=== PATIENT | male | born 1930 | race Asian ===

== ENCOUNTER 2017-01-13 14:32 | Inpatient (IN) | payer MEDICARE, OTHER ==
[2017-01-13 15:20] LABS: % LYMPHOCYTES 10.7 % (20.0-50.0); % MONOCYTES 9.9 % (2.0-10.0); % NEUTROPHILS 73.4 % (40.0-80.0); HEMOGLOBIN 10.6 gm/dL (12-16); MEAN CELL VOLUME 91.2 fl (80-99); MEAN CORPUSCULAR HEMOGLOBIN 30.3 pg (27.0-31.0); MEAN CORPUSCULAR HGB CONC 33.2 pg (28.0-36.0); MEAN PLATELET VOLUME 8.2 fl; NEUTROPHILE ABSOLUTE 5.4 Th/cmm (1.8-8.0); PLATELET COUNT 262 Th/cmm (150-400); RED CELL DISTRIBUTION WIDTH 13.7 % (11.5-20.0); WHITE BLOOD COUNT 7.4 Th/cmm (4.8-10.8)
[2017-01-13 15:40] LABS: ACETAMINOPHEN < 10.0 ug/mL (10.0-30.0); ALB/GLOB RATIO 1.3 (1.0-1.8); ALKALINE PHOSPHATASE 76 U/L (34-104); ANION GAP 7.4 (7.0-16.0); BILIRUBIN,TOTAL 0.6 mg/dL (0.3-1.0); BUN - UREA NITROGEN 30 mg/dL (7-25); CARBON DIOXIDE 29.1 mEq/L (21.0-31.0); CHLORIDE 103 mEq/L (98-107); CHOLESTEROL 124 mg/dL (<200); GLUCOSE 109 mg/dL (70-105); POTASSIUM SERUM 3.5 mEq/L (3.5-5.1); SGOT 26 U/L (13-39); SGPT/ALT 17 U/L (7-52); SODIUM SERUM 136 mEq/L (136-145); TRIGLYCERIDES 107 mg/dL (<150)
--- NOTE | 2017-01-13 15:40 | ED Physician Chart ---
ED Chief Complaint/HPI - Patient Information Date Seen:: 01/13/17 Time Seen:: 15:10 Chief Complaint:: Agitation History of Present Illness:: onset x 2 days of agitation and aggressive behavior; no SIs; no report of trauma , H/As, neck pain, C/P, SOB, Abd. Pain, A/N/V/D/C, fever, chills, or urinary s/s Allergies:: Allergies Allergy/AdvReac Type Severity Reaction Status Date / Time No Known Allergies Allergy Verified 01/13/17 15:07 Vitals:: Vital Signs - 8 hr 01/13/17 15:07 Temp 98.5 F HR 63 RR 17 BP 129/65 O2 Sat % 98 Historian:: Patient, EMS Review:: Nurse's Note Reviewed, EMS run form Reviewed, Transfer documents Reviewed ED Review of Systems - Review of Systems General/Constitutional: No fever, No chills, No weight loss, No weakness, No diaphoresis, No edema, No loss of appetite Skin: No skin lesions, No rash, No bruising Head: No headache, No light-headedness Eyes: No loss of vision, No pain, No diplopia ENT: No earache, No nasal drainage, No sore throat, No tinnitus Neck: No neck pain, No swelling, No thyromegaly, No stiffness, No mass noted Cardio Vascular: No chest pain, No palpitations, No PND, No orthopnea, No edema Pulmonary: No SOB, No cough, No sputum, No wheezing GI: No nausea, No vomiting, No diarrhea, No pain, No melena, No hematochezia, No constipation, No hematemesis G/U: No dysuria, No frequency, No hematuria Musculoskeletal: No bone or joint pain, No back pain, No muscle pain Endocrine: No polyuria, No polydipsia Psychiatric: Prior psych history, Depression, Anxiety, No suicidal ideation, No homicidal ideation, Auditory hallucination Hematopoietic: No bruising, No lymphadenopathy Allergic/Immuno: No urticaria, No angioedema Neurological: No syncope, No focal symptoms, No weakness, No paresthesia, No headache, No seizure, No dizziness, No confusion, No vertigo ED Past Medical History - Past Medical History Obtainable: Yes Past Medical History: Dementia Family History: HTN Social History: Non Smoker, No Alcohol, No Drug Use, Single, Care Facility Surgical History: None Psychiatricy History: Depression, Bipolar, Dementia Medication: Reviewed Family Medical History - Family Member Mother History Unknown: Yes ED Physical Exam - Physical Examination General/Constitutional: Awake, Well-developed, well-nourished, Alert, No distress, GCS 15, Non-toxic appearing, Ambulatory Head: Atraumatic Eyes: Lids, conjuctiva normal, PERRL, EOMI Skin: Nl inspection, No rash, No skin lesions, No ecchymosis, Well hydrated, No lymphadenopathy ENMT: External ears, nose nl, TM canals nl, Nasal exam nl, Lips, teeth, gums nl , Oropharynx nl, Tonsils nl Neck: Nontender, Full ROM w/o pain, No JVD, No nuchal rigidity, No bruit, No mass, No stridor Respiratory: Nl effort/Exclusion, Clear to Auscultation, No Wheeze/Rhonchi/Rales Cardio Vascular: RRR, No murmur, gallop, rubs, NL S1 S2, Carotid/Femoral/Distal pulses equal bilaterally GI: No tenderness/rebounding/guarding, No organomegaly, No hernia, Normal BS's, Nondistended, No mass/bruits, No McBurney tenderness : No CVA tenderness Extremities: No tenderness or effusion, Full ROM, normal strength in all extremities, No edema, Normal digits & nails Neuro/Psych: Alert/oriented, DTR's symmetric, Normal sensory exam, Normal motor strength, Normal gait, No focal deficits Other Neuro/Psych comments:: + Psychomotor Agitation; no SIs; Mood/Affect: Labile Misc: Normal back, No paraspinal tenderness ED Labs/Radiology/EKG Results - Lab Results Comments:: unremarkable ED Septic Shock - . Is Septic Shock (SBP<90, OR Lactate>4 mmol\L) present?: No - <6hrs of presentation: Vital Signs: Vital Signs - 8 hr 01/13/17 15:07 Temp 98.5 F HR 63 RR 17 BP 129/65 O2 Sat % 98 ED Reassessment (Disposition) - Reassessment Reassessment Condition:: Improved - Diagnosis Diagnosis:: Agitation; BiPolar Disorder; Manic-Depression; Medical Clearance - Aftercare/Follow up Instructions Aftercare/Follow-Up Instructions:: Counseled pt regarding lab results/diagnosis & need follow up, Counseled pt & family regarding lab results/diagnosis & need follow up - Patient Disposition Discharge/Transfer:: Acute Care w/in this hosp Accepting Physician:: Dr. Finch Admitted to:: [facility] Admitting Psych Physician:: Dr. Finch Condition at Disposition:: Stable, Improved ED Discharge Plan - Patient Disposition Instructions: Psychosis
[2017-01-13 17:41] VITALS: BP 139/64
[2017-01-14] MEDS ORDERED: Hydrocodone/APAP 5mg/325mg Tab PO PRN (12:11)
--- NOTE | 2017-01-14 12:20 | Internal Medicine Prog Note ---
Internal Medicine Subjective - Subjective Service Date: 01/14/17 ([id number] [facility] dictated) Internal Medicine Objective - Results Result Diagrams: 01/13/17 15:10 01/13/17 15:10 Recent Labs: Laboratory Last Values WBC 7.4 Th/cmm (4.8-10.8) 01/13/17 15:10 RBC 3.50 Mil/cmm (3.80-5.80) L 01/13/17 15:10 Hgb 10.6 gm/dL (12-16) L 01/13/17 15:10 Hct 32.0 % (41.0-60) L 01/13/17 15:10 MCV 91.2 fl (80-99) 01/13/17 15:10 MCH 30.3 pg (27.0-31.0) 01/13/17 15:10 MCHC Differential 33.2 pg (28.0-36.0) 01/13/17 15:10 RDW 13.7 % (11.5-20.0) 01/13/17 15:10 Plt Count 262 Th/cmm (150-400) 01/13/17 15:10 MPV 8.2 fl 01/13/17 15:10 Neutrophils % 73.4 % (40.0-80.0) 01/13/17 15:10 Lymphocytes % 10.7 % (20.0-50.0) L 01/13/17 15:10 Monocytes % 9.9 % (2.0-10.0) 01/13/17 15:10 Eosinophils % 5.0 % (0.0-5.0) 01/13/17 15:10 Basophils % 1.0 % (0.0-2.0) 01/13/17 15:10 Sodium 136 mEq/L (136-145) 01/13/17 15:10 Potassium 3.5 mEq/L (3.5-5.1) 01/13/17 15:10 Chloride 103 mEq/L (98-107) 01/13/17 15:10 Carbon Dioxide 29.1 mEq/L (21.0-31.0) 01/13/17 15:10 Anion Gap 7.4 (7.0-16.0) 01/13/17 15:10 BUN 30 mg/dL (7-25) H 01/13/17 15:10 Creatinine 1.0 mg/dL (0.7-1.3) 01/13/17 15:10 Est GFR ( Amer) TNP 01/13/17 15:10 Est GFR (Non-Af Amer) TNP 01/13/17 15:10 BUN/Creatinine Ratio 30.0 01/13/17 15:10 Glucose 109 mg/dL (70-105) H 01/13/17 15:10 Hemoglobin A1c % 5.7 % (4.0-6.0) 01/13/17 15:10 Calcium 9.0 mg/dL (8.6-10.3) 01/13/17 15:10 Total Bilirubin 0.6 mg/dL (0.3-1.0) 01/13/17 15:10 AST 26 U/L (13-39) 01/13/17 15:10 ALT 17 U/L (7-52) 01/13/17 15:10 Alkaline Phosphatase 76 U/L (34-104) 01/13/17 15:10 Total Protein 6.4 gm/dL (6.0-8.3) 01/13/17 15:10 Albumin 3.6 gm/dL (4.2-5.5) L 01/13/17 15:10 Globulin 2.8 gm/dL 01/13/17 15:10 Albumin/Globulin Ratio 1.3 (1.0-1.8) 01/13/17 15:10 Triglycerides 107 mg/dL (<150) 01/13/17 15:10 Cholesterol 124 mg/dL (<200) 01/13/17 15:10 LDL Cholesterol Direct 60 mg/dL (75-193) L 01/13/17 15:10 HDL Cholesterol 52 mg/dL (23-92) 01/13/17 15:10 TSH 2.70 uIU/ml (0.34-5.60) 01/13/17 15:10 Salicylates < 25.0 mg/L (30.0-100.0) L 01/13/17 15:10 Acetaminophen < 10.0 ug/mL (10.0-30.0) L 01/13/17 15:10 Ethyl Alcohol < 10 mg/dL (0-10) 01/13/17 15:10 RPR NONREACTIVE (NONREACTIVE) 01/13/17 15:10 - Physical Exam Vitals and I&O: Vital Signs Temp 98.8 F 01/14/17 06:00 Pulse 66 01/14/17 06:00 Resp 18 01/14/17 06:00 BP 112/62 01/14/17 06:00 Pulse Ox 96 01/14/17 06:00 Intake & Output 01/13/17 01/14/17 01/14/17 18:59 06:59 18:59 Output Total 0 Balance 0 Weight (lbs) 120 lb Output: Urine 0 Active Medications: Current Medications Acetaminophen (Tylenol) 650 mg PO Q6HR PRN PRN Reason: Mild Pain / Temp above 100 Stop: 03/14/17 20:58 Last Admin: 01/13/17 22:06 Dose: 650 mg Acetaminophen (Tylenol) 650 mg PO Q6HR PRN PRN Reason: Pain Or Fever Stop: 03/15/17 12:10 Acetaminophen/Hydrocodone Bitart ([place] 5mg/325mg) 1 tab PO Q6H PRN PRN Reason: PAIN Stop: 03/15/17 12:10 Docusate Sodium (Colace) 100 mg PO BID [facility] Stop: 03/15/17 16:59 Lorazepam (Ativan) 0.5 mg PO Q6HR PRN; Protocol PRN Reason: Anxiety Stop: 02/12/17 20:58 Last Admin: 01/13/17 22:07 Dose: 0.5 mg Lorazepam (Ativan) 0.5 mg PO Q6H PRN; Protocol PRN Reason: Anxiety Stop: 03/15/17 12:10 Miscellaneous (Zolpidem Tartrate [Ambien]) 10 mg PO HS [facility] Stop: 03/15/17 20:59 Quetiapine Fumarate (Seroquel) 50 mg PO BID [facility] Stop: 03/15/17 16:59 Quetiapine Fumarate (Seroquel) 50 mg PO BID [facility] PRN Reason: Protocol Stop: 03/15/17 16:59 Internal Medicine Assmt/Plan - Assessment Assessment: acute renal insufficiency mild protein calorie malnutrition dementia bipolar
--- NOTE | 2017-01-14 16:59 | History & Physical ---
ADMIT DATE: 01/14/2017 CHIEF COMPLAINT: Agitation. HISTORY OF PRESENT ILLNESS: This is an 86-year-old male who is a prison resident who was brought here to [facility] for 2-day history of agitation and aggressive behavior towards nursing staff. For this reason, the patient is now admitted to the Geropsych Unit. PAST MEDICAL HISTORY: Hypertension. FAMILY HISTORY: Noncontributory. SOCIAL HISTORY: The patient is a prison resident, requiring 24-hour nursing care. PAST SURGICAL HISTORY: Unknown. PSYCHIATRIC HISTORY: Depression, bipolar, and dementia. MEDICATIONS: Tylenol, docusate sodium, Ativan, Seroquel, and Ambien. REVIEW OF SYSTEMS: Unable to obtain, the patient is confused. PHYSICAL EXAMINATION: GENERAL: The patient is an elderly male. Awake, alert, and in no apparent distress. VITAL SIGNS: Temperature 98.8, heart rate 66, blood pressure 112/62, respirations 18, and O2 96%. HEENT: Head is normocephalic and atraumatic. NECK: Supple. No mass. LUNGS: Clear bilaterally. HEART: Regular rhythm. ABDOMEN: Soft and nontender. LABORATORY DATA: WBC 7.4, H and H 10.6 and 32.0, and platelets 262. BUN 30 and creatinine 1.0. Albumin 3.6. ASSESSMENT: Agitation, dementia, psychosis, depression, bipolar, acute renal insufficiency, and mild protein-calorie malnutrition. PLAN: The patient is admitted to the Geropsych Unit. We will keep the patient hydrated by encouraging the patient for fluid intake. We will monitor the patient's BUN and creatinine. We will also get the patient's lipid panel as well. Fall precautions will be initiated. Dietitian to assess the patient's dietary intake for protein. We will continue to follow this patient. JOB# [id number]
[2017-01-14 18:46] LABS: URINE BILIRUBIN NEGATIVE (NEGATIVE); URINE BLOOD NEGATIVE (NEGATIVE); URINE GLUCOSE (UA) NEGATIVE (NEGATIVE); URINE KETONE NEGATIVE (NEGATIVE); URINE PH 5.5 (4.6 - 8.0); URINE PROTEIN NEGATIVE (NEGATIVE); URINE UROBILINOGEN 0.2 E.U./dL (0.2 - 1.0)
[2017-01-14 18:52] LABS: URINE COLOR STRAW
[2017-01-14 18:53] LABS: URINE BACTERIA NONE SEEN /hpf (NONE SEEN); URINE EPITHELIAL CELLS NONE SEEN /lpf (FEW); URINE RBC NONE SEEN /hpf (0-5); URINE WBC NONE SEEN /hpf (0-5)
[2017-01-14 18:59] LABS: AMPHETAMINE URINE NEGATIVE (NEGATIVE); BARBITURATES URINE NEGATIVE (NEGATIVE); METHADONE URINE NEGATIVE (NEGATIVE)
--- NOTE | 2017-01-15 00:28 | Psychosocial Evaluation ---
DATE OF SERVICE: 01/13/2017 CHIEF COMPLAINT: Confusion and agitation. HISTORY OF PRESENT ILLNESS: The patient is an 86-year-old male who is living in [facility]. The patient was transferred to Geropsych Unit in [facility] because of increased agitation and increased confusion and aggressive behavior. The patient also has been not able to follow any of staff directions. Chart reviewed and patient interviewed and discussed the patient's condition with the staff. The patient is disheveled and has been wandering around the unit in a confused state. He has been wandering into patients' rooms and looking outside the unit door thinking that somebody outside is coming to visit him. He does not know that he is in the hospital and he thinks that he is in his house. The patient also was agitated and was getting angry and irritable when tried to redirect him. He did communicate with me in [place] language which I speak. He said that he was born in [place] and he did remember his date, but he does not know today's date or where he lives. He said that he has 6 children. He was not able to tell me if he is or not or if his alive or not. Also he was getting more agitated with my questions. PAST PSYCHIATRIC HISTORY: The patient has history of bipolar disorder according to the chart. He is taking currently Seroquel in a dose of 50 mg twice a day. PAST MEDICAL HISTORY: Hypertension. CHEMICAL DEPENDENCY HISTORY: The patient denies smoking or drug use. FAMILY PSYCHIATRIC AND CHEMICAL DEPENDENCY: Not known. SOCIAL HISTORY: The patient lives in [facility]. No known alcohol or street drug use. The patient said that he has 6 children. ALLERGIES: No known allergies. MENTAL STATUS EXAMINATION: The patient appears slightly younger than stated age. Wearing shorts and shirts and disheveled. The patient is confused and agitated and thought processes are disorganized. The patient did not answer questions regarding hallucinations or delusions, but actively responding to stimuli and talking to self. The patient denied suicide or homicide. The patient is alert, but disoriented to the situation, time and place. Impaired immediate and recent memory, but intact remote memory and he did remember his date. Poor insight. Poor judgment. ASSESSMENT: PRIMARY DIAGNOSIS: Bipolar disorder, mixed type, with psychotic features. SECONDARY DIAGNOSIS: Dementia, moderate, with psychosis. TREATMENT PLAN: We will continue Seroquel and we will adjust the dose. We will monitor psychotropic medications. We will work on behavioral modification and his agitation. ESTIMATED LENGTH OF STAY: 7-10 days. THE PATIENT'S STRENGTHS AND WEAKNESSES: The patient's strength is not clear at this time except he seems to be in relatively fair health. Weakness is his poor impulse control and his agitation. AFTER DISCHARGE PLAN: The patient will return to [facility] with plans for outpatient treatment and follow him there. CRITERIA FOR DISCHARGE: The patient will not be aggressive or agitated and will stabilize psychotropic medications and will establish outpatient treatment plans. JOB# [id number]
[2017-01-15 06:07] LABS: % BASOPHILS 0.7 % (0.0-2.0); % EOSINOPHILS 3.9 % (0.0-5.0); % LYMPHOCYTES 9.2 % (20.0-50.0); % NEUTROPHILS 77.2 % (40.0-80.0); HEMATOCRIT 32.4 % (41.0-60); MEAN CELL VOLUME 90.2 fl (80-99); MEAN CORPUSCULAR HEMOGLOBIN 30.6 pg (27.0-31.0); MEAN CORPUSCULAR HGB CONC 33.9 pg (28.0-36.0); MEAN PLATELET VOLUME 8.1 fl; PLATELET COUNT 289 Th/cmm (150-400); RED BLOOD COUNT 3.59 Mil/cmm (3.80-5.80)
[2017-01-15 06:08] LABS: WHITE BLOOD COUNT 9.1 Th/cmm (4.8-10.8)
[2017-01-15 06:26] LABS: ANION GAP 10.1 (7.0-16.0); BUN - UREA NITROGEN 29 mg/dL (7-25); CALCIUM SERUM 9.6 mg/dL (8.6-10.3); CARBON DIOXIDE 26.9 mEq/L (21.0-31.0); CHLORIDE 104 mEq/L (98-107); CHOLESTEROL 151 mg/dL (<200); GLUCOSE 110 mg/dL (70-105); SODIUM SERUM 137 mEq/L (136-145); TRIGLYCERIDES 66 mg/dL (<150)
--- NOTE | 2017-01-15 11:19 | Internal Medicine Prog Note ---
Internal Medicine Subjective - Subjective Service Date: 01/15/17 Patient seen and examined:: with staff Patient is:: awake Per staff patient has:: no adverse event Internal Medicine Objective - Results Result Diagrams: 01/15/17 05:50 01/15/17 05:50 Recent Labs: Laboratory Last Values WBC 9.1 Th/cmm (4.8-10.8) D 01/15/17 05:50 RBC 3.59 Mil/cmm (3.80-5.80) L 01/15/17 05:50 Hgb 11.0 gm/dL (12-16) L 01/15/17 05:50 Hct 32.4 % (41.0-60) L 01/15/17 05:50 MCV 90.2 fl (80-99) 01/15/17 05:50 MCH 30.6 pg (27.0-31.0) 01/15/17 05:50 MCHC Differential 33.9 pg (28.0-36.0) 01/15/17 05:50 RDW 14.0 % (11.5-20.0) 01/15/17 05:50 Plt Count 289 Th/cmm (150-400) 01/15/17 05:50 MPV 8.1 fl 01/15/17 05:50 Neutrophils % 77.2 % (40.0-80.0) 01/15/17 05:50 Lymphocytes % 9.2 % (20.0-50.0) L 01/15/17 05:50 Monocytes % 9.0 % (2.0-10.0) 01/15/17 05:50 Eosinophils % 3.9 % (0.0-5.0) 01/15/17 05:50 Basophils % 0.7 % (0.0-2.0) 01/15/17 05:50 Sodium 137 mEq/L (136-145) 01/15/17 05:50 Potassium 4.0 mEq/L (3.5-5.1) 01/15/17 05:50 Chloride 104 mEq/L (98-107) 01/15/17 05:50 Carbon Dioxide 26.9 mEq/L (21.0-31.0) 01/15/17 05:50 Anion Gap 10.1 (7.0-16.0) 01/15/17 05:50 BUN 29 mg/dL (7-25) H 01/15/17 05:50 Creatinine 1.0 mg/dL (0.7-1.3) 01/15/17 05:50 Est GFR ( Amer) TNP 01/15/17 05:50 Est GFR (Non-Af Amer) TNP 01/15/17 05:50 BUN/Creatinine Ratio 29.0 01/15/17 05:50 Glucose 110 mg/dL (70-105) H 01/15/17 05:50 Hemoglobin A1c % 5.7 % (4.0-6.0) 01/13/17 15:10 Calcium 9.6 mg/dL (8.6-10.3) 01/15/17 05:50 Total Bilirubin 0.6 mg/dL (0.3-1.0) 01/13/17 15:10 AST 26 U/L (13-39) 01/13/17 15:10 ALT 17 U/L (7-52) 01/13/17 15:10 Alkaline Phosphatase 76 U/L (34-104) 01/13/17 15:10 Total Protein 6.4 gm/dL (6.0-8.3) 01/13/17 15:10 Albumin 3.6 gm/dL (4.2-5.5) L 01/13/17 15:10 Globulin 2.8 gm/dL 01/13/17 15:10 Albumin/Globulin Ratio 1.3 (1.0-1.8) 01/13/17 15:10 Triglycerides 66 mg/dL (<150) 01/15/17 05:50 Cholesterol 151 mg/dL (<200) 01/15/17 05:50 LDL Cholesterol Direct 83 mg/dL (75-193) 01/15/17 05:50 HDL Cholesterol 64 mg/dL (23-92) 01/15/17 05:50 TSH 2.70 uIU/ml (0.34-5.60) 01/13/17 15:10 Urine Source CLEAN C 01/14/17 18:15 Urine Color STRAW 01/14/17 18:15 Urine Clarity CLEAR (CLEAR) 01/14/17 18:15 Urine pH 5.5 (4.6 - 8.0) 01/14/17 18:15 Ur Specific [place] 1.010 (1.005-1.030) 01/14/17 18:15 Urine Protein NEGATIVE mg/dL (NEGATIVE) 01/14/17 18:15 Urine Glucose (UA) NEGATIVE mg/dL (NEGATIVE) 01/14/17 18:15 Urine Ketones NEGATIVE mg/dL (NEGATIVE) 01/14/17 18:15 Urine Blood NEGATIVE (NEGATIVE) 01/14/17 18:15 Urine Nitrate NEGATIVE (NEGATIVE) 01/14/17 18:15 Urine Bilirubin NEGATIVE (NEGATIVE) 01/14/17 18:15 Urine Urobilinogen 0.2 E.U./dL (0.2 - 1.0) 01/14/17 18:15 Ur Leukocyte Esterase NEGATIVE (NEGATIVE) 01/14/17 18:15 Urine RBC NONE SEEN /hpf (0-5) 01/14/17 18:15 Urine WBC NONE SEEN /hpf (0-5) 01/14/17 18:15 Ur Epithelial Cells NONE SEEN /lpf (FEW) 01/14/17 18:15 Urine Bacteria NONE SEEN /hpf (NONE SEEN) 01/14/17 18:15 Salicylates < 25.0 mg/L (30.0-100.0) L 01/13/17 15:10 Urine Opiates Screen NEGATIVE (NEGATIVE) 01/14/17 18:15 Urine Methadone Screen NEGATIVE (NEGATIVE) 01/14/17 18:15 Acetaminophen < 10.0 ug/mL (10.0-30.0) L 01/13/17 15:10 Ur Barbiturates Screen NEGATIVE (NEGATIVE) 01/14/17 18:15 Ur Tricyclics Screen NEGATIVE (NEGATIVE) 01/14/17 18:15 Ur Phencyclidine Scrn NEGATIVE (NEGATIVE) 01/14/17 18:15 Amphetamines Screen NEGATIVE (NEGATIVE) 01/14/17 18:15 U Methamphetamines Scrn NEGATIVE (NEGATIVE) 01/14/17 18:15 U Benzodiazepines Scrn NEGATIVE (NEGATIVE) 01/14/17 18:15 U Cocaine Metab Screen NEGATIVE (NEGATIVE) 01/14/17 18:15 U Cannabinoids Screen NEGATIVE (NEGATIVE) 01/14/17 18:15 Ethyl Alcohol < 10 mg/dL (0-10) 01/13/17 15:10 RPR NONREACTIVE (NONREACTIVE) 01/13/17 15:10 - Physical Exam Vitals and I&O: Vital Signs Temp 97.2 F 01/15/17 06:44 Pulse 78 01/15/17 06:44 Resp 18 01/15/17 06:44 BP 126/63 01/15/17 06:44 Pulse Ox 96 01/15/17 06:44 Intake & Output 01/14/17 01/15/17 01/15/17 18:59 06:59 18:59 Intake Total 120 Balance 120 Intake: Oral 120 Other: # Voids 3 Active Medications: Current Medications Acetaminophen (Tylenol) 650 mg PO Q6HR PRN PRN Reason: Mild Pain / Temp above 100 Stop: 03/14/17 20:58 Last Admin: 01/13/17 22:06 Dose: 650 mg Acetaminophen/Hydrocodone Bitart ([place] 5mg/325mg) 1 tab PO Q6H PRN PRN Reason: MODERATE-SEVERE PAIN Stop: 03/15/17 12:10 Docusate Sodium (Colace) 100 mg PO BID [facility] Stop: 03/15/17 16:59 Last Admin: 01/15/17 08:42 Dose: 100 mg Lorazepam (Ativan) 0.5 mg PO Q6H PRN; Protocol PRN Reason: Anxiety Stop: 03/15/17 12:10 Quetiapine Fumarate (Seroquel) 50 mg PO BID [facility] PRN Reason: Protocol Stop: 03/15/17 16:59 Last Admin: 01/15/17 08:42 Dose: 50 mg Zolpidem Tartrate (Ambien) 10 mg PO HS [facility] Stop: 03/15/17 20:59 Last Admin: 01/14/17 21:44 Dose: 10 mg General: alert HEENT: NC/AT, PERRLA Neck: Supple Lungs: CTAB Cardiovascular: RRR, Normal S1, Normal S2, without murmur Abdomen: soft, non-tender, non-distended, positive bowel sound Neurological: alert Internal Medicine Assmt/Plan - Assessment Assessment: acute renal insufficiency mild protein calorie malnutrition dementia bipolar - Plan Plan: monitor patients po intake encourage fluids safety precautions continue current plan of care
--- NOTE | 2017-01-16 03:34 | Progress Notes ---
DATE: SUBJECTIVE: Chart reviewed and the patient interviewed. Also, discussed the patient's condition with the staff and reviewed records and labs. The patient is still extremely irritable and extremely agitated. The patient also is still confused and he was fighting with ____ chair, trying to get out of the chair and trying to break it. The patient also is having difficulty following any directions. Also, when I ____ has grandiose delusions and telling me that he has "16 children." Yesterday, he told me that he has 5 or 6. The patient also is having episodes of anger and irritability and fighting with the staff. ASSESSMENT: The patient is still psychotic and agitated. TREATMENT PLAN: We will continue to monitor his behavior and his condition closely. Also, continue to work on his irritability and his agitation. Also, we will continue adjusting psychotropic medications and patient continue to take Seroquel at dose of 50 mg twice a day and we will continue to follow up. [facility]# [id number]
--- NOTE | 2017-01-16 11:38 | Internal Medicine Prog Note ---
Internal Medicine Subjective - Subjective Service Date: 01/16/17 Patient is:: awake Per staff patient has:: no adverse event Internal Medicine Objective - Results Result Diagrams: 01/15/17 05:50 01/15/17 05:50 Recent Labs: Laboratory Last Values WBC 9.1 Th/cmm (4.8-10.8) D 01/15/17 05:50 RBC 3.59 Mil/cmm (3.80-5.80) L 01/15/17 05:50 Hgb 11.0 gm/dL (12-16) L 01/15/17 05:50 Hct 32.4 % (41.0-60) L 01/15/17 05:50 MCV 90.2 fl (80-99) 01/15/17 05:50 MCH 30.6 pg (27.0-31.0) 01/15/17 05:50 MCHC Differential 33.9 pg (28.0-36.0) 01/15/17 05:50 RDW 14.0 % (11.5-20.0) 01/15/17 05:50 Plt Count 289 Th/cmm (150-400) 01/15/17 05:50 MPV 8.1 fl 01/15/17 05:50 Neutrophils % 77.2 % (40.0-80.0) 01/15/17 05:50 Lymphocytes % 9.2 % (20.0-50.0) L 01/15/17 05:50 Monocytes % 9.0 % (2.0-10.0) 01/15/17 05:50 Eosinophils % 3.9 % (0.0-5.0) 01/15/17 05:50 Basophils % 0.7 % (0.0-2.0) 01/15/17 05:50 Sodium 137 mEq/L (136-145) 01/15/17 05:50 Potassium 4.0 mEq/L (3.5-5.1) 01/15/17 05:50 Chloride 104 mEq/L (98-107) 01/15/17 05:50 Carbon Dioxide 26.9 mEq/L (21.0-31.0) 01/15/17 05:50 Anion Gap 10.1 (7.0-16.0) 01/15/17 05:50 BUN 29 mg/dL (7-25) H 01/15/17 05:50 Creatinine 1.0 mg/dL (0.7-1.3) 01/15/17 05:50 Est GFR ( Amer) TNP 01/15/17 05:50 Est GFR (Non-Af Amer) TNP 01/15/17 05:50 BUN/Creatinine Ratio 29.0 01/15/17 05:50 Glucose 110 mg/dL (70-105) H 01/15/17 05:50 Hemoglobin A1c % 5.7 % (4.0-6.0) 01/13/17 15:10 Calcium 9.6 mg/dL (8.6-10.3) 01/15/17 05:50 Total Bilirubin 0.6 mg/dL (0.3-1.0) 01/13/17 15:10 AST 26 U/L (13-39) 01/13/17 15:10 ALT 17 U/L (7-52) 01/13/17 15:10 Alkaline Phosphatase 76 U/L (34-104) 01/13/17 15:10 Total Protein 6.4 gm/dL (6.0-8.3) 01/13/17 15:10 Albumin 3.6 gm/dL (4.2-5.5) L 01/13/17 15:10 Globulin 2.8 gm/dL 01/13/17 15:10 Albumin/Globulin Ratio 1.3 (1.0-1.8) 01/13/17 15:10 Triglycerides 66 mg/dL (<150) 01/15/17 05:50 Cholesterol 151 mg/dL (<200) 01/15/17 05:50 LDL Cholesterol Direct 83 mg/dL (75-193) 01/15/17 05:50 HDL Cholesterol 64 mg/dL (23-92) 01/15/17 05:50 TSH 2.70 uIU/ml (0.34-5.60) 01/13/17 15:10 Urine Source CLEAN C 01/14/17 18:15 Urine Color STRAW 01/14/17 18:15 Urine Clarity CLEAR (CLEAR) 01/14/17 18:15 Urine pH 5.5 (4.6 - 8.0) 01/14/17 18:[address] 1.010 (1.005-1.030) 01/14/17 18:15 Urine Protein NEGATIVE mg/dL (NEGATIVE) 01/14/17 18:15 Urine Glucose (UA) NEGATIVE mg/dL (NEGATIVE) 01/14/17 18:15 Urine Ketones NEGATIVE mg/dL (NEGATIVE) 01/14/17 18:15 Urine Blood NEGATIVE (NEGATIVE) 01/14/17 18:15 Urine Nitrate NEGATIVE (NEGATIVE) 01/14/17 18:15 Urine Bilirubin NEGATIVE (NEGATIVE) 01/14/17 18:15 Urine Urobilinogen 0.2 E.U./dL (0.2 - 1.0) 01/14/17 18:15 Ur Leukocyte Esterase NEGATIVE (NEGATIVE) 01/14/17 18:15 Urine RBC NONE SEEN /hpf (0-5) 01/14/17 18:15 Urine WBC NONE SEEN /hpf (0-5) 01/14/17 18:15 Ur Epithelial Cells NONE SEEN /lpf (FEW) 01/14/17 18:15 Urine Bacteria NONE SEEN /hpf (NONE SEEN) 01/14/17 18:15 Salicylates < 25.0 mg/L (30.0-100.0) L 01/13/17 15:10 Urine Opiates Screen NEGATIVE (NEGATIVE) 01/14/17 18:15 Urine Methadone Screen NEGATIVE (NEGATIVE) 01/14/17 18:15 Acetaminophen < 10.0 ug/mL (10.0-30.0) L 01/13/17 15:10 Ur Barbiturates Screen NEGATIVE (NEGATIVE) 01/14/17 18:15 Ur Tricyclics Screen NEGATIVE (NEGATIVE) 01/14/17 18:15 Ur Phencyclidine Scrn NEGATIVE (NEGATIVE) 01/14/17 18:15 Amphetamines Screen NEGATIVE (NEGATIVE) 01/14/17 18:15 U Methamphetamines Scrn NEGATIVE (NEGATIVE) 01/14/17 18:15 U Benzodiazepines Scrn NEGATIVE (NEGATIVE) 01/14/17 18:15 U Cocaine Metab Screen NEGATIVE (NEGATIVE) 01/14/17 18:15 U Cannabinoids Screen NEGATIVE (NEGATIVE) 01/14/17 18:15 Ethyl Alcohol < 10 mg/dL (0-10) 01/13/17 15:10 RPR NONREACTIVE (NONREACTIVE) 01/13/17 15:10 - Physical Exam Vitals and I&O: Vital Signs Temp 98.8 F 01/16/17 00:49 Pulse 86 01/16/17 00:49 Resp 20 01/16/17 00:49 BP 106/58 01/16/17 00:49 Pulse Ox 99 01/16/17 00:49 Intake & Output 01/15/17 01/16/17 01/16/17 18:59 06:59 18:59 Intake Total 1200 Balance 1200 Intake: Oral 1200 Other: # Bowel Movements 1 Active Medications: Current Medications Acetaminophen (Tylenol) 650 mg PO Q6HR PRN PRN Reason: Mild Pain / Temp above 100 Stop: 03/14/17 20:58 Last Admin: 01/13/17 22:06 Dose: 650 mg Acetaminophen/Hydrocodone Bitart ([place] 5mg/325mg) 1 tab PO Q6H PRN PRN Reason: MODERATE-SEVERE PAIN Stop: 03/15/17 12:10 Docusate Sodium (Colace) 100 mg PO BID [facility] Stop: 03/15/17 16:59 Last Admin: 01/16/17 11:31 Dose: Not Given Lorazepam (Ativan) 0.5 mg PO Q6H PRN; Protocol PRN Reason: Anxiety Stop: 03/15/17 12:10 Last Admin: 01/15/17 18:23 Dose: 0.5 mg Mupirocin (Bactroban Oint) 1 appl NS BID [facility] Stop: 01/20/17 17:01 Quetiapine Fumarate (Seroquel) 50 mg PO BID [facility] PRN Reason: Protocol Stop: 03/15/17 16:59 Last Admin: 01/16/17 08:40 Dose: 50 mg Zolpidem Tartrate (Ambien) 10 mg PO HS [facility] Stop: 03/15/17 20:59 Last Admin: 01/15/17 21:04 Dose: 10 mg General: alert HEENT: NC/AT, PERRLA Neck: Supple Lungs: CTAB Cardiovascular: RRR, Normal S1, Normal S2, without murmur Abdomen: soft, non-tender, non-distended, positive bowel sound Neurological: alert Internal Medicine Assmt/Plan - Assessment Assessment: acute renal insufficiency mild protein calorie malnutrition dementia bipolar - Plan Plan: monitor patients po intake encourage fluids safety precautions continue current plan of care
--- NOTE | 2017-01-17 19:53 | Internal Medicine Prog Note ---
Internal Medicine Subjective - Subjective Patient seen and examined:: with staff, chart reviewed Patient is:: awake Per staff patient has:: no adverse event Internal Medicine Objective - Results Result Diagrams: 01/15/17 05:50 01/15/17 05:50 Recent Labs: Laboratory Last Values WBC 9.1 Th/cmm (4.8-10.8) D 01/15/17 05:50 RBC 3.59 Mil/cmm (3.80-5.80) L 01/15/17 05:50 Hgb 11.0 gm/dL (12-16) L 01/15/17 05:50 Hct 32.4 % (41.0-60) L 01/15/17 05:50 MCV 90.2 fl (80-99) 01/15/17 05:50 MCH 30.6 pg (27.0-31.0) 01/15/17 05:50 MCHC Differential 33.9 pg (28.0-36.0) 01/15/17 05:50 RDW 14.0 % (11.5-20.0) 01/15/17 05:50 Plt Count 289 Th/cmm (150-400) 01/15/17 05:50 MPV 8.1 fl 01/15/17 05:50 Neutrophils % 77.2 % (40.0-80.0) 01/15/17 05:50 Lymphocytes % 9.2 % (20.0-50.0) L 01/15/17 05:50 Monocytes % 9.0 % (2.0-10.0) 01/15/17 05:50 Eosinophils % 3.9 % (0.0-5.0) 01/15/17 05:50 Basophils % 0.7 % (0.0-2.0) 01/15/17 05:50 Sodium 137 mEq/L (136-145) 01/15/17 05:50 Potassium 4.0 mEq/L (3.5-5.1) 01/15/17 05:50 Chloride 104 mEq/L (98-107) 01/15/17 05:50 Carbon Dioxide 26.9 mEq/L (21.0-31.0) 01/15/17 05:50 Anion Gap 10.1 (7.0-16.0) 01/15/17 05:50 BUN 29 mg/dL (7-25) H 01/15/17 05:50 Creatinine 1.0 mg/dL (0.7-1.3) 01/15/17 05:50 Est GFR ( Amer) TNP 01/15/17 05:50 Est GFR (Non-Af Amer) TNP 01/15/17 05:50 BUN/Creatinine Ratio 29.0 01/15/17 05:50 Glucose 110 mg/dL (70-105) H 01/15/17 05:50 Hemoglobin A1c % 5.7 % (4.0-6.0) 01/13/17 15:10 Calcium 9.6 mg/dL (8.6-10.3) 01/15/17 05:50 Total Bilirubin 0.6 mg/dL (0.3-1.0) 01/13/17 15:10 AST 26 U/L (13-39) 01/13/17 15:10 ALT 17 U/L (7-52) 01/13/17 15:10 Alkaline Phosphatase 76 U/L (34-104) 01/13/17 15:10 Total Protein 6.4 gm/dL (6.0-8.3) 01/13/17 15:10 Albumin 3.6 gm/dL (4.2-5.5) L 01/13/17 15:10 Globulin 2.8 gm/dL 01/13/17 15:10 Albumin/Globulin Ratio 1.3 (1.0-1.8) 01/13/17 15:10 Triglycerides 66 mg/dL (<150) 01/15/17 05:50 Cholesterol 151 mg/dL (<200) 01/15/17 05:50 LDL Cholesterol Direct 83 mg/dL (75-193) 01/15/17 05:50 HDL Cholesterol 64 mg/dL (23-92) 01/15/17 05:50 TSH 2.70 uIU/ml (0.34-5.60) 01/13/17 15:10 Urine Source CLEAN C 01/14/17 18:15 Urine Color STRAW 01/14/17 18:15 Urine Clarity CLEAR (CLEAR) 01/14/17 18:15 Urine pH 5.5 (4.6 - 8.0) 01/14/17 18:15 Ur Specific [place] 1.010 (1.005-1.030) 01/14/17 18:15 Urine Protein NEGATIVE mg/dL (NEGATIVE) 01/14/17 18:15 Urine Glucose (UA) NEGATIVE mg/dL (NEGATIVE) 01/14/17 18:15 Urine Ketones NEGATIVE mg/dL (NEGATIVE) 01/14/17 18:15 Urine Blood NEGATIVE (NEGATIVE) 01/14/17 18:15 Urine Nitrate NEGATIVE (NEGATIVE) 01/14/17 18:15 Urine Bilirubin NEGATIVE (NEGATIVE) 01/14/17 18:15 Urine Urobilinogen 0.2 E.U./dL (0.2 - 1.0) 01/14/17 18:15 Ur Leukocyte Esterase NEGATIVE (NEGATIVE) 01/14/17 18:15 Urine RBC NONE SEEN /hpf (0-5) 01/14/17 18:15 Urine WBC NONE SEEN /hpf (0-5) 01/14/17 18:15 Ur Epithelial Cells NONE SEEN /lpf (FEW) 01/14/17 18:15 Urine Bacteria NONE SEEN /hpf (NONE SEEN) 01/14/17 18:15 Salicylates < 25.0 mg/L (30.0-100.0) L 01/13/17 15:10 Urine Opiates Screen NEGATIVE (NEGATIVE) 01/14/17 18:15 Urine Methadone Screen NEGATIVE (NEGATIVE) 01/14/17 18:15 Acetaminophen < 10.0 ug/mL (10.0-30.0) L 01/13/17 15:10 Ur Barbiturates Screen NEGATIVE (NEGATIVE) 01/14/17 18:15 Ur Tricyclics Screen NEGATIVE (NEGATIVE) 01/14/17 18:15 Ur Phencyclidine Scrn NEGATIVE (NEGATIVE) 01/14/17 18:15 Amphetamines Screen NEGATIVE (NEGATIVE) 01/14/17 18:15 U Methamphetamines Scrn NEGATIVE (NEGATIVE) 01/14/17 18:15 U Benzodiazepines Scrn NEGATIVE (NEGATIVE) 01/14/17 18:15 U Cocaine Metab Screen NEGATIVE (NEGATIVE) 01/14/17 18:15 U Cannabinoids Screen NEGATIVE (NEGATIVE) 01/14/17 18:15 Ethyl Alcohol < 10 mg/dL (0-10) 01/13/17 15:10 RPR NONREACTIVE (NONREACTIVE) 01/13/17 15:10 - Physical Exam Vitals and I&O: Vital Signs Temp 98.6 F 01/17/17 14:00 Pulse 84 11/04/17 14:00 Resp 18 01/17/17 14:00 BP 107/50 01/17/17 14:00 Pulse Ox 97 01/17/17 14:00 Intake & Output 01/17/17 01/17/17 01/18/17 06:59 18:59 05:59 Intake Total 240 1000 Balance 240 1000 Intake: Oral 240 1000 Other: # Voids 1 4 # Bowel Movements 1 Active Medications: Current Medications Acetaminophen (Tylenol) 650 mg PO Q6HR PRN PRN Reason: Mild Pain / Temp above 100 Stop: 03/14/17 20:58 Last Admin: 01/13/17 22:06 Dose: 650 mg Acetaminophen/Hydrocodone Bitart ([place] 5mg/325mg) 1 tab PO Q6H PRN PRN Reason: MODERATE-SEVERE PAIN Stop: 03/15/17 12:10 Docusate Sodium (Colace) 100 mg PO BID [facility] Stop: 03/15/17 16:59 Last Admin: 01/17/17 17:17 Dose: 100 mg Lorazepam (Ativan) 0.5 mg PO Q6H PRN; Protocol PRN Reason: Anxiety Stop: 03/15/17 12:10 Last Admin: 01/16/17 13:34 Dose: 0.5 mg Mupirocin (Bactroban Oint) 1 appl NS BID [facility] Stop: 01/20/17 17:01 Last Admin: 01/17/17 17:20 Dose: 1 appl Quetiapine Fumarate (Seroquel) 50 mg PO BID [facility] PRN Reason: Protocol Stop: 03/15/17 16:59 Last Admin: 01/17/17 17:16 Dose: 50 mg Zolpidem Tartrate (Ambien) 10 mg PO HS [facility] Stop: 03/15/17 20:59 Last Admin: 01/16/17 20:39 Dose: 10 mg General: alert HEENT: NC/AT, PERRLA Neck: Supple Lungs: CTAB Cardiovascular: RRR, Normal S1, Normal S2, without murmur Abdomen: soft, non-tender, non-distended, positive bowel sound Neurological: alert Internal Medicine Assmt/Plan - Assessment Assessment: acute renal insufficiency mild protein calorie malnutrition dementia bipolar - Plan Plan: acute renal insufficiency mild protein calorie malnutrition dementia bipolar - Plan Plan: monitor patients po intake encourage fluids safety precautions continue current plan of care
--- NOTE | 2017-01-18 11:24 | Progress Notes ---
DATE: 01/16/2017 SUBJECTIVE: Chart reviewed and the patient interviewed. Also discussed the patient's condition with the staff and reviewed records and labs. The patient continued to be confused and he is still easily agitated. The patient also is actively hallucinating and the patient is talking to himself. The patient also needs redirections. He also is still having mood swings and he is still having episodes of fighting and aggressive with the staff and also episodes of trying to hit gurney chair with his fist and trying to get out of it. Also, still episodes of yelling and screaming. Otherwise, the patient is compliant with taking his medications and he denies any side effects of medications. ASSESSMENT: The patient is still psychotic and is still easily agitated. TREATMENT PLAN: We will continue to monitor his behavior and his condition closely. Also, continue working on behavioral modification and adjusting psychotropic medications. JOB# [id number]
--- NOTE | 2017-01-18 16:13 | Consultation ---
DATE OF CONSULTATION: SUBJECTIVE: The patient was seen and evaluated. The patient's chart reviewed. Overnight, nursing staff reporting that the patient has been disorganized, urinating in the hallway. Today on [id number] evaluation, the patient is in his chair, easily disorganized believe that ____ having food in front of him, very difficult to engage in a linear conversation as he easily derails. MENTAL STATUS EXAMINATION: Disorganized, grandiose delusions telling that he has 16 children, and peeing in the hallway. ASSESSMENT AND PLAN: The patient is an 86-year-old male who continues to be disorganized with flight of ideas, derailing, unable to formulate a safety plan outside the structured environment. We will continue with primary psychiatrist treatment plan and goals, which include Seroquel 50 mg p.o. b.i.d. to target the patient's disorganized and psychotic behavior. [facility]# [id number]
--- NOTE | 2017-01-18 20:59 | Internal Medicine Prog Note ---
Internal Medicine Subjective - Subjective Patient seen and examined:: with staff, chart reviewed Patient is:: awake Per staff patient has:: no adverse event, no episodes of fall, eating well, confused, tolerating meds Internal Medicine Objective - Results Result Diagrams: 01/15/17 05:50 01/15/17 05:50 Recent Labs: Laboratory Last Values WBC 9.1 Th/cmm (4.8-10.8) D 01/15/17 05:50 RBC 3.59 Mil/cmm (3.80-5.80) L 01/15/17 05:50 Hgb 11.0 gm/dL (12-16) L 01/15/17 05:50 Hct 32.4 % (41.0-60) L 01/15/17 05:50 MCV 90.2 fl (80-99) 01/15/17 05:50 MCH 30.6 pg (27.0-31.0) 01/15/17 05:50 MCHC Differential 33.9 pg (28.0-36.0) 01/15/17 05:50 RDW 14.0 % (11.5-20.0) 01/15/17 05:50 Plt Count 289 Th/cmm (150-400) 01/15/17 05:50 MPV 8.1 fl 01/15/17 05:50 Neutrophils % 77.2 % (40.0-80.0) 01/15/17 05:50 Lymphocytes % 9.2 % (20.0-50.0) L 01/15/17 05:50 Monocytes % 9.0 % (2.0-10.0) 01/15/17 05:50 Eosinophils % 3.9 % (0.0-5.0) 01/15/17 05:50 Basophils % 0.7 % (0.0-2.0) 01/15/17 05:50 Sodium 137 mEq/L (136-145) 01/15/17 05:50 Potassium 4.0 mEq/L (3.5-5.1) 01/15/17 05:50 Chloride 104 mEq/L (98-107) 01/15/17 05:50 Carbon Dioxide 26.9 mEq/L (21.0-31.0) 01/15/17 05:50 Anion Gap 10.1 (7.0-16.0) 01/15/17 05:50 BUN 29 mg/dL (7-25) H 01/15/17 05:50 Creatinine 1.0 mg/dL (0.7-1.3) 01/15/17 05:50 Est GFR ( Amer) TNP 01/15/17 05:50 Est GFR (Non-Af Amer) TNP 01/15/17 05:50 BUN/Creatinine Ratio 29.0 01/15/17 05:50 Glucose 110 mg/dL (70-105) H 01/15/17 05:50 Hemoglobin A1c % 5.7 % (4.0-6.0) 01/13/17 15:10 Calcium 9.6 mg/dL (8.6-10.3) 01/15/17 05:50 Total Bilirubin 0.6 mg/dL (0.3-1.0) 01/13/17 15:10 AST 26 U/L (13-39) 01/13/17 15:10 ALT 17 U/L (7-52) 01/13/17 15:10 Alkaline Phosphatase 76 U/L (34-104) 01/13/17 15:10 Total Protein 6.4 gm/dL (6.0-8.3) 01/13/17 15:10 Albumin 3.6 gm/dL (4.2-5.5) L 01/13/17 15:10 Globulin 2.8 gm/dL 01/13/17 15:10 Albumin/Globulin Ratio 1.3 (1.0-1.8) 01/13/17 15:10 Triglycerides 66 mg/dL (<150) 01/15/17 05:50 Cholesterol 151 mg/dL (<200) 01/15/17 05:50 LDL Cholesterol Direct 83 mg/dL (75-193) 01/15/17 05:50 HDL Cholesterol 64 mg/dL (23-92) 01/15/17 05:50 TSH 2.70 uIU/ml (0.34-5.60) 01/13/17 15:10 Urine Source CLEAN C 01/14/17 18:15 Urine Color STRAW 01/14/17 18:15 Urine Clarity CLEAR (CLEAR) 01/14/17 18:15 Urine pH 5.5 (4.6 - 8.0) 01/14/17 18:15 Ur Specific [place] 1.010 (1.005-1.030) 01/14/17 18:15 Urine Protein NEGATIVE mg/dL (NEGATIVE) 01/14/17 18:15 Urine Glucose (UA) NEGATIVE mg/dL (NEGATIVE) 01/14/17 18:15 Urine Ketones NEGATIVE mg/dL (NEGATIVE) 01/14/17 18:15 Urine Blood NEGATIVE (NEGATIVE) 01/14/17 18:15 Urine Nitrate NEGATIVE (NEGATIVE) 01/14/17 18:15 Urine Bilirubin NEGATIVE (NEGATIVE) 01/14/17 18:15 Urine Urobilinogen 0.2 E.U./dL (0.2 - 1.0) 01/14/17 18:15 Ur Leukocyte Esterase NEGATIVE (NEGATIVE) 01/14/17 18:15 Urine RBC NONE SEEN /hpf (0-5) 01/14/17 18:15 Urine WBC NONE SEEN /hpf (0-5) 01/14/17 18:15 Ur Epithelial Cells NONE SEEN /lpf (FEW) 01/14/17 18:15 Urine Bacteria NONE SEEN /hpf (NONE SEEN) 01/14/17 18:15 Salicylates < 25.0 mg/L (30.0-100.0) L 01/13/17 15:10 Urine Opiates Screen NEGATIVE (NEGATIVE) 01/14/17 18:15 Urine Methadone Screen NEGATIVE (NEGATIVE) 01/14/17 18:15 Acetaminophen < 10.0 ug/mL (10.0-30.0) L 01/13/17 15:10 Ur Barbiturates Screen NEGATIVE (NEGATIVE) 01/14/17 18:15 Ur Tricyclics Screen NEGATIVE (NEGATIVE) 01/14/17 18:15 Ur Phencyclidine Scrn NEGATIVE (NEGATIVE) 01/14/17 18:15 Amphetamines Screen NEGATIVE (NEGATIVE) 01/14/17 18:15 U Methamphetamines Scrn NEGATIVE (NEGATIVE) 01/14/17 18:15 U Benzodiazepines Scrn NEGATIVE (NEGATIVE) 01/14/17 18:15 U Cocaine Metab Screen NEGATIVE (NEGATIVE) 01/14/17 18:15 U Cannabinoids Screen NEGATIVE (NEGATIVE) 01/14/17 18:15 Ethyl Alcohol < 10 mg/dL (0-10) 01/13/17 15:10 RPR NONREACTIVE (NONREACTIVE) 01/13/17 15:10 - Physical Exam Vitals and I&O: Vital Signs Temp 98.1 F 01/18/17 20:00 Pulse 106 01/18/17 20:00 Resp 20 01/18/17 20:00 BP 123/67 01/18/17 20:00 Pulse Ox 97 01/18/17 20:00 Active Medications: Current Medications Acetaminophen (Tylenol) 650 mg PO Q6HR PRN PRN Reason: Mild Pain / Temp above 100 Stop: 03/14/17 20:58 Last Admin: 01/13/17 22:06 Dose: 650 mg Acetaminophen/Hydrocodone Bitart ([place] 5mg/325mg) 1 tab PO Q6H PRN PRN Reason: MODERATE-SEVERE PAIN Stop: 03/15/17 12:10 Docusate Sodium (Colace) 100 mg PO BID [facility] Stop: 03/15/17 16:59 Last Admin: 01/18/17 16:47 Dose: 100 mg Lorazepam (Ativan) 0.5 mg PO Q6H PRN; Protocol PRN Reason: Anxiety Stop: 03/15/17 12:10 Last Admin: 01/18/17 01:38 PDT Dose: 0.5 mg Mupirocin (Bactroban Oint) 1 appl NS BID [facility] Stop: 01/20/17 17:01 Last Admin: 01/18/17 17:00 Dose: 1 appl Quetiapine Fumarate (Seroquel) 50 mg PO BID [facility] PRN Reason: Protocol Stop: 03/15/17 16:59 Last Admin: 01/18/17 16:47 Dose: 50 mg Zolpidem Tartrate (Ambien) 10 mg PO HS [facility] Stop: 03/15/17 20:59 Last Admin: 01/17/17 21:02 Dose: 10 mg General: alert HEENT: NC/AT, PERRLA Neck: Supple Lungs: CTAB Cardiovascular: RRR, Normal S1, Normal S2, without murmur Abdomen: soft, non-tender, non-distended, positive bowel sound Neurological: alert Internal Medicine Assmt/Plan - Assessment Assessment: acute renal insufficiency mild protein calorie malnutrition dementia bipolar - Plan Plan: acute renal insufficiency mild protein calorie malnutrition dementia bipolar - Plan Plan: monitor patients po intake encourage fluids safety precautions continue current plan of care
--- NOTE | 2017-01-19 11:56 | Progress Notes ---
DATE: The patient was seen and evaluated. The patient's chart read and reviewed. Overnight nursing staff reported the patient continues to be easily agitated, pacing, disorganized. On [id number] evaluation, the patient is easily irritable, talking to himself, pacing. MENTAL STATUS EXAMINATION: Responding easily, distracted, agitated, and internally preoccupied. ASSESSMENT AND PLAN: The patient is an 86-year-old male who continues to be disorganized as evidenced by the patient urinating in the hallway, needing a lot of redirection for his ADLs. We will continue with primary psychiatrist's treatment plan and goals and current medication regimen as he is still reaching steady state. [facility]# [id number]
--- NOTE | 2017-01-19 12:56 | Internal Medicine Prog Note ---
Internal Medicine Subjective - Subjective Service Date: 01/19/17 Patient is:: awake Per staff patient has:: no adverse event, no episodes of fall, eating well, confused, tolerating meds Internal Medicine Objective - Results Result Diagrams: 01/15/17 05:50 01/15/17 05:50 Recent Labs: Laboratory Last Values WBC 9.1 Th/cmm (4.8-10.8) D 01/15/17 05:50 RBC 3.59 Mil/cmm (3.80-5.80) L 01/15/17 05:50 Hgb 11.0 gm/dL (12-16) L 01/15/17 05:50 Hct 32.4 % (41.0-60) L 01/15/17 05:50 MCV 90.2 fl (80-99) 01/15/17 05:50 MCH 30.6 pg (27.0-31.0) 01/15/17 05:50 MCHC Differential 33.9 pg (28.0-36.0) 01/15/17 05:50 RDW 14.0 % (11.5-20.0) 01/15/17 05:50 Plt Count 289 Th/cmm (150-400) 01/15/17 05:50 MPV 8.1 fl 01/15/17 05:50 Neutrophils % 77.2 % (40.0-80.0) 01/15/17 05:50 Lymphocytes % 9.2 % (20.0-50.0) L 01/15/17 05:50 Monocytes % 9.0 % (2.0-10.0) 01/15/17 05:50 Eosinophils % 3.9 % (0.0-5.0) 01/15/17 05:50 Basophils % 0.7 % (0.0-2.0) 01/15/17 05:50 Sodium 137 mEq/L (136-145) 01/15/17 05:50 Potassium 4.0 mEq/L (3.5-5.1) 01/15/17 05:50 Chloride 104 mEq/L (98-107) 01/15/17 05:50 Carbon Dioxide 26.9 mEq/L (21.0-31.0) 01/15/17 05:50 Anion Gap 10.1 (7.0-16.0) 01/15/17 05:50 BUN 29 mg/dL (7-25) H 01/15/17 05:50 Creatinine 1.0 mg/dL (0.7-1.3) 01/15/17 05:50 Est GFR ( Amer) TNP 01/15/17 05:50 Est GFR (Non-Af Amer) TNP 01/15/17 05:50 BUN/Creatinine Ratio 29.0 01/15/17 05:50 Glucose 110 mg/dL (70-105) H 01/15/17 05:50 Hemoglobin A1c % 5.7 % (4.0-6.0) 01/13/17 15:10 Calcium 9.6 mg/dL (8.6-10.3) 01/15/17 05:50 Total Bilirubin 0.6 mg/dL (0.3-1.0) 01/13/17 15:10 AST 26 U/L (13-39) 01/13/17 15:10 ALT 17 U/L (7-52) 01/13/17 15:10 Alkaline Phosphatase 76 U/L (34-104) 01/13/17 15:10 Total Protein 6.4 gm/dL (6.0-8.3) 01/13/17 15:10 Albumin 3.6 gm/dL (4.2-5.5) L 01/13/17 15:10 Globulin 2.8 gm/dL 01/13/17 15:10 Albumin/Globulin Ratio 1.3 (1.0-1.8) 01/13/17 15:10 Triglycerides 66 mg/dL (<150) 01/15/17 05:50 Cholesterol 151 mg/dL (<200) 01/15/17 05:50 LDL Cholesterol Direct 83 mg/dL (75-193) 01/15/17 05:50 HDL Cholesterol 64 mg/dL (23-92) 01/15/17 05:50 TSH 2.70 uIU/ml (0.34-5.60) 01/13/17 15:10 Urine Source CLEAN C 01/14/17 18:15 Urine Color STRAW 01/14/17 18:15 Urine Clarity CLEAR (CLEAR) 01/14/17 18:15 Urine pH 5.5 (4.6 - 8.0) 01/14/17 18:15 Ur Specific [place] 1.010 (1.005-1.030) 01/14/17 18:15 Urine Protein NEGATIVE mg/dL (NEGATIVE) 01/14/17 18:15 Urine Glucose (UA) NEGATIVE mg/dL (NEGATIVE) 01/14/17 18:15 Urine Ketones NEGATIVE mg/dL (NEGATIVE) 01/14/17 18:15 Urine Blood NEGATIVE (NEGATIVE) 01/14/17 18:15 Urine Nitrate NEGATIVE (NEGATIVE) 01/14/17 18:15 Urine Bilirubin NEGATIVE (NEGATIVE) 01/14/17 18:15 Urine Urobilinogen 0.2 E.U./dL (0.2 - 1.0) 01/14/17 18:15 Ur Leukocyte Esterase NEGATIVE (NEGATIVE) 01/14/17 18:15 Urine RBC NONE SEEN /hpf (0-5) 01/14/17 18:15 Urine WBC NONE SEEN /hpf (0-5) 01/14/17 18:15 Ur Epithelial Cells NONE SEEN /lpf (FEW) 01/14/17 18:15 Urine Bacteria NONE SEEN /hpf (NONE SEEN) 01/14/17 18:15 Salicylates < 25.0 mg/L (30.0-100.0) L 01/13/17 15:10 Urine Opiates Screen NEGATIVE (NEGATIVE) 01/14/17 18:15 Urine Methadone Screen NEGATIVE (NEGATIVE) 01/14/17 18:15 Acetaminophen < 10.0 ug/mL (10.0-30.0) L 01/13/17 15:10 Ur Barbiturates Screen NEGATIVE (NEGATIVE) 01/14/17 18:15 Ur Tricyclics Screen NEGATIVE (NEGATIVE) 01/14/17 18:15 Ur Phencyclidine Scrn NEGATIVE (NEGATIVE) 01/14/17 18:15 Amphetamines Screen NEGATIVE (NEGATIVE) 01/14/17 18:15 U Methamphetamines Scrn NEGATIVE (NEGATIVE) 01/14/17 18:15 U Benzodiazepines Scrn NEGATIVE (NEGATIVE) 01/14/17 18:15 U Cocaine Metab Screen NEGATIVE (NEGATIVE) 01/14/17 18:15 U Cannabinoids Screen NEGATIVE (NEGATIVE) 01/14/17 18:15 Ethyl Alcohol < 10 mg/dL (0-10) 01/13/17 15:10 RPR NONREACTIVE (NONREACTIVE) 01/13/17 15:10 - Physical Exam Vitals and I&O: Vital Signs Temp 97.4 F 01/19/17 06:12 Pulse 71 01/19/17 06:12 Resp 18 01/19/17 06:12 BP 111/55 01/19/17 06:12 Pulse Ox 96 01/19/17 06:12 Intake & Output 01/18/17 01/19/17 01/19/17 18:59 06:59 18:59 Intake Total 120 Balance 120 Intake: Oral 120 Other: # Voids 3 Active Medications: Current Medications Acetaminophen (Tylenol) 650 mg PO Q6HR PRN PRN Reason: Mild Pain / Temp above 100 Stop: 03/14/17 20:58 Last Admin: 01/13/17 22:06 Dose: 650 mg Acetaminophen/Hydrocodone Bitart ([place] 5mg/325mg) 1 tab PO Q6H PRN PRN Reason: MODERATE-SEVERE PAIN Stop: 03/15/17 12:10 Docusate Sodium (Colace) 100 mg PO BID [facility] Stop: 03/15/17 16:59 Last Admin: 01/19/17 08:17 Dose: 100 mg Lorazepam (Ativan) 0.5 mg PO Q6H PRN; Protocol PRN Reason: Anxiety Stop: 03/15/17 12:10 Last Admin: 01/18/17 01:38 PDT Dose: 0.5 mg Mupirocin (Bactroban Oint) 1 appl NS BID [facility] Stop: 01/20/17 17:01 Last Admin: 01/19/17 09:25 Dose: 1 appl Quetiapine Fumarate (Seroquel) 75 mg PO BID [facility] PRN Reason: Protocol Stop: 03/15/17 08:59 Last Admin: 01/19/17 08:16 Dose: 75 mg Zolpidem Tartrate (Ambien) 10 mg PO HS [facility] Stop: 03/15/17 20:59 Last Admin: 01/18/17 21:08 Dose: 10 mg General: alert HEENT: NC/AT, PERRLA Neck: Supple Lungs: CTAB Cardiovascular: RRR, Normal S1, Normal S2, without murmur Abdomen: soft, non-tender, non-distended, positive bowel sound Neurological: alert Internal Medicine Assmt/Plan - Assessment Assessment: acute renal insufficiency mild protein calorie malnutrition dementia bipolar - Plan Plan: monitor patients po intake encourage fluids safety precautions continue current plan of care
--- NOTE | 2017-01-20 06:18 | Progress Notes ---
DATE: SUBJECTIVE: "I'm Baptism." The patient keeps repeating the word that he is a Baptism and he still gets agitated and irritable easily. The patient also still has difficulty following staff directions and he still has difficulty to follow instructions from staff and gets agitated. Also is still having episodes of yelling and screaming and resisting care. Otherwise, the patient is compliant with taking his medications and the patient denies any side effects of medications. ASSESSMENT: The patient is still psychotic and agitated. TREATMENT PLAN: We will increase Seroquel to 75 mg twice a day. Also continue to work on behavioral modification and on his poor impulse control and we will continue to follow up. JOB# [id number]
--- NOTE | 2017-01-20 11:29 | Internal Medicine Prog Note ---
Internal Medicine Subjective - Subjective Service Date: 01/20/17 Patient is:: awake Per staff patient has:: no adverse event, no episodes of fall, eating well, confused, tolerating meds Internal Medicine Objective - Results Result Diagrams: 01/15/17 05:50 01/15/17 05:50 Recent Labs: Laboratory Last Values WBC 9.1 Th/cmm (4.8-10.8) D 01/15/17 05:50 RBC 3.59 Mil/cmm (3.80-5.80) L 01/15/17 05:50 Hgb 11.0 gm/dL (12-16) L 01/15/17 05:50 Hct 32.4 % (41.0-60) L 01/15/17 05:50 MCV 90.2 fl (80-99) 01/15/17 05:50 MCH 30.6 pg (27.0-31.0) 01/15/17 05:50 MCHC Differential 33.9 pg (28.0-36.0) 01/15/17 05:50 RDW 14.0 % (11.5-20.0) 01/15/17 05:50 Plt Count 289 Th/cmm (150-400) 01/15/17 05:50 MPV 8.1 fl 01/15/17 05:50 Neutrophils % 77.2 % (40.0-80.0) 01/15/17 05:50 Lymphocytes % 9.2 % (20.0-50.0) L 01/15/17 05:50 Monocytes % 9.0 % (2.0-10.0) 01/15/17 05:50 Eosinophils % 3.9 % (0.0-5.0) 01/15/17 05:50 Basophils % 0.7 % (0.0-2.0) 01/15/17 05:50 Sodium 137 mEq/L (136-145) 01/15/17 05:50 Potassium 4.0 mEq/L (3.5-5.1) 01/15/17 05:50 Chloride 104 mEq/L (98-107) 01/15/17 05:50 Carbon Dioxide 26.9 mEq/L (21.0-31.0) 01/15/17 05:50 Anion Gap 10.1 (7.0-16.0) 01/15/17 05:50 BUN 29 mg/dL (7-25) H 01/15/17 05:50 Creatinine 1.0 mg/dL (0.7-1.3) 01/15/17 05:50 Est GFR ( Amer) TNP 01/15/17 05:50 Est GFR (Non-Af Amer) TNP 01/15/17 05:50 BUN/Creatinine Ratio 29.0 01/15/17 05:50 Glucose 110 mg/dL (70-105) H 01/15/17 05:50 Hemoglobin A1c % 5.7 % (4.0-6.0) 01/13/17 15:10 Calcium 9.6 mg/dL (8.6-10.3) 01/15/17 05:50 Total Bilirubin 0.6 mg/dL (0.3-1.0) 01/13/17 15:10 AST 26 U/L (13-39) 01/13/17 15:10 ALT 17 U/L (7-52) 01/13/17 15:10 Alkaline Phosphatase 76 U/L (34-104) 01/13/17 15:10 Total Protein 6.4 gm/dL (6.0-8.3) 01/13/17 15:10 Albumin 3.6 gm/dL (4.2-5.5) L 01/13/17 15:10 Globulin 2.8 gm/dL 01/13/17 15:10 Albumin/Globulin Ratio 1.3 (1.0-1.8) 01/13/17 15:10 Triglycerides 66 mg/dL (<150) 01/15/17 05:50 Cholesterol 151 mg/dL (<200) 01/15/17 05:50 LDL Cholesterol Direct 83 mg/dL (75-193) 01/15/17 05:50 HDL Cholesterol 64 mg/dL (23-92) 01/15/17 05:50 TSH 2.70 uIU/ml (0.34-5.60) 01/13/17 15:10 Urine Source CLEAN C 01/14/17 18:15 Urine Color STRAW 01/14/17 18:15 Urine Clarity CLEAR (CLEAR) 01/14/17 18:15 Urine pH 5.5 (4.6 - 8.0) 01/14/17 18:15 Ur Specific [place] 1.010 (1.005-1.030) 01/14/17 18:15 Urine Protein NEGATIVE mg/dL (NEGATIVE) 01/14/17 18:15 Urine Glucose (UA) NEGATIVE mg/dL (NEGATIVE) 01/14/17 18:15 Urine Ketones NEGATIVE mg/dL (NEGATIVE) 01/14/17 18:15 Urine Blood NEGATIVE (NEGATIVE) 01/14/17 18:15 Urine Nitrate NEGATIVE (NEGATIVE) 01/14/17 18:15 Urine Bilirubin NEGATIVE (NEGATIVE) 01/14/17 18:15 Urine Urobilinogen 0.2 E.U./dL (0.2 - 1.0) 01/14/17 18:15 Ur Leukocyte Esterase NEGATIVE (NEGATIVE) 01/14/17 18:15 Urine RBC NONE SEEN /hpf (0-5) 01/14/17 18:15 Urine WBC NONE SEEN /hpf (0-5) 01/14/17 18:15 Ur Epithelial Cells NONE SEEN /lpf (FEW) 01/14/17 18:15 Urine Bacteria NONE SEEN /hpf (NONE SEEN) 01/14/17 18:15 Salicylates < 25.0 mg/L (30.0-100.0) L 01/13/17 15:10 Urine Opiates Screen NEGATIVE (NEGATIVE) 01/14/17 18:15 Urine Methadone Screen NEGATIVE (NEGATIVE) 01/14/17 18:15 Acetaminophen < 10.0 ug/mL (10.0-30.0) L 01/13/17 15:10 Ur Barbiturates Screen NEGATIVE (NEGATIVE) 01/14/17 18:15 Ur Tricyclics Screen NEGATIVE (NEGATIVE) 01/14/17 18:15 Ur Phencyclidine Scrn NEGATIVE (NEGATIVE) 01/14/17 18:15 Amphetamines Screen NEGATIVE (NEGATIVE) 01/14/17 18:15 U Methamphetamines Scrn NEGATIVE (NEGATIVE) 01/14/17 18:15 U Benzodiazepines Scrn NEGATIVE (NEGATIVE) 01/14/17 18:15 U Cocaine Metab Screen NEGATIVE (NEGATIVE) 01/14/17 18:15 U Cannabinoids Screen NEGATIVE (NEGATIVE) 01/14/17 18:15 Ethyl Alcohol < 10 mg/dL (0-10) 01/13/17 15:10 RPR NONREACTIVE (NONREACTIVE) 01/13/17 15:10 - Physical Exam Vitals and I&O: Vital Signs Temp 98.0 F 01/20/17 06:43 Pulse 79 01/20/17 06:43 Resp 20 01/20/17 06:43 BP 140/74 01/20/17 06:43 Pulse Ox 99 01/20/17 06:43 Intake & Output 01/19/17 01/20/17 01/20/17 18:59 06:59 18:59 Intake Total 900 300 Balance 900 300 Intake: Oral 900 300 Other: # Voids 4 2 # Bowel Movements 1 0 Active Medications: Current Medications Acetaminophen (Tylenol) 650 mg PO Q6HR PRN PRN Reason: Mild Pain / Temp above 100 Stop: 03/14/17 20:58 Last Admin: 01/13/17 22:06 Dose: 650 mg Acetaminophen/Hydrocodone Bitart ([place] 5mg/325mg) 1 tab PO Q6H PRN PRN Reason: MODERATE-SEVERE PAIN Stop: 03/15/17 12:10 Docusate Sodium (Colace) 100 mg PO BID [facility] Stop: 03/15/17 16:59 Last Admin: 01/20/17 08:24 Dose: 100 mg Lorazepam (Ativan) 0.5 mg PO Q6H PRN; Protocol PRN Reason: Anxiety Stop: 03/15/17 12:10 Last Admin: 01/18/17 01:38 PDT Dose: 0.5 mg Mupirocin (Bactroban Oint) 1 appl NS BID [facility] Stop: 01/20/17 17:01 Last Admin: 01/20/17 08:27 Dose: 1 appl Quetiapine Fumarate (Seroquel) 75 mg PO BID [facility] PRN Reason: Protocol Stop: 03/15/17 08:59 Last Admin: 01/20/17 08:24 Dose: 75 mg Zolpidem Tartrate (Ambien) 10 mg PO HS [facility] Stop: 03/15/17 20:59 Last Admin: 01/19/17 20:49 Dose: 10 mg General: alert HEENT: NC/AT, PERRLA Neck: Supple Lungs: CTAB Cardiovascular: RRR, Normal S1, Normal S2, without murmur Abdomen: soft, non-tender, non-distended, positive bowel sound Neurological: alert Internal Medicine Assmt/Plan - Assessment Assessment: acute renal insufficiency mild protein calorie malnutrition dementia bipolar - Plan Plan: monitor patients po intake encourage fluids safety precautions continue current plan of care
--- NOTE | 2017-01-21 05:10 | Progress Notes ---
DATE: SUBJECTIVE: Chart reviewed and the patient interviewed. Also discussed the patient's condition with the staff and reviewed records and labs. The patient is still confused and is still agitated. The patient also is in angry and in irritable mood. The patient also has agitation and easily irritable and gets aggressive with the staff when they tried to redirect him. He also is still restless and he is confused. Otherwise, the patient continued to comply with taking his medications with no side effects of medications. ASSESSMENT: The patient is still psychotic and agitated. TREATMENT PLAN: We will continue to monitor his behavior and his condition closely. Also, yesterday I increased Seroquel to 75 mg twice a day with no side effects. We will continue same dose and we will continue to follow up closely and work on behavioral modifications. JOB# [id number]
--- NOTE | 2017-01-21 12:15 | Internal Medicine Prog Note ---
Internal Medicine Subjective - Subjective Service Date: 01/21/17 Patient is:: awake Per staff patient has:: no adverse event, no episodes of fall, eating well, confused, tolerating meds Internal Medicine Objective - Results Result Diagrams: 01/15/17 05:50 01/15/17 05:50 Recent Labs: Laboratory Last Values WBC 9.1 Th/cmm (4.8-10.8) D 01/15/17 05:50 RBC 3.59 Mil/cmm (3.80-5.80) L 01/15/17 05:50 Hgb 11.0 gm/dL (12-16) L 01/15/17 05:50 Hct 32.4 % (41.0-60) L 01/15/17 05:50 MCV 90.2 fl (80-99) 01/15/17 05:50 MCH 30.6 pg (27.0-31.0) 01/15/17 05:50 MCHC Differential 33.9 pg (28.0-36.0) 01/15/17 05:50 RDW 14.0 % (11.5-20.0) 01/15/17 05:50 Plt Count 289 Th/cmm (150-400) 01/15/17 05:50 MPV 8.1 fl 01/15/17 05:50 Neutrophils % 77.2 % (40.0-80.0) 01/15/17 05:50 Lymphocytes % 9.2 % (20.0-50.0) L 01/15/17 05:50 Monocytes % 9.0 % (2.0-10.0) 01/15/17 05:50 Eosinophils % 3.9 % (0.0-5.0) 01/15/17 05:50 Basophils % 0.7 % (0.0-2.0) 01/15/17 05:50 Sodium 137 mEq/L (136-145) 01/15/17 05:50 Potassium 4.0 mEq/L (3.5-5.1) 01/15/17 05:50 Chloride 104 mEq/L (98-107) 01/15/17 05:50 Carbon Dioxide 26.9 mEq/L (21.0-31.0) 01/15/17 05:50 Anion Gap 10.1 (7.0-16.0) 01/15/17 05:50 BUN 29 mg/dL (7-25) H 01/15/17 05:50 Creatinine 1.0 mg/dL (0.7-1.3) 01/15/17 05:50 Est GFR ( Amer) TNP 01/15/17 05:50 Est GFR (Non-Af Amer) TNP 01/15/17 05:50 BUN/Creatinine Ratio 29.0 01/15/17 05:50 Glucose 110 mg/dL (70-105) H 01/15/17 05:50 POC Glucose 102 MG/DL (70 - 105) 01/21/17 11:53 Hemoglobin A1c % 5.7 % (4.0-6.0) 01/13/17 15:10 Calcium 9.6 mg/dL (8.6-10.3) 01/15/17 05:50 Total Bilirubin 0.6 mg/dL (0.3-1.0) 01/13/17 15:10 AST 26 U/L (13-39) 01/13/17 15:10 ALT 17 U/L (7-52) 01/13/17 15:10 Alkaline Phosphatase 76 U/L (34-104) 01/13/17 15:10 Total Protein 6.4 gm/dL (6.0-8.3) 01/13/17 15:10 Albumin 3.6 gm/dL (4.2-5.5) L 01/13/17 15:10 Globulin 2.8 gm/dL 01/13/17 15:10 Albumin/Globulin Ratio 1.3 (1.0-1.8) 01/13/17 15:10 Triglycerides 66 mg/dL (<150) 01/15/17 05:50 Cholesterol 151 mg/dL (<200) 01/15/17 05:50 LDL Cholesterol Direct 83 mg/dL (75-193) 01/15/17 05:50 HDL Cholesterol 64 mg/dL (23-92) 01/15/17 05:50 TSH 2.70 uIU/ml (0.34-5.60) 01/13/17 15:10 Urine Source CLEAN C 01/14/17 18:15 Urine Color STRAW 01/14/17 18:15 Urine Clarity CLEAR (CLEAR) 01/14/17 18:15 Urine pH 5.5 (4.6 - 8.0) 01/14/17 18:15 Ur Specific [place] 1.010 (1.005-1.030) 01/14/17 18:15 Urine Protein NEGATIVE mg/dL (NEGATIVE) 01/14/17 18:15 Urine Glucose (UA) NEGATIVE mg/dL (NEGATIVE) 01/14/17 18:15 Urine Ketones NEGATIVE mg/dL (NEGATIVE) 01/14/17 18:15 Urine Blood NEGATIVE (NEGATIVE) 01/14/17 18:15 Urine Nitrate NEGATIVE (NEGATIVE) 01/14/17 18:15 Urine Bilirubin NEGATIVE (NEGATIVE) 01/14/17 18:15 Urine Urobilinogen 0.2 E.U./dL (0.2 - 1.0) 01/14/17 18:15 Ur Leukocyte Esterase NEGATIVE (NEGATIVE) 01/14/17 18:15 Urine RBC NONE SEEN /hpf (0-5) 01/14/17 18:15 Urine WBC NONE SEEN /hpf (0-5) 01/14/17 18:15 Ur Epithelial Cells NONE SEEN /lpf (FEW) 01/14/17 18:15 Urine Bacteria NONE SEEN /hpf (NONE SEEN) 01/14/17 18:15 Salicylates < 25.0 mg/L (30.0-100.0) L 01/13/17 15:10 Urine Opiates Screen NEGATIVE (NEGATIVE) 01/14/17 18:15 Urine Methadone Screen NEGATIVE (NEGATIVE) 01/14/17 18:15 Acetaminophen < 10.0 ug/mL (10.0-30.0) L 01/13/17 15:10 Ur Barbiturates Screen NEGATIVE (NEGATIVE) 01/14/17 18:15 Ur Tricyclics Screen NEGATIVE (NEGATIVE) 01/14/17 18:15 Ur Phencyclidine Scrn NEGATIVE (NEGATIVE) 01/14/17 18:15 Amphetamines Screen NEGATIVE (NEGATIVE) 01/14/17 18:15 U Methamphetamines Scrn NEGATIVE (NEGATIVE) 01/14/17 18:15 U Benzodiazepines Scrn NEGATIVE (NEGATIVE) 01/14/17 18:15 U Cocaine Metab Screen NEGATIVE (NEGATIVE) 01/14/17 18:15 U Cannabinoids Screen NEGATIVE (NEGATIVE) 01/14/17 18:15 Ethyl Alcohol < 10 mg/dL (0-10) 01/13/17 15:10 RPR NONREACTIVE (NONREACTIVE) 01/13/17 15:10 - Physical Exam Vitals and I&O: Vital Signs Temp 97.6 F 01/21/17 06:39 Pulse 73 01/21/17 06:39 Resp 20 01/21/17 06:39 BP 121/70 01/21/17 06:39 Pulse Ox 93 01/21/17 06:39 Intake & Output 01/20/17 01/21/17 01/21/17 18:59 06:59 18:59 Intake Total 240 Balance 240 Weight (lbs) 120 lb Intake: Oral 240 Other: # Voids 3 # Bowel Movements 0 Active Medications: Current Medications Acetaminophen (Tylenol) 650 mg PO Q6HR PRN PRN Reason: Mild Pain / Temp above 100 Stop: 03/14/17 20:58 Last Admin: 01/13/17 22:06 Dose: 650 mg Acetaminophen/Hydrocodone Bitart ([place] 5mg/325mg) 1 tab PO Q6H PRN PRN Reason: MODERATE-SEVERE PAIN Stop: 03/15/17 12:10 Docusate Sodium (Colace) 100 mg PO BID [facility] Stop: 03/15/17 16:59 Last Admin: 01/21/17 08:56 Dose: 100 mg Lorazepam (Ativan) 0.5 mg PO Q6H PRN; Protocol PRN Reason: Anxiety Stop: 03/15/17 12:10 Last Admin: 01/18/17 01:38 PDT Dose: 0.5 mg Quetiapine Fumarate (Seroquel) 75 mg PO BID [facility] PRN Reason: Protocol Stop: 03/15/17 08:59 Last Admin: 01/21/17 08:56 Dose: 75 mg Zolpidem Tartrate (Ambien) 10 mg PO HS [facility] Stop: 03/15/17 20:59 Last Admin: 01/20/17 20:28 Dose: 10 mg General: alert HEENT: NC/AT, PERRLA Neck: Supple Lungs: CTAB Cardiovascular: RRR, Normal S1, Normal S2, without murmur Abdomen: soft, non-tender, non-distended, positive bowel sound Neurological: alert Internal Medicine Assmt/Plan - Assessment Assessment: acute renal insufficiency mild protein calorie malnutrition dementia bipolar - Plan Plan: monitor patients po intake encourage fluids safety precautions continue current plan of care Nutritional Asmnt/Malnutr-PDOC - Dietary Evaluation Malnutrition Findings (Please click <Entered> for more info): Nutritional Asmnt/Malnutrition Start: 01/14/17 09: 40 Text: Status: Active Freq: Document 01/21/17 11:51 JUANJOSE (Rec: 01/21/17 12:01 [email or web address] [email or web address]) Nutritional Asmnt/Malnutrition Patient General Information Nutritional Screening Low Risk Diagnosis Psychosis, Agitation Pertinent Medical Hx/Surgical Hx HTN, dementia, depression, bipolar Subjective Information Pt from SNF was admitted for agitation. Spoke with nurse, pt eats very well. PO intake 100% since admission. Current Diet Order/ Nutrition Support Regular, No pork d/t jain Pertinent Medications Colace, Seroquel Pertinent Labs 01/15: BUN 29H, cr 1.0, Glu 110H 01/13: Alb 3.6L Nutritional Hx/Data Height 5 ft 7 in Height (Calculated Centimeters) 170.2 Current Weight (lbs) 120 lb Weight (Calculated Kilograms) 54.4 Weight (Calculated Grams) 84214.1 [place] Body Weight 148 % [place] Body Weight 81 Body Mass Index (BMI) 18.8 Weight Status Approriate GI Symptoms GI Symptoms None Last BM 01/19 Difficult in: None Food Allergies No Cultural/Ethnic/[place] Belief no pork Skin Integrity/Comment: intact Current %PO Good (75-100%) Estimated Nutritional Goals Calories/Kcals/Kg 25-30kcal/kg based on IBW 148lb/67.3kg Kcals Calculated 0515-2439 Protein g/kg/kg based on IBW 148lb/67. 3kg Protein Calculated 67 Fluid: ml 4538-2827 (1ml/kcal) Nutritional Problem 1. Problem Problem no nutrition problem at this time Malnutrition Alert Protein-Calorie Malnutrition N/A Is there a minimum of two criteria No selected? Query Text:Check all the applicable criteria. A minimum of two criteria are recommended for diagnosis of either severe or non-severe malnutrition. Intervention/Recommendation Comments 1. Continue with current diet. current PO intake 100% meets 100% of estemated nutritional needs. 2. Monitor PO intake, wt weekly, labs, skin 3. F/U as low risk in 7 days, 01/28 Expected Outcomes/Goals Expected Outcomes/Goals 1. Pt to meet 100% of estemated nutritional needs 2. wt stability, change toward to IBW 3. skin to remain intact [facility]. [facility]
[2017-01-22] MEDS: Multivitamin Tab PO SCH (08:37)
--- NOTE | 2017-01-22 12:18 | Internal Medicine Prog Note ---
Internal Medicine Subjective - Subjective Service Date: 01/22/17 Patient is:: awake Per staff patient has:: no adverse event, no episodes of fall, eating well, confused, tolerating meds Internal Medicine Objective - Results Result Diagrams: 01/15/17 05:50 01/15/17 05:50 Recent Labs: Laboratory Last Values WBC 9.1 Th/cmm (4.8-10.8) D 01/15/17 05:50 RBC 3.59 Mil/cmm (3.80-5.80) L 01/15/17 05:50 Hgb 11.0 gm/dL (12-16) L 01/15/17 05:50 Hct 32.4 % (41.0-60) L 01/15/17 05:50 MCV 90.2 fl (80-99) 01/15/17 05:50 MCH 30.6 pg (27.0-31.0) 01/15/17 05:50 MCHC Differential 33.9 pg (28.0-36.0) 01/15/17 05:50 RDW 14.0 % (11.5-20.0) 01/15/17 05:50 Plt Count 289 Th/cmm (150-400) 01/15/17 05:50 MPV 8.1 fl 01/15/17 05:50 Neutrophils % 77.2 % (40.0-80.0) 01/15/17 05:50 Lymphocytes % 9.2 % (20.0-50.0) L 01/15/17 05:50 Monocytes % 9.0 % (2.0-10.0) 01/15/17 05:50 Eosinophils % 3.9 % (0.0-5.0) 01/15/17 05:50 Basophils % 0.7 % (0.0-2.0) 01/15/17 05:50 Sodium 137 mEq/L (136-145) 01/15/17 05:50 Potassium 4.0 mEq/L (3.5-5.1) 01/15/17 05:50 Chloride 104 mEq/L (98-107) 01/15/17 05:50 Carbon Dioxide 26.9 mEq/L (21.0-31.0) 01/15/17 05:50 Anion Gap 10.1 (7.0-16.0) 01/15/17 05:50 BUN 29 mg/dL (7-25) H 01/15/17 05:50 Creatinine 1.0 mg/dL (0.7-1.3) 01/15/17 05:50 Est GFR ( Amer) TNP 01/15/17 05:50 Est GFR (Non-Af Amer) TNP 01/15/17 05:50 BUN/Creatinine Ratio 29.0 01/15/17 05:50 Glucose 110 mg/dL (70-105) H 01/15/17 05:50 POC Glucose 102 MG/DL (70 - 105) 01/21/17 11:53 Hemoglobin A1c % 5.7 % (4.0-6.0) 01/13/17 15:10 Calcium 9.6 mg/dL (8.6-10.3) 01/15/17 05:50 Total Bilirubin 0.6 mg/dL (0.3-1.0) 01/13/17 15:10 AST 26 U/L (13-39) 01/13/17 15:10 ALT 17 U/L (7-52) 01/13/17 15:10 Alkaline Phosphatase 76 U/L (34-104) 01/13/17 15:10 Total Protein 6.4 gm/dL (6.0-8.3) 01/13/17 15:10 Albumin 3.6 gm/dL (4.2-5.5) L 01/13/17 15:10 Globulin 2.8 gm/dL 01/13/17 15:10 Albumin/Globulin Ratio 1.3 (1.0-1.8) 01/13/17 15:10 Triglycerides 66 mg/dL (<150) 01/15/17 05:50 Cholesterol 151 mg/dL (<200) 01/15/17 05:50 LDL Cholesterol Direct 83 mg/dL (75-193) 01/15/17 05:50 HDL Cholesterol 64 mg/dL (23-92) 01/15/17 05:50 TSH 2.70 uIU/ml (0.34-5.60) 01/13/17 15:10 Urine Source CLEAN C 01/14/17 18:15 Urine Color STRAW 01/14/17 18:15 Urine Clarity CLEAR (CLEAR) 01/14/17 18:15 Urine pH 5.5 (4.6 - 8.0) 01/14/17 18:15 Ur Specific [place] 1.010 (1.005-1.030) 01/14/17 18:15 Urine Protein NEGATIVE mg/dL (NEGATIVE) 01/14/17 18:15 Urine Glucose (UA) NEGATIVE mg/dL (NEGATIVE) 01/14/17 18:15 Urine Ketones NEGATIVE mg/dL (NEGATIVE) 01/14/17 18:15 Urine Blood NEGATIVE (NEGATIVE) 01/14/17 18:15 Urine Nitrate NEGATIVE (NEGATIVE) 01/14/17 18:15 Urine Bilirubin NEGATIVE (NEGATIVE) 01/14/17 18:15 Urine Urobilinogen 0.2 E.U./dL (0.2 - 1.0) 01/14/17 18:15 Ur Leukocyte Esterase NEGATIVE (NEGATIVE) 01/14/17 18:15 Urine RBC NONE SEEN /hpf (0-5) 01/14/17 18:15 Urine WBC NONE SEEN /hpf (0-5) 01/14/17 18:15 Ur Epithelial Cells NONE SEEN /lpf (FEW) 01/14/17 18:15 Urine Bacteria NONE SEEN /hpf (NONE SEEN) 01/14/17 18:15 Salicylates < 25.0 mg/L (30.0-100.0) L 01/13/17 15:10 Urine Opiates Screen NEGATIVE (NEGATIVE) 01/14/17 18:15 Urine Methadone Screen NEGATIVE (NEGATIVE) 01/14/17 18:15 Acetaminophen < 10.0 ug/mL (10.0-30.0) L 01/13/17 15:10 Ur Barbiturates Screen NEGATIVE (NEGATIVE) 01/14/17 18:15 Ur Tricyclics Screen NEGATIVE (NEGATIVE) 01/14/17 18:15 Ur Phencyclidine Scrn NEGATIVE (NEGATIVE) 01/14/17 18:15 Amphetamines Screen NEGATIVE (NEGATIVE) 01/14/17 18:15 U Methamphetamines Scrn NEGATIVE (NEGATIVE) 01/14/17 18:15 U Benzodiazepines Scrn NEGATIVE (NEGATIVE) 01/14/17 18:15 U Cocaine Metab Screen NEGATIVE (NEGATIVE) 01/14/17 18:15 U Cannabinoids Screen NEGATIVE (NEGATIVE) 01/14/17 18:15 Ethyl Alcohol < 10 mg/dL (0-10) 01/13/17 15:10 RPR NONREACTIVE (NONREACTIVE) 01/13/17 15:10 - Physical Exam Vitals and I&O: Vital Signs Temp 97.2 F 01/22/17 06:56 Pulse 62 01/22/17 06:56 Resp 19 01/22/17 06:56 BP 110/76 01/22/17 06:56 Pulse Ox 97 01/22/17 06:56 Intake & Output 01/21/17 01/22/17 01/22/17 18:59 06:59 18:59 Intake Total 1600 120 Balance 1600 120 Intake: Oral 1600 120 Other: # Voids 4 3 # Bowel Movements 0 Active Medications: Current Medications Acetaminophen (Tylenol) 650 mg PO Q6HR PRN PRN Reason: Mild Pain / Temp above 100 Stop: 03/14/17 20:58 Last Admin: 01/13/17 22:06 Dose: 650 mg Acetaminophen/Hydrocodone Bitart ([place] 5mg/325mg) 1 tab PO Q6H PRN PRN Reason: MODERATE-SEVERE PAIN Stop: 03/15/17 12:10 Aspirin (Ecotrin) 81 mg PO DAILY HERMES Stop: 03/23/17 08:59 Last Admin: 01/22/17 08:37 Dose: 81 mg Docusate Sodium (Colace) 100 mg PO BID HERMES Stop: 03/15/17 16:59 Last Admin: 01/22/17 08:37 Dose: 100 mg Lorazepam (Ativan) 0.5 mg PO Q6H PRN; Protocol PRN Reason: Anxiety Stop: 03/15/17 12:10 Last Admin: 01/18/17 01:38 PDT Dose: 0.5 mg Multivitamins/Vitamin C (Theragran) 1 tab PO DAILY HERMES Stop: 03/23/17 08:59 Last Admin: 01/22/17 08:37 Dose: 1 tab Quetiapine Fumarate (Seroquel) 75 mg PO BID HERMES PRN Reason: Protocol Stop: 03/15/17 08:59 Last Admin: 01/22/17 08:37 Dose: 75 mg Zolpidem Tartrate (Ambien) 10 mg PO HS HERMES Stop: 03/15/17 20:59 Last Admin: 01/21/17 21:05 Dose: 10 mg General: alert HEENT: NC/AT, PERRLA Neck: Supple Lungs: CTAB Cardiovascular: RRR, Normal S1, Normal S2, without murmur Abdomen: soft, non-tender, non-distended, positive bowel sound Neurological: alert Internal Medicine Assmt/Plan - Assessment Assessment: acute renal insufficiency mild protein calorie malnutrition dementia bipolar - Plan Plan: monitor patients po intake encourage fluids safety precautions continue current plan of care Nutritional Asmnt/Malnutr-PDOC - Dietary Evaluation Malnutrition Findings (Please click <Entered> for more info): Nutritional Asmnt/Malnutrition Start: 01/14/17 09: 40 Text: Status: Complete Freq: Document 01/21/17 11:51 [facility] (Rec: 01/21/17 12:01 [id number]) Nutritional Asmnt/Malnutrition Patient General Information Nutritional Screening Low Risk Diagnosis Psychosis, Agitation Pertinent Medical Hx/Surgical Hx HTN, dementia, depression, bipolar Subjective Information Pt from SNF was admitted for agitation. Spoke with nurse, pt eats very well. PO intake 100% since admission. Current Diet Order/ Nutrition Support Regular, No pork d/t evangelical Pertinent Medications Colace, Seroquel Pertinent Labs 01/15: BUN 29H, cr 1.0, Glu 110H 01/13: Alb 3.6L Nutritional Hx/Data Height 5 ft 7 in Height (Calculated Centimeters) 170.2 Current Weight (lbs) 120 lb Weight (Calculated Kilograms) 54.4 Weight (Calculated Grams) 90665.1 [place] Body Weight 148 % [place] Body Weight 81 Body Mass Index (BMI) 18.8 Weight Status Approriate GI Symptoms GI Symptoms None Last BM 01/19 Difficult in: None Food Allergies No Cultural/Ethnic/Jew Belief no pork Skin Integrity/Comment: intact Current %PO Good (75-100%) Estimated Nutritional Goals Calories/Kcals/Kg 25-30kcal/kg based on IBW 148lb/67.3kg Kcals Calculated 5820-3631 Protein g/kg/kg based on IBW 148lb/67. 3kg Protein Calculated 67 Fluid: ml 5709-9214 (1ml/kcal) Nutritional Problem 1. Problem Problem no nutrition problem at this time Malnutrition Alert Protein-Calorie Malnutrition N/A Is there a minimum of two criteria No selected? Query Text:Check all the applicable criteria. A minimum of two criteria are recommended for diagnosis of either severe or non-severe malnutrition. Intervention/Recommendation Comments 1. Continue with current diet. current PO intake 100% meets 100% of estemated nutritional needs. 2. Monitor PO intake, wt weekly, labs, skin 3. F/U as low risk in 7 days, 01/28 Expected Outcomes/Goals Expected Outcomes/Goals 1. Pt to meet 100% of estemated nutritional needs 2. wt stability, change toward to IBW 3. skin to remain intact 4. labs to appraoch WNL
[2017-01-23] MEDS: Multivitamin Tab PO SCH (08:22)
--- NOTE | 2017-01-23 09:33 | Progress Notes ---
DATE: 01/22/2017 SUBJECTIVE: Chart reviewed and the patient interviewed. Also discussed the patient's condition with the staff and reviewed records and labs. The patient is still confused and he is still wandering around the unit in a confused state. The patient also is still unable to carry on coherent conversation, although I am trying to speak to him with his language, which is Tajik language that I do speak. He also is still having episodes of anger and irritability, especially when tries to redirect him. Otherwise, the patient is compliant with taking his medications and patient is denying any side effects of medications. ASSESSMENT: The patient is still psychotic. TREATMENT PLAN: Continue to monitor his behavior and his condition closely. Also, continue adjusting psychotropic medications and work on behavioral modification. JOB# [id number]
--- NOTE | 2017-01-23 12:45 | Internal Medicine Prog Note ---
Internal Medicine Subjective - Subjective Service Date: 01/23/17 Patient is:: awake Per staff patient has:: no adverse event, no episodes of fall, eating well, confused, tolerating meds Internal Medicine Objective - Results Result Diagrams: 01/15/17 05:50 01/15/17 05:50 Recent Labs: Laboratory Last Values WBC 9.1 Th/cmm (4.8-10.8) D 01/15/17 05:50 RBC 3.59 Mil/cmm (3.80-5.80) L 01/15/17 05:50 Hgb 11.0 gm/dL (12-16) L 01/15/17 05:50 Hct 32.4 % (41.0-60) L 01/15/17 05:50 MCV 90.2 fl (80-99) 01/15/17 05:50 MCH 30.6 pg (27.0-31.0) 01/15/17 05:50 MCHC Differential 33.9 pg (28.0-36.0) 01/15/17 05:50 RDW 14.0 % (11.5-20.0) 01/15/17 05:50 Plt Count 289 Th/cmm (150-400) 01/15/17 05:50 MPV 8.1 fl 01/15/17 05:50 Neutrophils % 77.2 % (40.0-80.0) 01/15/17 05:50 Lymphocytes % 9.2 % (20.0-50.0) L 01/15/17 05:50 Monocytes % 9.0 % (2.0-10.0) 01/15/17 05:50 Eosinophils % 3.9 % (0.0-5.0) 01/15/17 05:50 Basophils % 0.7 % (0.0-2.0) 01/15/17 05:50 Sodium 137 mEq/L (136-145) 01/15/17 05:50 Potassium 4.0 mEq/L (3.5-5.1) 01/15/17 05:50 Chloride 104 mEq/L (98-107) 01/15/17 05:50 Carbon Dioxide 26.9 mEq/L (21.0-31.0) 01/15/17 05:50 Anion Gap 10.1 (7.0-16.0) 01/15/17 05:50 BUN 29 mg/dL (7-25) H 01/15/17 05:50 Creatinine 1.0 mg/dL (0.7-1.3) 01/15/17 05:50 Est GFR ( Amer) TNP 01/15/17 05:50 Est GFR (Non-Af Amer) TNP 01/15/17 05:50 BUN/Creatinine Ratio 29.0 01/15/17 05:50 Glucose 110 mg/dL (70-105) H 01/15/17 05:50 POC Glucose 102 MG/DL (70 - 105) 01/21/17 11:53 Hemoglobin A1c % 5.7 % (4.0-6.0) 01/13/17 15:10 Calcium 9.6 mg/dL (8.6-10.3) 01/15/17 05:50 Total Bilirubin 0.6 mg/dL (0.3-1.0) 01/13/17 15:10 AST 26 U/L (13-39) 01/13/17 15:10 ALT 17 U/L (7-52) 01/13/17 15:10 Alkaline Phosphatase 76 U/L (34-104) 01/13/17 15:10 Total Protein 6.4 gm/dL (6.0-8.3) 01/13/17 15:10 Albumin 3.6 gm/dL (4.2-5.5) L 01/13/17 15:10 Globulin 2.8 gm/dL 01/13/17 15:10 Albumin/Globulin Ratio 1.3 (1.0-1.8) 01/13/17 15:10 Triglycerides 66 mg/dL (<150) 01/15/17 05:50 Cholesterol 151 mg/dL (<200) 01/15/17 05:50 LDL Cholesterol Direct 83 mg/dL (75-193) 01/15/17 05:50 HDL Cholesterol 64 mg/dL (23-92) 01/15/17 05:50 TSH 2.70 uIU/ml (0.34-5.60) 01/13/17 15:10 Urine Source CLEAN C 01/14/17 18:15 Urine Color STRAW 01/14/17 18:15 Urine Clarity CLEAR (CLEAR) 01/14/17 18:15 Urine pH 5.5 (4.6 - 8.0) 01/14/17 18:15 Ur Specific [place] 1.010 (1.005-1.030) 01/14/17 18:15 Urine Protein NEGATIVE mg/dL (NEGATIVE) 01/14/17 18:15 Urine Glucose (UA) NEGATIVE mg/dL (NEGATIVE) 01/14/17 18:15 Urine Ketones NEGATIVE mg/dL (NEGATIVE) 01/14/17 18:15 Urine Blood NEGATIVE (NEGATIVE) 01/14/17 18:15 Urine Nitrate NEGATIVE (NEGATIVE) 01/14/17 18:15 Urine Bilirubin NEGATIVE (NEGATIVE) 01/14/17 18:15 Urine Urobilinogen 0.2 E.U./dL (0.2 - 1.0) 01/14/17 18:15 Ur Leukocyte Esterase NEGATIVE (NEGATIVE) 01/14/17 18:15 Urine RBC NONE SEEN /hpf (0-5) 01/14/17 18:15 Urine WBC NONE SEEN /hpf (0-5) 01/14/17 18:15 Ur Epithelial Cells NONE SEEN /lpf (FEW) 01/14/17 18:15 Urine Bacteria NONE SEEN /hpf (NONE SEEN) 01/14/17 18:15 Salicylates < 25.0 mg/L (30.0-100.0) L 01/13/17 15:10 Urine Opiates Screen NEGATIVE (NEGATIVE) 01/14/17 18:15 Urine Methadone Screen NEGATIVE (NEGATIVE) 01/14/17 18:15 Acetaminophen < 10.0 ug/mL (10.0-30.0) L 01/13/17 15:10 Ur Barbiturates Screen NEGATIVE (NEGATIVE) 01/14/17 18:15 Ur Tricyclics Screen NEGATIVE (NEGATIVE) 01/14/17 18:15 Ur Phencyclidine Scrn NEGATIVE (NEGATIVE) 01/14/17 18:15 Amphetamines Screen NEGATIVE (NEGATIVE) 01/14/17 18:15 U Methamphetamines Scrn NEGATIVE (NEGATIVE) 01/14/17 18:15 U Benzodiazepines Scrn NEGATIVE (NEGATIVE) 01/14/17 18:15 U Cocaine Metab Screen NEGATIVE (NEGATIVE) 01/14/17 18:15 U Cannabinoids Screen NEGATIVE (NEGATIVE) 01/14/17 18:15 Ethyl Alcohol < 10 mg/dL (0-10) 01/13/17 15:10 RPR NONREACTIVE (NONREACTIVE) 01/13/17 15:10 - Physical Exam Vitals and I&O: Vital Signs Temp 97.2 F 01/23/17 06:40 Pulse 65 01/23/17 06:40 Resp 18 01/23/17 06:40 BP 126/73 01/23/17 06:40 Pulse Ox 98 01/23/17 06:40 Intake & Output 01/22/17 01/23/17 01/23/17 18:59 06:59 18:59 Intake Total 1400 120 Balance 1400 120 Intake: Oral 1400 120 Other: # Voids 4 3 # Bowel Movements 1 Active Medications: Current Medications Acetaminophen (Tylenol) 650 mg PO Q6HR PRN PRN Reason: Mild Pain / Temp above 100 Stop: 03/14/17 20:58 Last Admin: 01/13/17 22:06 Dose: 650 mg Acetaminophen/Hydrocodone Bitart ([place] 5mg/325mg) 1 tab PO Q6H PRN PRN Reason: MODERATE-SEVERE PAIN Stop: 03/15/17 12:10 Aspirin (Ecotrin) 81 mg PO DAILY HERMES Stop: 03/23/17 08:59 Last Admin: 01/23/17 08:22 Dose: 81 mg Docusate Sodium (Colace) 100 mg PO BID HERMES Stop: 03/15/17 16:59 Last Admin: 01/23/17 08:22 Dose: 100 mg Lorazepam (Ativan) 0.5 mg PO Q6H PRN; Protocol PRN Reason: Anxiety Stop: 03/15/17 12:10 Last Admin: 01/18/17 01:38 PDT Dose: 0.5 mg Multivitamins/Vitamin C (Theragran) 1 tab PO DAILY HERMES Stop: 03/23/17 08:59 Last Admin: 01/23/17 08:22 Dose: 1 tab Quetiapine Fumarate (Seroquel) 75 mg PO BID HERMES PRN Reason: Protocol Stop: 03/15/17 08:59 Last Admin: 01/23/17 08:22 Dose: 75 mg Zolpidem Tartrate (Ambien) 10 mg PO HS HERMES Stop: 03/15/17 20:59 Last Admin: 01/22/17 20:37 Dose: 10 mg General: alert HEENT: NC/AT, PERRLA Neck: Supple Lungs: CTAB Cardiovascular: RRR, Normal S1, Normal S2, without murmur Abdomen: soft, non-tender, non-distended, positive bowel sound Neurological: alert Internal Medicine Assmt/Plan - Assessment Assessment: acute renal insufficiency mild protein calorie malnutrition dementia bipolar - Plan Plan: monitor patients po intake encourage fluids safety precautions continue current plan of care Nutritional Asmnt/Malnutr-PDOC - Dietary Evaluation Malnutrition Findings (Please click <Entered> for more info): Nutritional Asmnt/Malnutrition Start: 01/14/17 09: 40 Text: Status: Complete Freq: Document 01/21/17 11:51 [facility] (Rec: 01/21/17 12:01 [id number]) Nutritional Asmnt/Malnutrition Patient General Information Nutritional Screening Low Risk Diagnosis Psychosis, Agitation Pertinent Medical Hx/Surgical Hx HTN, dementia, depression, bipolar Subjective Information Pt from SNF was admitted for agitation. Spoke with nurse, pt eats very well. PO intake 100% since admission. Current Diet Order/ Nutrition Support Regular, No pork d/t bahai Pertinent Medications Colace, Seroquel Pertinent Labs 01/15: BUN 29H, cr 1.0, Glu 110H 01/13: Alb 3.6L Nutritional Hx/Data Height 5 ft 7 in Height (Calculated Centimeters) 170.2 Current Weight (lbs) 120 lb Weight (Calculated Kilograms) 54.4 Weight (Calculated Grams) 76382.1 [place] Body Weight 148 % [place] Body Weight 81 Body Mass Index (BMI) 18.8 Weight Status Approriate GI Symptoms GI Symptoms None Last BM 01/19 Difficult in: None Food Allergies No Cultural/Ethnic/Amish Belief no pork Skin Integrity/Comment: intact Current %PO Good (75-100%) Estimated Nutritional Goals Calories/Kcals/Kg 25-30kcal/kg based on IBW 148lb/67.3kg Kcals Calculated 4576-5015 Protein g/kg/kg based on IBW 148lb/67. 3kg Protein Calculated 67 Fluid: ml 9629-6975 (1ml/kcal) Nutritional Problem 1. Problem Problem no nutrition problem at this time Malnutrition Alert Protein-Calorie Malnutrition N/A Is there a minimum of two criteria No selected? Query Text:Check all the applicable criteria. A minimum of two criteria are recommended for diagnosis of either severe or non-severe malnutrition. Intervention/Recommendation Comments 1. Continue with current diet. current PO intake 100% meets 100% of estemated nutritional needs. 2. Monitor PO intake, wt weekly, labs, skin 3. F/U as low risk in 7 days, 01/28 Expected Outcomes/Goals Expected Outcomes/Goals 1. Pt to meet 100% of estemated nutritional needs 2. wt stability, change toward to IBW 3. skin to remain intact 4. labs to appraoch WNL
--- NOTE | 2017-01-24 01:59 | Progress Notes ---
DATE: 01/23/[address] Orozco. Case was discussed with staff of the patient, reviewed records. This is an 86-year-old male, who was admitted on 01/13/2017 because of psychotic and agitated behavior. The patient continues to be irritable, continues to be confused; however, at least he can recognize his room now. Continues to be wandering in the unit, unable to participate in a meaningful conversation or make safe-plan for self-care. He is compliant with the medication. No side effects, no sedation, no nausea, no extrapyramidal symptoms. He is on Seroquel 75 mg twice a day. We will continue the patient in group therapy, milieu therapy, and adjust medication as needed. JOB# [id number]
[2017-01-24] MEDS: Multivitamin Tab PO SCH (08:31)
--- NOTE | 2017-01-24 13:27 | Internal Medicine Prog Note ---
Internal Medicine Subjective - Subjective Service Date: 01/24/17 Patient is:: awake Per staff patient has:: no adverse event, no episodes of fall, eating well, confused, tolerating meds Internal Medicine Objective - Results Result Diagrams: 01/15/17 05:50 01/15/17 05:50 Recent Labs: Laboratory Last Values WBC 9.1 Th/cmm (4.8-10.8) D 01/15/17 05:50 RBC 3.59 Mil/cmm (3.80-5.80) L 01/15/17 05:50 Hgb 11.0 gm/dL (12-16) L 01/15/17 05:50 Hct 32.4 % (41.0-60) L 01/15/17 05:50 MCV 90.2 fl (80-99) 01/15/17 05:50 MCH 30.6 pg (27.0-31.0) 01/15/17 05:50 MCHC Differential 33.9 pg (28.0-36.0) 01/15/17 05:50 RDW 14.0 % (11.5-20.0) 01/15/17 05:50 Plt Count 289 Th/cmm (150-400) 01/15/17 05:50 MPV 8.1 fl 01/15/17 05:50 Neutrophils % 77.2 % (40.0-80.0) 01/15/17 05:50 Lymphocytes % 9.2 % (20.0-50.0) L 01/15/17 05:50 Monocytes % 9.0 % (2.0-10.0) 01/15/17 05:50 Eosinophils % 3.9 % (0.0-5.0) 01/15/17 05:50 Basophils % 0.7 % (0.0-2.0) 01/15/17 05:50 Sodium 137 mEq/L (136-145) 01/15/17 05:50 Potassium 4.0 mEq/L (3.5-5.1) 01/15/17 05:50 Chloride 104 mEq/L (98-107) 01/15/17 05:50 Carbon Dioxide 26.9 mEq/L (21.0-31.0) 01/15/17 05:50 Anion Gap 10.1 (7.0-16.0) 01/15/17 05:50 BUN 29 mg/dL (7-25) H 01/15/17 05:50 Creatinine 1.0 mg/dL (0.7-1.3) 01/15/17 05:50 Est GFR ( Amer) TNP 01/15/17 05:50 Est GFR (Non-Af Amer) TNP 01/15/17 05:50 BUN/Creatinine Ratio 29.0 01/15/17 05:50 Glucose 110 mg/dL (70-105) H 01/15/17 05:50 POC Glucose 102 MG/DL (70 - 105) 01/21/17 11:53 Hemoglobin A1c % 5.7 % (4.0-6.0) 01/13/17 15:10 Calcium 9.6 mg/dL (8.6-10.3) 01/15/17 05:50 Total Bilirubin 0.6 mg/dL (0.3-1.0) 01/13/17 15:10 AST 26 U/L (13-39) 01/13/17 15:10 ALT 17 U/L (7-52) 01/13/17 15:10 Alkaline Phosphatase 76 U/L (34-104) 01/13/17 15:10 Total Protein 6.4 gm/dL (6.0-8.3) 01/13/17 15:10 Albumin 3.6 gm/dL (4.2-5.5) L 01/13/17 15:10 Globulin 2.8 gm/dL 01/13/17 15:10 Albumin/Globulin Ratio 1.3 (1.0-1.8) 01/13/17 15:10 Triglycerides 66 mg/dL (<150) 01/15/17 05:50 Cholesterol 151 mg/dL (<200) 01/15/17 05:50 LDL Cholesterol Direct 83 mg/dL (75-193) 01/15/17 05:50 HDL Cholesterol 64 mg/dL (23-92) 01/15/17 05:50 TSH 2.70 uIU/ml (0.34-5.60) 01/13/17 15:10 Urine Source CLEAN C 01/14/17 18:15 Urine Color STRAW 01/14/17 18:15 Urine Clarity CLEAR (CLEAR) 01/14/17 18:15 Urine pH 5.5 (4.6 - 8.0) 01/14/17 18:15 Ur Specific [place] 1.010 (1.005-1.030) 01/14/17 18:15 Urine Protein NEGATIVE mg/dL (NEGATIVE) 01/14/17 18:15 Urine Glucose (UA) NEGATIVE mg/dL (NEGATIVE) 01/14/17 18:15 Urine Ketones NEGATIVE mg/dL (NEGATIVE) 01/14/17 18:15 Urine Blood NEGATIVE (NEGATIVE) 01/14/17 18:15 Urine Nitrate NEGATIVE (NEGATIVE) 01/14/17 18:15 Urine Bilirubin NEGATIVE (NEGATIVE) 01/14/17 18:15 Urine Urobilinogen 0.2 E.U./dL (0.2 - 1.0) 01/14/17 18:15 Ur Leukocyte Esterase NEGATIVE (NEGATIVE) 01/14/17 18:15 Urine RBC NONE SEEN /hpf (0-5) 01/14/17 18:15 Urine WBC NONE SEEN /hpf (0-5) 01/14/17 18:15 Ur Epithelial Cells NONE SEEN /lpf (FEW) 01/14/17 18:15 Urine Bacteria NONE SEEN /hpf (NONE SEEN) 01/14/17 18:15 Salicylates < 25.0 mg/L (30.0-100.0) L 01/13/17 15:10 Urine Opiates Screen NEGATIVE (NEGATIVE) 01/14/17 18:15 Urine Methadone Screen NEGATIVE (NEGATIVE) 01/14/17 18:15 Acetaminophen < 10.0 ug/mL (10.0-30.0) L 01/13/17 15:10 Ur Barbiturates Screen NEGATIVE (NEGATIVE) 01/14/17 18:15 Ur Tricyclics Screen NEGATIVE (NEGATIVE) 01/14/17 18:15 Ur Phencyclidine Scrn NEGATIVE (NEGATIVE) 01/14/17 18:15 Amphetamines Screen NEGATIVE (NEGATIVE) 01/14/17 18:15 U Methamphetamines Scrn NEGATIVE (NEGATIVE) 01/14/17 18:15 U Benzodiazepines Scrn NEGATIVE (NEGATIVE) 01/14/17 18:15 U Cocaine Metab Screen NEGATIVE (NEGATIVE) 01/14/17 18:15 U Cannabinoids Screen NEGATIVE (NEGATIVE) 01/14/17 18:15 Ethyl Alcohol < 10 mg/dL (0-10) 01/13/17 15:10 RPR NONREACTIVE (NONREACTIVE) 01/13/17 15:10 - Physical Exam Vitals and I&O: Vital Signs Temp 97.9 F 01/24/17 06:35 Pulse 80 01/24/17 08:00 Resp 20 01/24/17 08:00 BP 122/71 01/24/17 06:35 Pulse Ox 98 01/24/17 06:35 Intake & Output 01/23/17 01/24/17 01/24/17 18:59 06:59 18:59 Intake Total 1000 120 Balance 1000 120 Intake: Oral 1000 120 Other: # Voids 4 3 # Bowel Movements 1 Active Medications: Current Medications Acetaminophen (Tylenol) 650 mg PO Q6HR PRN PRN Reason: Mild Pain / Temp above 100 Stop: 03/14/17 20:58 Last Admin: 01/13/17 22:06 Dose: 650 mg Acetaminophen/Hydrocodone Bitart ([place] 5mg/325mg) 1 tab PO Q6H PRN PRN Reason: MODERATE-SEVERE PAIN Stop: 03/15/17 12:10 Aspirin (Ecotrin) 81 mg PO DAILY [facility] Stop: 03/23/17 08:59 Last Admin: 01/24/17 08:31 Dose: 81 mg Docusate Sodium (Colace) 100 mg PO BID [facility] Stop: 03/15/17 16:59 Last Admin: 01/24/17 08:31 Dose: 100 mg Lorazepam (Ativan) 0.5 mg PO Q6H PRN; Protocol PRN Reason: Anxiety Stop: 03/15/17 12:10 Last Admin: 01/24/17 08:31 Dose: 0.5 mg Multivitamins/Vitamin C (Theragran) 1 tab PO DAILY HERMES Stop: 03/23/17 08:59 Last Admin: 01/24/17 08:31 Dose: 1 tab Quetiapine Fumarate (Seroquel) 75 mg PO BID [facility]MES PRN Reason: Protocol Stop: 03/15/17 08:59 Last Admin: 01/24/17 08:31 Dose: 75 mg Zolpidem Tartrate (Ambien) 10 mg PO HS HERMES Stop: 03/15/17 20:59 Last Admin: 01/23/17 20:55 Dose: 10 mg General: alert HEENT: NC/AT, PERRLA Neck: Supple Lungs: CTAB Cardiovascular: RRR, Normal S1, Normal S2, without murmur Abdomen: soft, non-tender, non-distended, positive bowel sound Neurological: alert Internal Medicine Assmt/Plan - Assessment Assessment: acute renal insufficiency mild protein calorie malnutrition dementia bipolar - Plan Plan: monitor patients po intake encourage fluids safety precautions continue current plan of care Nutritional Asmnt/Malnutr-PDOC - Dietary Evaluation Malnutrition Findings (Please click <Entered> for more info): Nutritional Asmnt/Malnutrition Start: 01/14/17 09: 40 Text: Status: Complete Freq: Document 01/21/17 11:51 [facility] (Rec: 01/21/17 12:01 [facility] [email or web address]) Nutritional Asmnt/Malnutrition Patient General Information Nutritional Screening Low Risk Diagnosis Psychosis, Agitation Pertinent Medical Hx/Surgical Hx HTN, dementia, depression, bipolar Subjective Information Pt from SNF was admitted for agitation. Spoke with nurse, pt eats very well. PO intake 100% since admission. Current Diet Order/ Nutrition Support Regular, No pork d/t mandaen Pertinent Medications Colace, Seroquel Pertinent Labs 01/15: BUN 29H, cr 1.0, Glu 110H 01/13: Alb 3.6L Nutritional Hx/Data Height 5 ft 7 in Height (Calculated Centimeters) 170.2 Current Weight (lbs) 120 lb Weight (Calculated Kilograms) 54.4 Weight (Calculated Grams) 54554.1 [place] Body Weight 148 % [place] Body Weight 81 Body Mass Index (BMI) 18.8 Weight Status Approriate GI Symptoms GI Symptoms None Last BM 01/19 Difficult in: None Food Allergies No Cultural/Ethnic/Sikhism Belief no pork Skin Integrity/Comment: intact Current %PO Good (75-100%) Estimated Nutritional Goals Calories/Kcals/Kg 25-30kcal/kg based on IBW 148lb/67.3kg Kcals Calculated 2462-0454 Protein g/kg/kg based on IBW 148lb/67. 3kg Protein Calculated 67 Fluid: ml 5040-7092 (1ml/kcal) Nutritional Problem 1. Problem Problem no nutrition problem at this time Malnutrition Alert Protein-Calorie Malnutrition N/A Is there a minimum of two criteria No selected? Query Text:Check all the applicable criteria. A minimum of two criteria are recommended for diagnosis of either severe or non-severe malnutrition. Intervention/Recommendation Comments 1. Continue with current diet. current PO intake 100% meets 100% of estemated nutritional needs. 2. Monitor PO intake, wt weekly, labs, skin 3. F/U as low risk in 7 days, 01/28 Expected Outcomes/Goals Expected Outcomes/Goals 1. Pt to meet 100% of estemated nutritional needs 2. wt stability, change toward to IBW 3. skin to remain intact 4. labs to appraoch WNL
[2017-01-25] MEDS: Multivitamin Tab PO SCH (08:29)
--- NOTE | 2017-01-25 16:03 | Internal Medicine Prog Note ---
Internal Medicine Subjective - Subjective Service Date: 01/25/17 Patient is:: awake Per staff patient has:: no adverse event, no episodes of fall, eating well, confused, tolerating meds Internal Medicine Objective - Results Result Diagrams: 01/15/17 05:50 01/15/17 05:50 Recent Labs: Laboratory Last Values WBC 9.1 Th/cmm (4.8-10.8) D 01/15/17 05:50 RBC 3.59 Mil/cmm (3.80-5.80) L 01/15/17 05:50 Hgb 11.0 gm/dL (12-16) L 01/15/17 05:50 Hct 32.4 % (41.0-60) L 01/15/17 05:50 MCV 90.2 fl (80-99) 01/15/17 05:50 MCH 30.6 pg (27.0-31.0) 01/15/17 05:50 MCHC Differential 33.9 pg (28.0-36.0) 01/15/17 05:50 RDW 14.0 % (11.5-20.0) 01/15/17 05:50 Plt Count 289 Th/cmm (150-400) 01/15/17 05:50 MPV 8.1 fl 01/15/17 05:50 Neutrophils % 77.2 % (40.0-80.0) 01/15/17 05:50 Lymphocytes % 9.2 % (20.0-50.0) L 01/15/17 05:50 Monocytes % 9.0 % (2.0-10.0) 01/15/17 05:50 Eosinophils % 3.9 % (0.0-5.0) 01/15/17 05:50 Basophils % 0.7 % (0.0-2.0) 01/15/17 05:50 Sodium 137 mEq/L (136-145) 01/15/17 05:50 Potassium 4.0 mEq/L (3.5-5.1) 01/15/17 05:50 Chloride 104 mEq/L (98-107) 01/15/17 05:50 Carbon Dioxide 26.9 mEq/L (21.0-31.0) 01/15/17 05:50 Anion Gap 10.1 (7.0-16.0) 01/15/17 05:50 BUN 29 mg/dL (7-25) H 01/15/17 05:50 Creatinine 1.0 mg/dL (0.7-1.3) 01/15/17 05:50 Est GFR ( Amer) TNP 01/15/17 05:50 Est GFR (Non-Af Amer) TNP 01/15/17 05:50 BUN/Creatinine Ratio 29.0 01/15/17 05:50 Glucose 110 mg/dL (70-105) H 01/15/17 05:50 POC Glucose 102 MG/DL (70 - 105) 01/21/17 11:53 Hemoglobin A1c % 5.7 % (4.0-6.0) 01/13/17 15:10 Calcium 9.6 mg/dL (8.6-10.3) 01/15/17 05:50 Total Bilirubin 0.6 mg/dL (0.3-1.0) 01/13/17 15:10 AST 26 U/L (13-39) 01/13/17 15:10 ALT 17 U/L (7-52) 01/13/17 15:10 Alkaline Phosphatase 76 U/L (34-104) 01/13/17 15:10 Total Protein 6.4 gm/dL (6.0-8.3) 01/13/17 15:10 Albumin 3.6 gm/dL (4.2-5.5) L 01/13/17 15:10 Globulin 2.8 gm/dL 01/13/17 15:10 Albumin/Globulin Ratio 1.3 (1.0-1.8) 01/13/17 15:10 Triglycerides 66 mg/dL (<150) 01/15/17 05:50 Cholesterol 151 mg/dL (<200) 01/15/17 05:50 LDL Cholesterol Direct 83 mg/dL (75-193) 01/15/17 05:50 HDL Cholesterol 64 mg/dL (23-92) 01/15/17 05:50 TSH 2.70 uIU/ml (0.34-5.60) 01/13/17 15:10 Urine Source CLEAN C 01/14/17 18:15 Urine Color STRAW 01/14/17 18:15 Urine Clarity CLEAR (CLEAR) 01/14/17 18:15 Urine pH 5.5 (4.6 - 8.0) 01/14/17 18:15 Ur Specific [place] 1.010 (1.005-1.030) 01/14/17 18:15 Urine Protein NEGATIVE mg/dL (NEGATIVE) 01/14/17 18:15 Urine Glucose (UA) NEGATIVE mg/dL (NEGATIVE) 01/14/17 18:15 Urine Ketones NEGATIVE mg/dL (NEGATIVE) 01/14/17 18:15 Urine Blood NEGATIVE (NEGATIVE) 01/14/17 18:15 Urine Nitrate NEGATIVE (NEGATIVE) 01/14/17 18:15 Urine Bilirubin NEGATIVE (NEGATIVE) 01/14/17 18:15 Urine Urobilinogen 0.2 E.U./dL (0.2 - 1.0) 01/14/17 18:15 Ur Leukocyte Esterase NEGATIVE (NEGATIVE) 01/14/17 18:15 Urine RBC NONE SEEN /hpf (0-5) 01/14/17 18:15 Urine WBC NONE SEEN /hpf (0-5) 01/14/17 18:15 Ur Epithelial Cells NONE SEEN /lpf (FEW) 01/14/17 18:15 Urine Bacteria NONE SEEN /hpf (NONE SEEN) 01/14/17 18:15 Salicylates < 25.0 mg/L (30.0-100.0) L 01/13/17 15:10 Urine Opiates Screen NEGATIVE (NEGATIVE) 01/14/17 18:15 Urine Methadone Screen NEGATIVE (NEGATIVE) 01/14/17 18:15 Acetaminophen < 10.0 ug/mL (10.0-30.0) L 01/13/17 15:10 Ur Barbiturates Screen NEGATIVE (NEGATIVE) 01/14/17 18:15 Ur Tricyclics Screen NEGATIVE (NEGATIVE) 01/14/17 18:15 Ur Phencyclidine Scrn NEGATIVE (NEGATIVE) 01/14/17 18:15 Amphetamines Screen NEGATIVE (NEGATIVE) 01/14/17 18:15 U Methamphetamines Scrn NEGATIVE (NEGATIVE) 01/14/17 18:15 U Benzodiazepines Scrn NEGATIVE (NEGATIVE) 01/14/17 18:15 U Cocaine Metab Screen NEGATIVE (NEGATIVE) 01/14/17 18:15 U Cannabinoids Screen NEGATIVE (NEGATIVE) 01/14/17 18:15 Ethyl Alcohol < 10 mg/dL (0-10) 01/13/17 15:10 RPR NONREACTIVE (NONREACTIVE) 01/13/17 15:10 - Physical Exam Vitals and I&O: Vital Signs Temp 98.1 F 01/25/17 06:30 Pulse 70 01/25/17 08:00 Resp 20 01/25/17 08:00 BP 148/64 01/25/17 06:30 Pulse Ox 97 01/25/17 06:30 Intake & Output 01/24/17 01/25/17 01/25/17 18:59 06:59 18:59 Intake Total 800 480 Output Total 2 Balance 798 480 Intake: Oral 800 480 Output: Stool 2 Other: # Voids 4 1 Active Medications: Current Medications Acetaminophen (Tylenol) 650 mg PO Q6HR PRN PRN Reason: Mild Pain / Temp above 100 Stop: 03/14/17 20:58 Last Admin: 01/13/17 22:06 Dose: 650 mg Acetaminophen/Hydrocodone Bitart ([place] 5mg/325mg) 1 tab PO Q6H PRN PRN Reason: MODERATE-SEVERE PAIN Stop: 03/15/17 12:10 Aspirin (Ecotrin) 81 mg PO DAILY [facility] Stop: 03/23/17 08:59 Last Admin: 01/25/17 08:29 Dose: 81 mg Docusate Sodium (Colace) 100 mg PO BID [facility] Stop: 03/15/17 16:59 Last Admin: 01/25/17 08:29 Dose: 100 mg Lorazepam (Ativan) 0.5 mg PO Q6H PRN; Protocol PRN Reason: Anxiety Stop: 03/15/17 12:10 Last Admin: 01/25/17 08:29 Dose: 0.5 mg Multivitamins/Vitamin C (Theragran) 1 tab PO DAILY [facility] Stop: 03/23/17 08:59 Last Admin: 01/25/17 08:29 Dose: 1 tab Quetiapine Fumarate (Seroquel) 75 mg PO BID [facility] PRN Reason: Protocol Stop: 03/15/17 08:59 Last Admin: 01/25/17 08:29 Dose: 75 mg Zolpidem Tartrate (Ambien) 10 mg PO HS HERMES Stop: 03/15/17 20:59 Last Admin: 01/24/17 20:04 Dose: 10 mg General: alert HEENT: NC/AT, PERRLA Neck: Supple Lungs: CTAB Cardiovascular: RRR, Normal S1, Normal S2, without murmur Abdomen: soft, non-tender, non-distended, positive bowel sound Neurological: alert Internal Medicine Assmt/Plan - Assessment Assessment: acute renal insufficiency mild protein calorie malnutrition dementia bipolar - Plan Plan: monitor patients po intake encourage fluids safety precautions continue current plan of care Nutritional Asmnt/Malnutr-PDOC - Dietary Evaluation Malnutrition Findings (Please click <Entered> for more info): Nutritional Asmnt/Malnutrition Start: 01/14/17 09: 40 Text: Status: Complete Freq: Document 01/21/17 11:51 [facility] (Rec: 01/21/17 12:01 [email or web address]) Nutritional Asmnt/Malnutrition Patient General Information Nutritional Screening Low Risk Diagnosis Psychosis, Agitation Pertinent Medical Hx/Surgical Hx HTN, dementia, depression, bipolar Subjective Information Pt from SNF was admitted for agitation. Spoke with nurse, pt eats very well. PO intake 100% since admission. Current Diet Order/ Nutrition Support Regular, No pork d/t jainism Pertinent Medications Colace, Seroquel Pertinent Labs 01/15: BUN 29H, cr 1.0, Glu 110H 01/13: Alb 3.6L Nutritional Hx/Data Height 5 ft 7 in Height (Calculated Centimeters) 170.2 Current Weight (lbs) 120 lb Weight (Calculated Kilograms) 54.4 Weight (Calculated Grams) 82560.1 [place] Body Weight 148 % [place] Body Weight 81 Body Mass Index (BMI) 18.8 Weight Status Approriate GI Symptoms GI Symptoms None Last BM 01/19 Difficult in: None Food Allergies No Cultural/Ethnic/Anabaptism Belief no pork Skin Integrity/Comment: intact Current %PO Good (75-100%) Estimated Nutritional Goals Calories/Kcals/Kg 25-30kcal/kg based on IBW 148lb/67.3kg Kcals Calculated 1556-0146 Protein g/kg/kg based on IBW 148lb/67. 3kg Protein Calculated Fluid: ml 3907-9481 (1ml/kcal) Nutritional Problem 1. Problem Problem no nutrition problem at this time Malnutrition Alert Protein-Calorie Malnutrition N/A Is there a minimum of two criteria No selected? Query Text:Check all the applicable criteria. A minimum of two criteria are recommended for diagnosis of either severe or non-severe malnutrition. Intervention/Recommendation Comments 1. Continue with current diet. current PO intake 100% meets 100% of estemated nutritional needs. 2. Monitor PO intake, wt weekly, labs, skin 3. F/U as low risk in 7 days, 01/28 Expected Outcomes/Goals Expected Outcomes/Goals 1. Pt to meet 100% of estemated nutritional needs 2. wt stability, change toward to IBW 3. skin to remain intact 4. labs to appraoch WNL
--- NOTE | 2017-01-25 19:40 | Progress Notes ---
DATE: 01/24/2017 Case was discussed with staff of the patient, reviewed records. The patient continues to be unpredictable, impulsive, needing redirection. Continues to be unable to make safe plan for self-care. Continues to have poor insight, disorganized, easily agitated, needing redirection. He is compliant with the medication with no side effects, no sedation, no nausea, no extrapyramidal symptoms. He is on Seroquel 75 mg twice a day and we will continue to work with the patient in group therapy, milieu therapy and adjust the medication as needed. JOB# [id number]
[2017-01-26] MEDS: Multivitamin Tab PO SCH (08:52)
--- NOTE | 2017-01-26 11:05 | Internal Medicine Prog Note ---
Internal Medicine Subjective - Subjective Service Date: 01/26/17 Patient is:: awake Per staff patient has:: no adverse event, no episodes of fall, eating well, confused, tolerating meds Internal Medicine Objective - Results Result Diagrams: 01/15/17 05:50 01/15/17 05:50 Recent Labs: Laboratory Last Values WBC 9.1 Th/cmm (4.8-10.8) D 01/15/17 05:50 RBC 3.59 Mil/cmm (3.80-5.80) L 01/15/17 05:50 Hgb 11.0 gm/dL (12-16) L 01/15/17 05:50 Hct 32.4 % (41.0-60) L 01/15/17 05:50 MCV 90.2 fl (80-99) 01/15/17 05:50 MCH 30.6 pg (27.0-31.0) 01/15/17 05:50 MCHC Differential 33.9 pg (28.0-36.0) 01/15/17 05:50 RDW 14.0 % (11.5-20.0) 01/15/17 05:50 Plt Count 289 Th/cmm (150-400) 01/15/17 05:50 MPV 8.1 fl 01/15/17 05:50 Neutrophils % 77.2 % (40.0-80.0) 01/15/17 05:50 Lymphocytes % 9.2 % (20.0-50.0) L 01/15/17 05:50 Monocytes % 9.0 % (2.0-10.0) 01/15/17 05:50 Eosinophils % 3.9 % (0.0-5.0) 01/15/17 05:50 Basophils % 0.7 % (0.0-2.0) 01/15/17 05:50 Sodium 137 mEq/L (136-145) 01/15/17 05:50 Potassium 4.0 mEq/L (3.5-5.1) 01/15/17 05:50 Chloride 104 mEq/L (98-107) 01/15/17 05:50 Carbon Dioxide 26.9 mEq/L (21.0-31.0) 01/15/17 05:50 Anion Gap 10.1 (7.0-16.0) 01/15/17 05:50 BUN 29 mg/dL (7-25) H 01/15/17 05:50 Creatinine 1.0 mg/dL (0.7-1.3) 01/15/17 05:50 Est GFR ( Amer) TNP 01/15/17 05:50 Est GFR (Non-Af Amer) TNP 01/15/17 05:50 BUN/Creatinine Ratio 29.0 01/15/17 05:50 Glucose 110 mg/dL (70-105) H 01/15/17 05:50 POC Glucose 102 MG/DL (70 - 105) 01/21/17 11:53 Hemoglobin A1c % 5.7 % (4.0-6.0) 01/13/17 15:10 Calcium 9.6 mg/dL (8.6-10.3) 01/15/17 05:50 Total Bilirubin 0.6 mg/dL (0.3-1.0) 01/13/17 15:10 AST 26 U/L (13-39) 01/13/17 15:10 ALT 17 U/L (7-52) 01/13/17 15:10 Alkaline Phosphatase 76 U/L (34-104) 01/13/17 15:10 Total Protein 6.4 gm/dL (6.0-8.3) 01/13/17 15:10 Albumin 3.6 gm/dL (4.2-5.5) L 01/13/17 15:10 Globulin 2.8 gm/dL 01/13/17 15:10 Albumin/Globulin Ratio 1.3 (1.0-1.8) 01/13/17 15:10 Triglycerides 66 mg/dL (<150) 01/15/17 05:50 Cholesterol 151 mg/dL (<200) 01/15/17 05:50 LDL Cholesterol Direct 83 mg/dL (75-193) 01/15/17 05:50 HDL Cholesterol 64 mg/dL (23-92) 01/15/17 05:50 TSH 2.70 uIU/ml (0.34-5.60) 01/13/17 15:10 Urine Source CLEAN C 01/14/17 18:15 Urine Color STRAW 01/14/17 18:15 Urine Clarity CLEAR (CLEAR) 01/14/17 18:15 Urine pH 5.5 (4.6 - 8.0) 01/14/17 18:15 Ur Specific [place] 1.010 (1.005-1.030) 01/14/17 18:15 Urine Protein NEGATIVE mg/dL (NEGATIVE) 01/14/17 18:15 Urine Glucose (UA) NEGATIVE mg/dL (NEGATIVE) 01/14/17 18:15 Urine Ketones NEGATIVE mg/dL (NEGATIVE) 01/14/17 18:15 Urine Blood NEGATIVE (NEGATIVE) 01/14/17 18:15 Urine Nitrate NEGATIVE (NEGATIVE) 01/14/17 18:15 Urine Bilirubin NEGATIVE (NEGATIVE) 01/14/17 18:15 Urine Urobilinogen 0.2 E.U./dL (0.2 - 1.0) 01/14/17 18:15 Ur Leukocyte Esterase NEGATIVE (NEGATIVE) 01/14/17 18:15 Urine RBC NONE SEEN /hpf (0-5) 01/14/17 18:15 Urine WBC NONE SEEN /hpf (0-5) 01/14/17 18:15 Ur Epithelial Cells NONE SEEN /lpf (FEW) 01/14/17 18:15 Urine Bacteria NONE SEEN /hpf (NONE SEEN) 01/14/17 18:15 Salicylates < 25.0 mg/L (30.0-100.0) L 01/13/17 15:10 Urine Opiates Screen NEGATIVE (NEGATIVE) 01/14/17 18:15 Urine Methadone Screen NEGATIVE (NEGATIVE) 01/14/17 18:15 Acetaminophen < 10.0 ug/mL (10.0-30.0) L 01/13/17 15:10 Ur Barbiturates Screen NEGATIVE (NEGATIVE) 01/14/17 18:15 Ur Tricyclics Screen NEGATIVE (NEGATIVE) 01/14/17 18:15 Ur Phencyclidine Scrn NEGATIVE (NEGATIVE) 01/14/17 18:15 Amphetamines Screen NEGATIVE (NEGATIVE) 01/14/17 18:15 U Methamphetamines Scrn NEGATIVE (NEGATIVE) 01/14/17 18:15 U Benzodiazepines Scrn NEGATIVE (NEGATIVE) 01/14/17 18:15 U Cocaine Metab Screen NEGATIVE (NEGATIVE) 01/14/17 18:15 U Cannabinoids Screen NEGATIVE (NEGATIVE) 01/14/17 18:15 Ethyl Alcohol < 10 mg/dL (0-10) 01/13/17 15:10 RPR NONREACTIVE (NONREACTIVE) 01/13/17 15:10 - Physical Exam Vitals and I&O: Vital Signs Temp 98.5 F 01/26/17 06:32 Pulse 73 01/26/17 06:32 Resp 18 01/26/17 06:32 BP 108/61 01/26/17 06:32 Pulse Ox 96 01/26/17 06:32 Intake & Output 01/25/17 01/26/17 01/26/17 18:59 06:59 18:59 Intake Total 600 Balance 600 Intake: Oral 600 Other: # Voids 3 # Bowel Movements 2 Active Medications: Current Medications Acetaminophen (Tylenol) 650 mg PO Q6HR PRN PRN Reason: Mild Pain / Temp above 100 Stop: 03/14/17 20:58 Last Admin: 01/13/17 22:06 Dose: 650 mg Acetaminophen/Hydrocodone Bitart ([place] 5mg/325mg) 1 tab PO Q6H PRN PRN Reason: MODERATE-SEVERE PAIN Stop: 03/15/17 12:10 Aspirin (Ecotrin) 81 mg PO DAILY [facility] Stop: 03/23/17 08:59 Last Admin: 01/26/17 08:52 Dose: 81 mg Docusate Sodium (Colace) 100 mg PO BID [facility] Stop: 03/15/17 16:59 Last Admin: 01/26/17 08:52 Dose: 100 mg Lorazepam (Ativan) 0.5 mg PO Q6H PRN; Protocol PRN Reason: Anxiety Stop: 03/15/17 12:10 Last Admin: 01/25/17 08:29 Dose: 0.5 mg Multivitamins/Vitamin C (Theragran) 1 tab PO DAILY [facility] Stop: 03/23/17 08:59 Last Admin: 01/26/17 08:52 Dose: 1 tab Quetiapine Fumarate (Seroquel) 75 mg PO BID [facility] PRN Reason: Protocol Stop: 03/15/17 08:59 Last Admin: 01/26/17 08:52 Dose: 75 mg Zolpidem Tartrate (Ambien) 10 mg PO HS [facility] Stop: 03/15/17 20:59 Last Admin: 01/25/17 20:36 Dose: 10 mg General: alert HEENT: NC/AT, PERRLA Neck: Supple Lungs: CTAB Cardiovascular: RRR, Normal S1, Normal S2, without murmur Abdomen: soft, non-tender, non-distended, positive bowel sound Neurological: alert Internal Medicine Assmt/Plan - Assessment Assessment: acute renal insufficiency mild protein calorie malnutrition dementia bipolar - Plan Plan: monitor patients po intake encourage fluids safety precautions continue current plan of care Nutritional Asmnt/Malnutr-PDOC - Dietary Evaluation Malnutrition Findings (Please click <Entered> for more info): Nutritional Asmnt/Malnutrition Start: 01/14/17 09: 40 Text: Status: Complete Freq: Document 01/21/17 11:51 TIERA (Rec: 01/21/17 12:01 [email or web address] [email or web address]) Nutritional Asmnt/Malnutrition Patient General Information Nutritional Screening Low Risk Diagnosis Psychosis, Agitation Pertinent Medical Hx/Surgical Hx HTN, dementia, depression, bipolar Subjective Information Pt from SNF was admitted for agitation. Spoke with nurse, pt eats very well. PO intake 100% since admission. Current Diet Order/ Nutrition Support Regular, No pork d/t roman catholic Pertinent Medications Colace, Seroquel Pertinent Labs 01/15: BUN 29H, cr 1.0, Glu 110H 01/13: Alb 3.6L Nutritional Hx/Data Height 5 ft 7 in Height (Calculated Centimeters) 170.2 Current Weight (lbs) 120 lb Weight (Calculated Kilograms) 54.4 Weight (Calculated Grams) 41112.1 [place] Body Weight 148 % [place] Body Weight 81 Body Mass Index (BMI) 18.8 Weight Status Approriate GI Symptoms GI Symptoms None Last BM 01/19 Difficult in: None Food Allergies No Cultural/Ethnic/Jainism Belief no pork Skin Integrity/Comment: intact Current %PO Good (75-100%) Estimated Nutritional Goals Calories/Kcals/Kg 25-30kcal/kg based on IBW 148lb/67.3kg Kcals Calculated 6797-9998 Protein g/kg/kg based on IBW 148lb/67. 3kg Protein Calculated Fluid: ml 6648-9683 (1ml/kcal) Nutritional Problem 1. Problem Problem no nutrition problem at this time Malnutrition Alert Protein-Calorie Malnutrition N/A Is there a minimum of two criteria No selected? Query Text:Check all the applicable criteria. A minimum of two criteria are recommended for diagnosis of either severe or non-severe malnutrition. Intervention/Recommendation Comments 1. Continue with current diet. current PO intake 100% meets 100% of estemated nutritional needs. 2. Monitor PO intake, wt weekly, labs, skin 3. F/U as low risk in 7 days, 01/28 Expected Outcomes/Goals Expected Outcomes/Goals 1. Pt to meet 100% of estemated nutritional needs 2. wt stability, change toward to IBW 3. skin to remain intact 4. labs to appraoch WNL
--- NOTE | 2017-01-27 02:16 | Progress Notes ---
DATE: 01/25/2017 Case discussed with staff of the patient, reviewed records. The patient continues to be confused, continues to be unpredictable, impulsive, and wandering on the unit. Oriented x 1. Continues to have poor insight. He is compliant with the medication with no side effects. No sedation, no nausea, no extrapyramidal symptoms. We will continue to work with the patient in group therapy, milieu therapy, and adjust the medication as needed. JOB# [id number]
--- NOTE | 2017-01-27 02:41 | Progress Notes ---
DATE: 01/26/[address] Orozco. Case was discussed with staff of the patient, reviewed records. The patient continues to be confused, unpredictable, impulsive, needing redirection. He is sleeping well, eating well. He is compliant with the medication with no side effects, no sedation, no nausea, no extrapyramidal symptoms. He is on Seroquel 75 mg twice a day. He is less wandering in the unit, able to be confined to a place more than before, seems to be much calmer. We will continue to work with the patient in group therapy, milieu therapy, and adjust the medication as needed. JOB# [id number]
[2017-01-27] MEDS: Multivitamin Tab PO SCH (08:10)
--- NOTE | 2017-01-27 12:38 | Internal Medicine Prog Note ---
Internal Medicine Subjective - Subjective Service Date: 01/27/17 Patient is:: awake Per staff patient has:: no adverse event, no episodes of fall, eating well, confused, tolerating meds Internal Medicine Objective - Results Result Diagrams: 01/15/17 05:50 01/15/17 05:50 Recent Labs: Laboratory Last Values WBC 9.1 Th/cmm (4.8-10.8) D 01/15/17 05:50 RBC 3.59 Mil/cmm (3.80-5.80) L 01/15/17 05:50 Hgb 11.0 gm/dL (12-16) L 01/15/17 05:50 Hct 32.4 % (41.0-60) L 01/15/17 05:50 MCV 90.2 fl (80-99) 01/15/17 05:50 MCH 30.6 pg (27.0-31.0) 01/15/17 05:50 MCHC Differential 33.9 pg (28.0-36.0) 01/15/17 05:50 RDW 14.0 % (11.5-20.0) 01/15/17 05:50 Plt Count 289 Th/cmm (150-400) 01/15/17 05:50 MPV 8.1 fl 01/15/17 05:50 Neutrophils % 77.2 % (40.0-80.0) 01/15/17 05:50 Lymphocytes % 9.2 % (20.0-50.0) L 01/15/17 05:50 Monocytes % 9.0 % (2.0-10.0) 01/15/17 05:50 Eosinophils % 3.9 % (0.0-5.0) 01/15/17 05:50 Basophils % 0.7 % (0.0-2.0) 01/15/17 05:50 Sodium 137 mEq/L (136-145) 01/15/17 05:50 Potassium 4.0 mEq/L (3.5-5.1) 01/15/17 05:50 Chloride 104 mEq/L (98-107) 01/15/17 05:50 Carbon Dioxide 26.9 mEq/L (21.0-31.0) 01/15/17 05:50 Anion Gap 10.1 (7.0-16.0) 01/15/17 05:50 BUN 29 mg/dL (7-25) H 01/15/17 05:50 Creatinine 1.0 mg/dL (0.7-1.3) 01/15/17 05:50 Est GFR ( Amer) TNP 01/15/17 05:50 Est GFR (Non-Af Amer) TNP 01/15/17 05:50 BUN/Creatinine Ratio 29.0 01/15/17 05:50 Glucose 110 mg/dL (70-105) H 01/15/17 05:50 POC Glucose 224 MG/DL (70 - 105) H 01/26/17 17:24 Hemoglobin A1c % 5.7 % (4.0-6.0) 01/13/17 15:10 Calcium 9.6 mg/dL (8.6-10.3) 01/15/17 05:50 Total Bilirubin 0.6 mg/dL (0.3-1.0) 01/13/17 15:10 AST 26 U/L (13-39) 01/13/17 15:10 ALT 17 U/L (7-52) 01/13/17 15:10 Alkaline Phosphatase 76 U/L (34-104) 01/13/17 15:10 Total Protein 6.4 gm/dL (6.0-8.3) 01/13/17 15:10 Albumin 3.6 gm/dL (4.2-5.5) L 01/13/17 15:10 Globulin 2.8 gm/dL 01/13/17 15:10 Albumin/Globulin Ratio 1.3 (1.0-1.8) 01/13/17 15:10 Triglycerides 66 mg/dL (<150) 01/15/17 05:50 Cholesterol 151 mg/dL (<200) 01/15/17 05:50 LDL Cholesterol Direct 83 mg/dL (75-193) 01/15/17 05:50 HDL Cholesterol 64 mg/dL (23-92) 01/15/17 05:50 TSH 2.70 uIU/ml (0.34-5.60) 01/13/17 15:10 Urine Source CLEAN C 01/14/17 18:15 Urine Color STRAW 01/14/17 18:15 Urine Clarity CLEAR (CLEAR) 01/14/17 18:15 Urine pH 5.5 (4.6 - 8.0) 01/14/17 18:15 Ur Specific [place] 1.010 (1.005-1.030) 01/14/17 18:15 Urine Protein NEGATIVE mg/dL (NEGATIVE) 01/14/17 18:15 Urine Glucose (UA) NEGATIVE mg/dL (NEGATIVE) 01/14/17 18:15 Urine Ketones NEGATIVE mg/dL (NEGATIVE) 01/14/17 18:15 Urine Blood NEGATIVE (NEGATIVE) 01/14/17 18:15 Urine Nitrate NEGATIVE (NEGATIVE) 01/14/17 18:15 Urine Bilirubin NEGATIVE (NEGATIVE) 01/14/17 18:15 Urine Urobilinogen 0.2 E.U./dL (0.2 - 1.0) 01/14/17 18:15 Ur Leukocyte Esterase NEGATIVE (NEGATIVE) 01/14/17 18:15 Urine RBC NONE SEEN /hpf (0-5) 01/14/17 18:15 Urine WBC NONE SEEN /hpf (0-5) 01/14/17 18:15 Ur Epithelial Cells NONE SEEN /lpf (FEW) 01/14/17 18:15 Urine Bacteria NONE SEEN /hpf (NONE SEEN) 01/14/17 18:15 Salicylates < 25.0 mg/L (30.0-100.0) L 01/13/17 15:10 Urine Opiates Screen NEGATIVE (NEGATIVE) 01/14/17 18:15 Urine Methadone Screen NEGATIVE (NEGATIVE) 01/14/17 18:15 Acetaminophen < 10.0 ug/mL (10.0-30.0) L 01/13/17 15:10 Ur Barbiturates Screen NEGATIVE (NEGATIVE) 01/14/17 18:15 Ur Tricyclics Screen NEGATIVE (NEGATIVE) 01/14/17 18:15 Ur Phencyclidine Scrn NEGATIVE (NEGATIVE) 01/14/17 18:15 Amphetamines Screen NEGATIVE (NEGATIVE) 01/14/17 18:15 U Methamphetamines Scrn NEGATIVE (NEGATIVE) 01/14/17 18:15 U Benzodiazepines Scrn NEGATIVE (NEGATIVE) 01/14/17 18:15 U Cocaine Metab Screen NEGATIVE (NEGATIVE) 01/14/17 18:15 U Cannabinoids Screen NEGATIVE (NEGATIVE) 01/14/17 18:15 Ethyl Alcohol < 10 mg/dL (0-10) 01/13/17 15:10 RPR NONREACTIVE (NONREACTIVE) 01/13/17 15:10 - Physical Exam Vitals and I&O: Vital Signs Temp 97.6 F 01/27/17 06:13 Pulse 80 01/27/17 06:13 Resp 18 01/27/17 06:13 BP 117/55 01/27/17 06:13 Pulse Ox 95 01/27/17 06:13 Intake & Output 01/26/17 01/27/17 01/27/17 18:59 06:59 18:59 Intake Total 1000 240 Balance 1000 240 Weight (lbs) 120 lb Intake: Oral 1000 240 Other: # Voids 4 3 # Bowel Movements 1 0 Active Medications: Current Medications Acetaminophen (Tylenol) 650 mg PO Q6HR PRN PRN Reason: Mild Pain / Temp above 100 Stop: 03/14/17 20:58 Last Admin: 01/13/17 22:06 Dose: 650 mg Acetaminophen/Hydrocodone Bitart ([place] 5mg/325mg) 1 tab PO Q6H PRN PRN Reason: MODERATE-SEVERE PAIN Stop: 03/15/17 12:10 Aspirin (Ecotrin) 81 mg PO DAILY HERMES Stop: 03/23/17 08:59 Last Admin: 01/27/17 08:09 Dose: 81 mg Docusate Sodium (Colace) 100 mg PO BID HERMES Stop: 03/15/17 16:59 Last Admin: 01/27/17 08:09 Dose: 100 mg Lorazepam (Ativan) 0.5 mg PO Q6H PRN; Protocol PRN Reason: Anxiety Stop: 03/15/17 12:10 Last Admin: 01/25/17 08:29 Dose: 0.5 mg Multivitamins/Vitamin C (Theragran) 1 tab PO DAILY HERMES Stop: 03/23/17 08:59 Last Admin: 01/27/17 08:10 Dose: 1 tab Quetiapine Fumarate (Seroquel) 75 mg PO BID HERMES PRN Reason: Protocol Stop: 03/15/17 08:59 Last Admin: 01/27/17 08:09 Dose: 75 mg Zolpidem Tartrate (Ambien) 10 mg PO HS HERMES Stop: 03/15/17 20:59 Last Admin: 01/26/17 21:04 Dose: 10 mg General: alert HEENT: NC/AT, PERRLA Neck: Supple Lungs: CTAB Cardiovascular: RRR, Normal S1, Normal S2, without murmur Abdomen: soft, non-tender, non-distended, positive bowel sound Neurological: alert Internal Medicine Assmt/Plan - Assessment Assessment: acute renal insufficiency mild protein calorie malnutrition dementia bipolar - Plan Plan: monitor patients po intake encourage fluids safety precautions continue current plan of care Nutritional Asmnt/Malnutr-PDOC - Dietary Evaluation Malnutrition Findings (Please click <Entered> for more info): Nutritional Asmnt/Malnutrition Start: 01/14/17 09: 40 Text: Status: Complete Freq: Document 01/21/17 11:51 TIERAG (Rec: 01/21/17 12:01 TIERAG [email or web address]) Nutritional Asmnt/Malnutrition Patient General Information Nutritional Screening Low Risk Diagnosis Psychosis, Agitation Pertinent Medical Hx/Surgical Hx HTN, dementia, depression, bipolar Subjective Information Pt from SNF was admitted for agitation. Spoke with nurse, pt eats very well. PO intake 100% since admission. Current Diet Order/ Nutrition Support Regular, No pork d/t judaism Pertinent Medications Colace, Seroquel Pertinent Labs 01/15: BUN 29H, cr 1.0, Glu 110H 01/13: Alb 3.6L Nutritional Hx/Data Height 5 ft 7 in Height (Calculated Centimeters) 170.2 Current Weight (lbs) 120 lb Weight (Calculated Kilograms) 54.4 Weight (Calculated Grams) 78707.1 [place] Body Weight 148 % [place] Body Weight 81 Body Mass Index (BMI) 18.8 Weight Status Approriate GI Symptoms GI Symptoms None Last BM 01/19 Difficult in: None Food Allergies No Cultural/Ethnic/Anglican Belief no pork Skin Integrity/Comment: intact Current %PO Good (75-100%) Estimated Nutritional Goals Calories/Kcals/Kg 25-30kcal/kg based on IBW 148lb/67.3kg Kcals Calculated 5031-9959 Protein g/kg/kg based on IBW 148lb/67. 3kg Protein Calculated 67 Fluid: ml 4631-9214 (1ml/kcal) Nutritional Problem 1. Problem Problem no nutrition problem at this time Malnutrition Alert Protein-Calorie Malnutrition N/A Is there a minimum of two criteria No selected? Query Text:Check all the applicable criteria. A minimum of two criteria are recommended for diagnosis of either severe or non-severe malnutrition. Intervention/Recommendation Comments 1. Continue with current diet. current PO intake 100% meets 100% of estemated nutritional needs. 2. Monitor PO intake, wt weekly, labs, skin 3. F/U as low risk in 7 days, 01/28 Expected Outcomes/Goals Expected Outcomes/Goals 1. Pt to meet 100% of estemated nutritional needs 2. wt stability, change toward to IBW 3. skin to remain intact 4. labs to appraoch WNL
--- NOTE | 2017-01-27 22:58 | Progress Notes ---
DATE: 01/27/2017 Case was discussed with staff of the patient, reviewed records. The patient continues to be confused, needing redirection, unpredictable, impulsive, having poor insight. Unable to make a safe plan for self-care and no side effects of medication, no sedation, no nausea, no extrapyramidal symptoms. We will continue to work with the patient in group therapy, milieu therapy, and adjust medication as needed. His TSH was in normal range and his MRSA was positive for Staph and make sure the staff knows about it. He is now within normal range. CBC with low RBCs and hemoglobin and make sure the staff tell the medical doctor about it and his chemistry panel show high blood sugar, high BUN, the rest within normal range. Lipid panel within normal range. Hemoglobin, we will increase within normal range. We will continue outpatient group therapy, milieu therapy, adjust medications. JOB# [id number]
== END 2017-01-27 16:00 | DRG 885 ==
LOC: ER 14:32 → GERO 16:50
PROVIDERS: ADMIT Psychiatry & Neurology Psychiatry; ATTEND Psychiatry & Neurology Psychiatry
DX: F31.64 Bipolar disorder, current episode mixed, severe, with psychotic features (principal); F03.91 Unspecified dementia, unspecified severity, with behavioral disturbance; E44.1 Mild protein-calorie malnutrition; Z68.1 Body mass index [BMI] 19.9 or less, adult; N28.9 Disorder of kidney and ureter, unspecified; I10 Essential (primary) hypertension; Z82.49 Family history of ischemic heart disease and other diseases of the circulatory system; Z91.83 Wandering in diseases classified elsewhere
CPT/HCPCS: 36415-UA; 80048-TC; 80053-TC; 80061-TC; 80307; 80320-TC; 80329-TC; 81001-TC; 82948-90; 83036-90; 84443-TC; 85025-TC; 86592-TC; 93005; Z7610

== ENCOUNTER 2018-07-22 23:19 | Inpatient (IN) | payer MEDICARE, MEDICAID ==
[2018-07-23 00:26] VITALS: BP 148/63
[2018-07-23] MEDS ORDERED: Maalox 30 mL Cup PO PRN (00:40)
[2018-07-23] MEDS ORDERED: Magnesium Hydroxide (MOM) 30 mL UDC PO PRN (00:40)
[2018-07-23 07:59] LABS: CHOLESTEROL 160 mg/dL (<200); HDL -HIGH DENSITY LIPOPROTEIN 49 mg/dL (23-92); TRIGLYCERIDES 90 mg/dL (<150)
[2018-07-23] MEDS: Multivitamin Tab PO SCH (08:53)
--- NOTE | 2018-07-23 22:48 | Psychiatric Evaluation ---
DATE OF SERVICE: 07/22/2018 AGE: 88. SEX: Male. PHYSICIAN: Dr. Orozco. CHIEF COMPLAINT: Agitation and irritability. HISTORY OF PRESENT ILLNESS: The patient is an 88-year-old male with history of schizophrenia. The patient is living in a [facility] and the patient was extremely agitated and irritable and the patient was transferred to the [facility] for his agitation and irritability. The patient has been aggressive with the staff and has been demanding and has been having difficulty expressing himself or his feelings. The patient also has been forgetful and has not been able to follow any of staff instructions. The patient also is hyperverbal and is confused. Otherwise, the patient is compliant with taking his medications. The patient also has been hoarding and his behavior has been unpredictable and the staff was not able to handle his condition. CURRENT MEDICATIONS: The patient is taking Risperdal, Lamictal, Zoloft, and Depakote. Depakote blood level was not done in our ER. PAST MEDICAL HISTORY: The patient has history of muscle weakness. SOCIAL HISTORY: The patient lives in [facility]. No known alcohol or street drug use. ALLERGIES: No known allergies. MENTAL STATUS EXAMINATION: The patient appears his stated age. Anxious. Irritable mood. Thought processes are circumstantial, but no flight of ideas. The patient seems to be confused. The patient seems to be preoccupied, but denies hallucinations or delusions. He denies any thoughts of suicide or homicide. The patient is alert and oriented to time, place, person, and situation. Impaired immediate and recent memory, but intact remote memory. Poor insight and poor judgment. ASSESSMENT AND PRIMARY DIAGNOSIS: Schizophrenia by history. SECONDARY DIAGNOSIS: Dementia, moderate to severe, with psychotic features and behavioral disturbances. TREATMENT PLAN: Continue to monitor his behavior and his condition closely. Continue current psychotropic medications and will adjust the dose. ESTIMATED LENGTH OF STAY: 5-7 days. THE PATIENT'S STRENGTHS AND WEAKNESSES: The patient seems to be in relatively fair health. Weaknesses are his agitation and his aggressive behavior. AFTER DISCHARGE PLAN: The patient will return to [facility] with plans for outpatient treatment and follow up as an outpatient. [facility]# [id number]
[2018-07-24] MEDS: Multivitamin Tab PO SCH (08:36)
--- NOTE | 2018-07-25 01:24 | History & Physical ---
ADMIT DATE: 07/23/2018 REASON FOR ADMISSION: Psychiatric disorders. HISTORY OF PRESENT ILLNESS: This is an 88-year-old male admitted to Geropsych unit for underlying Geropsych illness by Dr. Orozco. Dr. Orozco requested medical H and P on this patient. He denies any medical complaints or concerns. PAST MEDICAL HISTORY: Seizure disorder, dementia, mental disorder. FAMILY HISTORY: Noncontributory. SOCIAL HISTORY: Lives in a nursing facility. No reported alcohol or tobacco. CURRENT MEDICATIONS: Per medication reconciliation. ALLERGIES: No known drug allergies. REVIEW OF SYSTEMS: No fever, no chills, no nausea, no headache, no chest pain, no dizziness, no palpitations, no diarrhea, no vomiting, no abdominal pain. PHYSICAL EXAMINATION: VITAL SIGNS: Temperature 97.6, pulse 91, respiration 20, blood pressure ____, oxygen saturation 98% on room air. HEENT: Unremarkable. HEART: S1 and S2 normal. LUNGS: Clear to auscultation. ABDOMEN: Soft. NEUROLOGIC: No focal deficits. EXTREMITIES: No edema. ASSESSMENT: 1. Seizure disorder. 2. Dementia. 3. ____. PLAN: Continue same dose of medications. Seizure precautions. Lab reviewed. Psych management per psychiatrist. The patient is medically stable. Thank you Dr. Orozco for allowing me to participate in the care of this patient. JOB# [id number]
--- NOTE | 2018-07-25 02:18 | Progress Notes ---
DATE: 07/24/2018 PSYCHIATRIC PROGRESS NOTE SUBJECTIVE: Chart was reviewed and the patient interviewed. Also discussed the patient's condition with the staff and reviewed records and labs. The patient continued to be confused and forgetful. The patient also is restless and anxious. He also still needs lots of redirections. The patient also had difficulty with sleeping at night and not able to sleep except for a couple of hours. The patient also still has mood swings and easily irritable and easily agitated. ASSESSMENT: The patient is still agitated and irritable. TREATMENT PLAN: Continue to monitor behavior and condition closely. Also continue Depakote in a dose of 250 mg 3 times a day and the Lamictal 200 mg every day and Risperdal 0.5 mg in the morning and 0.5 mg at bedtime. Plan is to discontinue Lamictal and Zoloft and start the patient on trazodone 50 mg at bedtime after it helps the patient sleep better at night. Also, continue to monitor his behavior and his condition closely. JOB# [id number]
[2018-07-25] MEDS: Multivitamin Tab PO SCH (09:46)
--- NOTE | 2018-07-25 23:38 | Progress Notes ---
DATE: 07/25/2018 SUBJECTIVE: Chart reviewed and the patient interviewed. Also discussed the patient's condition with the staff and reviewed records and labs. The patient is still restless and is still anxious and confused. The patient also is still forgetful. The patient also still have mood swings. Also, needs lots of redirections. On the other hand, the patient seems to be calmer than yesterday and it is easier to redirect him. At the same time, compliant with taking medications with no side effects of medications. ASSESSMENT: The patient is still agitated and psychotic. TREATMENT PLAN: Continue to monitor behavior and condition and continue adjusting psychotropic medications. JOB# [id number]
[2018-07-26] MEDS: Multivitamin Tab PO SCH (08:35)
[2018-07-26] MEDS: risperiDONE 1 mg/mL 30 mL Bottle PO SCH ×2 (08:38→20:32)
--- NOTE | 2018-07-26 21:14 | Progress Notes ---
DATE: SUBJECTIVE: Chart was reviewed and the patient interviewed. Also discussed the patient's condition with the staff and reviewed records and labs. The patient is still confused and easily agitated and asked us to "can I go home." The patient also is still disheveled and is easily agitated. The patient is urinating on himself and as one staff tried to change him and help him with his ADLs. He refuses. The patient also at times refuses to take Depakote or Risperdal. Also, he is easily agitated and angry and in irritable mood. ASSESSMENT: The patient is still confused and psychotic. TREATMENT PLAN: We will continue monitoring his behavior and his condition closely. Also, we will continue encouraging the patient to take his psychotropic medications and will continue to follow up. [facility]# [id number]
[2018-07-27] MEDS: Multivitamin Tab PO SCH (09:06)
[2018-07-27] MEDS: risperiDONE 1 mg/mL 30 mL Bottle PO SCH ×2 (09:06→20:44)
--- NOTE | 2018-07-27 13:34 | Progress Notes ---
DATE: 07/27/[address] Orozco. Case was discussed with staff of the patient, reviewed records. This is an 88-year-old Latvian speaking male who was admitted on 07/22/2018 for history of schizophrenia. The patient came from [facility]. The patient was extremely agitated, irritable transferred to [place] for agitation, irritability, aggressive with the staff, demanding, having difficulty expressing himself. He has been forgetful, unable to follow staff direction, hoarding behavior, unpredictable, and impulsive. The patient continues to be unpredictable, impulsive. Actually yesterday, I tried to talk to him to convince him that the bed next to him is not his. He insisted that he paid for it. He defecated on the floor today. He is unpredictable and impulsive, needing redirection. Dr. Orozco increased _risperdal to daily and 0.5 mg at bedtime with no side effects, no sedation, no nausea. We will continue the patient in group therapy, milieu therapy, and adjust the medications as needed. JOB# [id number] [facility]
--- NOTE | 2018-07-27 22:14 | General Progress Note ---
Subjective - Review of Systems Service Date: 07/27/18 Subjective: Patient doing fine no new concern reported Objective - Results Recent Labs: Laboratory Last Values Triglycerides 90 mg/dL (<150) 07/23/18 07:00 Cholesterol 160 mg/dL (<200) 07/23/18 07:00 LDL Cholesterol Direct 109 mg/dL (75-193) 07/23/18 07:00 HDL Cholesterol 49 mg/dL (23-92) 07/23/18 07:00 Valproic Acid 10.3 ug/mL (50.0-100.0) L 07/23/18 07:00 - Physical Exam Vitals and I&O: Vital Signs Temp 97.8 F 07/27/18 19:45 Pulse 58 07/27/18 19:45 Resp 18 07/27/18 19:45 BP 129/49 07/27/18 19:45 Pulse Ox 98 07/27/18 19:45 Intake & Output 07/27/18 07/27/18 07/28/18 06:59 18:59 06:59 Intake Total 120 200 Output Total 2 Balance 120 198 Intake: Oral 120 100 Other 100 Output: Urine 2 Other: # Voids 3 2 # Bowel Movements 0 1 Active Medications: Current Medications Acetaminophen (Tylenol) 650 mg PO Q4HR PRN PRN Reason: Mild Pain / Temp above 100 Stop: 09/21/18 00:39 Last Admin: 07/27/18 13:28 Dose: 650 mg Al Hydrox/Mg Hydrox/Simethicone (Maalox) 30 ml PO Q4HR PRN PRN Reason: GI DISTRESS Stop: 09/21/18 00:39 Cholecalciferol (Vitamin D3) 1,000 iu PO DAILY HERMES Stop: 09/21/18 08:59 Last Admin: 07/27/18 09:05 Dose: 1,000 iu Docusate Sodium (Colace) 100 mg PO BID HERMES Stop: 09/21/18 08:59 Last Admin: 07/27/18 16:25 Dose: 100 mg Lorazepam (Ativan) 0.5 mg PO Q4HR PRN; Protocol PRN Reason: Anxiety Stop: 08/22/18 00:33 Last Admin: 07/27/18 13:28 Dose: 0.5 mg Magnesium Hydroxide (Milk Of Magnesia) 30 ml PO HS PRN PRN Reason: Constipation Multivitamins/Vitamin C (Theragran) 1 tab PO DAILY HERMES Stop: 09/21/18 08:59 Last Admin: 07/27/18 09:06 Dose: 1 tab Risperidone (Risperdal) 0.25 mg PO DAILY HERMES; Protocol Stop: 09/24/18 08:59 Last Admin: 07/27/18 09:06 Dose: 0.25 mg Risperidone (Risperdal) 0.5 mg PO HS HERMES; Protocol Stop: 09/24/18 20:59 Last Admin: 07/27/18 20:44 Dose: 0.5 mg Trazodone HCl (Desyrel) 50 mg PO HS HERMES; Protocol Stop: 09/22/18 20:59 Last Admin: 07/27/18 20:43 Dose: 50 mg Valproate Sodium (Depakene) 250 mg PO TID HERMES; Protocol Stop: 09/24/18 08:59 Last Admin: 07/27/18 20:43 Dose: 250 mg Zolpidem Tartrate (Ambien) 5 mg PO HS PRN PRN Reason: Insomnia Stop: 09/21/18 00:33 Last Admin: 07/27/18 04:26 Dose: 5 mg Cardiovascular: Regular rate Lungs: Clear to auscultation Assessment/Plan - Assessment Assessment: seizure Dementia Mental health disorder - Plan Plan: Continue current treatment Monitor vital Fall precaution MAR reviewed Plan of care discussed with nursing staff Nutritional Asmnt/Malnutr-PDOC - Dietary Evaluation Malnutrition Findings (Please click <Entered> for more info): Nutritional Asmnt/Malnutrition Start: 07/27/18 14: 26 Text: Status: Complete Freq: Protocol: Document 07/27/18 14:26 LCTIERAG (Rec: 07/27/18 14:36 LCTIERAG [email or web address]) Nutritional Asmnt/Malnutrition Patient General Information Nutritional Screening Moderate Risk Diagnosis psychosis Pertinent Medical Hx/Surgical Hx seizure, dementia, metnal disorder Subjective Information Pt seen in dining room, confused. Per EMR, PO intake 75-100%. RN reported pt eats very well, no issue noted. Current Diet Order/ Nutrition Support ground Pertinent Medications vit D3, coalce, theragran Pertinent Labs 07/23 reviewed Nutritional Hx/Data Height 1.7 m Height (Calculated Centimeters) 170.2 Current Weight (lbs) 54.431 kg Weight (Calculated Kilograms) 54.4 Weight (Calculated Grams) 07883.1 [place] Body Weight 148 Body Mass Index (BMI) 18.8 Weight Status Approriate GI Symptoms GI Symptoms None Last BM 5/10 Difficult in: None Skin Integrity/Comment: dryness Current %PO Good (75-100%) Estimated Nutritional Goals BEE in Kcals: Using Current wt Calories/Kcals/Kg 27-32 Kcals Calculated 3708-6016 Protein: Using Current wt Protein g/k-1.2 Protein Calculated 55-66 Fluid: ml 1485-1760ml (1ml/kcal) Nutritional Problem No current Nutrition Prob Problem N/A Malnutrition Alert Is there a minimum of two criteria No selected? Query Text:Check all the applicable criteria. A minimum of two criteria are recommended for diagnosis of either severe or non-severe malnutrition. Malnutrition Related to Morbid Obesity Malnutrition related to morbid obesity No Intervention/Recommendation Comments 1. Continue with ground diet as ordered. 2. Monitor PO intake, wt, labs and skin integrity 3. F/U as low risk in 08/03 Expected Outcomes/Goals Expected Outcomes/Goals 1. PO intake to meet at least 75% of nutritional needs. 2. Wt stability, skin to remain intact, labs to approach WNL.
[2018-07-28] MEDS: Multivitamin Tab PO SCH (08:47)
--- NOTE | 2018-07-28 19:04 | Progress Notes ---
DATE: 07/28/2018 SUBJECTIVE: Chart was reviewed and the patient interviewed. Also discussed the patient's condition with the staff and reviewed records and labs. The patient is still confused and still has episodes of agitation and irritability. The patient also is still suspicious and seems to be paranoid. He also is still anxious and is still confused and has difficulty following staff directions. The patient also is going to other patient's rooms and is still urinating in their rooms. Otherwise, the patient is compliant with taking medications with no side effects of medications. ASSESSMENT: The patient is still confused and still needs lots of redirections. TREATMENT PLAN: Continue to monitor his behavior closely. Also, will increase Risperdal to 0.5 mg in the morning and 0.75 mg at bedtime. Also, Depakote blood level that was done on 07/23/2018 came back to be 10.3, which is below therapeutic level. We will increase Depakote to 500 mg twice a day and we will adjust the dose. [facility]# [id number]
[2018-07-29] MEDS: Multivitamin Tab PO SCH (08:09)
--- NOTE | 2018-07-29 18:10 | Progress Notes ---
DATE: 07/29/2018 PSYCHIATRIC PROGRESS NOTE SUBJECTIVE: Chart was reviewed and the patient interviewed. Also discussed the patient's condition with the staff and reviewed records and labs. The patient is still confused and still easily agitated. The patient kept going into other patient's rooms in a confused state. He also is still restless and he still needs lots of redirections and gets agitated when staff tries to redirect him. Otherwise, the patient is compliant with taking his medications with no side effects of medications. ASSESSMENT: The patient is still psychotic and agitated. TREATMENT PLAN: We will continue monitoring his behavior and his condition closely. Also, we will continue working on his agitation and aggression. Yesterday, the Risperdal was increased to 2.5 mg in the morning and 0.75 mg at bedtime with no side effects. We will continue same dose and will continue to follow up. JOB# [id number]
--- NOTE | 2018-07-29 21:43 | General Progress Note ---
Subjective - Review of Systems Service Date: 07/29/18 Subjective: Patient seems very confused no new concern reported Objective - Results Recent Labs: Laboratory Last Values Triglycerides 90 mg/dL (<150) 07/23/18 07:00 Cholesterol 160 mg/dL (<200) 07/23/18 07:00 LDL Cholesterol Direct 109 mg/dL (75-193) 07/23/18 07:00 HDL Cholesterol 49 mg/dL (23-92) 07/23/18 07:00 Valproic Acid 10.3 ug/mL (50.0-100.0) L 07/23/18 07:00 - Physical Exam Vitals and I&O: Vital Signs Temp 98 F 07/29/18 19:43 Pulse 71 07/29/18 19:43 Resp 20 07/29/18 19:43 BP 135/67 07/29/18 19:43 Pulse Ox 97 07/29/18 19:43 Intake & Output 07/29/18 07/29/18 07/30/18 06:59 18:59 06:59 Intake Total 120 960 240 Balance 120 960 240 Intake: Oral 120 960 240 Other: # Voids 3 3 1 # Bowel Movements 1 Active Medications: Current Medications Acetaminophen (Tylenol) 650 mg PO Q4HR PRN PRN Reason: Mild Pain / Temp above 100 Stop: 09/21/18 00:39 Last Admin: 07/27/18 13:28 Dose: 650 mg Al Hydrox/Mg Hydrox/Simethicone (Maalox) 30 ml PO Q4HR PRN PRN Reason: GI DISTRESS Stop: 09/21/18 00:39 Cholecalciferol (Vitamin D3) 1,000 iu PO DAILY HERMES Stop: 09/21/18 08:59 Last Admin: 07/29/18 08:09 Dose: 1,000 iu Docusate Sodium (Colace) 100 mg PO BID HERMES Stop: 09/21/18 08:59 Last Admin: 07/29/18 16:40 Dose: 100 mg Lorazepam (Ativan) 0.5 mg PO Q4HR PRN; Protocol PRN Reason: Anxiety Stop: 08/22/18 00:33 Last Admin: 07/28/18 08:47 Dose: 0.5 mg Magnesium Hydroxide (Milk Of Magnesia) 30 ml PO HS PRN PRN Reason: Constipation Multivitamins/Vitamin C (Theragran) 1 tab PO DAILY HERMES Stop: 09/21/18 08:59 Last Admin: 07/29/18 08:09 Dose: 1 tab Risperidone (Risperdal) 0.5 mg PO DAILY HERMES; Protocol Stop: 09/26/18 08:59 Last Admin: 07/29/18 08:10 Dose: 0.5 mg Risperidone (Risperdal) 0.75 mg PO HS HERMES; Protocol Stop: 09/26/18 20:59 Last Admin: 07/28/18 20:25 Dose: 0.75 mg Trazodone HCl (Desyrel) 50 mg PO HS HERMES; Protocol Stop: 09/22/18 20:59 Last Admin: 07/28/18 20:27 Dose: 50 mg Valproate Sodium (Depakene) 500 mg PO BID HERMES; Protocol Stop: 09/26/18 08:59 Last Admin: 07/29/18 16:39 Dose: 500 mg Zolpidem Tartrate (Ambien) 5 mg PO HS PRN PRN Reason: Insomnia Stop: 09/21/18 00:33 Last Admin: 07/28/18 20:28 Dose: 5 mg Cardiovascular: Regular rate Lungs: Clear to auscultation Assessment/Plan - Assessment Assessment: Confusion seizure Dementia Mental health disorder - Plan Plan: Continue current treatment Monitor vital Fall precaution MAR reviewed Plan of care discussed with nursing staff Nutritional Asmnt/Malnutr-PDOC - Dietary Evaluation Malnutrition Findings (Please click <Entered> for more info): Nutritional Asmnt/Malnutrition Start: 07/27/18 14: 26 Text: Status: Complete Freq: Protocol: Document 07/27/18 14:26 LCTIERAG (Rec: 07/27/18 14:36 [email or web address] [id number]) Nutritional Asmnt/Malnutrition Patient General Information Nutritional Screening Moderate Risk Diagnosis psychosis Pertinent Medical Hx/Surgical Hx seizure, dementia, metnal disorder Subjective Information Pt seen in dining room, confused. Per EMR, PO intake 75-100%. RN reported pt eats very well, no issue noted. Current Diet Order/ Nutrition Support ground Pertinent Medications vit D3, coalce, theragran Pertinent Labs 07/23 reviewed Nutritional Hx/Data Height 1.7 m Height (Calculated Centimeters) 170.2 Current Weight (lbs) 54.431 kg Weight (Calculated Kilograms) 54.4 Weight (Calculated Grams) 98613.1 Pratt Body Weight 148 Body Mass Index (BMI) 18.8 Weight Status Approriate GI Symptoms GI Symptoms None Last BM 10 Difficult in: None Skin Integrity/Comment: dryness Current %PO Good (75-100%) Estimated Nutritional Goals BEE in Kcals: Using Current wt Calories/Kcals/Kg 27-32 Kcals Calculated 5391-4992 Protein: Using Current wt Protein g/k-1.2 Protein Calculated 55-66 Fluid: ml 1485-1760ml (1ml/kcal) Nutritional Problem No current Nutrition Prob Problem N/A Malnutrition Alert Is there a minimum of two criteria No selected? Query Text:Check all the applicable criteria. A minimum of two criteria are recommended for diagnosis of either severe or non-severe malnutrition. Malnutrition Related to Morbid Obesity Malnutrition related to morbid obesity No Intervention/Recommendation Comments 1. Continue with ground diet as ordered. 2. Monitor PO intake, wt, labs and skin integrity 3. F/U as low risk in 08/03 Expected Outcomes/Goals Expected Outcomes/Goals 1. PO intake to meet at least 75% of nutritional needs. 2. Wt stability, skin to remain intact, labs to approach WNL.
[2018-07-30] MEDS: Multivitamin Tab PO SCH (09:42)
--- NOTE | 2018-07-30 19:08 | Discharge Summary ---
DATE OF DISCHARGE: 07/30/2018 PSYCHIATRIC DISCHARGE SUMMARY PATIENT'S AGE: 88. SEX: Male. PHYSICIAN: Dr. Orozco. FINAL DIAGNOSIS/PRIMARY DIAGNOSIS: Unspecified psychosis. SECONDARY DIAGNOSES: Dementia, moderate to severe, with psychotic features and behavioral disturbances. MEDICAL DIAGNOSES: Generalized weakness. Seizure disorder, with low Depakote blood level that need adjustment. REASON FOR HOSPITALIZATION: The patient was admitted to the hospital because of increased agitation and because of irritability. The staff was not able to handle his irritability and agitation in [facility] and he was transferred to the hospital. HOSPITAL COURSE: The patient continued to be anxious and agitated. The patient also shows poor hygiene. The patient was peeing on the floor. He also was [facility]# [id number]
--- NOTE | 2018-07-30 19:31 | Discharge Summary ---
DATE OF DISCHARGE: 07/30/2018 FINAL DIAGNOSIS/PRIMARY DIAGNOSIS: Schizophrenia by history. SECONDARY DIAGNOSIS: Dementia, moderate to severe, with psychotic features. MEDICAL DIAGNOSES: 1. Seizure disorder. Depakote blood level 10.3 and needs more monitoring because of high risk of seizure disorder. 2. Generalized weakness. REASON FOR HOSPITALIZATION: The patient was admitted to the hospital because of increased agitation and irritability and the patient was not been able to monitor or follow staff directions in the facility and was becoming extremely belligerent and angry with the staff and peers and transferred to the hospital. HOSPITAL COURSE: The patient was confused and was entering other patient's rooms. The patient also was unable to follow staff directions and he was becoming angry and agitated and also started to have unsteady gait because of his exhibited generalized weaknesses. The patient was taking multivitamins and thiamine because of his generalized weakness. Also, Depakote level came to be 10.3 and the Depakote was increased to 500 mg and also Risperdal increased to 0.5 mg in the morning and 0.75 mg at bedtime in order to control his behavior. Gradually, the patient was slightly calmer and the patient was less agitated. The patient had no side effects of Risperdal and the patient was transferred back to [facility] [place] since his behavior was calmer. He was transferred to [facility] [place] in order to continue monitoring his Depakote, blood level and manage the level and the dose of Depakote because of high risk. Physical exam of the patient showed that seizure disorder and the patient also was having generalized anxiety and unsteady gait. The patient continued to be monitored closely and need to be managed the blood level of Depakote and to be completed in [facility]. Blood workup shows a Depakote blood level 10.3. Triglycerides was 90 and cholesterol 160, LDL cholesterol direct 109 and HDL cholesterol 49. AFTER DISCHARGE PLANS: The patient discharged from the hospital to [facility] with plan to continue his treatment there both for his behavior and also for the generalized weakness as well as unsteady gait and his high risk seizure disorder and to monitor his Depakote level. PSYCHOTROPIC MEDICATIONS: Risperdal 0.5 mg in the morning and 0.75 mg at bedtime. Trazodone 50 mg at bedtime. Depakote 500 mg twice a day. EXPECTED OUTCOME AFTER DISCHARGE: If the patient continued to take his medications from the psychiatric point of view and also if he continued to monitor in the [facility] to monitor his Depakote level to avoid seizure disorder because of his high risk of seizures. JOB# [id number]
== END 2018-07-30 15:45 | DRG 885 ==
LOC: GERO2 23:19
PROVIDERS: ADMIT Psychiatry & Neurology Psychiatry; ATTEND Psychiatry & Neurology Psychiatry
DX: F20.9 Schizophrenia, unspecified (principal); F03.91 Unspecified dementia, unspecified severity, with behavioral disturbance; F29 Unspecified psychosis not due to a substance or known physiological condition; G40.909 Epilepsy, unspecified, not intractable, without status epilepticus; F41.9 Anxiety disorder, unspecified
CPT/HCPCS: 36415-UA; 80061-TC; 80164-TC; 83036-90; G0410; Z7610

== ENCOUNTER 2018-08-08 23:03 | Inpatient (IN) | payer MEDICARE, MEDICAID ==
--- NOTE | 2018-08-08 23:23 | ED Physician Chart ---
ED Chief Complaint/HPI - Patient Information Date Seen:: 08/08/18 Time Seen:: 23:20 Chief Complaint:: agitation History of Present Illness:: 88 yr old male here for geropsych evaluation Allergies:: Allergies Allergy/AdvReac Type Severity Reaction Status Date / Time No Known Allergies Allergy Verified 01/13/17 15:07 ED Past Medical History - Past Medical History Past Medical History: Other (see nurses notes) Family Medical History - Family Member Mother History Unknown: Yes Ethnicity: Unknown Living Status: Unknown Hx Family Cancer: (Unknown) Hx Family Coronary Artery Disease: (Unknown) Hx Family Congestive Heart Failure: (Unknown) Hx Family Hypertension: Yes Hx Family Stroke: (Unknown) Hx Family Diabetes: (Unknown) Hx Family Seizures: (Unknown) Hx Family Dementia: (Unknown) Hx Family AIDS: (Unknown) Hx Family HIV: No Hx Family COPD: (Unknown) Hx Family Hepatitis: (Unknown) Hx Family Psychiatric Problems: (Unknown) Hx Family Tuberculosis: (Unknown) ED Physical Exam - Physical Examination General/Constitutional: Awake, Well-developed, well-nourished, Alert, No distress, GCS 15, Non-toxic appearing, Ambulatory Head: Atraumatic Eyes: Lids, conjuctiva normal, PERRL, EOMI Skin: Nl inspection, No rash, No skin lesions, No ecchymosis, Well hydrated, No lymphadenopathy ENMT: External ears, nose nl, Nasal exam nl, Lips, teeth, gums nl Neck: Nontender, Full ROM w/o pain, No JVD, No nuchal rigidity, No bruit, No mass, No stridor Respiratory: Nl effort/Exclusion, Clear to Auscultation, No Wheeze/Rhonchi/Rales Cardio Vascular: RRR, No murmur, gallop, rubs, NL S1 S2 GI: No tenderness/rebounding/guarding, No organomegaly, No hernia, Normal BS's, Nondistended, No mass/bruits, No McBurney tenderness : No CVA tenderness Extremities: No tenderness or effusion, Full ROM, normal strength in all extremities, No edema, Normal digits & nails Neuro/Psych: Alert/oriented, DTR's symmetric, Normal sensory exam, Normal motor strength, Judgement/insight normal, Mood normal, Normal gait, No focal deficits Misc: Normal back, No paraspinal tenderness ED Assessment - Assessment General Assessment: agitation ED Septic Shock - . Is Septic Shock (SBP<90, OR Lactate>4 mmol\L) present?: No ED Reassessment (Disposition) - Reassessment Reassessment:: agitaion and refusing meds from shelter - Diagnosis Diagnosis:: as above - Patient Disposition Discharge/Transfer:: Acute Care w/in this hosp Admitted to:: [facility] Condition at Disposition:: Stable
[2018-08-08 23:58] LABS: ALB/GLOB RATIO 1.4 (1.0-1.8); ALKALINE PHOSPHATASE 54 U/L (34-104); ANION GAP 14.8 (7.0-16.0); BILIRUBIN,TOTAL 0.8 mg/dL (0.3-1.0); BUN - UREA NITROGEN 28 mg/dL (7-25); CALCIUM SERUM 8.9 mg/dL (8.6-10.3); CARBON DIOXIDE 24.4 mEq/L (21.0-31.0); CHLORIDE 103 mEq/L (98-107); CREATININE - SERUM 1.1 mg/dL (0.7-1.3); GLUCOSE 109 mg/dL (70-105); POTASSIUM SERUM 4.2 mEq/L (3.5-5.1); SGOT 14 U/L (13-39); SGPT/ALT 7 U/L (7-52); SODIUM SERUM 138 mEq/L (136-145); TOTAL PROTEIN,SERUM 6.8 gm/dL (6.0-8.3)
[2018-08-09 01:51] VITALS: BP 124/56
[2018-08-09] MEDS ORDERED: Maalox 30 mL Cup PO PRN (03:20)
[2018-08-09] MEDS ORDERED: Magnesium Hydroxide (MOM) 30 mL UDC PO PRN (03:20)
[2018-08-09] MEDS ORDERED: Hydrocodone/APAP 5mg/325mg Tab PO PRN (03:20)
[2018-08-09] MEDS: Aspirin 81mg Chewable Tab PO SCH (09:26)
[2018-08-09] MEDS: Multivitamin w/ Minerals Tab PO SCH (09:26)
[2018-08-09] MEDS: VALPROIC ACID PO SCH ×2 (09:27→16:09)
--- NOTE | 2018-08-09 20:34 | Psychiatric Evaluation ---
DATE OF SERVICE: 08/09/2018 AGE: 88. SEX: Male. PHYSICIAN: Dr. Orozco. CHIEF COMPLAINT: Agitation and irritability. HISTORY OF PRESENT ILLNESS: The patient is an 88-year-old male who was discharged from the hospital recently and went back to [facility]. The patient became extremely irritable and agitated and aggressive with the staff [facility] and the patient was not able to follow any of the staff directions. Also, was verbally and physically abusive and also was refusing any medications and the patient was sent back to the hospital. The patient is extremely paranoid and delusional and is agitated. PAST PSYCHIATRIC HISTORY: Multiple psychiatric hospitalizations for treatment of psychosis and dementia. PAST MEDICAL HISTORY: The patient has muscle weakness. SOCIAL HISTORY: The patient lives in a [facility]. No known alcohol or drug use. ALLERGIES: No known allergies. MENTAL STATUS EXAMINATION: The patient appears his stated age. Agitated. Irritable mood. Uncooperative. Thought processes are disorganized with flight of ideas. The patient denies hallucinations or delusions, but actively responding to stimuli. The patient denies suicidal or homicidal ideations. The patient is alert, but seems to be disoriented to time, place, person, and situation. Impaired, immediate, and recent memory, but intact remote memory and he did remember his date. ASSESSMENT: PRIMARY DIAGNOSIS: Unspecified psychosis. SECONDARY DIAGNOSIS: Dementia, moderate to severe, with psychotic features. TREATMENT PLAN: We will continue to monitor his behavior and his condition closely. We will start individual as well as milieu psychotherapy. Also, we will monitor psychotropic medications and the patient might need to have a long-acting injectable. ESTIMATED LENGTH OF STAY: 5-7 days. THE PATIENT'S STRENGTHS AND WEAKNESSES: The patient's strength is not clear at this time except he seems to be in relatively fair health. Weaknesses is his poor impulse control and noncompliant with treatment recommendations and his aggressive behavior. AFTER DISCHARGE PLAN: The patient will return to [facility] unless placement will be an issue. Outpatient treatment and followup will continue as an outpatient. CRITERIA FOR DISCHARGE: Better impulse control and stabilizing psychotropic medications. JOB# [id number]
[2018-08-09] MEDS ORDERED: Non-Formulary Item 1 EA (Melatonin [Melatonin] 5 MG) PO SCH (21:00)
[2018-08-10] MEDS ORDERED: Haloperidol Lactate 5 mg/mL 1mL Vial IM STA (07:56)
[2018-08-10] MEDS: Aspirin 81mg Chewable Tab PO SCH (07:59)
[2018-08-10] MEDS: Multivitamin w/ Minerals Tab PO SCH (07:59)
[2018-08-10] MEDS ORDERED: Haloperidol Lactate 5 mg/mL 1mL Vial ONE (08:02)
--- NOTE | 2018-08-11 02:30 | Progress Notes ---
DATE: 08/10/2018 Case was discussed with staff of the patient, reviewed records. Covering for Dr. Orozco. This is an 88-year-old male who was readmitted on 08/09/2018. He came from [facility]. The patient was irritable, agitated, aggressive with the staff [facility]. The patient was not able to follow staff direction. The patient with multiple prior psychiatric hospitalizations and continues to be unpredictable, impulsive, needing redirection. Continues to have poor insight. Dr. Orozco saw him yesterday. Restart him on his medication Lamictal 25 mg daily, Seroquel 75 mg 3 times a day, Depakote 500 mg twice a day and no side effects of the medication, no sedation, no nausea, no extrapyramidal symptoms. We will continue to work with the patient in group therapy, milieu therapy, and adjust the medication as needed. JOB# [id number]
--- NOTE | 2018-08-11 08:31 | Diagnostic Imaging Report ---
CHEST X-RAY: AP view INDICATION: Shortness of breath COMPARISON: None FINDINGS: There is evidence of prior median sternotomy. COPD lung changes are seen with chronic lung changes and increased bibasal lung markings, left greater than right. Bibasal pleural thickening is noted. Heart size normal. Atherosclerosis is noted. Degenerative changes of the spine and shoulders are noted. IMPRESSION: Chronic lung changes with COPD. Increased bibasilar lung markings may be chronic, however, faint infiltrate at the left base cannot be excluded. Please correlate clinically. Atherosclerotic vascular disease. Evidence of prior median sternotomy.
[2018-08-11] MEDS: Aspirin 81mg Chewable Tab PO SCH (09:32)
[2018-08-11] MEDS: Multivitamin w/ Minerals Tab PO SCH (09:34)
[2018-08-12] MEDS: Aspirin 81mg Chewable Tab PO SCH (10:09)
[2018-08-12] MEDS: Multivitamin w/ Minerals Tab PO SCH (10:11)
--- NOTE | 2018-08-12 12:48 | Progress Notes ---
DATE: SUBJECTIVE: Chart was reviewed and the patient interviewed. I also discussed the patient's condition with the staff and reviewed records and labs. The patient is still severely agitated and he is still angry and in irritable moods. The patient also is still confused and entering other patient's rooms and have episodes of yelling and screaming with difficulty following any of staff directions. The patient also has to be given at times emergency medications to calm him down. The patient also is wandering and he picks of other patients stuff and also spitting on the floor. He is disheveled and personal hygiene is poor. Also, difficulty following staff directions. Otherwise, the patient is resisting care, but compliant with taking his medications. ASSESSMENT: The patient is still confused and agitated. TREATMENT PLAN: Continue monitoring his behavior and his condition. Also, continue adjusting psychotropic medications. Also, working on his agitation and aggression. JOB# [id number]
--- NOTE | 2018-08-13 00:46 | History & Physical ---
ADMIT DATE: 08/09/2018 REASON FOR ADMISSION: Psychiatric disorders. HISTORY OF PRESENT ILLNESS: This is an 88-year-old male admitted to Geropsych Unit by Dr. Orozco for underlying psychiatric illnesses. Dr. Orozco requested medical H and P on this patient. Per nursing staff, the patient seems very confused and also has some productive cough. No fever, no chills, no breathing difficulty, no nausea, no vomiting reported. Per nursing, the patient has been refusing his medications. PAST MEDICAL HISTORY: Seizure disorders, dementia, vitamin D deficiency, chronic pain syndrome. FAMILY HISTORY: Noncontributory SOCIAL HISTORY: No reported alcohol, tobacco or street drug use. CURRENT MEDICATIONS: As per medication reconciliation. ALLERGIES: No known drug allergies. REVIEW OF SYSTEMS: Difficult to obtain due to underlying confusion. PHYSICAL EXAMINATION: VITAL SIGNS: Temperature 98.4, pulse 82, respirations 16, blood pressure 126/75, oxygen 98% on room air. Pain 0/10. HEART: S1, S2 normal. LUNGS: Clear to auscultation bilaterally. ABDOMEN: Soft, nontender. EXTREMITIES: No edema. AVAILABLE LABORATORY DATA: Reviewed. ASSESSMENT: 1. Seizure disorder. 2. Acute bronchitis. 3. Mental disorders. PLAN: The patient admitted to Geropsych Unit. Psych evaluation and management per psychiatrist. Continue psychotherapy meds. Continue anticonvulsant medications. Chest x-ray ordered. Lab reviewed. Cough syrup as needed. Breathing treatments as needed. Plan discussed with nursing staff. The patient is medically stable. Thank you, Dr. Orozco, for allowing me to participate in care of your patient. [facility]# [id number]
--- NOTE | 2018-08-13 05:41 | Discharge Summary ---
DATE OF DISCHARGE: 08/12/2018 INCOMPLETE DICTATION AGE: 88. SEX: Male. PHYSICIAN: Dr. Orozco. FINAL DIAGNOSIS AND PRIMARY DIAGNOSIS: Unspecified psychosis. REASON FOR HOSPITALIZATION: The patient was admitted to the hospital from [facility] because of increased agitation and irritability and hitting staff and aggressive behavior. HOSPITAL COURSE: The patient admitted to the hospital and he was confused and entering other patient's rooms and not able to follow any of staff directions and was getting agitated and aggressive when staff tried to help him with his ADLs. The patient was started on Seroquel 75 mg 3 times a day. DICTATION ENDS ABRUPTLY. JOB# [id number]
--- NOTE | 2018-08-13 05:47 | Discharge Summary ---
DATE OF DISCHARGE: 08/12/2018 AGE: 88. SEX: Male. PHYSICIAN: Dr. Orozco. FINAL DIAGNOSIS AND PRIMARY DIAGNOSIS: Unspecified psychosis. SECONDARY DIAGNOSIS: Dementia, moderate, with psychotic features and behavioral disturbances. REASON FOR HOSPITALIZATION: The patient was admitted to the hospital from [facility] because of increased agitation and aggressive behavior and the patient was hitting peers and staff and was not able to follow any directions. HOSPITAL COURSE: The patient continued to be agitated and in irritable mood and continued to be aggressive. The patient also was entering other patient's rooms. The patient was started on Seroquel in a dose of 75 mg 3 times a day and the patient also was given Depakote 500 mg twice a day. The patient was still confused and agitated. The patient also was not eating and developed dehydration and also was having altered level of conscious and the patient was transferred to medical floor for monitoring his medical condition. Physical exam of the patient shows that the patient have dehydration, altered level of conscious, and the patient on the coughing and the patient was transferred to the medical hospital. AFTER DISCHARGE PLANS: The patient will be followed in medical floor. EXPECTED OUTCOME AFTER DISCHARGE: Depends on course in the med-surg unit. JOB# [id number]
== END 2018-08-12 13:05 | disposition short-term general hospital (02) | DRG 885 ==
LOC: ER 23:03 → GERO 08-09 01:03
PROVIDERS: ADMIT Psychiatry & Neurology Psychiatry; ATTEND Psychiatry & Neurology Psychiatry
DX: F29 Unspecified psychosis not due to a substance or known physiological condition (principal); F03.91 Unspecified dementia, unspecified severity, with behavioral disturbance; G40.909 Epilepsy, unspecified, not intractable, without status epilepticus; E55.9 Vitamin D deficiency, unspecified; G89.4 Chronic pain syndrome; J20.9 Acute bronchitis, unspecified
CPT/HCPCS: 36415-UA; 71045-TC; 80053-TC; 80164-TC; 84443-TC; 85025-TC; 86592-TC; 93005; J1200; J1630; J2060; Z7610

== ENCOUNTER 2018-08-12 13:31 | Inpatient (IN) | payer MEDICARE, MEDICAID ==
[2018-08-12 14:31] LABS: % BASOPHILS 0.4 % (0.0-2.0); % EOSINOPHILS 0.1 % (0.0-5.0); % LYMPHOCYTES 8.6 % (20.0-50.0); % MONOCYTES 9.1 % (2.0-10.0); % NEUTROPHILS 81.8 % (40.0-80.0); BASOPHILE ABSOLUTE 0.1 Th/cumm (0-0.2); HEMATOCRIT 38.6 % (41.0-60); HEMOGLOBIN 12.8 gm/dL (12-16); LYMPHOCYTE ABSOLUTE 1.1 Th/cmm (1.5-3.0); MEAN CELL VOLUME 87.9 fl (80-99); MEAN CORPUSCULAR HEMOGLOBIN 29.2 pg (27.0-31.0); MEAN CORPUSCULAR HGB CONC 33.2 pg (28.0-36.0); MEAN PLATELET VOLUME 7.7 fl; MONOCYTE ABSOLUTE 1.2 Th/cmm (0.3-1.0); NEUTROPHILE ABSOLUTE 10.9 Th/cmm (1.8-8.0); PLATELET COUNT 315 Th/cmm (150-400); RED BLOOD COUNT 4.39 Mil/cmm (3.80-5.80); RED CELL DISTRIBUTION WIDTH 14.3 % (11.5-20.0); WHITE BLOOD COUNT 13.3 Th/cmm (4.8-10.8)
[2018-08-12 14:44] LABS: ALBUMIN 4.2 gm/dL (4.2-5.5); ALKALINE PHOSPHATASE 65 U/L (34-104); ANION GAP 15.4 (7.0-16.0); BILIRUBIN,TOTAL 1.7 mg/dL (0.3-1.0); BUN - UREA NITROGEN 40 mg/dL (7-25); CARBON DIOXIDE 26.3 mEq/L (21.0-31.0); CHLORIDE 102 mEq/L (98-107); GLUCOSE 137 mg/dL (70-105); POTASSIUM SERUM 3.7 mEq/L (3.5-5.1); SGOT 12 U/L (13-39); SGPT/ALT 8 U/L (7-52); SODIUM SERUM 140 mEq/L (136-145); TOTAL PROTEIN,SERUM 8.5 gm/dL (6.0-8.3)
[2018-08-12] MEDS: Sodium Chloride 0.9% 1,000 ML IV SCH (15:09)
[2018-08-12] MEDS ORDERED: Albuterol/Ipratropium Neb 3 ML AERS HHN PRN (15:46)
--- NOTE | 2018-08-12 18:21 | Consultation ---
DATE OF CONSULTATION: 08/12/2018 [place] [facility] [place] ATTENDING PHYSICIAN: Dr. Garrido. I thank you very much. Dr. Garrido for this consult. IDENTIFICATION: The patient is an 88-year-old gentleman, who is a known case of aggressive and multiple psych issues and the patient also has a history of dementia and psychosis. The patient has multiple admissions. Initially, the patient was admitted to Geropsych Unit. It was found that he was very irritable, agitated, and aggressive. The patient stopped eating for the last about 4-5 days. Meanwhile, the patient continued to get very lethargic. The patient became oliguric. At that time, the patient's blood test was done. The patient was found to have elevated BUN and creatinine. The patient has been now admitted to the medical floor. Renal consultation has been requested. According to the previous psychiatric evaluation chart, the patient had multiple psych hospitalization. PAST MEDICAL HISTORY: Significant for muscle weakness. SOCIAL HISTORY: Significant for patient lives in [facility]. No history of drug use or alcohol. ALLERGIES: The patient is not allergic to any medication. Other than above mentioned, there is no other history is available to me at this time. No old chart is available. No dictation is available. No family member is available. PHYSICAL EXAMINATION: GENERAL: An 88-year-old male patient, not responding. VITAL SIGNS: Temperature 98, pulse 104, blood pressure 109/59, respirations 20. Intake and output not available. HEENT: Head normocephalic. The patient has a muscle mass wasting and dry skin. EAR, NOSE, THROAT: No bleeding or discharge. NECK: No stiffness. LUNGS: Good air entry. No rales or rhonchi. ABDOMEN: Soft, not distended. Bowel sounds present. HEART: Regular. No rub or gallop. EXTREMITIES: No edema. SKIN: Dry. LABORATORY DATA: WBC 13.3, hemoglobin 12.8, platelets normal. Sodium 140, potassium 3.7, chloride 102, CO2 of 26, BUN 40, creatinine 2.0, blood sugar 137, calcium 10. LFTs are normal. Albumin 4.2. Urinalysis not available. ASSESSMENT: 1. Acute kidney injury. 2. Volume depletion. 3. Leukocytosis. 4. Dementia. 5. History of multiple psych issue. 6. Rule out obstructive uropathy. PLAN: 1. Obtain kidney ultrasound. 2. Insert Maher catheter. 3. Obtain urinalysis. 4. Start the patient on IV hydration. 5. Send urine for culture and sensitivity. 6. Check CMP, phosphorus, magnesium, CBC in the morning. I will follow this patient with you. Thank you very much Dr. Garrido. JOB# [id number]
[2018-08-12 18:45] LABS: EOSINOPHIL SMEAR SOURCE URINE; EOSINOPHILS SMEAR COUNT NONE SEEN (NONE SEEN)
[2018-08-12 20:30] LABS: URINE SOURCE CLEAN C
[2018-08-12 20:37] LABS: URINE BILIRUBIN MODERATE (NEGATIVE); URINE BLOOD SMALL (NEGATIVE); URINE GLUCOSE (UA) NEGATIVE (NEGATIVE); URINE KETONE TRACE mg/dL (NEGATIVE); URINE LEUKOCYTE ESTERASE NEGATIVE (NEGATIVE); URINE MICROSCOPIC INDICATED? YES; URINE NITRATE NEGATIVE (NEGATIVE); URINE PROTEIN 30 mg/dL (NEGATIVE); URINE UROBILINOGEN 0.2 E.U./dL (0.2 - 1.0)
[2018-08-12 20:43] LABS: URINE CLARITY HAZY (CLEAR); URINE COLOR YELLOW
[2018-08-12] MEDS: cefTRIAXone 1 GM in Sodium Chloride 0.9% 50 ML IV SCH (20:44)
[2018-08-12 20:53] LABS: URINE BACTERIA MODERATE /hpf (NONE SEEN); URINE EPITHELIAL CELLS NONE SEEN /lpf (FEW); URINE WBC 0-2 /hpf (0-5)
[2018-08-12] MEDS: Albuterol/Ipratropium Neb 3 ML AERS HHN SCH (21:00)
[2018-08-12 21:04] LABS: URINE ICTOTEST POSITIVE (NEGATIVE)
--- NOTE | 2018-08-13 01:01 | History & Physical ---
ADMIT DATE: 08/12/2018 CHIEF COMPLAINT: Lethargy. HISTORY OF PRESENT ILLNESS: This is an 88-year-old male who was at [facility] for underlying psychiatric illnesses where nursing staff noted the patient seems to be very lethargic, poorly responsive. The patient has not been drinking for the past 3 to 4 days. The patient was suspected to have dehydration process of the UTI and pneumonia. The patient was transferred to medical floor. During my evaluation, the patient seems lethargic, unable to communicate well. The patient is known to me from [facility], also most of the other history obtained from early medical records. No reported diarrhea, no vomiting. No fever, no chills or any other concern reported per nursing staff. PAST MEDICAL HISTORY: Seizure disorders. PAST SURGICAL HISTORY: None reported. FAMILY HISTORY: Noncontributory. SOCIAL HISTORY: No drug or tobacco use. CURRENT MEDICATIONS: Per medication reconciliation. ALLERGIES: No known drug allergies. REVIEW OF SYSTEMS: Difficult to obtain. PHYSICAL EXAMINATION: VITAL SIGNS: Temperature 99.0, pulse 84, respirations 18, blood pressure 98/44, oxygen 92% O2 nasal cannula. HEENT: No neck stiffness. Negative rigidity. HEART: S1, S2 normal. LUNGS: Bilaterally clear to auscultation. ABDOMEN: Soft and nontender, no guarding and no nausea. NEUROLOGIC: The patient is lethargic. EXTREMITIES: No edema. AVAILABLE LABORATORY DATA: None. ASSESSMENT: 1. Sepsis. 2. Pneumonia. 3. Urinary tract infection. 4. Acute renal failure. 5. Dehydration. 6. Seizure disorder. 7. Mental disorder. PLAN: The patient admitted to tele unit. The patient is on IV Rocephin. ID, Nephrology, Psychiatrist consulted, oxygen and bronchodilator orders, IV fluid orders. Monitor lab and vitals. Renal ultrasound ordered. The patient's admission medications will be reconciled and consider medication, continue his medications. The patient's condition and plan of care discussed with nursing staff. JOB# [id number]
[2018-08-13] MEDS: Albuterol/Ipratropium Neb 3 ML AERS HHN SCH ×4 (02:45→20:09)
[2018-08-13 06:45] LABS: HEMATOCRIT 30.7 % (41.0-60); HEMOGLOBIN 10.2 gm/dL (12-16); MEAN CELL VOLUME 87.2 fl (80-99); MEAN CORPUSCULAR HEMOGLOBIN 29.1 pg (27.0-31.0); MEAN CORPUSCULAR HGB CONC 33.4 pg (28.0-36.0); MEAN PLATELET VOLUME 7.7 fl; PLATELET COUNT 248 Th/cmm (150-400); RED BLOOD COUNT 3.52 Mil/cmm (3.80-5.80); RED CELL DISTRIBUTION WIDTH 14.4 % (11.5-20.0)
[2018-08-13 07:15] LABS: ALB/GLOB RATIO 0.9 (1.0-1.8); ALBUMIN 3.4 gm/dL (4.2-5.5); ALKALINE PHOSPHATASE 56 U/L (34-104); ANION GAP 14.7 (7.0-16.0); BILIRUBIN,TOTAL 0.9 mg/dL (0.3-1.0); BUN - UREA NITROGEN 46 mg/dL (7-25); CALCIUM SERUM 8.8 mg/dL (8.6-10.3); CHLORIDE 109 mEq/L (98-107); CREATININE - SERUM 1.8 mg/dL (0.7-1.3); GLUCOSE 135 mg/dL (70-105); MAGNESIUM 2.2 mg/dL (1.9-2.7); PHOSPHOROUS 3.1 mg/dL (2.5-5.0); POTASSIUM SERUM 3.7 mEq/L (3.5-5.1); SGOT 10 U/L (13-39); SGPT/ALT 7 U/L (7-52); SODIUM SERUM 143 mEq/L (136-145)
[2018-08-13 08:07] LABS: BAND NEUTROPHILE 0 % (0-10); LYMPHOCYTE 7 % (20-50); NEUTROPHILS 89 % (40-80)
[2018-08-13 08:08] LABS: BASOPHIL 0 % (0-3); EOSINOPHIL 0 % (0-5); MONOCYTE 4 % (2-10); PLATELET ESTIMATE ADEQUATE (NORMAL)
--- NOTE | 2018-08-13 08:39 | Diagnostic Imaging Report ---
Portable chest x-ray HISTORY: Shortness of breath Compared with the prior exam of August 11, 2018, question of new infiltrate in the right lower lobe. Pneumonia cannot be excluded. Differences may be related to radiographic technique. IMPRESSION: 1. Question new faint infiltrate right lower lobe. Pneumonia cannot be excluded. Clinical correlation and follow-up recommended.
--- NOTE | 2018-08-13 10:04 | General Progress Note ---
Subjective - Review of Systems Subjective: DEMENTED SPEAKING FARSI NO DISTRESS Objective - Results Result Diagrams: 08/13/18 06:05 08/13/18 06:05 Recent Labs: Laboratory Last Values WBC 11.0 Th/cmm (4.8-10.8) H 08/13/18 06:05 RBC 3.52 Mil/cmm (3.80-5.80) L 08/13/18 06:05 Hgb 10.2 gm/dL (12-16) L 08/13/18 06:05 Hct 30.7 % (41.0-60) L D 08/13/18 06:05 MCV 87.2 fl (80-99) 08/13/18 06:05 MCH 29.1 pg (27.0-31.0) 08/13/18 06:05 MCHC Differential 33.4 pg (28.0-36.0) 08/13/18 06:05 RDW 14.4 % (11.5-20.0) 08/13/18 06:05 Plt Count 248 Th/cmm (150-400) D 08/13/18 06:05 MPV 7.7 fl 08/13/18 06:05 Add Manual Diff YES 08/13/18 06:05 Neutrophils % 81.8 % (40.0-80.0) H 08/12/18 14:20 Band Neutrophils % 0 % (0-10) 08/13/18 06:05 Lymphocytes % 8.6 % (20.0-50.0) L 08/12/18 14:20 Monocytes % 9.1 % (2.0-10.0) 08/12/18 14:20 Eosinophils % 0.1 % (0.0-5.0) 08/12/18 14:20 Basophils % 0.4 % (0.0-2.0) 08/12/18 14:20 Neutrophils (Manual) 89 % (40-80) H 08/13/18 06:05 Lymphocytes 7 % (20-50) L 08/13/18 06:05 Monocytes 4 % (2-10) 08/13/18 06:05 Eosinophils 0 % (0-5) 08/13/18 06:05 Basophils 0 % (0-3) 08/13/18 06:05 Platelet Estimate ADEQUATE (NORMAL) 08/13/18 06:05 Eos Smear Source URINE 08/12/18 16:20 Eos Smear Total Cells NONE SEEN (NONE SEEN) 08/12/18 16:20 Sodium 143 mEq/L (136-145) 08/13/18 06:05 Potassium 3.7 mEq/L (3.5-5.1) 08/13/18 06:05 Chloride 109 mEq/L (98-107) H 08/13/18 06:05 Carbon Dioxide 23.0 mEq/L (21.0-31.0) 08/13/18 06:05 Anion Gap 14.7 (7.0-16.0) 08/13/18 06:05 BUN 46 mg/dL (7-25) H 08/13/18 06:05 Creatinine 1.8 mg/dL (0.7-1.3) H 08/13/18 06:05 Est GFR ( Amer) TNP 08/13/18 06:05 Est GFR (Non-Af Amer) TNP 08/13/18 06:05 BUN/Creatinine Ratio 25.6 08/13/18 06:05 Glucose 135 mg/dL (70-105) H 08/13/18 06:05 POC Glucose 115 MG/DL (70 - 105) H 08/12/18 14:43 Calcium 8.8 mg/dL (8.6-10.3) 08/13/18 06:05 Phosphorus 3.1 mg/dL (2.5-5.0) 08/13/18 06:05 Magnesium 2.2 mg/dL (1.9-2.7) 08/13/18 06:05 Total Bilirubin 0.9 mg/dL (0.3-1.0) 08/13/18 06:05 AST 10 U/L (13-39) L 08/13/18 06:05 ALT 7 U/L (7-52) 08/13/18 06:05 Alkaline Phosphatase 56 U/L (34-104) 08/13/18 06:05 Total Protein 7.0 gm/dL (6.0-8.3) 08/13/18 06:05 Albumin 3.4 gm/dL (4.2-5.5) L 08/13/18 06:05 Globulin 3.6 gm/dL 08/13/18 06:05 Albumin/Globulin Ratio 0.9 (1.0-1.8) L 08/13/18 06:05 Free T4 1.92 ng/dL (0.82-1.77) H 08/12/18 14:21 TSH 1.97 uIU/ml (0.34-5.60) 08/12/18 14:21 Urine Source CLEAN C 08/12/18 20:20 Urine Color YELLOW 08/12/18 20:20 Urine Clarity HAZY (CLEAR) 08/12/18 20:20 Urine pH 5.0 (4.6 - 8.0) 08/12/18 20:20 Ur Specific [place] >= 1.030 (1.005-1.030) 08/12/18 20:20 Urine Protein 30 mg/dL (NEGATIVE) H 08/12/18 20:20 Urine Glucose (UA) NEGATIVE mg/dL (NEGATIVE) 08/12/18 20:20 Urine Ketones TRACE mg/dL (NEGATIVE) 08/12/18 20:20 Urine Blood SMALL (NEGATIVE) H 08/12/18 20:20 Urine Nitrate NEGATIVE (NEGATIVE) 08/12/18 20:20 Urine Bilirubin MODERATE (NEGATIVE) H 08/12/18 20:20 Urine Ictotest POSITIVE (NEGATIVE) H 08/12/18 20:20 Urine Urobilinogen 0.2 E.U./dL (0.2 - 1.0) 08/12/18 20:20 Ur Leukocyte Esterase NEGATIVE (NEGATIVE) 08/12/18 20:20 Urine RBC 2-5 /hpf (0-5) H 08/12/18 20:20 Urine WBC 0-2 /hpf (0-5) 08/12/18 20:20 Ur Epithelial Cells NONE SEEN /lpf (FEW) 08/12/18 20:20 Urine Bacteria MODERATE /hpf (NONE SEEN) H 08/12/18 20:20 Hyaline Casts 2-5 /lpf (0-2) H 08/12/18 20:20 - Physical Exam Vitals and I&O: Vital Signs Temp 99.1 F 08/13/18 08:00 Pulse 85 08/13/18 08:00 Resp 18 08/13/18 08:00 BP 104/56 08/13/18 08:00 Pulse Ox 94 08/13/18 08:00 Intake & Output 08/12/18 08/13/18 08/13/18 18:59 06:59 18:59 Output Total 0 150 Balance 0 -150 Weight (lbs) 77.111 kg 77.111 kg Output: Urine 0 150 Other: # Voids 0 # Bowel Movements 0 1 Weight Source Bedscale Bedscale Active Medications: Current Medications Albuterol/Ipratropium (Duoneb Neb) 3 ml HHN Q6HRT HERMES Stop: 10/11/18 15:43 Last Admin: 08/13/18 07:24 Dose: 3 ml Albuterol/Ipratropium (Duoneb Neb) 3 ml HHN Q2H PRN PRN Reason: Wheezing Stop: 10/11/18 15:45 Sodium Chloride (Nacl 0.9%) 1,000 mls @ 100 mls/hr IV .Q10H HERMES Stop: 10/11/18 13:44 Last Admin: 08/12/18 15:09 Dose: 100 mls/hr Ceftriaxone Sodium 1 gm/ (Sodium Chloride) 50 mls @ 100 mls/hr IV Q24HR HERMES Stop: 10/11/18 19:59 Last Admin: 08/12/18 20:44 Dose: 100 mls/hr General: Cooperative, No acute distress Cardiovascular: Regular rate, Normal S1, Normal S2 Lungs: Clear to auscultation Abdomen: Bowel sounds, Soft Extremities: Pulses, Tender, Other, no Clubbing, no Cyanosis, no Edema Assessment/Plan - Assessment Assessment: ARF IMPROVING WITH HYDRATION RENAL US PENDING - Plan Plan: CONT IVF
[2018-08-13] MEDS ORDERED: Probiotic Screen MC PRN (13:05)
[2018-08-13] MEDS: cefTRIAXone 1 GM in Sodium Chloride 0.9% 50 ML IV SCH (20:44)
[2018-08-14] MEDS ORDERED: Levofloxacin 250mg/50mL 250 MG/50 ML BAG IV SCH (00:15)
[2018-08-14] MEDS: Albuterol/Ipratropium Neb 3 ML AERS HHN SCH ×4 (00:34→18:21)
[2018-08-14] MEDS: Levofloxacin 250mg/50mL 250 MG/50 ML BAG IV SCH (03:09)
--- NOTE | 2018-08-14 05:27 | Progress Notes ---
DATE: 08/13/2018 SUBJECTIVE: Chart was reviewed and the patient interviewed. Also discussed the patient's condition with the staff and reviewed the records and labs. The patient seems to be slightly calmer and seems to be less irritable and less agitated. The patient also is interacting slightly more especially when speaking with him in [place] language. The patient also is still suspicious and paranoid and needs lots of redirections. Otherwise, the patient is cooperative with treatment. The swallow eval is pending. ASSESSMENT: The patient is less agitated, but is still confused and needs redirections. PLAN: Continue current treatment and will reevaluate. JOB# [id number]
--- NOTE | 2018-08-14 05:53 | Consultation ---
DATE OF CONSULTATION: 08/13/2018 INFECTIOUS DISEASE CONSULTATION REFERRING PHYSICIAN: Dr. Emil Garrido. REASON FOR CONSULTATION: Sepsis and leukocytosis. HISTORY OF PRESENT ILLNESS: The patient is an 88-year-old female with a past medical history of seizure disorder, admitted to the Geropsych Unit for psych disorder. The lethargy and poor responsiveness. The patient was not taking enough fluid. Dehydration was suspected as well as UTI and pneumonia. The patient was transferred to the medical floor for abnormal labs and dehydration. The patient is a poor historian, otherwise alert and awake. The patient's WBC count was 13,000. Creatinine also went up to 2. PAST MEDICAL HISTORY: Seizure disorder. PAST SURGICAL HISTORY: None significant. FAMILY HISTORY: Noncontributory. SOCIAL HISTORY: The patient denies any smoking, alcohol or drug use. MEDICATIONS: As per medication reconciliation sheet. Antibiotic britton, the patient was on Rocephin. ALLERGIES: NKDA. REVIEW OF SYSTEMS: The patient is a poor historian. No fever. Poor historian. Unable to obtain. No fever. PHYSICAL EXAMINATION: VITAL SIGNS: Current vital signs shows temperature is 98 degrees Fahrenheit, pulse 77, respiration is 18, and blood pressure 92/39. GENERAL: The patient is comfortable lying in the bed, not in acute distress. HEENT: Head is normocephalic and atraumatic. Oral cavity moist, pink tongue. NECK: Supple, no JVD, no carotid bruit. Trachea in midline. CHEST: Bilaterally clear. No crackles or wheezing. HEART: S1, S2 within normal limits. Regular rhythm. No murmur or gallop. ABDOMEN: Soft, nontender, nondistended. Bowel sounds present. EXTREMITIES: No cyanosis, no clubbing, edema. NEUROLOGIC: Alert and awake. LABORATORY DATA: Current lab shows WBC count is 11,000, hemoglobin is 10.2, hematocrit is 30.7, platelets are 248,000, neutrophils 89%. Sodium 143, potassium 3.7, chloride 109, bicarbonate is 23, BUN is 46, creatinine 1.8, glucose 135. LFTs reviewed. Urinalysis shows nitrite negative, leukoesterase negative, moderate bacteria. Chest x-ray shows no infiltrates. IMPRESSION: 1. Leukocytosis, most likely reactive versus sepsis. 2. Pneumonia, on the right lower lobe. 3. Dehydration. 4. Acute renal failure. 5. Seizure disorder. RECOMMENDATIONS: Continue Rocephin and add Levaquin. Thank you, Dr. Garrido for involving me in the care of this patient. JOB# [id number]
[2018-08-14] MEDS: Lactobacillus Rhamnosus GG 15 Billion CFU CAP.SPRINK PO SCH (08:07)
--- NOTE | 2018-08-14 08:52 | Diagnostic Imaging Report ---
Exam: Ultrasound examination the abdomen HISTORY: Abnormal liver function test Findings: Real-time ultrasound examination the abdomen was performed multiple planes. The study demonstrates normal echogenicity liver parenchyma. There is evidence for cholelithiasis. The largest calculus measuring 1.2 cm diameter. Gallbladder wall thickening 6 mm. The common bile duct is dilated up to 9.6 mm which is not unusual for the patient's age. Pancreas not seen The right kidney measures 12.1 x 7.6 x 5.7 cm diameter contains 4.0 x 4.0 cm mass with increased vascularity, clinical correlation CT examination with contrast might be helpful. Neoplastic component highly suggestive. Left kidney measures 10.4 x 5.7 x 5.6 cm diameter. The spleen is intact. No free fluid is noted. IMPRESSION: Cholelithiasis. Thickening of gallbladder wall. Prominence of the common bile duct at 9.6 mm. 4.0 x 4.0 cm hypoechoic mass in the right kidney with increased vascularity, neoplastic component cannot be excluded. CT examination of the kidneys recommended.
--- NOTE | 2018-08-14 09:35 | General Progress Note ---
Subjective - Review of Systems Service Date: 08/14/18 Events since last encounter: PT PULLED OUT IV AND SHELTON REFUSING BLOOD DRAWS Subjective: DEMENTED SPEAKING FARSI NO DISTRESS Objective - Results Result Diagrams: 08/13/18 06:05 08/13/18 06:05 Recent Labs: Laboratory Last Values WBC 11.0 Th/cmm (4.8-10.8) H 08/13/18 06:05 RBC 3.52 Mil/cmm (3.80-5.80) L 08/13/18 06:05 Hgb 10.2 gm/dL (12-16) L 08/13/18 06:05 Hct 30.7 % (41.0-60) L D 08/13/18 06:05 MCV 87.2 fl (80-99) 08/13/18 06:05 MCH 29.1 pg (27.0-31.0) 08/13/18 06:05 MCHC Differential 33.4 pg (28.0-36.0) 08/13/18 06:05 RDW 14.4 % (11.5-20.0) 08/13/18 06:05 Plt Count 248 Th/cmm (150-400) D 08/13/18 06:05 MPV 7.7 fl 08/13/18 06:05 Add Manual Diff YES 08/13/18 06:05 Neutrophils % 81.8 % (40.0-80.0) H 08/12/18 14:20 Band Neutrophils % 0 % (0-10) 08/13/18 06:05 Lymphocytes % 8.6 % (20.0-50.0) L 08/12/18 14:20 Monocytes % 9.1 % (2.0-10.0) 08/12/18 14:20 Eosinophils % 0.1 % (0.0-5.0) 08/12/18 14:20 Basophils % 0.4 % (0.0-2.0) 08/12/18 14:20 Neutrophils (Manual) 89 % (40-80) H 08/13/18 06:05 Lymphocytes 7 % (20-50) L 08/13/18 06:05 Monocytes 4 % (2-10) 08/13/18 06:05 Eosinophils 0 % (0-5) 08/13/18 06:05 Basophils 0 % (0-3) 08/13/18 06:05 Platelet Estimate ADEQUATE (NORMAL) 08/13/18 06:05 Eos Smear Source URINE 08/12/18 16:20 Eos Smear Total Cells NONE SEEN (NONE SEEN) 08/12/18 16:20 Sodium 143 mEq/L (136-145) 08/13/18 06:05 Potassium 3.7 mEq/L (3.5-5.1) 08/13/18 06:05 Chloride 109 mEq/L (98-107) H 08/13/18 06:05 Carbon Dioxide 23.0 mEq/L (21.0-31.0) 08/13/18 06:05 Anion Gap 14.7 (7.0-16.0) 08/13/18 06:05 BUN 46 mg/dL (7-25) H 08/13/18 06:05 Creatinine 1.8 mg/dL (0.7-1.3) H 08/13/18 06:05 Est GFR ( Amer) TNP 08/13/18 06:05 Est GFR (Non-Af Amer) TNP 08/13/18 06:05 BUN/Creatinine Ratio 25.6 08/13/18 06:05 Glucose 135 mg/dL (70-105) H 08/13/18 06:05 POC Glucose 115 MG/DL (70 - 105) H 08/12/18 14:43 Calcium 8.8 mg/dL (8.6-10.3) 08/13/18 06:05 Phosphorus 3.1 mg/dL (2.5-5.0) 08/13/18 06:05 Magnesium 2.2 mg/dL (1.9-2.7) 08/13/18 06:05 Total Bilirubin 0.9 mg/dL (0.3-1.0) 08/13/18 06:05 AST 10 U/L (13-39) L 08/13/18 06:05 ALT 7 U/L (7-52) 08/13/18 06:05 Alkaline Phosphatase 56 U/L (34-104) 08/13/18 06:05 Total Protein 7.0 gm/dL (6.0-8.3) 08/13/18 06:05 Albumin 3.4 gm/dL (4.2-5.5) L 08/13/18 06:05 Globulin 3.6 gm/dL 08/13/18 06:05 Albumin/Globulin Ratio 0.9 (1.0-1.8) L 08/13/18 06:05 Free T4 1.92 ng/dL (0.82-1.77) H 08/12/18 14:21 TSH 1.97 uIU/ml (0.34-5.60) 08/12/18 14:21 Urine Source CLEAN C 08/12/18 20:20 Urine Color YELLOW 08/12/18 20:20 Urine Clarity HAZY (CLEAR) 08/12/18 20:20 Urine pH 5.0 (4.6 - 8.0) 08/12/18 20:20 Ur Specific [place] >= 1.030 (1.005-1.030) 08/12/18 20:20 Urine Protein 30 mg/dL (NEGATIVE) H 08/12/18 20:20 Urine Glucose (UA) NEGATIVE mg/dL (NEGATIVE) 08/12/18 20:20 Urine Ketones TRACE mg/dL (NEGATIVE) 08/12/18 20:20 Urine Blood SMALL (NEGATIVE) H 08/12/18 20:20 Urine Nitrate NEGATIVE (NEGATIVE) 08/12/18 20:20 Urine Bilirubin MODERATE (NEGATIVE) H 08/12/18 20:20 Urine Ictotest POSITIVE (NEGATIVE) H 08/12/18 20:20 Urine Urobilinogen 0.2 E.U./dL (0.2 - 1.0) 08/12/18 20:20 Ur Leukocyte Esterase NEGATIVE (NEGATIVE) 08/12/18 20:20 Urine RBC 2-5 /hpf (0-5) H 08/12/18 20:20 Urine WBC 0-2 /hpf (0-5) 08/12/18 20:20 Ur Epithelial Cells NONE SEEN /lpf (FEW) 08/12/18 20:20 Urine Bacteria MODERATE /hpf (NONE SEEN) H 08/12/18 20:20 Hyaline Casts 2-5 /lpf (0-2) H 08/12/18 20:20 - Physical Exam Vitals and I&O: Vital Signs Temp 98.7 F 08/14/18 08:00 Pulse 67 08/14/18 08:00 Resp 18 08/14/18 08:00 BP 98/46 08/14/18 08:00 Pulse Ox 94 08/14/18 08:00 Intake & Output 08/13/18 08/14/18 08/14/18 18:59 06:59 18:59 Intake Total 120 Output Total 140 450 Balance -20 -450 Weight (lbs) 77.111 kg 77.111 kg Intake: Oral 120 Output: Urine 140 450 Other: # Bowel Movements 1 Weight Source Bedscale Bedscale Active Medications: Current Medications Albuterol/Ipratropium (Duoneb Neb) 3 ml HHN Q6HRT HERMES Stop: 10/11/18 15:43 Last Admin: 08/14/18 06:17 Dose: 3 ml Albuterol/Ipratropium (Duoneb Neb) 3 ml HHN Q2H PRN PRN Reason: Wheezing Stop: 10/11/18 15:45 Sodium Chloride (Nacl 0.9%) 1,000 mls @ 100 mls/hr IV .Q10H HERMES Stop: 10/11/18 13:44 Last Admin: 08/12/18 15:09 Dose: 100 mls/hr Ceftriaxone Sodium 1 gm/ (Sodium Chloride) 50 mls @ 100 mls/hr IV Q24HR [facility]MES Stop: 10/11/18 19:59 Last Admin: 08/13/18 20:44 Dose: 100 mls/hr Levofloxacin (Levaquin Pb) 250 mg in 50 mls @ 50 mls/hr IV Q24HR [facility] Stop: 08/20/18 04:14 Last Admin: 08/14/18 03:09 Dose: 50 mls/hr Lactobacillus Rhamnosus (Culturelle 15b) 1 each PO DAILY HERMES Stop: 10/13/18 08:59 Last Admin: 08/14/18 08:07 Dose: 1 each Miscellaneous (Probiotic Screen) 1 ea MC PRN PRN PRN Reason: PROTOCOL Stop: 10/12/18 13:04 General: Cooperative (SEE ABOVE), No acute distress Cardiovascular: Regular rate, Normal S1, Normal S2 Lungs: Clear to auscultation Abdomen: Bowel sounds, Soft Extremities: Pulses, Tender, Other, no Clubbing, no Cyanosis, no Edema Psych/Mental Status: Other (CONFUSED) Assessment/Plan - Assessment Assessment: ARF WAS IMPROVING WITH HYDRATION RENAL US PENDING - Plan Plan: ENCOURAGE PO FLUIDS EKATERINA SHELTON
[2018-08-14] MEDS: Sodium Chloride 0.9% 1,000 ML IV SCH (16:06)
--- NOTE | 2018-08-14 20:28 | General Progress Note ---
Subjective - Review of Systems Service Date: 08/14/18 Subjective: Patient seen and examined Earlier this am patient pulled his IV lines out and refused labs and meds Objective - Results Result Diagrams: 08/13/18 06:05 08/13/18 06:05 Recent Labs: Laboratory Last Values WBC 11.0 Th/cmm (4.8-10.8) H 08/13/18 06:05 RBC 3.52 Mil/cmm (3.80-5.80) L 08/13/18 06:05 Hgb 10.2 gm/dL (12-16) L 08/13/18 06:05 Hct 30.7 % (41.0-60) L D 08/13/18 06:05 MCV 87.2 fl (80-99) 08/13/18 06:05 MCH 29.1 pg (27.0-31.0) 08/13/18 06:05 MCHC Differential 33.4 pg (28.0-36.0) 08/13/18 06:05 RDW 14.4 % (11.5-20.0) 08/13/18 06:05 Plt Count 248 Th/cmm (150-400) D 08/13/18 06:05 MPV 7.7 fl 08/13/18 06:05 Add Manual Diff YES 08/13/18 06:05 Neutrophils % 81.8 % (40.0-80.0) H 08/12/18 14:20 Band Neutrophils % 0 % (0-10) 08/13/18 06:05 Lymphocytes % 8.6 % (20.0-50.0) L 08/12/18 14:20 Monocytes % 9.1 % (2.0-10.0) 08/12/18 14:20 Eosinophils % 0.1 % (0.0-5.0) 08/12/18 14:20 Basophils % 0.4 % (0.0-2.0) 08/12/18 14:20 Neutrophils (Manual) 89 % (40-80) H 08/13/18 06:05 Lymphocytes 7 % (20-50) L 08/13/18 06:05 Monocytes 4 % (2-10) 08/13/18 06:05 Eosinophils 0 % (0-5) 08/13/18 06:05 Basophils 0 % (0-3) 08/13/18 06:05 Platelet Estimate ADEQUATE (NORMAL) 08/13/18 06:05 Eos Smear Source URINE 08/12/18 16:20 Eos Smear Total Cells NONE SEEN (NONE SEEN) 08/12/18 16:20 Sodium 143 mEq/L (136-145) 08/13/18 06:05 Potassium 3.7 mEq/L (3.5-5.1) 08/13/18 06:05 Chloride 109 mEq/L (98-107) H 08/13/18 06:05 Carbon Dioxide 23.0 mEq/L (21.0-31.0) 08/13/18 06:05 Anion Gap 14.7 (7.0-16.0) 08/13/18 06:05 BUN 46 mg/dL (7-25) H 08/13/18 06:05 Creatinine 1.8 mg/dL (0.7-1.3) H 08/13/18 06:05 Est GFR ( Amer) TNP 08/13/18 06:05 Est GFR (Non-Af Amer) TNP 08/13/18 06:05 BUN/Creatinine Ratio 25.6 08/13/18 06:05 Glucose 135 mg/dL (70-105) H 08/13/18 06:05 POC Glucose 115 MG/DL (70 - 105) H 08/12/18 14:43 Calcium 8.8 mg/dL (8.6-10.3) 08/13/18 06:05 Phosphorus 3.1 mg/dL (2.5-5.0) 08/13/18 06:05 Magnesium 2.2 mg/dL (1.9-2.7) 08/13/18 06:05 Total Bilirubin 0.9 mg/dL (0.3-1.0) 08/13/18 06:05 AST 10 U/L (13-39) L 08/13/18 06:05 ALT 7 U/L (7-52) 08/13/18 06:05 Alkaline Phosphatase 56 U/L (34-104) 08/13/18 06:05 Total Protein 7.0 gm/dL (6.0-8.3) 08/13/18 06:05 Albumin 3.4 gm/dL (4.2-5.5) L 08/13/18 06:05 Globulin 3.6 gm/dL 08/13/18 06:05 Albumin/Globulin Ratio 0.9 (1.0-1.8) L 08/13/18 06:05 Free T4 1.92 ng/dL (0.82-1.77) H 08/12/18 14:21 TSH 1.97 uIU/ml (0.34-5.60) 08/12/18 14:21 Urine Source CLEAN C 08/12/18 20:20 Urine Color YELLOW 08/12/18 20:20 Urine Clarity HAZY (CLEAR) 08/12/18 20:20 Urine pH 5.0 (4.6 - 8.0) 08/12/18 20:20 Ur Specific [place] >= 1.030 (1.005-1.030) 08/12/18 20:20 Urine Protein 30 mg/dL (NEGATIVE) H 08/12/18 20:20 Urine Glucose (UA) NEGATIVE mg/dL (NEGATIVE) 08/12/18 20:20 Urine Ketones TRACE mg/dL (NEGATIVE) 08/12/18 20:20 Urine Blood SMALL (NEGATIVE) H 08/12/18 20:20 Urine Nitrate NEGATIVE (NEGATIVE) 08/12/18 20:20 Urine Bilirubin MODERATE (NEGATIVE) H 08/12/18 20:20 Urine Ictotest POSITIVE (NEGATIVE) H 08/12/18 20:20 Urine Urobilinogen 0.2 E.U./dL (0.2 - 1.0) 08/12/18 20:20 Ur Leukocyte Esterase NEGATIVE (NEGATIVE) 08/12/18 20:20 Urine RBC 2-5 /hpf (0-5) H 08/12/18 20:20 Urine WBC 0-2 /hpf (0-5) 08/12/18 20:20 Ur Epithelial Cells NONE SEEN /lpf (FEW) 08/12/18 20:20 Urine Bacteria MODERATE /hpf (NONE SEEN) H 08/12/18 20:20 Hyaline Casts 2-5 /lpf (0-2) H 08/12/18 20:20 - Physical Exam Vitals and I&O: Vital Signs Temp 98.6 F 08/14/18 16:00 Pulse 82 08/14/18 19:31 Resp 20 08/14/18 19:31 BP 97/53 08/14/18 16:00 Pulse Ox 95 08/14/18 19:31 Intake & Output 08/14/18 08/14/18 08/15/18 06:59 18:59 06:59 Intake Total 500 Output Total 450 Balance -450 500 Weight (lbs) 77.111 kg 74.843 kg Intake: Oral 500 Output: Urine 450 Other: # Voids 5 # Bowel Movements 2 Weight Source Bedscale Bedscale Active Medications: Current Medications Albuterol/Ipratropium (Duoneb Neb) 3 ml HHN Q6HRT HERM[facility] Stop: 10/11/18 15:43 Last Admin: 08/14/18 18:21 Dose: 3 ml Albuterol/Ipratropium (Duoneb Neb) 3 ml HHN Q2H PRN PRN Reason: Wheezing Stop: 10/11/18 15:45 Sodium Chloride (Nacl 0.9%) 1,000 mls @ 100 mls/hr IV .Q10H [facility] Stop: 10/11/18 13:44 Last Admin: 08/14/18 16:06 Dose: 100 mls/hr Ceftriaxone Sodium 1 gm/ (Sodium Chloride) 50 mls @ 100 mls/hr IV Q24HR [facility] Stop: 10/11/18 19:59 Last Admin: 08/13/18 20:44 Dose: 100 mls/hr Levofloxacin (Levaquin Pb) 250 mg in 50 mls @ 50 mls/hr IV Q24HR HERMES Stop: 08/20/18 04:14 Last Admin: 08/14/18 03:09 Dose: 50 mls/hr Lactobacillus Rhamnosus (Culturelle 15b) 1 each PO DAILY HERMES Stop: 10/13/18 08:59 Last Admin: 08/14/18 08:07 Dose: 1 each Lorazepam (Ativan) 0.5 mg PO Q4HR PRN; Protocol PRN Reason: Agitation Stop: 10/13/18 11:28 Miscellaneous (Probiotic Screen) 1 ea MC PRN PRN PRN Reason: PROTOCOL Stop: 10/12/18 13:04 Valproate Sodium (Depakene) 500 mg PO BID HERMES; Protocol Stop: 10/13/18 16:59 Last Admin: 08/14/18 16:06 Dose: 500 mg General: Cooperative (SEE ABOVE), No acute distress Cardiovascular: Regular rate, Normal S1, Normal S2 Lungs: Clear to auscultation, Other (rale bilaterally noted) Abdomen: Bowel sounds, Soft, no Tender Extremities: Pulses, Tender, Other, no Clubbing, no Cyanosis, no Edema Psych/Mental Status: Other (CONFUSED) Assessment/Plan - Assessment Assessment: Pnemonia Dehydration Acute renal failure Dementia Psych disorder - Plan Plan: IV antibiotics Oxygen Bronchodilator Ativan prn Labs in am Psych follow up IV fluids plan of care discussed with nursing staff
[2018-08-14] MEDS: cefTRIAXone 1 GM in Sodium Chloride 0.9% 50 ML IV SCH (20:45)
[2018-08-15] MEDS: Albuterol/Ipratropium Neb 3 ML AERS HHN SCH ×4 (00:09→18:46)
--- NOTE | 2018-08-15 00:12 | Progress Notes ---
DATE: 08/14/[address] Orozco. SUBJECTIVE: Case was discussed with staff of the patient, reviewed records. The patient continues to be agitated and at times he apparently was not restarted on his psychotropic medication. Apparently, they need to do a swallow evaluation for him is still pending. Continues to have some agitation and confusion and we will continue to follow with you. Thank you very much for allowing me to participate in the care of this most interesting gentleman. JOB# [id number]
[2018-08-15] MEDS: Levofloxacin 250mg/50mL 250 MG/50 ML BAG IV SCH (03:48)
[2018-08-15 06:41] LABS: ANION GAP 13.2 (7.0-16.0); BUN - UREA NITROGEN 29 mg/dL (7-25); CALCIUM SERUM 8.5 mg/dL (8.6-10.3); CARBON DIOXIDE 23.3 mEq/L (21.0-31.0); CHLORIDE 108 mEq/L (98-107); CREATININE - SERUM 1.1 mg/dL (0.7-1.3); GLUCOSE 115 mg/dL (70-105); POTASSIUM SERUM 3.5 mEq/L (3.5-5.1); SODIUM SERUM 141 mEq/L (136-145)
[2018-08-15] MEDS: Lactobacillus Rhamnosus GG 15 Billion CFU CAP.SPRINK PO SCH (08:05)
--- NOTE | 2018-08-15 10:01 | General Progress Note ---
Subjective - Review of Systems Service Date: 08/15/18 Subjective: DEMENTED SPEAKING FARSI NO DISTRESS Objective - Results Result Diagrams: 08/13/18 06:05 08/15/18 06:12 Recent Labs: Laboratory Last Values WBC 11.0 Th/cmm (4.8-10.8) H 08/13/18 06:05 RBC 3.52 Mil/cmm (3.80-5.80) L 08/13/18 06:05 Hgb 10.2 gm/dL (12-16) L 08/13/18 06:05 Hct 30.7 % (41.0-60) L D 08/13/18 06:05 MCV 87.2 fl (80-99) 08/13/18 06:05 MCH 29.1 pg (27.0-31.0) 08/13/18 06:05 MCHC Differential 33.4 pg (28.0-36.0) 08/13/18 06:05 RDW 14.4 % (11.5-20.0) 08/13/18 06:05 Plt Count 248 Th/cmm (150-400) D 08/13/18 06:05 MPV 7.7 fl 08/13/18 06:05 Add Manual Diff YES 08/13/18 06:05 Neutrophils % 81.8 % (40.0-80.0) H 08/12/18 14:20 Band Neutrophils % 0 % (0-10) 08/13/18 06:05 Lymphocytes % 8.6 % (20.0-50.0) L 08/12/18 14:20 Monocytes % 9.1 % (2.0-10.0) 08/12/18 14:20 Eosinophils % 0.1 % (0.0-5.0) 08/12/18 14:20 Basophils % 0.4 % (0.0-2.0) 08/12/18 14:20 Neutrophils (Manual) 89 % (40-80) H 08/13/18 06:05 Lymphocytes 7 % (20-50) L 08/13/18 06:05 Monocytes 4 % (2-10) 08/13/18 06:05 Eosinophils 0 % (0-5) 08/13/18 06:05 Basophils 0 % (0-3) 08/13/18 06:05 Platelet Estimate ADEQUATE (NORMAL) 08/13/18 06:05 Eos Smear Source URINE 08/12/18 16:20 Eos Smear Total Cells NONE SEEN (NONE SEEN) 08/12/18 16:20 Sodium 141 mEq/L (136-145) 08/15/18 06:12 Potassium 3.5 mEq/L (3.5-5.1) 08/15/18 06:12 Chloride 108 mEq/L (98-107) H 08/15/18 06:12 Carbon Dioxide 23.3 mEq/L (21.0-31.0) 08/15/18 06:12 Anion Gap 13.2 (7.0-16.0) 08/15/18 06:12 BUN 29 mg/dL (7-25) H 08/15/18 06:12 Creatinine 1.1 mg/dL (0.7-1.3) 08/15/18 06:12 Est GFR ( Amer) TNP 08/15/18 06:12 Est GFR (Non-Af Amer) TNP 08/15/18 06:12 BUN/Creatinine Ratio 26.4 08/15/18 06:12 Glucose 115 mg/dL (70-105) H 08/15/18 06:12 POC Glucose 115 MG/DL (70 - 105) H 08/12/18 14:43 Calcium 8.5 mg/dL (8.6-10.3) L 08/15/18 06:12 Phosphorus 3.1 mg/dL (2.5-5.0) 08/13/18 06:05 Magnesium 2.2 mg/dL (1.9-2.7) 08/13/18 06:05 Total Bilirubin 0.9 mg/dL (0.3-1.0) 08/13/18 06:05 AST 10 U/L (13-39) L 08/13/18 06:05 ALT 7 U/L (7-52) 08/13/18 06:05 Alkaline Phosphatase 56 U/L (34-104) 08/13/18 06:05 Total Protein 7.0 gm/dL (6.0-8.3) 08/13/18 06:05 Albumin 3.4 gm/dL (4.2-5.5) L 08/13/18 06:05 Globulin 3.6 gm/dL 08/13/18 06:05 Albumin/Globulin Ratio 0.9 (1.0-1.8) L 08/13/18 06:05 Free T4 1.92 ng/dL (0.82-1.77) H 08/12/18 14:21 TSH 1.97 uIU/ml (0.34-5.60) 08/12/18 14:21 Urine Source CLEAN C 08/12/18 20:20 Urine Color YELLOW 08/12/18 20:20 Urine Clarity HAZY (CLEAR) 08/12/18 20:20 Urine pH 5.0 (4.6 - 8.0) 08/12/18 20:20 Ur Specific [place] >= 1.030 (1.005-1.030) 08/12/18 20:20 Urine Protein 30 mg/dL (NEGATIVE) H 08/12/18 20:20 Urine Glucose (UA) NEGATIVE mg/dL (NEGATIVE) 08/12/18 20:20 Urine Ketones TRACE mg/dL (NEGATIVE) 08/12/18 20:20 Urine Blood SMALL (NEGATIVE) H 08/12/18 20:20 Urine Nitrate NEGATIVE (NEGATIVE) 08/12/18 20:20 Urine Bilirubin MODERATE (NEGATIVE) H 08/12/18 20:20 Urine Ictotest POSITIVE (NEGATIVE) H 08/12/18 20:20 Urine Urobilinogen 0.2 E.U./dL (0.2 - 1.0) 08/12/18 20:20 Ur Leukocyte Esterase NEGATIVE (NEGATIVE) 08/12/18 20:20 Urine RBC 2-5 /hpf (0-5) H 08/12/18 20:20 Urine WBC 0-2 /hpf (0-5) 08/12/18 20:20 Ur Epithelial Cells NONE SEEN /lpf (FEW) 08/12/18 20:20 Urine Bacteria MODERATE /hpf (NONE SEEN) H 08/12/18 20:20 Hyaline Casts 2-5 /lpf (0-2) H 08/12/18 20:20 - Physical Exam Vitals and I&O: Vital Signs Temp 97.1 F 08/15/18 07:59 Pulse 72 08/15/18 08:00 Resp 18 08/15/18 08:00 BP 118/56 08/15/18 08:00 Pulse Ox 95 08/15/18 07:59 Intake & Output 08/14/18 08/15/18 08/15/18 18:59 06:59 18:59 Intake Total 500 100 450 Balance 500 100 450 Weight (lbs) 74.843 kg 74.843 kg Intake: Intake, IV Amount 100 Levofloxacin 250mg/50mL 50 250 mg In 50 ml @ 50 mls/ hr IV Q24HR [facility] Rx#: [id number] cefTRIAXone 1 gm In 50 Sodium Chloride 0.9% 50 ml @ 100 mls/hr IV Q24HR [facility] Rx#:[id number] Oral 500 450 Other: # Voids 5 5 # Bowel Movements 2 0 Weight Source Bedscale Bedscale Active Medications: Current Medications Albuterol/Ipratropium (Duoneb Neb) 3 ml HHN Q6HRT [facility] Stop: 10/11/18 15:43 Last Admin: 08/15/18 06:47 Dose: 3 ml Albuterol/Ipratropium (Duoneb Neb) 3 ml HHN Q2H PRN PRN Reason: Wheezing Stop: 10/11/18 15:45 Sodium Chloride (Nacl 0.9%) 1,000 mls @ 100 mls/hr IV .Q10H [facility] Stop: 10/11/18 13:44 Last Admin: 08/14/18 16:06 Dose: 100 mls/hr Ceftriaxone Sodium 1 gm/ (Sodium Chloride) 50 mls @ 100 mls/hr IV Q24HR [facility] Stop: 10/11/18 19:59 Last Infusion: 08/14/18 21:15 Dose: Infused Levofloxacin (Levaquin Pb) 250 mg in 50 mls @ 50 mls/hr IV Q24HR [facility] Stop: 08/20/18 04:14 Last Infusion: 08/15/18 04:50 Dose: Infused Lactobacillus Rhamnosus (Culturelle 15b) 1 each PO DAILY [facility] Stop: 10/13/18 08:59 Last Admin: 08/15/18 08:05 Dose: 1 each Lorazepam (Ativan) 0.5 mg PO Q4HR PRN; Protocol PRN Reason: Agitation Stop: 10/13/18 11:28 Last Admin: 08/15/18 03:48 Dose: 0.5 mg Miscellaneous (Probiotic Screen) 1 ea MC PRN PRN PRN Reason: PROTOCOL Stop: 10/12/18 13:04 Valproate Sodium (Depakene) 500 mg PO BID [facility]; Protocol Stop: 10/13/18 16:59 Last Admin: 08/15/18 08:05 Dose: 500 mg General: Cooperative (SEE ABOVE), No acute distress Cardiovascular: Regular rate, Normal S1, Normal S2 Lungs: Clear to auscultation, Other (rale bilaterally noted) Abdomen: Bowel sounds, Soft, no Tender Extremities: Pulses, Tender, Other, no Clubbing, no Cyanosis, no Edema Psych/Mental Status: Other (CONFUSED) Assessment/Plan - Assessment Assessment: ARF nearly resolved with IVF - Plan Plan: ENCOURAGE PO FLUIDS
[2018-08-15 11:03] LABS: HEMATOCRIT 30.5 % (41.0-60); HEMOGLOBIN 9.9 gm/dL (12-16); MEAN CORPUSCULAR HEMOGLOBIN 28.8 pg (27.0-31.0); MEAN CORPUSCULAR HGB CONC 32.4 pg (28.0-36.0); MEAN PLATELET VOLUME 8.8 fl; PLATELET COUNT 256 Th/cmm (150-400); RED BLOOD COUNT 3.43 Mil/cmm (3.80-5.80); RED CELL DISTRIBUTION WIDTH 15.6 % (11.5-20.0); WHITE BLOOD COUNT 8.4 Th/cmm (4.8-10.8)
[2018-08-15 11:04] LABS: % BASOPHILS 0.4 % (0.0-2.0); % EOSINOPHILS 0.3 % (0.0-5.0); % LYMPHOCYTES 6.2 % (20.0-50.0); % MONOCYTES 8.6 % (2.0-10.0); % NEUTROPHILS 84.5 % (40.0-80.0); LYMPHOCYTE ABSOLUTE 0.5 Th/cmm (1.5-3.0); MONOCYTE ABSOLUTE 0.7 Th/cmm (0.3-1.0); NEUTROPHILE ABSOLUTE 7.1 Th/cmm (1.8-8.0)
[2018-08-15] MEDS: Sodium Chloride 0.9% 1,000 ML IV SCH (16:27)
[2018-08-15] MEDS: cefTRIAXone 1 GM in Sodium Chloride 0.9% 50 ML IV SCH (20:35)
--- NOTE | 2018-08-15 22:21 | General Progress Note ---
Subjective - Review of Systems Service Date: 08/15/18 Subjective: Patient seen and examined doing ok afebrile breathing better less congested Objective - Results Result Diagrams: 08/15/18 06:12 08/15/18 06:12 Recent Labs: Laboratory Last Values WBC 8.4 Th/cmm (4.8-10.8) 08/15/18 06:12 RBC 3.43 Mil/cmm (3.80-5.80) L 08/15/18 06:12 Hgb 9.9 gm/dL (12-16) L 08/15/18 06:12 Hct 30.5 % (41.0-60) L 08/15/18 06:12 MCV 89.0 fl (80-99) 08/15/18 06:12 MCH 28.8 pg (27.0-31.0) 08/15/18 06:12 MCHC Differential 32.4 pg (28.0-36.0) 08/15/18 06:12 RDW 15.6 % (11.5-20.0) 08/15/18 06:12 Plt Count 256 Th/cmm (150-400) 08/15/18 06:12 MPV 8.8 fl 08/15/18 06:12 Add Manual Diff YES 08/13/18 06:05 Neutrophils % 84.5 % (40.0-80.0) H 08/15/18 06:12 Band Neutrophils % 0 % (0-10) 08/13/18 06:05 Lymphocytes % 6.2 % (20.0-50.0) L 08/15/18 06:12 Monocytes % 8.6 % (2.0-10.0) 08/15/18 06:12 Eosinophils % 0.3 % (0.0-5.0) 08/15/18 06:12 Basophils % 0.4 % (0.0-2.0) 08/15/18 06:12 Neutrophils (Manual) 89 % (40-80) H 08/13/18 06:05 Lymphocytes 7 % (20-50) L 08/13/18 06:05 Monocytes 4 % (2-10) 08/13/18 06:05 Eosinophils 0 % (0-5) 08/13/18 06:05 Basophils 0 % (0-3) 08/13/18 06:05 Platelet Estimate ADEQUATE (NORMAL) 08/13/18 06:05 Eos Smear Source URINE 08/12/18 16:20 Eos Smear Total Cells NONE SEEN (NONE SEEN) 08/12/18 16:20 Sodium 141 mEq/L (136-145) 08/15/18 06:12 Potassium 3.5 mEq/L (3.5-5.1) 08/15/18 06:12 Chloride 108 mEq/L (98-107) H 08/15/18 06:12 Carbon Dioxide 23.3 mEq/L (21.0-31.0) 08/15/18 06:12 Anion Gap 13.2 (7.0-16.0) 08/15/18 06:12 BUN 29 mg/dL (7-25) H 08/15/18 06:12 Creatinine 1.1 mg/dL (0.7-1.3) 08/15/18 06:12 Est GFR ( Amer) TNP 08/15/18 06:12 Est GFR (Non-Af Amer) TNP 08/15/18 06:12 BUN/Creatinine Ratio 26.4 08/15/18 06:12 Glucose 115 mg/dL (70-105) H 08/15/18 06:12 POC Glucose 115 MG/DL (70 - 105) H 08/12/18 14:43 Calcium 8.5 mg/dL (8.6-10.3) L 08/15/18 06:12 Phosphorus 3.1 mg/dL (2.5-5.0) 08/13/18 06:05 Magnesium 2.2 mg/dL (1.9-2.7) 08/13/18 06:05 Total Bilirubin 0.9 mg/dL (0.3-1.0) 08/13/18 06:05 AST 10 U/L (13-39) L 08/13/18 06:05 ALT 7 U/L (7-52) 08/13/18 06:05 Alkaline Phosphatase 56 U/L (34-104) 08/13/18 06:05 Total Protein 7.0 gm/dL (6.0-8.3) 08/13/18 06:05 Albumin 3.4 gm/dL (4.2-5.5) L 08/13/18 06:05 Globulin 3.6 gm/dL 08/13/18 06:05 Albumin/Globulin Ratio 0.9 (1.0-1.8) L 08/13/18 06:05 Free T4 1.92 ng/dL (0.82-1.77) H 08/12/18 14:21 TSH 1.97 uIU/ml (0.34-5.60) 08/12/18 14:21 Urine Source CLEAN C 08/12/18 20:20 Urine Color YELLOW 08/12/18 20:20 Urine Clarity HAZY (CLEAR) 08/12/18 20:20 Urine pH 5.0 (4.6 - 8.0) 08/12/18 20:20 Ur Specific [place] >= 1.030 (1.005-1.030) 08/12/18 20:20 Urine Protein 30 mg/dL (NEGATIVE) H 08/12/18 20:20 Urine Glucose (UA) NEGATIVE mg/dL (NEGATIVE) 08/12/18 20:20 Urine Ketones TRACE mg/dL (NEGATIVE) 08/12/18 20:20 Urine Blood SMALL (NEGATIVE) H 08/12/18 20:20 Urine Nitrate NEGATIVE (NEGATIVE) 08/12/18 20:20 Urine Bilirubin MODERATE (NEGATIVE) H 08/12/18 20:20 Urine Ictotest POSITIVE (NEGATIVE) H 08/12/18 20:20 Urine Urobilinogen 0.2 E.U./dL (0.2 - 1.0) 08/12/18 20:20 Ur Leukocyte Esterase NEGATIVE (NEGATIVE) 08/12/18 20:20 Urine RBC 2-5 /hpf (0-5) H 08/12/18 20:20 Urine WBC 0-2 /hpf (0-5) 08/12/18 20:20 Ur Epithelial Cells NONE SEEN /lpf (FEW) 08/12/18 20:20 Urine Bacteria MODERATE /hpf (NONE SEEN) H 08/12/18 20:20 Hyaline Casts 2-5 /lpf (0-2) H 08/12/18 20:20 - Physical Exam Vitals and I&O: Vital Signs Temp 97.2 F 08/15/18 20:00 Pulse 78 08/15/18 20:00 Resp 20 08/15/18 20:00 BP 120/49 08/15/18 20:00 Pulse Ox 96 08/15/18 20:00 Intake & Output 08/15/18 08/15/18 08/16/18 06:59 18:59 06:59 Intake Total 1100 450 Balance 1100 450 Weight (lbs) 74.843 kg Intake: Intake, IV Amount 1100 Levofloxacin 250mg/50mL 50 250 mg In 50 ml @ 50 mls/ hr IV Q24HR [facility] Rx#: [id number] Sodium Chloride 0.9% 1, 1000 000 ml @ 100 mls/hr IV . Q10H [facility] Rx#:[id number] cefTRIAXone 1 gm In 50 Sodium Chloride 0.9% 50 ml @ 100 mls/hr IV Q24HR [facility] Rx#:[id number] Oral 450 Other: # Voids 5 # Bowel Movements 0 Weight Source Bedscale Active Medications: Current Medications Albuterol/Ipratropium (Duoneb Neb) 3 ml HHN Q6HRT [facility] Stop: 10/11/18 15:43 Last Admin: 08/15/18 18:46 Dose: 3 ml Albuterol/Ipratropium (Duoneb Neb) 3 ml HHN Q2H PRN PRN Reason: Wheezing Stop: 10/11/18 15:45 Sodium Chloride (Nacl 0.9%) 1,000 mls @ 100 mls/hr IV .Q10H [facility] Stop: 10/11/18 13:44 Last Admin: 08/15/18 16:27 Dose: 100 mls/hr Ceftriaxone Sodium 1 gm/ (Sodium Chloride) 50 mls @ 100 mls/hr IV Q24HR [facility] Stop: 10/11/18 19:59 Last Admin: 08/15/18 20:35 Dose: 100 mls/hr Levofloxacin (Levaquin Pb) 250 mg in 50 mls @ 50 mls/hr IV Q24HR [facility] Stop: 08/20/18 04:14 Last Infusion: 08/15/18 04:50 Dose: Infused Lactobacillus Rhamnosus (Culturelle 15b) 1 each PO DAILY [facility] Stop: 10/13/18 08:59 Last Admin: 08/15/18 08:05 Dose: 1 each Lorazepam (Ativan) 0.5 mg PO Q4HR PRN; Protocol PRN Reason: Agitation Stop: 10/13/18 11:28 Last Admin: 08/15/18 03:48 Dose: 0.5 mg Miscellaneous (Probiotic Screen) 1 ea MC PRN PRN PRN Reason: PROTOCOL Stop: 10/12/18 13:04 Valproate Sodium (Depakene) 500 mg PO BID [facility]; Protocol Stop: 10/13/18 16:59 Last Admin: 08/15/18 16:30 Dose: 500 mg General: No acute distress Cardiovascular: Regular rate, Normal S1, Normal S2 Lungs: Clear to auscultation, Other (rale bilaterally noted) Abdomen: Bowel sounds, Soft, no Tender Extremities: Pulses, Tender, Other, no Clubbing, no Cyanosis, no Edema Psych/Mental Status: Other (CONFUSED) Assessment/Plan - Assessment Assessment: Pnemonia Dehydration Acute renal failure Dementia Psych disorder - Plan Plan: IV antibiotics Oxygen Bronchodilator Ativan prn Psych follow up will dc iv fluids (renal function better)
[2018-08-16] MEDS: Albuterol/Ipratropium Neb 3 ML AERS HHN SCH ×4 (00:13→19:26)
--- NOTE | 2018-08-16 00:17 | Progress Notes ---
DATE: 08/15/[address] Orozco who is on the medical floor. The patient continues to be confused, irritable, continues to have poor insight and unable to make safe plan for his self-care, unpredictable, impulsive. I restarted his Depakote and held the Seroquel for now because of his dehydration as to do not have any bad side effects. He is alert; however, he is unable to make safe plan for his self-care or carry on a reasonable conversation. I will continue to work with the patient in group therapy, milieu therapy. Thank you very much for allowing me to participate in the care of this most interesting gentleman. JOB# [id number]
--- NOTE | 2018-08-16 00:18 | Infectious Disease Prog Note ---
Infectious Disease Subjective - Review of Systems Service Date: 08/15/18 Subjective: NO new change, no fever. Infectious Disease Objective - Results Result Diagrams: 08/15/18 06:12 08/15/18 06:12 Recent Labs: Laboratory Last Values WBC 8.4 Th/cmm (4.8-10.8) 08/15/18 06:12 RBC 3.43 Mil/cmm (3.80-5.80) L 08/15/18 06:12 Hgb 9.9 gm/dL (12-16) L 08/15/18 06:12 Hct 30.5 % (41.0-60) L 08/15/18 06:12 MCV 89.0 fl (80-99) 08/15/18 06:12 MCH 28.8 pg (27.0-31.0) 08/15/18 06:12 MCHC Differential 32.4 pg (28.0-36.0) 08/15/18 06:12 RDW 15.6 % (11.5-20.0) 08/15/18 06:12 Plt Count 256 Th/cmm (150-400) 08/15/18 06:12 MPV 8.8 fl 08/15/18 06:12 Add Manual Diff YES 08/13/18 06:05 Neutrophils % 84.5 % (40.0-80.0) H 08/15/18 06:12 Band Neutrophils % 0 % (0-10) 08/13/18 06:05 Lymphocytes % 6.2 % (20.0-50.0) L 08/15/18 06:12 Monocytes % 8.6 % (2.0-10.0) 08/15/18 06:12 Eosinophils % 0.3 % (0.0-5.0) 08/15/18 06:12 Basophils % 0.4 % (0.0-2.0) 08/15/18 06:12 Neutrophils (Manual) 89 % (40-80) H 08/13/18 06:05 Lymphocytes 7 % (20-50) L 08/13/18 06:05 Monocytes 4 % (2-10) 08/13/18 06:05 Eosinophils 0 % (0-5) 08/13/18 06:05 Basophils 0 % (0-3) 08/13/18 06:05 Platelet Estimate ADEQUATE (NORMAL) 08/13/18 06:05 Eos Smear Source URINE 08/12/18 16:20 Eos Smear Total Cells NONE SEEN (NONE SEEN) 08/12/18 16:20 Sodium 141 mEq/L (136-145) 08/15/18 06:12 Potassium 3.5 mEq/L (3.5-5.1) 08/15/18 06:12 Chloride 108 mEq/L (98-107) H 08/15/18 06:12 Carbon Dioxide 23.3 mEq/L (21.0-31.0) 08/15/18 06:12 Anion Gap 13.2 (7.0-16.0) 08/15/18 06:12 BUN 29 mg/dL (7-25) H 08/15/18 06:12 Creatinine 1.1 mg/dL (0.7-1.3) 08/15/18 06:12 Est GFR ( Amer) TNP 08/15/18 06:12 Est GFR (Non-Af Amer) TNP 08/15/18 06:12 BUN/Creatinine Ratio 26.4 08/15/18 06:12 Glucose 115 mg/dL (70-105) H 08/15/18 06:12 POC Glucose 115 MG/DL (70 - 105) H 08/12/18 14:43 Calcium 8.5 mg/dL (8.6-10.3) L 08/15/18 06:12 Phosphorus 3.1 mg/dL (2.5-5.0) 08/13/18 06:05 Magnesium 2.2 mg/dL (1.9-2.7) 08/13/18 06:05 Total Bilirubin 0.9 mg/dL (0.3-1.0) 08/13/18 06:05 AST 10 U/L (13-39) L 08/13/18 06:05 ALT 7 U/L (7-52) 08/13/18 06:05 Alkaline Phosphatase 56 U/L (34-104) 08/13/18 06:05 Total Protein 7.0 gm/dL (6.0-8.3) 08/13/18 06:05 Albumin 3.4 gm/dL (4.2-5.5) L 08/13/18 06:05 Globulin 3.6 gm/dL 08/13/18 06:05 Albumin/Globulin Ratio 0.9 (1.0-1.8) L 08/13/18 06:05 Free T4 1.92 ng/dL (0.82-1.77) H 08/12/18 14:21 TSH 1.97 uIU/ml (0.34-5.60) 08/12/18 14:21 Urine Source CLEAN C 08/12/18 20:20 Urine Color YELLOW 08/12/18 20:20 Urine Clarity HAZY (CLEAR) 08/12/18 20:20 Urine pH 5.0 (4.6 - 8.0) 08/12/18 20:20 Ur Specific [place] >= 1.030 (1.005-1.030) 08/12/18 20:20 Urine Protein 30 mg/dL (NEGATIVE) H 08/12/18 20:20 Urine Glucose (UA) NEGATIVE mg/dL (NEGATIVE) 08/12/18 20:20 Urine Ketones TRACE mg/dL (NEGATIVE) 08/12/18 20:20 Urine Blood SMALL (NEGATIVE) H 08/12/18 20:20 Urine Nitrate NEGATIVE (NEGATIVE) 08/12/18 20:20 Urine Bilirubin MODERATE (NEGATIVE) H 08/12/18 20:20 Urine Ictotest POSITIVE (NEGATIVE) H 08/12/18 20:20 Urine Urobilinogen 0.2 E.U./dL (0.2 - 1.0) 08/12/18 20:20 Ur Leukocyte Esterase NEGATIVE (NEGATIVE) 08/12/18 20:20 Urine RBC 2-5 /hpf (0-5) H 08/12/18 20:20 Urine WBC 0-2 /hpf (0-5) 08/12/18 20:20 Ur Epithelial Cells NONE SEEN /lpf (FEW) 08/12/18 20:20 Urine Bacteria MODERATE /hpf (NONE SEEN) H 08/12/18 20:20 Hyaline Casts 2-5 /lpf (0-2) H 08/12/18 20:20 - Physical Exam Vitals and I&O: Vital Signs Temp 97.7 F 08/16/18 00:00 Pulse 67 08/16/18 00:00 Resp 20 08/16/18 00:00 BP 123/56 08/16/18 00:00 Pulse Ox 97 08/16/18 00:00 Intake & Output 08/15/18 08/15/18 08/16/18 06:59 18:59 06:59 Intake Total 1100 450 Balance 1100 450 Weight (lbs) 74.843 kg Intake: Intake, IV Amount 1100 Levofloxacin 250mg/50mL 50 250 mg In 50 ml @ 50 mls/ hr IV Q24HR [facility] Rx#: [id number] Sodium Chloride 0.9% 1, 1000 000 ml @ 100 mls/hr IV . Q10H [facility] Rx#:[id number] cefTRIAXone 1 gm In 50 Sodium Chloride 0.9% 50 ml @ 100 mls/hr IV Q24HR [facility] Rx#:[id number] Oral 450 Other: # Voids 5 # Bowel Movements 0 Weight Source Bedscale Active Medications: Current Medications Albuterol/Ipratropium (Duoneb Neb) 3 ml HHN Q6HRT [facility] Stop: 10/11/18 15:43 Last Admin: 08/16/18 00:13 Dose: 3 ml Albuterol/Ipratropium (Duoneb Neb) 3 ml HHN Q2H PRN PRN Reason: Wheezing Stop: 10/11/18 15:45 Ceftriaxone Sodium 1 gm/ (Sodium Chloride) 50 mls @ 100 mls/hr IV Q24HR [facility] Stop: 10/11/18 19:59 Last Admin: 08/15/18 20:35 Dose: 100 mls/hr Levofloxacin (Levaquin Pb) 250 mg in 50 mls @ 50 mls/hr IV Q24HR [facility] Stop: 08/20/18 04:14 Last Infusion: 08/15/18 04:50 Dose: Infused Lactobacillus Rhamnosus (Culturelle 15b) 1 each PO DAILY [facility] Stop: 10/13/18 08:59 Last Admin: 08/15/18 08:05 Dose: 1 each Lorazepam (Ativan) 0.5 mg PO Q4HR PRN; Protocol PRN Reason: Agitation Stop: 10/13/18 11:28 Last Admin: 08/15/18 03:48 Dose: 0.5 mg Miscellaneous (Probiotic Screen) 1 ea MC PRN PRN PRN Reason: PROTOCOL Stop: 10/12/18 13:04 Valproate Sodium (Depakene) 500 mg PO BID [facility]; Protocol Stop: 10/13/18 16:59 Last Admin: 08/15/18 16:30 Dose: 500 mg General: no acute distress, well developed, well nourished HEENT: atraumatic, normocephalic, PERRLA, EOMI Neck: supple, no thyromegaly, no lymphadenopathy Cardiovascular: S1S2, regular Lungs: clear to auscultation bilaterally, clear to percussion Abdomen: soft, no tender, no distended Extremities: no cyanosis, no clubbing, no edema Skin: intact Infectious Disease Assmt/Plan - Assessment Assessment: 1. Leukocytosis, most likely reactive versus sepsis. 2. Pneumonia, on the right lower lobe. 3. Dehydration. 4. Acute renal failure. 5. Seizure disorder. - Plan Plan: Continue the same treatment. Continue levaquin.
[2018-08-16] MEDS: Levofloxacin 250mg/50mL 250 MG/50 ML BAG IV SCH (03:10)
[2018-08-16 05:48] LABS: BUN - UREA NITROGEN 24 mg/dL (7-25); CALCIUM SERUM 8.3 mg/dL (8.6-10.3); CARBON DIOXIDE 21.3 mEq/L (21.0-31.0); CHLORIDE 112 mEq/L (98-107); GLUCOSE 92 mg/dL (70-105); POTASSIUM SERUM 3.3 mEq/L (3.5-5.1); SODIUM SERUM 144 mEq/L (136-145)
[2018-08-16] MEDS: Lactobacillus Rhamnosus GG 15 Billion CFU CAP.SPRINK PO SCH (08:16)
[2018-08-16 09:33] LABS: HEMATOCRIT 29.6 % (41.0-60); HEMOGLOBIN 9.7 gm/dL (12-16); MEAN CELL VOLUME 88.5 fl (80-99); MEAN CORPUSCULAR HEMOGLOBIN 28.9 pg (27.0-31.0); MEAN CORPUSCULAR HGB CONC 32.7 pg (28.0-36.0); RED BLOOD COUNT 3.34 Mil/cmm (3.80-5.80); RED CELL DISTRIBUTION WIDTH 15.1 % (11.5-20.0)
[2018-08-16 09:34] LABS: % BASOPHILS 0.2 % (0.0-2.0); % EOSINOPHILS 0.7 % (0.0-5.0); % LYMPHOCYTES 6.3 % (20.0-50.0); % MONOCYTES 7.7 % (2.0-10.0); % NEUTROPHILS 86.1 % (40.0-80.0); MEAN PLATELET VOLUME 8.8 fl; PLATELET COUNT 276 Th/cmm (150-400)
--- NOTE | 2018-08-16 11:10 | Infectious Disease Prog Note ---
Infectious Disease Subjective - Review of Systems Service Date: 08/16/18 Subjective: NO new change, no fever. Infectious Disease Objective - Results Result Diagrams: 08/16/18 04:45 08/16/18 04:45 Recent Labs: Laboratory Last Values WBC 7.0 Th/cmm (4.8-10.8) 08/16/18 04:45 RBC 3.34 Mil/cmm (3.80-5.80) L 08/16/18 04:45 Hgb 9.7 gm/dL (12-16) L 08/16/18 04:45 Hct 29.6 % (41.0-60) L 08/16/18 04:45 MCV 88.5 fl (80-99) 08/16/18 04:45 MCH 28.9 pg (27.0-31.0) 08/16/18 04:45 MCHC Differential 32.7 pg (28.0-36.0) 08/16/18 04:45 RDW 15.1 % (11.5-20.0) 08/16/18 04:45 Plt Count 276 Th/cmm (150-400) 08/16/18 04:45 MPV 8.8 fl 08/16/18 04:45 Add Manual Diff YES 08/13/18 06:05 Neutrophils % 86.1 % (40.0-80.0) H 08/16/18 04:45 Band Neutrophils % 0 % (0-10) 08/13/18 06:05 Lymphocytes % 6.3 % (20.0-50.0) L 08/16/18 04:45 Monocytes % 7.7 % (2.0-10.0) 08/16/18 04:45 Eosinophils % 0.7 % (0.0-5.0) 08/16/18 04:45 Basophils % 0.2 % (0.0-2.0) 08/16/18 04:45 Neutrophils (Manual) 89 % (40-80) H 08/13/18 06:05 Lymphocytes 7 % (20-50) L 08/13/18 06:05 Monocytes 4 % (2-10) 08/13/18 06:05 Eosinophils 0 % (0-5) 08/13/18 06:05 Basophils 0 % (0-3) 08/13/18 06:05 Platelet Estimate ADEQUATE (NORMAL) 08/13/18 06:05 Eos Smear Source URINE 08/12/18 16:20 Eos Smear Total Cells NONE SEEN (NONE SEEN) 08/12/18 16:20 Sodium 144 mEq/L (136-145) 08/16/18 04:45 Potassium 3.3 mEq/L (3.5-5.1) L 08/16/18 04:45 Chloride 112 mEq/L (98-107) H 08/16/18 04:45 Carbon Dioxide 21.3 mEq/L (21.0-31.0) 08/16/18 04:45 Anion Gap 14.0 (7.0-16.0) 08/16/18 04:45 BUN 24 mg/dL (7-25) 08/16/18 04:45 Creatinine 1.0 mg/dL (0.7-1.3) 08/16/18 04:45 Est GFR ( Amer) TNP 08/16/18 04:45 Est GFR (Non-Af Amer) TNP 08/16/18 04:45 BUN/Creatinine Ratio 24.0 08/16/18 04:45 Glucose 92 mg/dL (70-105) 08/16/18 04:45 POC Glucose 115 MG/DL (70 - 105) H 08/12/18 14:43 Calcium 8.3 mg/dL (8.6-10.3) L 08/16/18 04:45 Phosphorus 3.1 mg/dL (2.5-5.0) 08/13/18 06:05 Magnesium 2.2 mg/dL (1.9-2.7) 08/13/18 06:05 Total Bilirubin 0.9 mg/dL (0.3-1.0) 08/13/18 06:05 AST 10 U/L (13-39) L 08/13/18 06:05 ALT 7 U/L (7-52) 08/13/18 06:05 Alkaline Phosphatase 56 U/L (34-104) 08/13/18 06:05 Total Protein 7.0 gm/dL (6.0-8.3) 08/13/18 06:05 Albumin 3.4 gm/dL (4.2-5.5) L 08/13/18 06:05 Globulin 3.6 gm/dL 08/13/18 06:05 Albumin/Globulin Ratio 0.9 (1.0-1.8) L 08/13/18 06:05 Free T4 1.92 ng/dL (0.82-1.77) H 08/12/18 14:21 TSH 1.97 uIU/ml (0.34-5.60) 08/12/18 14:21 Urine Source CLEAN C 08/12/18 20:20 Urine Color YELLOW 08/12/18 20:20 Urine Clarity HAZY (CLEAR) 08/12/18 20:20 Urine pH 5.0 (4.6 - 8.0) 08/12/18 20:20 Ur Specific Randolph >= 1.030 (1.005-1.030) 08/12/18 20:20 Urine Protein 30 mg/dL (NEGATIVE) H 08/12/18 20:20 Urine Glucose (UA) NEGATIVE mg/dL (NEGATIVE) 08/12/18 20:20 Urine Ketones TRACE mg/dL (NEGATIVE) 08/12/18 20:20 Urine Blood SMALL (NEGATIVE) H 08/12/18 20:20 Urine Nitrate NEGATIVE (NEGATIVE) 08/12/18 20:20 Urine Bilirubin MODERATE (NEGATIVE) H 08/12/18 20:20 Urine Ictotest POSITIVE (NEGATIVE) H 08/12/18 20:20 Urine Urobilinogen 0.2 E.U./dL (0.2 - 1.0) 08/12/18 20:20 Ur Leukocyte Esterase NEGATIVE (NEGATIVE) 08/12/18 20:20 Urine RBC 2-5 /hpf (0-5) H 08/12/18 20:20 Urine WBC 0-2 /hpf (0-5) 08/12/18 20:20 Ur Epithelial Cells NONE SEEN /lpf (FEW) 08/12/18 20:20 Urine Bacteria MODERATE /hpf (NONE SEEN) H 08/12/18 20:20 Hyaline Casts 2-5 /lpf (0-2) H 08/12/18 20:20 - Physical Exam Vitals and I&O: Vital Signs Temp 97.3 F 08/16/18 08:00 Pulse 61 08/16/18 08:00 Resp 18 08/16/18 08:00 BP 150/85 08/16/18 08:00 Pulse Ox 98 08/16/18 08:00 Intake & Output 08/15/18 08/16/18 08/16/18 18:59 06:59 18:59 Intake Total 450 25 Balance 450 25 Weight (lbs) 74.843 kg 74.843 kg Intake: Oral 450 25 Other: # Voids 5 5 # Bowel Movements 0 0 Weight Source Bedscale Bedscale Active Medications: Current Medications Albuterol/Ipratropium (Duoneb Neb) 3 ml HHN Q6HRT HERMES Stop: 10/11/18 15:43 Last Admin: 08/16/18 07:04 Dose: 3 ml Albuterol/Ipratropium (Duoneb Neb) 3 ml HHN Q2H PRN PRN Reason: Wheezing Stop: 10/11/18 15:45 Levofloxacin (Levaquin Pb) 250 mg in 50 mls @ 50 mls/hr IV Q24HR HERMES Stop: 08/20/18 04:14 Last Admin: 08/16/18 03:10 Dose: 50 mls/hr Lactobacillus Rhamnosus (Culturelle 15b) 1 each PO DAILY HERMES Stop: 10/13/18 08:59 Last Admin: 08/16/18 08:16 Dose: 1 each Lorazepam (Ativan) 0.5 mg PO Q4HR PRN; Protocol PRN Reason: Agitation Stop: 10/13/18 11:28 Last Admin: 08/15/18 03:48 Dose: 0.5 mg Miscellaneous (Probiotic Screen) 1 ea MC PRN PRN PRN Reason: PROTOCOL Stop: 10/12/18 13:04 Valproate Sodium (Depakene) 500 mg PO BID HERMES; Protocol Stop: 10/13/18 16:59 Last Admin: 08/16/18 08:16 Dose: 500 mg General: no acute distress, well developed, well nourished HEENT: atraumatic, normocephalic, PERRLA, EOMI, moist mucous membrane Neck: supple, no thyromegaly, no lymphadenopathy Cardiovascular: S1S2, regular Lungs: clear to auscultation bilaterally, clear to percussion Abdomen: soft, no tender, no distended Extremities: no cyanosis, no clubbing, no edema Neurological: awake, alert Skin: intact Infectious Disease Assmt/Plan - Assessment Assessment: 1. Leukocytosis, most likely reactive versus sepsis. 2. Pneumonia, on the right lower lobe. 3. Dehydration. improved 4. Acute renal failure, improved. 5. Seizure disorder. - Plan Plan: Continue the same treatment. Continue levaquin for 4 more days. can be changed to po.
[2018-08-16] MEDS ORDERED: Potassium Chloride 20 mEq ER Tab PO ONE (13:05)
--- NOTE | 2018-08-16 13:34 | Progress Notes ---
DATE: The patient seems to be quiet, not in acute distress. OBJECTIVE: VITAL SIGNS: Temperature 97.4, blood pressure 142/78, pulse 68, respirations 18. Yesterday's intake 1600, output not documented. HEART: Regular. LUNGS: Good air entry. ABDOMEN: Soft. EXTREMITIES: No edema. LABORATORY DATA: WBC decreased to 7.0, hemoglobin 9.7, platelet count normal at 276. Sodium 144, potassium low at 3.3, BUN improved to 24, creatinine improved to 1.0, calcium 8.3. ASSESSMENT: 1. Acute kidney injury, improving. 2. Anemia, stable. 3. Hypokalemia. 4. History of multiple psych issue. 5. Volume depletion. PLAN: Continue current treatment, KCl one time p.o. BMP in the morning. JOB# [id number]
--- NOTE | 2018-08-16 21:04 | General Progress Note ---
Subjective - Review of Systems Service Date: 08/16/18 Subjective: Patient seen and examined doing ok no new concern noted Objective - Results Result Diagrams: 08/16/18 04:45 08/16/18 04:45 Recent Labs: Laboratory Last Values WBC 7.0 Th/cmm (4.8-10.8) 08/16/18 04:45 RBC 3.34 Mil/cmm (3.80-5.80) L 08/16/18 04:45 Hgb 9.7 gm/dL (12-16) L 08/16/18 04:45 Hct 29.6 % (41.0-60) L 08/16/18 04:45 MCV 88.5 fl (80-99) 08/16/18 04:45 MCH 28.9 pg (27.0-31.0) 08/16/18 04:45 MCHC Differential 32.7 pg (28.0-36.0) 08/16/18 04:45 RDW 15.1 % (11.5-20.0) 08/16/18 04:45 Plt Count 276 Th/cmm (150-400) 08/16/18 04:45 MPV 8.8 fl 08/16/18 04:45 Add Manual Diff YES 08/13/18 06:05 Neutrophils % 86.1 % (40.0-80.0) H 08/16/18 04:45 Band Neutrophils % 0 % (0-10) 08/13/18 06:05 Lymphocytes % 6.3 % (20.0-50.0) L 08/16/18 04:45 Monocytes % 7.7 % (2.0-10.0) 08/16/18 04:45 Eosinophils % 0.7 % (0.0-5.0) 08/16/18 04:45 Basophils % 0.2 % (0.0-2.0) 08/16/18 04:45 Neutrophils (Manual) 89 % (40-80) H 08/13/18 06:05 Lymphocytes 7 % (20-50) L 08/13/18 06:05 Monocytes 4 % (2-10) 08/13/18 06:05 Eosinophils 0 % (0-5) 08/13/18 06:05 Basophils 0 % (0-3) 08/13/18 06:05 Platelet Estimate ADEQUATE (NORMAL) 08/13/18 06:05 Eos Smear Source URINE 08/12/18 16:20 Eos Smear Total Cells NONE SEEN (NONE SEEN) 08/12/18 16:20 Sodium 144 mEq/L (136-145) 08/16/18 04:45 Potassium 3.3 mEq/L (3.5-5.1) L 08/16/18 04:45 Chloride 112 mEq/L (98-107) H 08/16/18 04:45 Carbon Dioxide 21.3 mEq/L (21.0-31.0) 08/16/18 04:45 Anion Gap 14.0 (7.0-16.0) 08/16/18 04:45 BUN 24 mg/dL (7-25) 08/16/18 04:45 Creatinine 1.0 mg/dL (0.7-1.3) 08/16/18 04:45 Est GFR ( Amer) TNP 08/16/18 04:45 Est GFR (Non-Af Amer) TNP 08/16/18 04:45 BUN/Creatinine Ratio 24.0 08/16/18 04:45 Glucose 92 mg/dL (70-105) 08/16/18 04:45 POC Glucose 115 MG/DL (70 - 105) H 08/12/18 14:43 Calcium 8.3 mg/dL (8.6-10.3) L 08/16/18 04:45 Phosphorus 3.1 mg/dL (2.5-5.0) 08/13/18 06:05 Magnesium 2.2 mg/dL (1.9-2.7) 08/13/18 06:05 Total Bilirubin 0.9 mg/dL (0.3-1.0) 08/13/18 06:05 AST 10 U/L (13-39) L 08/13/18 06:05 ALT 7 U/L (7-52) 08/13/18 06:05 Alkaline Phosphatase 56 U/L (34-104) 08/13/18 06:05 Total Protein 7.0 gm/dL (6.0-8.3) 08/13/18 06:05 Albumin 3.4 gm/dL (4.2-5.5) L 08/13/18 06:05 Globulin 3.6 gm/dL 08/13/18 06:05 Albumin/Globulin Ratio 0.9 (1.0-1.8) L 08/13/18 06:05 Free T4 1.92 ng/dL (0.82-1.77) H 08/12/18 14:21 TSH 1.97 uIU/ml (0.34-5.60) 08/12/18 14:21 Urine Source CLEAN C 08/12/18 20:20 Urine Color YELLOW 08/12/18 20:20 Urine Clarity HAZY (CLEAR) 08/12/18 20:20 Urine pH 5.0 (4.6 - 8.0) 08/12/18 20:20 Ur Specific [place] >= 1.030 (1.005-1.030) 08/12/18 20:20 Urine Protein 30 mg/dL (NEGATIVE) H 08/12/18 20:20 Urine Glucose (UA) NEGATIVE mg/dL (NEGATIVE) 08/12/18 20:20 Urine Ketones TRACE mg/dL (NEGATIVE) 08/12/18 20:20 Urine Blood SMALL (NEGATIVE) H 08/12/18 20:20 Urine Nitrate NEGATIVE (NEGATIVE) 08/12/18 20:20 Urine Bilirubin MODERATE (NEGATIVE) H 08/12/18 20:20 Urine Ictotest POSITIVE (NEGATIVE) H 08/12/18 20:20 Urine Urobilinogen 0.2 E.U./dL (0.2 - 1.0) 08/12/18 20:20 Ur Leukocyte Esterase NEGATIVE (NEGATIVE) 08/12/18 20:20 Urine RBC 2-5 /hpf (0-5) H 08/12/18 20:20 Urine WBC 0-2 /hpf (0-5) 08/12/18 20:20 Ur Epithelial Cells NONE SEEN /lpf (FEW) 08/12/18 20:20 Urine Bacteria MODERATE /hpf (NONE SEEN) H 08/12/18 20:20 Hyaline Casts 2-5 /lpf (0-2) H 08/12/18 20:20 - Physical Exam Vitals and I&O: Vital Signs Temp 98.9 F 08/16/18 20:00 Pulse 68 08/16/18 20:00 Resp 18 08/16/18 20:00 BP 117/65 08/16/18 20:00 Pulse Ox 97 08/16/18 20:00 Intake & Output 08/16/18 08/16/18 08/17/18 06:59 18:59 06:59 Intake Total 25 Balance 25 Weight (lbs) 74.843 kg Intake: Oral 25 Other: # Voids 5 # Bowel Movements 0 Weight Source Bedscale Active Medications: Current Medications Albuterol/Ipratropium (Duoneb Neb) 3 ml HHN Q6HRT HERMES Stop: 10/11/18 15:43 Last Admin: 08/16/18 19:26 Dose: 3 ml Albuterol/Ipratropium (Duoneb Neb) 3 ml HHN Q2H PRN PRN Reason: Wheezing Stop: 10/11/18 15:45 Levofloxacin (Levaquin Pb) 250 mg in 50 mls @ 50 mls/hr IV Q24HR HERMES Stop: 08/20/18 04:14 Last Admin: 08/16/18 03:10 Dose: 50 mls/hr Lactobacillus Rhamnosus (Culturelle 15b) 1 each PO DAILY HERMES Stop: 10/13/18 08:59 Last Admin: 08/16/18 08:16 Dose: 1 each Lorazepam (Ativan) 0.5 mg PO Q4HR PRN; Protocol PRN Reason: Agitation Stop: 10/13/18 11:28 Last Admin: 08/15/18 03:48 Dose: 0.5 mg Miscellaneous (Probiotic Screen) 1 ea MC PRN PRN PRN Reason: PROTOCOL Stop: 10/12/18 13:04 Valproate Sodium (Depakene) 500 mg PO BID HERMES; Protocol Stop: 10/13/18 16:59 Last Admin: 08/16/18 18:15 Dose: 500 mg General: No acute distress Cardiovascular: Regular rate, Normal S1, Normal S2 Lungs: Clear to auscultation, Other (rale bilaterally noted) Abdomen: Bowel sounds, Soft, no Tender Extremities: Pulses, Tender, Other, no Clubbing, no Cyanosis, no Edema Psych/Mental Status: Other (CONFUSED) Assessment/Plan - Assessment Assessment: Pnemonia UTI Dehydration Acute renal failure Dementia Psych disorder - Plan Plan: IV antibiotics Oxygen Bronchodilator Ativan prn Psych follow up will dc iv fluids (renal function better)
[2018-08-17] MEDS: Albuterol/Ipratropium Neb 3 ML AERS HHN SCH ×4 (00:22→19:15)
[2018-08-17] MEDS: Levofloxacin 250mg/50mL 250 MG/50 ML BAG IV SCH (03:25)
[2018-08-17 03:57] VITALS: BP 109/59
[2018-08-17 04:54] LABS: % BASOPHILS 0.8 % (0.0-2.0); % EOSINOPHILS 1.9 % (0.0-5.0); % LYMPHOCYTES 6.8 % (20.0-50.0); % MONOCYTES 8.1 % (2.0-10.0); % NEUTROPHILS 82.4 % (40.0-80.0); BASOPHILE ABSOLUTE 0.1 Th/cumm (0-0.2); EOSINOPHILE ABSOLUTE 0.1 Th/cmm (0.1-0.4); HEMATOCRIT 32.4 % (41.0-60); HEMOGLOBIN 10.6 gm/dL (12-16); LYMPHOCYTE ABSOLUTE 0.5 Th/cmm (1.5-3.0); MEAN CELL VOLUME 87.1 fl (80-99); MEAN CORPUSCULAR HEMOGLOBIN 28.5 pg (27.0-31.0); MEAN CORPUSCULAR HGB CONC 32.7 pg (28.0-36.0); MEAN PLATELET VOLUME 7.5 fl; MONOCYTE ABSOLUTE 0.6 Th/cmm (0.3-1.0); RED BLOOD COUNT 3.72 Mil/cmm (3.80-5.80); RED CELL DISTRIBUTION WIDTH 14.2 % (11.5-20.0); WHITE BLOOD COUNT 7.3 Th/cmm (4.8-10.8)
[2018-08-17 05:51] LABS: ANION GAP 13.3 (7.0-16.0); BUN - UREA NITROGEN 23 mg/dL (7-25); CALCIUM SERUM 8.7 mg/dL (8.6-10.3); CARBON DIOXIDE 23.9 mEq/L (21.0-31.0); CHLORIDE 110 mEq/L (98-107); CREATININE - SERUM 0.9 mg/dL (0.7-1.3); GLUCOSE 108 mg/dL (70-105); PHOSPHOROUS 2.6 mg/dL (2.5-5.0); POTASSIUM SERUM 3.2 mEq/L (3.5-5.1); SODIUM SERUM 144 mEq/L (136-145)
[2018-08-17 08:35] LABS: PLATELET COUNT 343 Th/cmm (150-400)
[2018-08-17] MEDS: Lactobacillus Rhamnosus GG 15 Billion CFU CAP.SPRINK PO SCH (08:55)
--- NOTE | 2018-08-17 10:57 | Infectious Disease Prog Note ---
Infectious Disease Subjective - Review of Systems Service Date: 08/17/18 Subjective: NO new change, no fever. Not eating enough Infectious Disease Objective - Results Result Diagrams: 08/17/18 04:40 08/17/18 04:40 Recent Labs: Laboratory Last Values WBC 7.3 Th/cmm (4.8-10.8) 08/17/18 04:40 RBC 3.72 Mil/cmm (3.80-5.80) L 08/17/18 04:40 Hgb 10.6 gm/dL (12-16) L 08/17/18 04:40 Hct 32.4 % (41.0-60) L 08/17/18 04:40 MCV 87.1 fl (80-99) 08/17/18 04:40 MCH 28.5 pg (27.0-31.0) 08/17/18 04:40 MCHC Differential 32.7 pg (28.0-36.0) 08/17/18 04:40 RDW 14.2 % (11.5-20.0) 08/17/18 04:40 Plt Count 343 Th/cmm (150-400) D 08/17/18 04:40 MPV 7.5 fl 08/17/18 04:40 Add Manual Diff YES 08/13/18 06:05 Neutrophils % 82.4 % (40.0-80.0) H 08/17/18 04:40 Band Neutrophils % 0 % (0-10) 08/13/18 06:05 Lymphocytes % 6.8 % (20.0-50.0) L 08/17/18 04:40 Monocytes % 8.1 % (2.0-10.0) 08/17/18 04:40 Eosinophils % 1.9 % (0.0-5.0) 08/17/18 04:40 Basophils % 0.8 % (0.0-2.0) 08/17/18 04:40 Neutrophils (Manual) Not Reportable 08/17/18 04:40 Lymphocytes 7 % (20-50) L 08/13/18 06:05 Monocytes 4 % (2-10) 08/13/18 06:05 Eosinophils 0 % (0-5) 08/13/18 06:05 Basophils 0 % (0-3) 08/13/18 06:05 Platelet Estimate ADEQUATE (NORMAL) 08/13/18 06:05 Eos Smear Source URINE 08/12/18 16:20 Eos Smear Total Cells NONE SEEN (NONE SEEN) 08/12/18 16:20 Sodium 144 mEq/L (136-145) 08/17/18 04:40 Potassium 3.2 mEq/L (3.5-5.1) L 08/17/18 04:40 Chloride 110 mEq/L (98-107) H 08/17/18 04:40 Carbon Dioxide 23.9 mEq/L (21.0-31.0) 08/17/18 04:40 Anion Gap 13.3 (7.0-16.0) 08/17/18 04:40 BUN 23 mg/dL (7-25) 08/17/18 04:40 Creatinine 0.9 mg/dL (0.7-1.3) 08/17/18 04:40 Est GFR ( Amer) TNP 08/17/18 04:40 Est GFR (Non-Af Amer) TNP 08/17/18 04:40 BUN/Creatinine Ratio 25.6 08/17/18 04:40 Glucose 108 mg/dL (70-105) H 08/17/18 04:40 POC Glucose 115 MG/DL (70 - 105) H 08/12/18 14:43 Calcium 8.7 mg/dL (8.6-10.3) 08/17/18 04:40 Phosphorus 2.6 mg/dL (2.5-5.0) 08/17/18 04:40 Magnesium 2.2 mg/dL (1.9-2.7) 08/13/18 06:05 Total Bilirubin 0.9 mg/dL (0.3-1.0) 08/13/18 06:05 AST 10 U/L (13-39) L 08/13/18 06:05 ALT 7 U/L (7-52) 08/13/18 06:05 Alkaline Phosphatase 56 U/L (34-104) 08/13/18 06:05 Total Protein 7.0 gm/dL (6.0-8.3) 08/13/18 06:05 Albumin 3.4 gm/dL (4.2-5.5) L 08/13/18 06:05 Globulin 3.6 gm/dL 08/13/18 06:05 Albumin/Globulin Ratio 0.9 (1.0-1.8) L 08/13/18 06:05 Free T4 1.92 ng/dL (0.82-1.77) H 08/12/18 14:21 TSH 1.97 uIU/ml (0.34-5.60) 08/12/18 14:21 Urine Source CLEAN C 08/12/18 20:20 Urine Color YELLOW 08/12/18 20:20 Urine Clarity HAZY (CLEAR) 08/12/18 20:20 Urine pH 5.0 (4.6 - 8.0) 08/12/18 20:20 Ur Specific [place] >= 1.030 (1.005-1.030) 08/12/18 20:20 Urine Protein 30 mg/dL (NEGATIVE) H 08/12/18 20:20 Urine Glucose (UA) NEGATIVE mg/dL (NEGATIVE) 08/12/18 20:20 Urine Ketones TRACE mg/dL (NEGATIVE) 08/12/18 20:20 Urine Blood SMALL (NEGATIVE) H 08/12/18 20:20 Urine Nitrate NEGATIVE (NEGATIVE) 08/12/18 20:20 Urine Bilirubin MODERATE (NEGATIVE) H 08/12/18 20:20 Urine Ictotest POSITIVE (NEGATIVE) H 08/12/18 20:20 Urine Urobilinogen 0.2 E.U./dL (0.2 - 1.0) 08/12/18 20:20 Ur Leukocyte Esterase NEGATIVE (NEGATIVE) 08/12/18 20:20 Urine RBC 2-5 /hpf (0-5) H 08/12/18 20:20 Urine WBC 0-2 /hpf (0-5) 08/12/18 20:20 Ur Epithelial Cells NONE SEEN /lpf (FEW) 08/12/18 20:20 Urine Bacteria MODERATE /hpf (NONE SEEN) H 08/12/18 20:20 Hyaline Casts 2-5 /lpf (0-2) H 08/12/18 20:20 Valproic Acid 48.8 ug/mL (50.0-100.0) L 08/17/18 04:40 - Physical Exam Vitals and I&O: Vital Signs Temp 98.5 F 08/17/18 08:00 Pulse 69 08/17/18 08:00 Resp 18 08/17/18 10:00 BP 124/66 08/17/18 08:00 Pulse Ox 95 08/17/18 08:00 Intake & Output 08/16/18 08/17/18 08/17/18 18:59 06:59 18:59 Intake Total 400 Balance 400 Weight (lbs) 74.843 kg Intake: Oral 400 Other: # Voids 4 Weight Source Bedscale Active Medications: Current Medications Albuterol/Ipratropium (Duoneb Neb) 3 ml HHN Q6HRT HERMES Stop: 10/11/18 15:43 Last Admin: 08/17/18 07:00 Dose: 3 ml Albuterol/Ipratropium (Duoneb Neb) 3 ml HHN Q2H PRN PRN Reason: Wheezing Stop: 10/11/18 15:45 Levofloxacin (Levaquin Pb) 250 mg in 50 mls @ 50 mls/hr IV Q24HR HERMES Stop: 08/20/18 04:14 Last Admin: 08/17/18 03:25 Dose: 50 mls/hr Lactobacillus Rhamnosus (Culturelle 15b) 1 each PO DAILY HERMES Stop: 10/13/18 08:59 Last Admin: 08/17/18 08:55 Dose: 1 each Lorazepam (Ativan) 0.5 mg PO Q4HR PRN; Protocol PRN Reason: Agitation Stop: 10/13/18 11:28 Last Admin: 08/15/18 03:48 Dose: 0.5 mg Miscellaneous (Probiotic Screen) 1 ea MC PRN PRN PRN Reason: PROTOCOL Stop: 10/12/18 13:04 Valproate Sodium (Depakene) 500 mg PO BID HERMES; Protocol Stop: 10/13/18 16:59 Last Admin: 08/17/18 08:55 Dose: 500 mg General: no acute distress, well developed, well nourished HEENT: atraumatic, normocephalic, PERRLA Neck: supple, no thyromegaly Cardiovascular: S1S2, regular Lungs: clear to auscultation bilaterally, clear to percussion Abdomen: soft, no tender, no distended, no hepatomegaly Extremities: no cyanosis, no clubbing, no edema Neurological: awake, alert, oriented Skin: intact Infectious Disease Assmt/Plan - Assessment Assessment: 1. Leukocytosis, most likely reactive versus sepsis. 2. Pneumonia, on the right lower lobe. 3. Dehydration. improved 4. Acute renal failure, improved. 5. Seizure disorder. - Plan Plan: Continue the same treatment. Continue levaquin for 4 more days. can be changed to po.
[2018-08-17] MEDS ORDERED: Potassium Chloride 20 mEq ER Tab PO ONE (14:29)
[2018-08-17] MEDS ORDERED: KCL 20mEq/100mL Premix 20 MEQ/100 ML PIGGYBACK IV ONE (16:40)
--- NOTE | 2018-08-17 20:59 | General Progress Note ---
Subjective - Review of Systems Service Date: 08/17/18 Subjective: Patient seen and examined awake confused Objective - Results Result Diagrams: 08/17/18 04:40 08/17/18 04:40 Recent Labs: Laboratory Last Values WBC 7.3 Th/cmm (4.8-10.8) 08/17/18 04:40 RBC 3.72 Mil/cmm (3.80-5.80) L 08/17/18 04:40 Hgb 10.6 gm/dL (12-16) L 08/17/18 04:40 Hct 32.4 % (41.0-60) L 08/17/18 04:40 MCV 87.1 fl (80-99) 08/17/18 04:40 MCH 28.5 pg (27.0-31.0) 08/17/18 04:40 MCHC Differential 32.7 pg (28.0-36.0) 08/17/18 04:40 RDW 14.2 % (11.5-20.0) 08/17/18 04:40 Plt Count 343 Th/cmm (150-400) D 08/17/18 04:40 MPV 7.5 fl 08/17/18 04:40 Add Manual Diff YES 08/13/18 06:05 Neutrophils % 82.4 % (40.0-80.0) H 08/17/18 04:40 Band Neutrophils % 0 % (0-10) 08/13/18 06:05 Lymphocytes % 6.8 % (20.0-50.0) L 08/17/18 04:40 Monocytes % 8.1 % (2.0-10.0) 08/17/18 04:40 Eosinophils % 1.9 % (0.0-5.0) 08/17/18 04:40 Basophils % 0.8 % (0.0-2.0) 08/17/18 04:40 Neutrophils (Manual) Not Reportable 08/17/18 04:40 Lymphocytes 7 % (20-50) L 08/13/18 06:05 Monocytes 4 % (2-10) 08/13/18 06:05 Eosinophils 0 % (0-5) 08/13/18 06:05 Basophils 0 % (0-3) 08/13/18 06:05 Platelet Estimate ADEQUATE (NORMAL) 08/13/18 06:05 Eos Smear Source URINE 08/12/18 16:20 Eos Smear Total Cells NONE SEEN (NONE SEEN) 08/12/18 16:20 Sodium 144 mEq/L (136-145) 08/17/18 04:40 Potassium 3.2 mEq/L (3.5-5.1) L 08/17/18 04:40 Chloride 110 mEq/L (98-107) H 08/17/18 04:40 Carbon Dioxide 23.9 mEq/L (21.0-31.0) 08/17/18 04:40 Anion Gap 13.3 (7.0-16.0) 08/17/18 04:40 BUN 23 mg/dL (7-25) 08/17/18 04:40 Creatinine 0.9 mg/dL (0.7-1.3) 08/17/18 04:40 Est GFR ( Amer) TNP 08/17/18 04:40 Est GFR (Non-Af Amer) TNP 08/17/18 04:40 BUN/Creatinine Ratio 25.6 08/17/18 04:40 Glucose 108 mg/dL (70-105) H 08/17/18 04:40 POC Glucose 115 MG/DL (70 - 105) H 08/12/18 14:43 Calcium 8.7 mg/dL (8.6-10.3) 08/17/18 04:40 Phosphorus 2.6 mg/dL (2.5-5.0) 08/17/18 04:40 Magnesium 2.2 mg/dL (1.9-2.7) 08/13/18 06:05 Total Bilirubin 0.9 mg/dL (0.3-1.0) 08/13/18 06:05 AST 10 U/L (13-39) L 08/13/18 06:05 ALT 7 U/L (7-52) 08/13/18 06:05 Alkaline Phosphatase 56 U/L (34-104) 08/13/18 06:05 Total Protein 7.0 gm/dL (6.0-8.3) 08/13/18 06:05 Albumin 3.4 gm/dL (4.2-5.5) L 08/13/18 06:05 Globulin 3.6 gm/dL 08/13/18 06:05 Albumin/Globulin Ratio 0.9 (1.0-1.8) L 08/13/18 06:05 Free T4 1.92 ng/dL (0.82-1.77) H 08/12/18 14:21 TSH 1.97 uIU/ml (0.34-5.60) 08/12/18 14:21 Urine Source CLEAN C 08/12/18 20:20 Urine Color YELLOW 08/12/18 20:20 Urine Clarity HAZY (CLEAR) 08/12/18 20:20 Urine pH 5.0 (4.6 - 8.0) 08/12/18 20:20 Ur Specific [place] >= 1.030 (1.005-1.030) 08/12/18 20:20 Urine Protein 30 mg/dL (NEGATIVE) H 08/12/18 20:20 Urine Glucose (UA) NEGATIVE mg/dL (NEGATIVE) 08/12/18 20:20 Urine Ketones TRACE mg/dL (NEGATIVE) 08/12/18 20:20 Urine Blood SMALL (NEGATIVE) H 08/12/18 20:20 Urine Nitrate NEGATIVE (NEGATIVE) 08/12/18 20:20 Urine Bilirubin MODERATE (NEGATIVE) H 08/12/18 20:20 Urine Ictotest POSITIVE (NEGATIVE) H 08/12/18 20:20 Urine Urobilinogen 0.2 E.U./dL (0.2 - 1.0) 08/12/18 20:20 Ur Leukocyte Esterase NEGATIVE (NEGATIVE) 08/12/18 20:20 Urine RBC 2-5 /hpf (0-5) H 08/12/18 20:20 Urine WBC 0-2 /hpf (0-5) 08/12/18 20:20 Ur Epithelial Cells NONE SEEN /lpf (FEW) 08/12/18 20:20 Urine Bacteria MODERATE /hpf (NONE SEEN) H 08/12/18 20:20 Hyaline Casts 2-5 /lpf (0-2) H 08/12/18 20:20 Valproic Acid 48.8 ug/mL (50.0-100.0) L 08/17/18 04:40 - Physical Exam Vitals and I&O: Vital Signs Temp 98.7 F 08/17/18 20:00 Pulse 68 08/17/18 20:56 Resp 18 08/17/18 20:56 BP 123/73 08/17/18 20:00 Pulse Ox 93 08/17/18 20:56 Intake & Output 08/17/18 08/17/18 08/18/18 06:59 18:59 06:59 Intake Total 400 60 Balance 400 60 Weight (lbs) 74.843 kg 74.843 kg Intake: Oral 400 60 Other: # Voids 4 2 # Bowel Movements 1 Weight Source Bedscale Bedscale Active Medications: Current Medications Albuterol/Ipratropium (Duoneb Neb) 3 ml HHN Q6HRT HERMES Stop: 10/11/18 15:43 Last Admin: 08/17/18 19:15 Dose: 3 ml Albuterol/Ipratropium (Duoneb Neb) 3 ml HHN Q2H PRN PRN Reason: Wheezing Stop: 10/11/18 15:45 Levofloxacin (Levaquin Pb) 250 mg in 50 mls @ 50 mls/hr IV Q24HR HERMES Stop: 08/20/18 04:14 Last Admin: 08/17/18 03:25 Dose: 50 mls/hr Lactobacillus Rhamnosus (Culturelle 15b) 1 each PO DAILY HERMES Stop: 10/13/18 08:59 Last Admin: 08/17/18 08:55 Dose: 1 each Lorazepam (Ativan) 0.5 mg PO Q4HR PRN; Protocol PRN Reason: Agitation Stop: 10/13/18 11:28 Last Admin: 08/15/18 03:48 Dose: 0.5 mg Miscellaneous (Probiotic Screen) 1 ea MC PRN PRN PRN Reason: PROTOCOL Stop: 10/12/18 13:04 Valproate Sodium (Depakene) 500 mg PO BID HERMES; Protocol Stop: 10/13/18 16:59 Last Admin: 08/17/18 16:23 Dose: 500 mg General: No acute distress Cardiovascular: Regular rate, Normal S1, Normal S2 Lungs: Clear to auscultation, Other (rale bilaterally noted) Abdomen: Bowel sounds, Soft, no Tender Extremities: Pulses, Tender, Other, no Clubbing, no Cyanosis, no Edema Psych/Mental Status: Other (CONFUSED) Assessment/Plan - Assessment Assessment: Pnemonia UTI Dehydration Acute renal failure Dementia Psych disorder - Plan Plan: IV antibiotics Oxygen Bronchodilator Ativan prn Psych follow up will dc iv fluids (renal function better) DC plan in progress Plan of care discussed with nursing staff Nutritional Asmnt/Malnutr-PDOC - Dietary Evaluation Malnutrition Findings (Please click <Entered> for more info): Nutritional Asmnt/Malnutrition Start: 08/17/18 16: 15 Text: Status: Complete Freq: Protocol: Document 08/17/18 16:16 [email or web address] (Rec: 08/17/18 16:23 [email or web address] [email or web address]) Nutritional Asmnt/Malnutrition Patient General Information Nutritional Screening Moderate Risk Diagnosis dehydration Pertinent Medical Hx/Surgical Hx seizure, mental disorder Subjective Information Pt on wrist restraints, agreeable to NKFA, unable to obtain further hx from pt. RN reports tolerating diet, no swallow difficulty, would likely accept oral supplement due to tendency to choose liquid items over solid, no N/ V/D/C. Current Diet Order/ Nutrition Support pureed Patient / S.O Not Indicated Pertinent Medications Lactobacillus, abx Pertinent Labs K 3.2, Cl 110, Glu 108 Nutritional Hx/Data Height 1.83 m Height (Calculated Centimeters) 182.9 Current Weight (lbs) 74.843 kg Weight (Calculated Kilograms) 74.8 Weight (Calculated Grams) 52781.7 [place] Body Weight 178 lb Body Mass Index (BMI) 22.4 Weight Status Approriate GI Symptoms GI Symptoms None Last BM 6/3 per RN Difficult in: Chewing Food Allergies No Skin Integrity/Comment: nose wound, no pressure injury Current %PO Poor (25-49%) Estimated Nutritional Goals BEE in Kcals: Using Current wt Calories/Kcals/Kg 20-25 Kcals Calculated 4519-2621 Protein: Using Current wt Protein g/k+ Protein Calculated 75+ Fluid: ml 6070-7061 Nutritional Problem 1. Problem Problem inadequate po intake Etiology lack of appetite, pt tending to choose liquid foods over solid Signs/Symptoms: 25% most recorded po intake Intervention/Recommendation Comments 1. continue pureed diet ( consider higher potassium diet to correct lab) 2. add Ensure Enlive 1 carton TID 3. Monitor PO intake, wt, labs and skin integrity Expected Outcomes/Goals Expected Outcomes/Goals 1. PO intake to meet at least 75% of nutritional needs. 2. Wt stability, skin to remain intact, labs to approach WNL. Dariela Galicia RD
--- NOTE | 2018-08-17 21:57 | Progress Notes ---
DATE: 08/17/2018 LOCATION: Room #17, bed 8, [facility]. SUBJECTIVE: The patient is conscious, alert. He is refusing medication by mouth. No vomiting or diarrhea. OBJECTIVE: VITAL SIGNS: Pulse 73, blood pressure 166/86, respiration 20. Yesterday's intake 525. HEART: Regular. LUNGS: Good air entry. ABDOMEN: Soft. EXTREMITIES: No edema. LABORATORY DATA: WBC 7.3, hemoglobin 10.6, platelet count 343,000. Sodium 144, potassium 3.2, chloride 110, BUN 23, creatinine 1.9, blood sugar 108 and normal. ASSESSMENT: 1. Hypokalemia. 2. Acute kidney injury, improving and stable. 3. History of multiple psych issues. 4. Noncompliance. 5. Volume depletion, improving. PLAN: 1. KCl 20 mEq IV 1 time now. 2. BMP in the morning. 3. Discussed with nursing staff. JOB# [id number]
--- NOTE | 2018-08-18 00:59 | Progress Notes ---
DATE: 08/17/2018 SUBJECTIVE: Chart was reviewed and the patient interviewed. Also discussed the patient's condition with the staff and reviewed records and labs. The patient seems to be calmer. The patient is less irritable and less agitated. The patient also is easier to redirect him. The patient also is interacting more appropriately. He denies any auditory or visual hallucinations, but the patient still seems to be confused and still needs redirections and needs to be given instructions to what he should do. ASSESSMENT: The patient seems to be calmer. TREATMENT PLAN: Continue to monitor his behavior and his condition closely. Also, continue Depakote same level. Also, we will get occult blood level this morning and continue to follow up. JOB# [id number]
[2018-08-18] MEDS: Albuterol/Ipratropium Neb 3 ML AERS HHN SCH ×4 (02:01→18:32)
[2018-08-18] MEDS: Levofloxacin 250mg/50mL 250 MG/50 ML BAG IV SCH (02:59)
[2018-08-18 06:28] LABS: % BASOPHILS 0.3 % (0.0-2.0); % EOSINOPHILS 1.9 % (0.0-5.0); % LYMPHOCYTES 8.1 % (20.0-50.0); % MONOCYTES 9.2 % (2.0-10.0); % NEUTROPHILS 80.5 % (40.0-80.0); EOSINOPHILE ABSOLUTE 0.1 Th/cmm (0.1-0.4); HEMATOCRIT 34.4 % (41.0-60); HEMOGLOBIN 11.2 gm/dL (12-16); LYMPHOCYTE ABSOLUTE 0.6 Th/cmm (1.5-3.0); MEAN CELL VOLUME 86.8 fl (80-99); MEAN CORPUSCULAR HEMOGLOBIN 28.3 pg (27.0-31.0); MEAN CORPUSCULAR HGB CONC 32.6 pg (28.0-36.0); MEAN PLATELET VOLUME 7.7 fl; MONOCYTE ABSOLUTE 0.7 Th/cmm (0.3-1.0); NEUTROPHILE ABSOLUTE 6.2 Th/cmm (1.8-8.0); PLATELET COUNT 424 Th/cmm (150-400); RED BLOOD COUNT 3.96 Mil/cmm (3.80-5.80); RED CELL DISTRIBUTION WIDTH 14.3 % (11.5-20.0); WHITE BLOOD COUNT 7.6 Th/cmm (4.8-10.8)
[2018-08-18 07:02] LABS: ANION GAP 16.3 (7.0-16.0); BUN - UREA NITROGEN 22 mg/dL (7-25); CALCIUM SERUM 9.2 mg/dL (8.6-10.3); CARBON DIOXIDE 23.3 mEq/L (21.0-31.0); CHLORIDE 107 mEq/L (98-107); GLUCOSE 73 mg/dL (70-105); POTASSIUM SERUM 3.6 mEq/L (3.5-5.1); SODIUM SERUM 143 mEq/L (136-145)
[2018-08-18] MEDS ORDERED: Haloperidol Lactate 5 mg/mL 1mL Vial IM ONE (08:03)
[2018-08-18] MEDS: Lactobacillus Rhamnosus GG 15 Billion CFU CAP.SPRINK PO SCH (09:40)
--- NOTE | 2018-08-18 10:21 | Progress Notes ---
DATE: SUBJECTIVE: Chart was reviewed and the patient interviewed. Also discussed the patient's condition with the staff and reviewed records and labs. The patient is still confused. The patient also is still easily agitated. Also, he is still responding to stimuli. The patient has difficulty dealing with staff because of language barrier, but I can speak with him with his language, which make him slightly calmer. The patient is denying any intention to harm himself or others, but he is still confused. ASSESSMENT: PRIMARY DIAGNOSIS: Unspecified psychosis, dementia. TREATMENT PLAN: The patient still needs more adjustment to his medications and he might need placement and recommend the patient to go back to [facility]. [facility]# [id number]
--- NOTE | 2018-08-18 11:28 | Progress Notes ---
DATE: LOCATION: [facility], room 17, bed #8. SUBJECTIVE: The patient is essentially same, sleeping comfortably, not in distress. No vomiting or diarrhea. OBJECTIVE: VITAL SIGNS: Temperature 98, pulse 76, respirations 16, blood pressure 122/71. Yesterday's intake 450. The patient is refusing many times medications and the food. HEART: Regular. LUNGS: Good air entry. ABDOMEN: Soft. EXTREMITIES: No edema. LABORATORY DATA: Hemoglobin 11.2, potassium improved to 3.6. Sodium, BUN, and creatinine are normal. ASSESSMENT: 1. Hypokalemia, improving. 2. Acute kidney injury, improving. 3. History of multiple psych issues. 4. Volume depletion, improved and stable. 5. Noncompliance. PLAN: Continue current treatment. Check BMP and phosphorus in the next 2 days. JOB# [id number]
--- NOTE | 2018-08-18 13:33 | Diagnostic Imaging Report ---
Exam: Portable chest x-ray HISTORY: Pneumonia Prior exam: 08/13/2018 Findings: Portable upright examination of the chest at 1318 hours reviewed compatible prior study 08/13/2018 demonstrates unchanged appearance of faint right basilar infiltrate. COPD changes are noted. Bony thorax remarkable for multiple metallic sutures status post restaurant thoracotomy. COPD changes noted. IMPRESSION: Faint right basilar infiltrate, unchanged prior to prior examination. COPD changes.
--- NOTE | 2018-08-18 13:56 | Infectious Disease Prog Note ---
Infectious Disease Subjective - Review of Systems Service Date: 08/18/18 Subjective: NO new change, no fever. Not eating enough Infectious Disease Objective - Results Result Diagrams: 08/18/18 05:50 08/18/18 05:50 Recent Labs: Laboratory Last Values WBC 7.6 Th/cmm (4.8-10.8) 08/18/18 05:50 RBC 3.96 Mil/cmm (3.80-5.80) 08/18/18 05:50 Hgb 11.2 gm/dL (12-16) L 08/18/18 05:50 Hct 34.4 % (41.0-60) L 08/18/18 05:50 MCV 86.8 fl (80-99) 08/18/18 05:50 MCH 28.3 pg (27.0-31.0) 08/18/18 05:50 MCHC Differential 32.6 pg (28.0-36.0) 08/18/18 05:50 RDW 14.3 % (11.5-20.0) 08/18/18 05:50 Plt Count 424 Th/cmm (150-400) H 08/18/18 05:50 MPV 7.7 fl 08/18/18 05:50 Add Manual Diff YES 08/13/18 06:05 Neutrophils % 80.5 % (40.0-80.0) H 08/18/18 05:50 Band Neutrophils % 0 % (0-10) 08/13/18 06:05 Lymphocytes % 8.1 % (20.0-50.0) L 08/18/18 05:50 Monocytes % 9.2 % (2.0-10.0) 08/18/18 05:50 Eosinophils % 1.9 % (0.0-5.0) 08/18/18 05:50 Basophils % 0.3 % (0.0-2.0) 08/18/18 05:50 Neutrophils (Manual) Not Reportable 08/17/18 04:40 Lymphocytes 7 % (20-50) L 08/13/18 06:05 Monocytes 4 % (2-10) 08/13/18 06:05 Eosinophils 0 % (0-5) 08/13/18 06:05 Basophils 0 % (0-3) 08/13/18 06:05 Platelet Estimate ADEQUATE (NORMAL) 08/13/18 06:05 Eos Smear Source URINE 08/12/18 16:20 Eos Smear Total Cells NONE SEEN (NONE SEEN) 08/12/18 16:20 Sodium 143 mEq/L (136-145) 08/18/18 05:50 Potassium 3.6 mEq/L (3.5-5.1) 08/18/18 05:50 Chloride 107 mEq/L (98-107) 08/18/18 05:50 Carbon Dioxide 23.3 mEq/L (21.0-31.0) 08/18/18 05:50 Anion Gap 16.3 (7.0-16.0) H 08/18/18 05:50 BUN 22 mg/dL (7-25) 08/18/18 05:50 Creatinine 1.0 mg/dL (0.7-1.3) 08/18/18 05:50 Est GFR ( Amer) TNP 08/18/18 05:50 Est GFR (Non-Af Amer) TNP 08/18/18 05:50 BUN/Creatinine Ratio 22.0 08/18/18 05:50 Glucose 73 mg/dL (70-105) 08/18/18 05:50 POC Glucose 115 MG/DL (70 - 105) H 08/12/18 14:43 Calcium 9.2 mg/dL (8.6-10.3) 08/18/18 05:50 Phosphorus 2.6 mg/dL (2.5-5.0) 08/17/18 04:40 Magnesium 2.2 mg/dL (1.9-2.7) 08/13/18 06:05 Total Bilirubin 0.9 mg/dL (0.3-1.0) 08/13/18 06:05 AST 10 U/L (13-39) L 08/13/18 06:05 ALT 7 U/L (7-52) 08/13/18 06:05 Alkaline Phosphatase 56 U/L (34-104) 08/13/18 06:05 Total Protein 7.0 gm/dL (6.0-8.3) 08/13/18 06:05 Albumin 3.4 gm/dL (4.2-5.5) L 08/13/18 06:05 Globulin 3.6 gm/dL 08/13/18 06:05 Albumin/Globulin Ratio 0.9 (1.0-1.8) L 08/13/18 06:05 Free T4 1.92 ng/dL (0.82-1.77) H 08/12/18 14:21 TSH 1.97 uIU/ml (0.34-5.60) 08/12/18 14:21 Urine Source CLEAN C 08/12/18 20:20 Urine Color YELLOW 08/12/18 20:20 Urine Clarity HAZY (CLEAR) 08/12/18 20:20 Urine pH 5.0 (4.6 - 8.0) 08/12/18 20:20 Ur Specific [place] >= 1.030 (1.005-1.030) 08/12/18 20:20 Urine Protein 30 mg/dL (NEGATIVE) H 08/12/18 20:20 Urine Glucose (UA) NEGATIVE mg/dL (NEGATIVE) 08/12/18 20:20 Urine Ketones TRACE mg/dL (NEGATIVE) 08/12/18 20:20 Urine Blood SMALL (NEGATIVE) H 08/12/18 20:20 Urine Nitrate NEGATIVE (NEGATIVE) 08/12/18 20:20 Urine Bilirubin MODERATE (NEGATIVE) H 08/12/18 20:20 Urine Ictotest POSITIVE (NEGATIVE) H 08/12/18 20:20 Urine Urobilinogen 0.2 E.U./dL (0.2 - 1.0) 08/12/18 20:20 Ur Leukocyte Esterase NEGATIVE (NEGATIVE) 08/12/18 20:20 Urine RBC 2-5 /hpf (0-5) H 08/12/18 20:20 Urine WBC 0-2 /hpf (0-5) 08/12/18 20:20 Ur Epithelial Cells NONE SEEN /lpf (FEW) 08/12/18 20:20 Urine Bacteria MODERATE /hpf (NONE SEEN) H 08/12/18 20:20 Hyaline Casts 2-5 /lpf (0-2) H 08/12/18 20:20 Valproic Acid 48.8 ug/mL (50.0-100.0) L 08/17/18 04:40 - Physical Exam Vitals and I&O: Vital Signs Temp 98 F 08/18/18 13:31 Pulse 70 08/18/18 13:31 Resp 16 08/18/18 13:31 BP 144/65 08/18/18 13:31 Pulse Ox 96 08/18/18 12:00 Intake & Output 08/17/18 08/18/18 08/18/18 18:59 06:59 18:59 Intake Total 60 Balance 60 Weight (lbs) 74.843 kg 74.843 kg Intake: Oral 60 Other: # Voids 2 3 # Bowel Movements 1 Weight Source Bedscale Bedscale Active Medications: Current Medications Albuterol/Ipratropium (Duoneb Neb) 3 ml HHN Q6HRT [facility] Stop: 10/11/18 15:43 Last Admin: 08/18/18 07:01 Dose: 3 ml Albuterol/Ipratropium (Duoneb Neb) 3 ml HHN Q2H PRN PRN Reason: Wheezing Stop: 10/11/18 15:45 Levofloxacin (Levaquin Pb) 250 mg in 50 mls @ 50 mls/hr IV Q24HR [facility] Stop: 08/20/18 04:14 Last Admin: 08/18/18 02:59 Dose: 50 mls/hr Lactobacillus Rhamnosus (Culturelle 15b) 1 each PO DAILY [facility] Stop: 10/13/18 08:59 Last Admin: 08/18/18 09:40 Dose: Not Given Lorazepam (Ativan) 0.5 mg PO Q4HR PRN; Protocol PRN Reason: Agitation Stop: 10/13/18 11:28 Last Admin: 08/18/18 03:14 Dose: 0.5 mg Miscellaneous (Probiotic Screen) 1 ea MC PRN PRN PRN Reason: PROTOCOL Stop: 10/12/18 13:04 Valproate Sodium (Depakene) 500 mg PO BID [facility]; Protocol Stop: 10/13/18 16:59 Last Admin: 08/18/18 09:40 Dose: Not Given General: no acute distress, well developed, well nourished HEENT: atraumatic, normocephalic, PERRLA, EOMI Neck: supple, no thyromegaly Cardiovascular: S1S2, regular Lungs: clear to auscultation bilaterally, clear to percussion Abdomen: soft, no tender, no distended, no mass, no bowel sounds Extremities: no cyanosis, no clubbing, no edema Neurological: awake, alert Skin: intact Infectious Disease Assmt/Plan - Assessment Assessment: 1. Leukocytosis, most likely reactive versus sepsis. 2. Pneumonia, on the right lower lobe. 3. Dehydration. improved 4. Acute renal failure, improved. 5. Seizure disorder. - Plan Plan: Continue the same treatment. Continue Levaquin for 3 more days. can be changed to po. Nutritional Asmnt/Malnutr-PDOC - Dietary Evaluation Malnutrition Findings (Please click <Entered> for more info): Nutritional Asmnt/Malnutrition Start: 08/17/18 16: 15 Text: Status: Complete Freq: Protocol: Document 08/17/18 16:16 [email or web address] (Rec: 08/17/18 16:23 [email or web address]) Nutritional Asmnt/Malnutrition Patient General Information Nutritional Screening Moderate Risk Diagnosis dehydration Pertinent Medical Hx/Surgical Hx seizure, mental disorder Subjective Information Pt on wrist restraints, agreeable to NKFA, unable to obtain further hx from pt. RN reports tolerating diet, no swallow difficulty, would likely accept oral supplement due to tendency to choose liquid items over solid, no N/ V/D/C. Current Diet Order/ Nutrition Support pureed Patient / S.O Not Indicated Pertinent Medications Lactobacillus, abx Pertinent Labs K 3.2, Cl 110, Glu 108 Nutritional Hx/Data Height 1.83 m Height (Calculated Centimeters) 182.9 Current Weight (lbs) 74.843 kg Weight (Calculated Kilograms) 74.8 Weight (Calculated Grams) 86009.7 [place] Body Weight 178 lb Body Mass Index (BMI) 22.4 Weight Status Approriate GI Symptoms GI Symptoms None Last BM 6/3 per RN Difficult in: Chewing Food Allergies No Skin Integrity/Comment: nose wound, no pressure injury Current %PO Poor (25-49%) Estimated Nutritional Goals BEE in Kcals: Using Current wt Calories/Kcals/Kg 20-25 Kcals Calculated 5378-4459 Protein: Using Current wt Protein g/k+ Protein Calculated 75+ Fluid: ml 8592-5215 Nutritional Problem 1. Problem Problem inadequate po intake Etiology lack of appetite, pt tending to choose liquid foods over solid Signs/Symptoms: 25% most recorded po intake Intervention/Recommendation Comments 1. continue pureed diet ( consider higher potassium diet to correct lab) 2. add Ensure Enlive 1 carton TID 3. Monitor PO intake, wt, labs and skin integrity Expected Outcomes/Goals Expected Outcomes/Goals 1. PO intake to meet at least 75% of nutritional needs. 2. Wt stability, skin to remain intact, labs to approach WNL. Dariela Galicia RD
--- NOTE | 2018-08-18 22:40 | General Progress Note ---
Subjective - Review of Systems Subjective: Patient seen and examined awake confused Objective - Results Result Diagrams: 08/18/18 05:50 08/18/18 05:50 Recent Labs: Laboratory Last Values WBC 7.6 Th/cmm (4.8-10.8) 08/18/18 05:50 RBC 3.96 Mil/cmm (3.80-5.80) 08/18/18 05:50 Hgb 11.2 gm/dL (12-16) L 08/18/18 05:50 Hct 34.4 % (41.0-60) L 08/18/18 05:50 MCV 86.8 fl (80-99) 08/18/18 05:50 MCH 28.3 pg (27.0-31.0) 08/18/18 05:50 MCHC Differential 32.6 pg (28.0-36.0) 08/18/18 05:50 RDW 14.3 % (11.5-20.0) 08/18/18 05:50 Plt Count 424 Th/cmm (150-400) H 08/18/18 05:50 MPV 7.7 fl 08/18/18 05:50 Add Manual Diff YES 08/13/18 06:05 Neutrophils % 80.5 % (40.0-80.0) H 08/18/18 05:50 Band Neutrophils % 0 % (0-10) 08/13/18 06:05 Lymphocytes % 8.1 % (20.0-50.0) L 08/18/18 05:50 Monocytes % 9.2 % (2.0-10.0) 08/18/18 05:50 Eosinophils % 1.9 % (0.0-5.0) 08/18/18 05:50 Basophils % 0.3 % (0.0-2.0) 08/18/18 05:50 Neutrophils (Manual) Not Reportable 08/17/18 04:40 Lymphocytes 7 % (20-50) L 08/13/18 06:05 Monocytes 4 % (2-10) 08/13/18 06:05 Eosinophils 0 % (0-5) 08/13/18 06:05 Basophils 0 % (0-3) 08/13/18 06:05 Platelet Estimate ADEQUATE (NORMAL) 08/13/18 06:05 Eos Smear Source URINE 08/12/18 16:20 Eos Smear Total Cells NONE SEEN (NONE SEEN) 08/12/18 16:20 Sodium 143 mEq/L (136-145) 08/18/18 05:50 Potassium 3.6 mEq/L (3.5-5.1) 08/18/18 05:50 Chloride 107 mEq/L (98-107) 08/18/18 05:50 Carbon Dioxide 23.3 mEq/L (21.0-31.0) 08/18/18 05:50 Anion Gap 16.3 (7.0-16.0) H 08/18/18 05:50 BUN 22 mg/dL (7-25) 08/18/18 05:50 Creatinine 1.0 mg/dL (0.7-1.3) 08/18/18 05:50 Est GFR ( Amer) TNP 08/18/18 05:50 Est GFR (Non-Af Amer) TNP 08/18/18 05:50 BUN/Creatinine Ratio 22.0 08/18/18 05:50 Glucose 73 mg/dL (70-105) 08/18/18 05:50 POC Glucose 115 MG/DL (70 - 105) H 08/12/18 14:43 Calcium 9.2 mg/dL (8.6-10.3) 08/18/18 05:50 Phosphorus 2.6 mg/dL (2.5-5.0) 08/17/18 04:40 Magnesium 2.2 mg/dL (1.9-2.7) 08/13/18 06:05 Total Bilirubin 0.9 mg/dL (0.3-1.0) 08/13/18 06:05 AST 10 U/L (13-39) L 08/13/18 06:05 ALT 7 U/L (7-52) 08/13/18 06:05 Alkaline Phosphatase 56 U/L (34-104) 08/13/18 06:05 Total Protein 7.0 gm/dL (6.0-8.3) 08/13/18 06:05 Albumin 3.4 gm/dL (4.2-5.5) L 08/13/18 06:05 Globulin 3.6 gm/dL 08/13/18 06:05 Albumin/Globulin Ratio 0.9 (1.0-1.8) L 08/13/18 06:05 Free T4 1.92 ng/dL (0.82-1.77) H 08/12/18 14:21 TSH 1.97 uIU/ml (0.34-5.60) 08/12/18 14:21 Urine Source CLEAN C 08/12/18 20:20 Urine Color YELLOW 08/12/18 20:20 Urine Clarity HAZY (CLEAR) 08/12/18 20:20 Urine pH 5.0 (4.6 - 8.0) 08/12/18 20:20 Ur Specific [place] >= 1.030 (1.005-1.030) 08/12/18 20:20 Urine Protein 30 mg/dL (NEGATIVE) H 08/12/18 20:20 Urine Glucose (UA) NEGATIVE mg/dL (NEGATIVE) 08/12/18 20:20 Urine Ketones TRACE mg/dL (NEGATIVE) 08/12/18 20:20 Urine Blood SMALL (NEGATIVE) H 08/12/18 20:20 Urine Nitrate NEGATIVE (NEGATIVE) 08/12/18 20:20 Urine Bilirubin MODERATE (NEGATIVE) H 08/12/18 20:20 Urine Ictotest POSITIVE (NEGATIVE) H 08/12/18 20:20 Urine Urobilinogen 0.2 E.U./dL (0.2 - 1.0) 08/12/18 20:20 Ur Leukocyte Esterase NEGATIVE (NEGATIVE) 08/12/18 20:20 Urine RBC 2-5 /hpf (0-5) H 08/12/18 20:20 Urine WBC 0-2 /hpf (0-5) 08/12/18 20:20 Ur Epithelial Cells NONE SEEN /lpf (FEW) 08/12/18 20:20 Urine Bacteria MODERATE /hpf (NONE SEEN) H 08/12/18 20:20 Hyaline Casts 2-5 /lpf (0-2) H 08/12/18 20:20 Valproic Acid 48.8 ug/mL (50.0-100.0) L 08/17/18 04:40 - Physical Exam Vitals and I&O: Vital Signs Temp 98.1 F 08/18/18 20:00 Pulse 82 08/18/18 20:00 Resp 18 08/18/18 20:00 BP 142/70 08/18/18 20:00 Pulse Ox 99 08/18/18 20:00 Intake & Output 08/18/18 08/18/18 08/19/18 06:59 18:59 06:59 Intake Total 50 Balance 50 Weight (lbs) 74.843 kg 75.296 kg Intake: Oral 50 Other: # Voids 3 2 # Bowel Movements 0 Weight Source Bedscale Bedscale General: No acute distress Cardiovascular: Regular rate, Normal S1, Normal S2 Lungs: Clear to auscultation, Other (rale bilaterally noted) Abdomen: Bowel sounds, Soft, no Tender Extremities: Pulses, Tender, Other, no Clubbing, no Cyanosis, no Edema Psych/Mental Status: Other (CONFUSED) Assessment/Plan - Assessment Assessment: Pnemonia UTI Dehydration Acute renal failure Dementia Psych disorder - Plan Plan: IV antibiotics Oxygen Bronchodilator Ativan prn Psych follow up will dc iv fluids (renal function better) DC plan in progress Plan of care discussed with nursing staff Nutritional Asmnt/Malnutr-PDOC - Dietary Evaluation Malnutrition Findings (Please click <Entered> for more info): Nutritional Asmnt/Malnutrition Start: 08/17/18 16: 15 Text: Status: Complete Freq: Protocol: Document 08/17/18 16:16 [email or web address] (Rec: 08/17/18 16:23 [email or web address]) Nutritional Asmnt/Malnutrition Patient General Information Nutritional Screening Moderate Risk Diagnosis dehydration Pertinent Medical Hx/Surgical Hx seizure, mental disorder Subjective Information Pt on wrist restraints, agreeable to NKFA, unable to obtain further hx from pt. RN reports tolerating diet, no swallow difficulty, would likely accept oral supplement due to tendency to choose liquid items over solid, no N/ V/D/C. Current Diet Order/ Nutrition Support pureed Patient / S.O Not Indicated Pertinent Medications Lactobacillus, abx Pertinent Labs K 3.2, Cl 110, Glu 108 Nutritional Hx/Data Height 1.83 m Height (Calculated Centimeters) 182.9 Current Weight (lbs) 74.843 kg Weight (Calculated Kilograms) 74.8 Weight (Calculated Grams) 10483.7 [place] Body Weight 178 lb Body Mass Index (BMI) 22.4 Weight Status Approriate GI Symptoms GI Symptoms None Last BM 6/3 per RN Difficult in: Chewing Food Allergies No Skin Integrity/Comment: nose wound, no pressure injury Current %PO Poor (25-49%) Estimated Nutritional Goals BEE in Kcals: Using Current wt Calories/Kcals/Kg 20-25 Kcals Calculated 3834-9016 Protein: Using Current wt Protein g/k+ Protein Calculated 75+ Fluid: ml 4178-9657 Nutritional Problem 1. Problem Problem inadequate po intake Etiology lack of appetite, pt tending to choose liquid foods over solid Signs/Symptoms: 25% most recorded po intake Intervention/Recommendation Comments 1. continue pureed diet ( consider higher potassium diet to correct lab) 2. add Ensure Enlive 1 carton TID 3. Monitor PO intake, wt, labs and skin integrity Expected Outcomes/Goals Expected Outcomes/Goals 1. PO intake to meet at least 75% of nutritional needs. 2. Wt stability, skin to remain intact, labs to approach WNL. Dariela Galicia RD
== END 2018-08-18 20:36 | DRG 871 ==
LOC: MSI 13:31 → TELE 18:04
PROVIDERS: ADMIT Family Medicine; ATTEND Family Medicine
DX: A41.9 Sepsis, unspecified organism (principal); J18.1 Lobar pneumonia, unspecified organism; N39.0 Urinary tract infection, site not specified; N17.9 Acute kidney failure, unspecified; E86.0 Dehydration; F03.90 Unspecified dementia, unspecified severity, without behavioral disturbance, psychotic disturbance, mood disturbance, and anxiety; E86.9 Volume depletion, unspecified; G40.909 Epilepsy, unspecified, not intractable, without status epilepticus; D64.9 Anemia, unspecified; E87.6 Hypokalemia; F29 Unspecified psychosis not due to a substance or known physiological condition; Z91.14 Patient's other noncompliance with medication regimen
CPT/HCPCS: 36415-UA; 71045-TC; 76700-TC; 80048-TC; 80053-TC; 80164-TC; 81001-TC; 81015-TC; 82948-90; 83735-TC; 84100-TC; 84439-90; 84443-TC; 85007-TC; 85025-TC; 87070; 87086-90; 93005; 94640; 94760; J0696; J1200; J1630; J1956; J2060; J3480; J7030; X3401; X4304; Z7610

== ENCOUNTER 2018-08-18 20:38 | Inpatient (IN) | payer MEDICARE, MEDICAID ==
[2018-08-18 22:06] VITALS: BP 134/67
[2018-08-18] MEDS ORDERED: Albuterol/Ipratropium Neb 3 ML AERS HHN PRN (22:53)
[2018-08-19] MEDS: Albuterol/Ipratropium Neb 3 ML AERS HHN SCH ×4 (00:49→19:32)
[2018-08-19 07:30] LABS: CHOLESTEROL 123 mg/dL (<200); HDL -HIGH DENSITY LIPOPROTEIN 30 mg/dL (23-92); TRIGLYCERIDES 82 mg/dL (<150)
[2018-08-19] MEDS ORDERED: Magnesium Hydroxide (MOM) 30 mL UDC PO PRN (17:41)
[2018-08-19] MEDS ORDERED: Maalox 30 mL Cup PO PRN (17:42)
--- NOTE | 2018-08-20 00:24 | Psychiatric Evaluation ---
DATE OF SERVICE: 08/18/2018 PSYCHIATRIC INITIAL EVALUATION AND MENTAL STATUS EXAM AGE: 88. SEX: Male. PHYSICIAN: Dr. Orozco. CHIEF COMPLAINT: Agitation and irritability. HISTORY OF PRESENT ILLNESS: The patient is an 88-year-old male who was admitted to the hospital because of increased agitation and irritability. The patient also has been aggressive with the staff, especially during helping him with his ADLs. The patient was transferred to [facility] because of hypotension and dehydration and the patient is medically stable and brought back to the hospital. The patient was still agitated and in irritable mood and has difficulty following. PAST PSYCHIATRIC HISTORY: The patient has history of multiple hospitalizations for treatment of dementia and also for treatment of psychosis. PAST MEDICAL HISTORY: The patient was in medical floor for treatment of hypotension and dehydration. SOCIAL HISTORY: The patient lives in [facility], [place]. No known alcohol or drug use. ALLERGIES: No known allergies. MENTAL STATUS EXAMINATION: The patient appears his stated age. Irritable mood. Anxious. Thought processes are circumstantial and tangential with flight of ideas and the patient speaks Greek language which is the language I do speak. The patient denies hallucinations or delusions, but he is actively responding and the patient is paranoia. The patient is alert and oriented to me being a doctor, but not to the date or place or the situation. Impaired immediate and recent memory, but intact remote memory. Poor insight and poor judgment. Seems to be of average intelligence based on his verbal ability. ASSESSMENT: PRIMARY DIAGNOSIS: Depressive mood disorder, unspecified. SECONDARY DIAGNOSIS: Dementia, moderate to severe, with psychotic features and behavioral disturbances. TREATMENT PLAN: Continue current medications. Also, continue monitoring her behavior and adjusting psychotropic medications. ESTIMATED LENGTH OF STAY: 5-7 days. STRENGTHS AND WEAKNESSES: The patient's strength is not clear at this time. Weakness is ineffective coping. AFTER DISCHARGE PLANS: The patient will return to his [facility] and outpatient treatment and followup will continue as an outpatient. [facility]# [id number]
[2018-08-20 08:13] LABS: A1C 5.9 % (4.8-5.6)
[2018-08-20] MEDS ORDERED: Lactobacillus Rhamnosus GG 15 Billion CFU CAP.SPRINK PO SCH (09:00)
[2018-08-20] MEDS ORDERED: Aspirin 81mg Chewable Tab PO SCH (09:00)
[2018-08-20] MEDS ORDERED: Multivitamin w/ Minerals Tab PO SCH (09:00)
--- NOTE | 2018-08-26 02:33 | Discharge Summary ---
DATE OF DISCHARGE: 08/19/2018 PATIENT'S AGE: 88. SEX: Male. PHYSICIAN: Yosef Orozco MD, MPH FINAL DIAGNOSIS/PRIMARY DIAGNOSIS: Unspecified psychosis, moderate, with psychotic features. SECONDARY DIAGNOSIS: Dementia, moderate to severe, with psychotic features. REASON FOR HOSPITALIZATION: The patient was admitted to Geropsych Unit from medical floor after having hypoxemia. HOSPITAL COURSE: The patient after his arrival to the psychiatric unit and exactly after one day the patient developed hypoxemia again and was severe drop in O2 saturation and the patient was transferred again to medical floor for medical clearance and treatment. AFTER DISCHARGE PLANS: The patient will be evaluated and monitored in medical floor and the plan depends on hospital course there. EXPECTED OUTCOME AFTER DISCHARGE: Depends on hospital course in the medical floor. JOB# [id number]
== END 2018-08-19 21:48 | disposition short-term general hospital (02) | DRG 885 ==
LOC: GERO 20:38
PROVIDERS: ADMIT Psychiatry & Neurology Psychiatry; ATTEND Psychiatry & Neurology Psychiatry
DX: F23 Brief psychotic disorder (principal); F03.91 Unspecified dementia, unspecified severity, with behavioral disturbance; I95.9 Hypotension, unspecified; E86.0 Dehydration; F32.9 Major depressive disorder, single episode, unspecified
CPT/HCPCS: 36415-UA; 80061-TC; 83036-90; 94640; 94760

== ENCOUNTER 2018-08-19 22:24 | Inpatient (IN) | payer MEDICARE, MEDICAID ==
[2018-08-19 22:54] LABS: HEMATOCRIT 33.2 % (41.0-60); HEMOGLOBIN 10.9 gm/dL (12-16); MEAN CELL VOLUME 87.1 fl (80-99); MEAN CORPUSCULAR HEMOGLOBIN 28.6 pg (27.0-31.0); MEAN CORPUSCULAR HGB CONC 32.8 pg (28.0-36.0); PLATELET COUNT 470 Th/cmm (150-400); RED CELL DISTRIBUTION WIDTH 14.4 % (11.5-20.0); WHITE BLOOD COUNT 5.9 Th/cmm (4.8-10.8)
[2018-08-19 23:02] LABS: ANION GAP 14.7 (7.0-16.0); BUN - UREA NITROGEN 22 mg/dL (7-25); CALCIUM SERUM 8.8 mg/dL (8.6-10.3); CARBON DIOXIDE 25.5 mEq/L (21.0-31.0); CHLORIDE 108 mEq/L (98-107); CREATININE - SERUM 0.9 mg/dL (0.7-1.3); GLUCOSE 112 mg/dL (70-105); POTASSIUM SERUM 3.2 mEq/L (3.5-5.1); SODIUM SERUM 145 mEq/L (136-145)
[2018-08-19] MEDS ORDERED: Albuterol/Ipratropium Neb 3 ML AERS HHN PRN (23:14)
[2018-08-19] MEDS: Sodium Chloride 0.9% 1,000 ML IV SCH (23:40)
[2018-08-20 00:01] LABS: BAND NEUTROPHILE 0 % (0-10); BASOPHIL 0 % (0-3); EOSINOPHIL 5 % (0-5); LYMPHOCYTE 6 % (20-50); MONOCYTE 8 % (2-10); NEUTROPHILS 81 % (40-80); PLATELET ESTIMATE INCREASED PLATELETS (NORMAL)
[2018-08-20 01:43] VITALS: BP 131/70
[2018-08-20] MEDS: Albuterol/Ipratropium Neb 3 ML AERS HHN SCH ×5 (01:50→20:20)
--- NOTE | 2018-08-20 08:58 | Diagnostic Imaging Report ---
CHEST X-RAY: AP view INDICATION: Shortness of breath COMPARISON: Chest x-ray 08/18/2018 FINDINGS: There is evidence of prior median sternotomy. Chronic lung changes are seen with probable mild congestion. There is mild improvement in right basal infiltrates. Bibasal pleural thickening is noted. Heart size normal. Atherosclerosis is noted. IMPRESSION: Chronic lung changes and probable COPD. There may be a mild degree of congestion Right basal infiltrates which appear to have slightly improved since previous exam.
[2018-08-20 11:09] LABS: ALLEN TEST P
[2018-08-20] MEDS: KCL 20mEq/100mL Premix 20 MEQ/100 ML PIGGYBACK IV SCH ×2 (11:24→15:41)
--- NOTE | 2018-08-20 11:29 | Infectious Disease Prog Note ---
Infectious Disease Subjective - Review of Systems Service Date: 08/20/18 Subjective: Patient was brought back to the acute care from [facility], became lethargic. so he was brought here and fluid was given, He improved. Infectious Disease Objective - Results Result Diagrams: 08/19/18 22:45 08/19/18 22:45 Recent Labs: Laboratory Last Values WBC 5.9 Th/cmm (4.8-10.8) 08/19/18 22:45 RBC 3.80 Mil/cmm (3.80-5.80) 08/19/18 22:45 Hgb 10.9 gm/dL (12-16) L 08/19/18 22:45 Hct 33.2 % (41.0-60) L 08/19/18 22:45 MCV 87.1 fl (80-99) 08/19/18 22:45 MCH 28.6 pg (27.0-31.0) 08/19/18 22:45 MCHC Differential 32.8 pg (28.0-36.0) 08/19/18 22:45 RDW 14.4 % (11.5-20.0) 08/19/18 22:45 Plt Count 470 Th/cmm (150-400) H 08/19/18 22:45 MPV 7.0 fl 08/19/18 22:45 Add Manual Diff YES 08/19/18 22:45 Band Neutrophils % 0 % (0-10) 08/19/18 22:45 Neutrophils (Manual) 81 % (40-80) H 08/19/18 22:45 Lymphocytes 6 % (20-50) L 08/19/18 22:45 Monocytes 8 % (2-10) 08/19/18 22:45 Eosinophils 5 % (0-5) 08/19/18 22:45 Basophils 0 % (0-3) 08/19/18 22:45 Platelet Estimate INCREASED PLATELETS (NORMAL) 08/19/18 22:45 Specimen Source RADIAL 08/20/18 09:00 Sample Site LEFT BRACHIAL 08/20/18 09:00 pH 7.470 (7.35-7.45) H 08/20/18 09:00 pCO2 34.0 mmHg (35.0-45.0) L 08/20/18 09:00 pO2 58.0 mmHg (80.0-100.0) L 08/20/18 09:00 HCO3 25.0 mEq/L (20.0-26.0) 08/20/18 09:00 Base Excess 1.2 mEq/L (-3.0-3.0) 08/20/18 09:00 O2 Saturation 91.0 % (92.0-100.0) L 08/20/18 09:00 Sreedhar Test P 08/20/18 09:00 Vent Rate N/A 08/20/18 09:00 Inspired O2 32 08/20/18 09:00 Tidal Volume N/A 08/20/18 09:00 PEEP N/A 08/20/18 09:00 Pressure (ins/psv/peep) N/A 08/20/18 09:00 Critical Value OR 08/20/18 09:00 Sodium 145 mEq/L (136-145) 08/19/18 22:45 Potassium 3.2 mEq/L (3.5-5.1) L 08/19/18 22:45 Chloride 108 mEq/L (98-107) H 08/19/18 22:45 Carbon Dioxide 25.5 mEq/L (21.0-31.0) 08/19/18 22:45 Anion Gap 14.7 (7.0-16.0) 08/19/18 22:45 BUN 22 mg/dL (7-25) 08/19/18 22:45 Creatinine 0.9 mg/dL (0.7-1.3) 08/19/18 22:45 Est GFR ( Amer) TNP 08/19/18 22:45 Est GFR (Non-Af Amer) TNP 08/19/18 22:45 BUN/Creatinine Ratio 24.4 08/19/18 22:45 Glucose 112 mg/dL (70-105) H 08/19/18 22:45 Calcium 8.8 mg/dL (8.6-10.3) 08/19/18 22:45 - Physical Exam Vitals and I&O: Vital Signs Temp 97.6 F 08/20/18 09:07 Pulse 77 08/20/18 09:07 Resp 16 08/20/18 09:07 BP 133/72 08/20/18 09:07 Pulse Ox 99 08/20/18 08:00 Intake & Output 08/19/18 08/20/1819 18:59 06:59 18:59 Intake Total 100 Balance 100 Intake: Intake, IV Amount 100 Piperacillin Sodium/ 100 Tazobact 4.5 gm In Sodium Chloride 0.9% 50 ml @ 100 mls/hr IV Q8HR [facility] Rx #:[id number] Other: Weight Source Bedscale Active Medications: Current Medications Acetaminophen (Tylenol 650mg Supp) 650 mg RC Q4H PRN PRN Reason: Fever > 101 Stop: 10/18/18 23:14 Albuterol/Ipratropium (Duoneb Neb) 3 ml HHN Q6HRT [facility] Stop: 10/19/18 00:59 Last Admin: 08/20/18 07:30 Dose: 3 ml Albuterol/Ipratropium (Duoneb Neb) 3 ml HHN Q2HRT PRN PRN Reason: Shortness of Breath or Wheeze Stop: 10/18/18 23:13 Sodium Chloride (Nacl 0.9%) 1,000 mls @ 80 mls/hr IV .[id number] [facility] Stop: 10/18/18 22:59 Last Admin: 08/19/18 23:40 Dose: 80 mls/hr Piperacillin Sod/Tazobactam (Sod 4.5 gm/ Sodium Chloride) 100 mls @ 100 mls/hr IV Q8HR [facility] Stop: 10/18/18 23:29 Potassium Chloride (Potassium Chloride) 20 meq in 100 mls @ 50 mls/hr IV Q2H [facility] Stop: 08/20/18 15:14 Last Admin: 08/20/18 11:24 Dose: 50 mls/hr Lorazepam (Ativan) 1 mg IVP Q6H PRN; Protocol PRN Reason: Agitation Stop: 10/18/18 22:36 Ondansetron HCl (Zofran) 4 mg IV Q6H PRN PRN Reason: Nausea / Vomiting Stop: 10/18/18 22:57 Risperidone (Risperdal) 0.25 mg PO BID [facility]; Protocol Stop: 10/19/18 08:59 General: no acute distress, well developed, well nourished HEENT: atraumatic, normocephalic, PERRLA, EOMI Neck: supple, no thyromegaly, no lymphadenopathy Cardiovascular: S1S2, regular Lungs: clear to auscultation bilaterally, clear to percussion Abdomen: soft, no tender, no mass Extremities: no cyanosis, no clubbing, no edema Neurological: awake, alert Skin: intact Infectious Disease Assmt/Plan - Assessment Assessment: 1. Leukocytosis, most likely reactive versus sepsis. 2. Pneumonia, on the right lower lobe. 3. Dehydration. improved 4. Acute renal failure, improved. 5. Seizure disorder. - Plan Plan: Zosyn to continue.
[2018-08-20] MEDS ORDERED: Probiotic Screen MC PRN (12:30)
[2018-08-20] MEDS ORDERED: VTE Chemical Prophylaxis Screen/Admission MC PRN (13:40)
[2018-08-20] MEDS: Sodium Chloride 0.9% 1,000 ML IV SCH (15:42)
[2018-08-20] MEDS: methylPREDNISolone SS 40 mg Vial IV SCH ×2 (15:47→20:34)
[2018-08-20] MEDS: Budesonide 0.5 Mg/2 mL Ud HHN SCH (20:21)
[2018-08-20] MEDS: Heparin Sod 5,000Units/ML 5,000 UNITS/ML VIAL SUBQ SCH (20:34)
[2018-08-21] MEDS: methylPREDNISolone SS 40 mg Vial IV SCH ×3 (04:17→20:19)
[2018-08-21] MEDS: Sodium Chloride 0.9% 1,000 ML IV SCH ×2 (05:58→16:15)
[2018-08-21 07:14] LABS: ALB/GLOB RATIO 0.8 (1.0-1.8); ALBUMIN 3.1 gm/dL (4.2-5.5); ALKALINE PHOSPHATASE 46 U/L (34-104); ANION GAP 18.5 (7.0-16.0); BILIRUBIN,TOTAL 0.6 mg/dL (0.3-1.0); BUN - UREA NITROGEN 24 mg/dL (7-25); CALCIUM SERUM 8.7 mg/dL (8.6-10.3); CARBON DIOXIDE 21.6 mEq/L (21.0-31.0); CHLORIDE 108 mEq/L (98-107); CREATININE - SERUM 1.1 mg/dL (0.7-1.3); GLUCOSE 190 mg/dL (70-105); POTASSIUM SERUM 4.1 mEq/L (3.5-5.1); SGOT 16 U/L (13-39); SGPT/ALT 10 U/L (7-52); SODIUM SERUM 144 mEq/L (136-145); TOTAL PROTEIN,SERUM 7.1 gm/dL (6.0-8.3)
[2018-08-21] MEDS: Albuterol/Ipratropium Neb 3 ML AERS HHN SCH ×4 (07:20→19:51)
[2018-08-21] MEDS: Budesonide 0.5 Mg/2 mL Ud HHN SCH ×2 (07:40→19:51)
[2018-08-21 07:49] LABS: BASOPHILE ABSOLUTE 0.1 Th/cumm (0-0.2); EOSINOPHILE ABSOLUTE 0.1 Th/cmm (0.1-0.4); HEMATOCRIT 34.5 % (41.0-60); HEMOGLOBIN 11.5 gm/dL (12-16); LYMPHOCYTE ABSOLUTE 0.3 Th/cmm (1.5-3.0); MEAN CELL VOLUME 88.6 fl (80-99); MEAN CORPUSCULAR HEMOGLOBIN 29.5 pg (27.0-31.0); MEAN CORPUSCULAR HGB CONC 33.3 pg (28.0-36.0); MONOCYTE ABSOLUTE 0.1 Th/cmm (0.3-1.0); NEUTROPHILE ABSOLUTE 5.8 Th/cmm (1.8-8.0); PLATELET COUNT 368 Th/cmm (150-400); RED BLOOD COUNT 3.89 Mil/cmm (3.80-5.80); RED CELL DISTRIBUTION WIDTH 14.1 % (11.5-20.0); WHITE BLOOD COUNT 6.4 Th/cmm (4.8-10.8)
[2018-08-21 08:32] LABS: BAND NEUTROPHILE 0 % (0-10); BASOPHIL 0 % (0-3); EOSINOPHIL 0 % (0-5); LYMPHOCYTE 7 % (20-50); MONOCYTE 1 % (2-10); NEUTROPHILS 92 % (40-80); PLATELET ESTIMATE ADEQUATE (NORMAL)
[2018-08-21] MEDS: Lactobacillus Rhamnosus GG 15 Billion CFU CAP.SPRINK PO SCH (08:47)
[2018-08-21] MEDS: Heparin Sod 5,000Units/ML 5,000 UNITS/ML VIAL SUBQ SCH ×2 (08:47→20:20)
[2018-08-21 09:12] LABS: PaCO2 31.2 mmHg (35.0-45.0); PaO2 75.2 mmHg (80.0-100.0); pH 7.432 (7.35-7.45)
--- NOTE | 2018-08-21 16:43 | Diagnostic Imaging Report ---
CHEST X-RAY: AP view INDICATION: Shortness of breath, pneumonia COMPARISON: Chest x-ray 08/19/2018 FINDINGS: Chronic lung changes are seen with congestive changes and small right effusion. Heart size normal. Atherosclerosis is noted. IMPRESSION: Chronic lung changes COPD with mild superimposed congestion and right basal infiltrates.
--- NOTE | 2018-08-21 16:43 | Consultation ---
DATE OF CONSULTATION: 08/20/2018 PULMONARY CONSULTATION REASON FOR CONSULTATION: Shortness of breath. HISTORY OF PRESENT ILLNESS: This is an 88-year-old [place] gentleman, who basically was admitted because of increasingly shortness of breath, etc. from a convalescent home. He is unfortunately a very unreliable historian. Detailed history from the patient is very difficult to obtain except for he is feeling okay, offers no specific new other symptomatology otherwise. Denies of any chest pain, denies of coughing, etc. Denies of any other related symptoms, though a very poor historian. The patient was transferred from [facility] for further care and necessary treatment. The patient is restrained. PAST MEDICAL HISTORY: History of possibly heart disease, history of hypertension, history of COPD, history of psychosis, history of smoking, though exact detailed history is very difficult to obtain. PHYSICAL EXAMINATION: GENERAL: This is an elderly looking gentleman, awake, confused, not in any acute distress. VITAL SIGNS: Temperature is 97.2, blood pressure 145/60. NECK: Veins are not visualized. ORAL CAVITY: Poor dental hygiene. CHEST: Shows occasional rhonchi with diminished air entry. HEART: Regular. ABDOMEN: Soft, nontender. EXTREMITIES: Show some chronic changes, but otherwise unremarkable. Skin turgor is poor. LABORATORY DATA: White count is 5.9, hemoglobin 10.9. ABG shows pO2 of 58 on 2 liters per minute. Potassium is 3.2. Chest x-ray shows consistent with COPD with vague infiltrate on the right basal area. IMPRESSION: 1. The patient has acute on chronic respiratory failure. 2. Pneumonia, right base, question of hospital-acquired versus remote possibility of aspiration. PLANS AND SUGGESTIONS: We will go ahead and give aggressive respiratory care and inhalation treatment. Sputum C and S. Antibiotic per ID. We will follow up with repeat chest x-ray tomorrow, etc. and see how he does and go from there. JOB# [id number]
--- NOTE | 2018-08-21 16:43 | History & Physical ---
ADMIT DATE: 08/20/2018 CHIEF COMPLAINT: Shortness of breath and acute hypoxia. HISTORY OF PRESENT ILLNESS: This 88-year-old male was transferred from Geropsych Unit back to medical floor because of respiratory distress, hypoxia and difficulty breathing. The patient was diagnosed with pneumonia, respiratory failure, and subsequently admitted to tele unit for further evaluations and treatments. Today on my evaluation, the patient was very confused, unable to communicate well. PAST MEDICAL HISTORY: Recent pneumonia, respiratory failure, dysphagia, mental health disorder, dementia. SOCIAL HISTORY: No reported alcohol, tobacco or street drug use. CURRENT MEDICATIONS: Per medication reconciliation. ALLERGIES: No known drug allergies. REVIEW OF SYSTEMS: No fever, no chills, no nausea, no vomiting, no diarrhea, no abdominal pain. No hematemesis, no melena, no hematuria reported. PHYSICAL EXAMINATION: VITAL SIGNS: Temperature 98.4, pulse 87, respirations 17, blood pressure 152/67. HEART: S1, S2 normal. LUNGS: Bilateral rales heard. ABDOMEN: Soft. NEUROLOGIC: The patient is confused. Moves all extremities. Follow commands. AVAILABLE LABORATORY DATA: Reviewed. ASSESSMENT: 1. Pneumonia, acute respiratory failure. 2. ____. 3. Dysphagia. 4. Dementia. 5. Psychiatric disorder. PLAN: The patient will be continued on oxygen, bronchodilators, IV prednisone, Zosyn. Stat Pulmonary and ID consulted. ABG ordered. The patient's psychotropic medication will be continued. Psych consulted. P.r.n. restraints. Plan discussed with nursing staff. JOB# [id number]
--- NOTE | 2018-08-21 16:43 | Progress Notes ---
DATE: PSYCHIATRIC PROGRESS NOTE SUBJECTIVE: Chart was reviewed and the patient interviewed. Also discussed the patient's condition with the staff and reviewed records and labs. The patient moved from Geropsych Unit to the medical floor again because of sudden drop in his O2 saturation. The patient also is still agitated and irritable and aggressive, especially when staff tried to help him with his ADLs or IVs. The patient also still has episodes of yelling and screaming. Also, his appetite is still poor. During my conversation with the patient in [place]o language, he seems to be paranoid, but not agitated as before and it seems that language barrier also can add to his agitation. Otherwise, the patient was taking Seroquel, but it seems that might O2 saturation levels related to his use of Seroquel. ASSESSMENT: The patient is still agitated and still psychotic. TREATMENT PLAN: Continue to monitor his behavior. We will add Risperdal and is on Seroquel and the dose of 0.25 mg twice a day and will continue to follow up. JOB# [id number]
--- NOTE | 2018-08-21 20:55 | Progress Notes ---
DATE: 08/21/2018 PULMONARY PROGRESS NOTE PROBLEM LIST: 1. Acute exacerbation of chronic obstructive pulmonary disease. 2. Small infiltrate, right base. 3. Underlying psychiatric history. 4. History of tobacco dependence. SUBJECTIVE: The patient is awake, offers no specific new symptoms. He claims to be feeling okay and less coughing and denies of any specific new symptomatology. PHYSICAL EXAMINATION: VITAL SIGNS: Temperature is 96.2, blood pressure 113/85. NECK: Veins not visualized. CHEST: Shows diminished air entry with occasional rhonchi. HEART: Regular. ABDOMEN: Soft, nontender. LABORATORY DATA: The patient's white count is 6.4, hemoglobin 11.5. ABG; pO2 is 75 on 40% of oxygen and electrolytes are okay. BUN is 24. The patient's chest x-ray done today shows some haziness in the right basal area, I am not too sure is a true infiltrate and/or other pathology or chronic changes. PLANS AND SUGGESTIONS: We will continue current treatment. We will consider getting CT of the chest for better evaluation of the right base and go from there. JOB# [id number]
--- NOTE | 2018-08-21 22:25 | General Progress Note ---
Subjective - Review of Systems Service Date: 08/21/18 Subjective: Patient seen and examined awake confused breathing better Objective - Results Result Diagrams: 08/21/18 06:51 08/21/18 07:05 Recent Labs: Laboratory Last Values WBC 6.4 Th/cmm (4.8-10.8) 08/21/18 06:51 RBC 3.89 Mil/cmm (3.80-5.80) 08/21/18 06:51 Hgb 11.5 gm/dL (12-16) L 08/21/18 06:51 Hct 34.5 % (41.0-60) L 08/21/18 06:51 MCV 88.6 fl (80-99) 08/21/18 06:51 MCH 29.5 pg (27.0-31.0) 08/21/18 06:51 MCHC Differential 33.3 pg (28.0-36.0) 08/21/18 06:51 RDW 14.1 % (11.5-20.0) 08/21/18 06:51 Plt Count 368 Th/cmm (150-400) 08/21/18 06:51 MPV 8.7 fl 08/21/18 06:51 Add Manual Diff YES 08/21/18 06:51 Band Neutrophils % 0 % (0-10) 08/21/18 06:51 Neutrophils (Manual) 92 % (40-80) H 08/21/18 06:51 Lymphocytes 7 % (20-50) L 08/21/18 06:51 Monocytes 1 % (2-10) L 08/21/18 06:51 Eosinophils 0 % (0-5) 08/21/18 06:51 Basophils 0 % (0-3) 08/21/18 06:51 Platelet Estimate ADEQUATE (NORMAL) 08/21/18 06:51 Specimen Source Arterial 08/21/18 08:33 Sample Site RB 08/21/18 08:33 pH 7.432 (7.35-7.45) 08/21/18 08:33 pCO2 31.2 mmHg (35.0-45.0) L 08/21/18 08:33 pO2 75.2 mmHg (80.0-100.0) L 08/21/18 08:33 HCO3 20.3 mEq/L (20.0-26.0) 08/21/18 08:33 Base Excess -2.8 mEq/L (-3.0-3.0) 08/21/18 08:33 O2 Saturation 98.0 % (92.0-100.0) 08/21/18 08:33 Sreedhar Test N/A 08/21/18 08:33 Vent Rate N/A 08/21/18 08:33 Inspired O2 40 08/21/18 08:33 Tidal Volume N/A 08/21/18 08:33 PEEP N/A 08/21/18 08:33 Pressure (ins/psv/peep) N/A 08/21/18 08:33 Critical Value DM 08/21/18 08:33 Sodium 144 mEq/L (136-145) 08/21/18 07:05 Potassium 4.1 mEq/L (3.5-5.1) 08/21/18 07:05 Chloride 108 mEq/L (98-107) H 08/21/18 07:05 Carbon Dioxide 21.6 mEq/L (21.0-31.0) 08/21/18 07:05 Anion Gap 18.5 (7.0-16.0) H 08/21/18 07:05 BUN 24 mg/dL (7-25) 08/21/18 07:05 Creatinine 1.1 mg/dL (0.7-1.3) 08/21/18 07:05 Est GFR ( Amer) TNP 08/21/18 07:05 Est GFR (Non-Af Amer) TNP 08/21/18 07:05 BUN/Creatinine Ratio 21.8 08/21/18 07:05 Glucose 190 mg/dL (70-105) H 08/21/18 07:05 Calcium 8.7 mg/dL (8.6-10.3) 08/21/18 07:05 Total Bilirubin 0.6 mg/dL (0.3-1.0) 08/21/18 07:05 AST 16 U/L (13-39) 08/21/18 07:05 ALT 10 U/L (7-52) 08/21/18 07:05 Alkaline Phosphatase 46 U/L (34-104) 08/21/18 07:05 Ammonia 48 umol/L (16-53) 08/21/18 06:51 Total Protein 7.1 gm/dL (6.0-8.3) 08/21/18 07:05 Albumin 3.1 gm/dL (4.2-5.5) L 08/21/18 07:05 Globulin 4.0 gm/dL 08/21/18 07:05 Albumin/Globulin Ratio 0.8 (1.0-1.8) L 08/21/18 07:05 - Physical Exam Vitals and I&O: Vital Signs Temp 97.6 F 08/21/18 20:00 Pulse 58 08/21/18 20:00 Resp 18 08/21/18 20:00 BP 126/56 08/21/18 20:00 Pulse Ox 98 08/21/18 20:00 Intake & Output 08/21/18 08/21/18 08/22/18 06:59 18:59 06:59 Intake Total 1500 1322.667 Balance 1500 1322.667 Weight (lbs) 76.204 kg 78.018 kg Intake: Intake, IV Amount 1200 922.667 Piperacillin Sodium/ 200 100 Tazobact 4.5 gm In Sodium Chloride 0.9% 100 ml @ 100 mls/hr IV Q8HR [facility] Rx #:[id number] Sodium Chloride 0.9% 1, 1000 822.667 000 ml @ 80 mls/hr IV . [id number] [facility] Rx#:[id number] Oral 300 400 Other: # Voids 3 4 # Bowel Movements 0 Stool Characteristics Soft Weight Source Bedscale Bedscale Active Medications: Current Medications Acetaminophen (Tylenol 650mg Supp) 650 mg RC Q4H PRN PRN Reason: Fever > 101 Stop: 10/18/18 23:14 Albuterol/Ipratropium (Duoneb Neb) 3 ml HHN Q2HRT PRN PRN Reason: Shortness of Breath or Wheeze Stop: 10/18/18 23:13 Albuterol/Ipratropium (Duoneb Neb) 3 ml HHN [id number] [facility] Stop: 10/19/18 14:59 Last Admin: 08/21/18 19:51 Dose: 3 ml Budesonide (Pulmicort) 0.5 mg HHN BIDRT [facility] Stop: 10/19/18 14:59 Last Admin: 08/21/18 19:51 Dose: 0.5 mg Heparin Sodium (Porcine) (Heparin) 5,000 units SUBQ Q12H [facility] Stop: 10/19/18 20:59 Last Admin: 08/21/18 20:20 Dose: 5,000 units Sodium Chloride (Nacl 0.9%) 1,000 mls @ 80 mls/hr IV .[id number] [facility] Stop: 10/18/18 22:59 Last Admin: 08/21/18 16:15 Dose: 80 mls/hr Piperacillin Sod/Tazobactam (Sod 4.5 gm/ Sodium Chloride) 100 mls @ 100 mls/hr IV Q8HR [facility] Stop: 10/18/18 23:29 Last Admin: 08/21/18 20:20 Dose: 100 mls/hr Lactobacillus Rhamnosus (Culturelle 15b) 1 each PO DAILY [facility] Stop: 10/20/18 08:59 Last Admin: 08/21/18 08:47 Dose: 1 each Lorazepam (Ativan) 1 mg IVP Q6H PRN; Protocol PRN Reason: Agitation Stop: 10/18/18 22:36 Methylprednisolone Sodium Succinate (Solu-Medrol) 40 mg IV Q8HR [facility] Stop: 08/24/18 05:01 Last Admin: 08/21/18 20:19 Dose: 40 mg Miscellaneous (Probiotic Screen) 1 [facility] PRN PRN PRN Reason: PROTOCOL Stop: 10/19/18 12:29 Miscellaneous (Vte Chemical Prophylaxis Screen/ Admission) 1 [facility] PRN PRN PRN Reason: PROTOCOL Stop: 10/19/18 13:39 Ondansetron HCl (Zofran) 4 mg IV Q6H PRN PRN Reason: Nausea / Vomiting Stop: 10/18/18 22:57 Risperidone (Risperdal) 0.25 mg PO BID [facility]; Protocol Stop: 10/20/18 08:59 Last Admin: 08/21/18 16:15 Dose: 0.25 mg Cardiovascular: Regular rate Lungs: Other (rales) Assessment/Plan - Assessment Assessment: Acute respiratory failure Pneumonia COPD Dysphagia Dementia with behavior disturbance - Plan Plan: Continue antibiotics Continue Bronchodilator ID and Pul psych on board Retrains
--- NOTE | 2018-08-22 01:36 | Infectious Disease Prog Note ---
Infectious Disease Subjective - Review of Systems Service Date: 08/21/18 Subjective: Patient was brought back to the acute care from [facility], became lethargic. so he was brought here and fluid was given, He improved. Infectious Disease Objective - Results Result Diagrams: 08/21/18 06:51 08/21/18 07:05 Recent Labs: Laboratory Last Values WBC 6.4 Th/cmm (4.8-10.8) 08/21/18 06:51 RBC 3.89 Mil/cmm (3.80-5.80) 08/21/18 06:51 Hgb 11.5 gm/dL (12-16) L 08/21/18 06:51 Hct 34.5 % (41.0-60) L 08/21/18 06:51 MCV 88.6 fl (80-99) 08/21/18 06:51 MCH 29.5 pg (27.0-31.0) 08/21/18 06:51 MCHC Differential 33.3 pg (28.0-36.0) 08/21/18 06:51 RDW 14.1 % (11.5-20.0) 08/21/18 06:51 Plt Count 368 Th/cmm (150-400) 08/21/18 06:51 MPV 8.7 fl 08/21/18 06:51 Add Manual Diff YES 08/21/18 06:51 Band Neutrophils % 0 % (0-10) 08/21/18 06:51 Neutrophils (Manual) 92 % (40-80) H 08/21/18 06:51 Lymphocytes 7 % (20-50) L 08/21/18 06:51 Monocytes 1 % (2-10) L 08/21/18 06:51 Eosinophils 0 % (0-5) 08/21/18 06:51 Basophils 0 % (0-3) 08/21/18 06:51 Platelet Estimate ADEQUATE (NORMAL) 08/21/18 06:51 Specimen Source Arterial 08/21/18 08:33 Sample Site RB 08/21/18 08:33 pH 7.432 (7.35-7.45) 08/21/18 08:33 pCO2 31.2 mmHg (35.0-45.0) L 08/21/18 08:33 pO2 75.2 mmHg (80.0-100.0) L 08/21/18 08:33 HCO3 20.3 mEq/L (20.0-26.0) 08/21/18 08:33 Base Excess -2.8 mEq/L (-3.0-3.0) 08/21/18 08:33 O2 Saturation 98.0 % (92.0-100.0) 08/21/18 08:33 Sreedhar Test N/A 08/21/18 08:33 Vent Rate N/A 08/21/18 08:33 Inspired O2 40 08/21/18 08:33 Tidal Volume N/A 08/21/18 08:33 PEEP N/A 08/21/18 08:33 Pressure (ins/psv/peep) N/A 08/21/18 08:33 Critical Value DM 08/21/18 08:33 Sodium 144 mEq/L (136-145) 08/21/18 07:05 Potassium 4.1 mEq/L (3.5-5.1) 08/21/18 07:05 Chloride 108 mEq/L (98-107) H 08/21/18 07:05 Carbon Dioxide 21.6 mEq/L (21.0-31.0) 08/21/18 07:05 Anion Gap 18.5 (7.0-16.0) H 08/21/18 07:05 BUN 24 mg/dL (7-25) 08/21/18 07:05 Creatinine 1.1 mg/dL (0.7-1.3) 08/21/18 07:05 Est GFR ( Amer) TNP 08/21/18 07:05 Est GFR (Non-Af Amer) TNP 08/21/18 07:05 BUN/Creatinine Ratio 21.8 08/21/18 07:05 Glucose 190 mg/dL (70-105) H 08/21/18 07:05 Calcium 8.7 mg/dL (8.6-10.3) 08/21/18 07:05 Total Bilirubin 0.6 mg/dL (0.3-1.0) 08/21/18 07:05 AST 16 U/L (13-39) 08/21/18 07:05 ALT 10 U/L (7-52) 08/21/18 07:05 Alkaline Phosphatase 46 U/L (34-104) 08/21/18 07:05 Ammonia 48 umol/L (16-53) 08/21/18 06:51 Total Protein 7.1 gm/dL (6.0-8.3) 08/21/18 07:05 Albumin 3.1 gm/dL (4.2-5.5) L 08/21/18 07:05 Globulin 4.0 gm/dL 08/21/18 07:05 Albumin/Globulin Ratio 0.8 (1.0-1.8) L 08/21/18 07:05 - Physical Exam Vitals and I&O: Vital Signs Temp 97.6 F 08/21/18 20:00 Pulse 58 08/21/18 20:00 Resp 18 08/21/18 20:00 BP 126/56 08/21/18 20:00 Pulse Ox 98 08/21/18 20:00 Intake & Output 08/21/18 08/21/18 08/22/18 06:59 18:59 06:59 Intake Total 1500 1322.667 100 Balance 1500 1322.667 100 Weight (lbs) 76.204 kg 78.018 kg Intake: Intake, IV Amount 1200 922.667 100 Piperacillin Sodium/ 200 100 100 Tazobact 4.5 gm In Sodium Chloride 0.9% 100 ml @ 100 mls/hr IV Q8HR [facility] Rx #:[id number] Sodium Chloride 0.9% 1, 1000 822.667 000 ml @ 80 mls/hr IV . [id number] [facility] Rx#:[id number] Oral 300 400 Other: # Voids 3 4 # Bowel Movements 0 Stool Characteristics Soft Weight Source Bedscale Bedscale Active Medications: Current Medications Acetaminophen (Tylenol 650mg Supp) 650 mg RC Q4H PRN PRN Reason: Fever > 101 Stop: 10/18/18 23:14 Albuterol/Ipratropium (Duoneb Neb) 3 ml HHN Q2HRT PRN PRN Reason: Shortness of Breath or Wheeze Stop: 10/18/18 23:13 Albuterol/Ipratropium (Duoneb Neb) 3 ml HHN [id number] [facility] Stop: 10/19/18 14:59 Last Admin: 08/21/18 19:51 Dose: 3 ml Budesonide (Pulmicort) 0.5 mg HHN BIDRT [facility] Stop: 10/19/18 14:59 Last Admin: 08/21/18 19:51 Dose: 0.5 mg Heparin Sodium (Porcine) (Heparin) 5,000 units SUBQ Q12H [facility] Stop: 10/19/18 20:59 Last Admin: 08/21/18 20:20 Dose: 5,000 units Sodium Chloride (Nacl 0.9%) 1,000 mls @ 80 mls/hr IV .[id number] [facility] Stop: 10/18/18 22:59 Last Admin: 08/21/18 16:15 Dose: 80 mls/hr Piperacillin Sod/Tazobactam (Sod 4.5 gm/ Sodium Chloride) 100 mls @ 100 mls/hr IV Q8HR [facility] Stop: 10/18/18 23:29 Last Infusion: 08/21/18 21:20 Dose: Infused Lactobacillus Rhamnosus (Culturelle 15b) 1 each PO DAILY [facility] Stop: 10/20/18 08:59 Last Admin: 08/21/18 08:47 Dose: 1 each Lorazepam (Ativan) 1 mg IVP Q6H PRN; Protocol PRN Reason: Agitation Stop: 10/18/18 22:36 Methylprednisolone Sodium Succinate (Solu-Medrol) 40 mg IV Q8HR [facility] Stop: 08/24/18 05:01 Last Admin: 08/21/18 20:19 Dose: 40 mg Miscellaneous (Probiotic Screen) 1 [facility] PRN PRN PRN Reason: PROTOCOL Stop: 10/19/18 12:29 Miscellaneous (Vte Chemical Prophylaxis Screen/ Admission) 1 [facility] PRN PRN PRN Reason: PROTOCOL Stop: 10/19/18 13:39 Ondansetron HCl (Zofran) 4 mg IV Q6H PRN PRN Reason: Nausea / Vomiting Stop: 10/18/18 22:57 Risperidone (Risperdal) 0.25 mg PO BID [facility]; Protocol Stop: 10/20/18 08:59 Last Admin: 08/21/18 16:15 Dose: 0.25 mg General: no acute distress, well developed, well nourished HEENT: atraumatic, normocephalic, PERRLA, EOMI, moist mucous membrane Neck: supple, no thyromegaly, no lymphadenopathy Cardiovascular: S1S2, regular Lungs: clear to auscultation bilaterally, clear to percussion Abdomen: soft, no tender, no distended, no mass, no rebound, no hepatomegaly Extremities: no cyanosis, no clubbing, no edema Neurological: awake, alert, oriented Skin: intact Infectious Disease Assmt/Plan - Assessment Assessment: 1. Leukocytosis, most likely reactive versus sepsis. 2. Pneumonia, on the right lower lobe. 3. Dehydration. improved 4. Acute renal failure, improved. 5. Seizure disorder. - Plan Plan: Zosyn to continue.
[2018-08-22] MEDS: methylPREDNISolone SS 40 mg Vial IV SCH ×3 (05:24→20:22)
[2018-08-22] MEDS: Sodium Chloride 0.9% 1,000 ML IV SCH ×2 (05:25→12:59)
[2018-08-22] MEDS: Albuterol/Ipratropium Neb 3 ML AERS HHN SCH ×4 (07:15→19:00)
[2018-08-22] MEDS: Budesonide 0.5 Mg/2 mL Ud HHN SCH ×2 (07:27→19:00)
[2018-08-22 08:00] LABS: ALB/GLOB RATIO 0.9 (1.0-1.8); ALBUMIN 3.2 gm/dL (4.2-5.5); ALKALINE PHOSPHATASE 42 U/L (34-104); ANION GAP 14.8 (7.0-16.0); BILIRUBIN,TOTAL 0.5 mg/dL (0.3-1.0); BUN - UREA NITROGEN 28 mg/dL (7-25); CALCIUM SERUM 8.6 mg/dL (8.6-10.3); CARBON DIOXIDE 23.9 mEq/L (21.0-31.0); CHLORIDE 110 mEq/L (98-107); CREATININE - SERUM 1.1 mg/dL (0.7-1.3); GLUCOSE 137 mg/dL (70-105); POTASSIUM SERUM 3.7 mEq/L (3.5-5.1); SGOT 15 U/L (13-39); SGPT/ALT 9 U/L (7-52); SODIUM SERUM 145 mEq/L (136-145); TOTAL PROTEIN,SERUM 6.6 gm/dL (6.0-8.3)
[2018-08-22 08:05] LABS: HEMATOCRIT 30.6 % (41.0-60); HEMOGLOBIN 10.4 gm/dL (12-16); LYMPHOCYTE ABSOLUTE 0.4 Th/cmm (1.5-3.0); MEAN CELL VOLUME 86.4 fl (80-99); MEAN CORPUSCULAR HEMOGLOBIN 29.4 pg (27.0-31.0); MONOCYTE ABSOLUTE 0.5 Th/cmm (0.3-1.0); NEUTROPHILE ABSOLUTE 13.7 Th/cmm (1.8-8.0); PLATELET COUNT 542 Th/cmm (150-400); RED BLOOD COUNT 3.54 Mil/cmm (3.80-5.80); RED CELL DISTRIBUTION WIDTH 14.1 % (11.5-20.0); WHITE BLOOD COUNT 14.6 Th/cmm (4.8-10.8)
[2018-08-22] MEDS: Lactobacillus Rhamnosus GG 15 Billion CFU CAP.SPRINK PO SCH (09:20)
[2018-08-22] MEDS: Heparin Sod 5,000Units/ML 5,000 UNITS/ML VIAL SUBQ SCH ×2 (09:21→20:22)
[2018-08-22 10:49] LABS: BAND NEUTROPHILE 0 % (0-10); BASOPHIL 0 % (0-3); EOSINOPHIL 0 % (0-5); LYMPHOCYTE 6 % (20-50); MONOCYTE 1 % (2-10); NEUTROPHILS 93 % (40-80)
[2018-08-22 10:50] LABS: PLATELET ESTIMATE INCREASED PLATELETS (NORMAL)
[2018-08-22] MEDS: Nicotine 7 mg/24 hr Tdm TD SCH (17:57)
--- NOTE | 2018-08-22 23:15 | General Progress Note ---
Subjective - Review of Systems Service Date: 08/22/18 Subjective: Patient seen and examined awake confused breathing ok Objective - Results Result Diagrams: 08/22/18 07:08 08/22/18 07:08 Recent Labs: Laboratory Last Values WBC 14.6 Th/cmm (4.8-10.8) H 08/22/18 07:08 RBC 3.54 Mil/cmm (3.80-5.80) L 08/22/18 07:08 Hgb 10.4 gm/dL (12-16) L 08/22/18 07:08 Hct 30.6 % (41.0-60) L 08/22/18 07:08 MCV 86.4 fl (80-99) 08/22/18 07:08 MCH 29.4 pg (27.0-31.0) 08/22/18 07:08 MCHC Differential 34.0 pg (28.0-36.0) 08/22/18 07:08 RDW 14.1 % (11.5-20.0) 08/22/18 07:08 Plt Count 542 Th/cmm (150-400) H 08/22/18 07:08 MPV 7.6 fl 08/22/18 07:08 Add Manual Diff YES 08/22/18 07:08 Band Neutrophils % 0 % (0-10) 08/22/18 07:08 Neutrophils (Manual) 93 % (40-80) H 08/22/18 07:08 Lymphocytes 6 % (20-50) L 08/22/18 07:08 Monocytes 1 % (2-10) L 08/22/18 07:08 Eosinophils 0 % (0-5) 08/22/18 07:08 Basophils 0 % (0-3) 08/22/18 07:08 Platelet Estimate INCREASED PLATELETS (NORMAL) 08/22/18 07:08 Specimen Source Arterial 08/21/18 08:33 Sample Site RB 08/21/18 08:33 pH 7.432 (7.35-7.45) 08/21/18 08:33 pCO2 31.2 mmHg (35.0-45.0) L 08/21/18 08:33 pO2 75.2 mmHg (80.0-100.0) L 08/21/18 08:33 HCO3 20.3 mEq/L (20.0-26.0) 08/21/18 08:33 Base Excess -2.8 mEq/L (-3.0-3.0) 08/21/18 08:33 O2 Saturation 98.0 % (92.0-100.0) 08/21/18 08:33 Sreedhar Test N/A 08/21/18 08:33 Vent Rate N/A 08/21/18 08:33 Inspired O2 40 08/21/18 08:33 Tidal Volume N/A 08/21/18 08:33 PEEP N/A 08/21/18 08:33 Pressure (ins/psv/peep) N/A 08/21/18 08:33 Critical Value DM 08/21/18 08:33 Sodium 145 mEq/L (136-145) 08/22/18 07:08 Potassium 3.7 mEq/L (3.5-5.1) 08/22/18 07:08 Chloride 110 mEq/L (98-107) H 08/22/18 07:08 Carbon Dioxide 23.9 mEq/L (21.0-31.0) 08/22/18 07:08 Anion Gap 14.8 (7.0-16.0) 08/22/18 07:08 BUN 28 mg/dL (7-25) H 08/22/18 07:08 Creatinine 1.1 mg/dL (0.7-1.3) 08/22/18 07:08 Est GFR ( Amer) TNP 08/22/18 07:08 Est GFR (Non-Af Amer) TNP 08/22/18 07:08 BUN/Creatinine Ratio 25.5 08/22/18 07:08 Glucose 137 mg/dL (70-105) H 08/22/18 07:08 Calcium 8.6 mg/dL (8.6-10.3) 08/22/18 07:08 Total Bilirubin 0.5 mg/dL (0.3-1.0) 08/22/18 07:08 AST 15 U/L (13-39) 08/22/18 07:08 ALT 9 U/L (7-52) 08/22/18 07:08 Alkaline Phosphatase 42 U/L (34-104) 08/22/18 07:08 Ammonia 48 umol/L (16-53) 08/21/18 06:51 Total Protein 6.6 gm/dL (6.0-8.3) 08/22/18 07:08 Albumin 3.2 gm/dL (4.2-5.5) L 08/22/18 07:08 Globulin 3.4 gm/dL 08/22/18 07:08 Albumin/Globulin Ratio 0.9 (1.0-1.8) L 08/22/18 07:08 - Physical Exam Vitals and I&O: Vital Signs Temp 98.6 F 08/22/18 22:00 Pulse 60 08/22/18 22:00 Resp 18 08/22/18 22:00 BP 146/70 08/22/18 22:00 Pulse Ox 97 08/22/18 20:00 Intake & Output 08/22/18 08/22/18 08/23/18 06:59 18:59 06:59 Intake Total 900 705.333 Balance 900 705.333 Weight (lbs) 78.018 kg Intake: Intake, IV Amount 900 705.333 Piperacillin Sodium/ 200 100 Tazobact 4.5 gm In Sodium Chloride 0.9% 100 ml @ 100 mls/hr IV Q8HR [facility] Rx #:[id number] Sodium Chloride 0.9% 1, 700 605.333 000 ml @ 80 mls/hr IV . [id number] [facility] Rx#:[id number] Other: Stool Characteristics Soft Soft Weight Source Bedscale Active Medications: Current Medications Acetaminophen (Tylenol 650mg Supp) 650 mg RC Q4H PRN PRN Reason: Fever > 101 Stop: 10/18/18 23:14 Albuterol/Ipratropium (Duoneb Neb) 3 ml HHN Q2HRT PRN PRN Reason: Shortness of Breath or Wheeze Stop: 10/18/18 23:13 Albuterol/Ipratropium (Duoneb Neb) 3 ml HHN [id number] [facility] Stop: 10/19/18 14:59 Last Admin: 08/22/18 19:00 Dose: 3 ml Budesonide (Pulmicort) 0.5 mg HHN BIDRT [facility] Stop: 10/19/18 14:59 Last Admin: 08/22/18 19:00 Dose: 0.5 mg Heparin Sodium (Porcine) (Heparin) 5,000 units SUBQ Q12H [facility] Stop: 10/19/18 20:59 Last Admin: 08/22/18 20:22 Dose: 5,000 units Sodium Chloride (Nacl 0.9%) 1,000 mls @ 80 mls/hr IV .[id number] [facility] Stop: 10/18/18 22:59 Last Admin: 08/22/18 12:59 Dose: 80 mls/hr Piperacillin Sod/Tazobactam (Sod 4.5 gm/ Sodium Chloride) 100 mls @ 100 mls/hr IV Q8HR [facility] Stop: 10/18/18 23:29 Last Admin: 08/22/18 20:21 Dose: 100 mls/hr Lactobacillus Rhamnosus (Culturelle 15b) 1 each PO DAILY [facility] Stop: 10/20/18 08:59 Last Admin: 08/22/18 09:20 Dose: 1 each Lorazepam (Ativan) 1 mg IVP Q6H PRN; Protocol PRN Reason: Agitation Stop: 10/18/18 22:36 Methylprednisolone Sodium Succinate (Solu-Medrol) 40 mg IV Q8HR [facility] Stop: 08/24/18 05:01 Last Admin: 08/22/18 20:22 Dose: 40 mg Miscellaneous (Probiotic Screen) 1 [facility] PRN PRN PRN Reason: PROTOCOL Stop: 10/19/18 12:29 Miscellaneous (Vte Chemical Prophylaxis Screen/ Admission) 1 [facility] PRN PRN PRN Reason: PROTOCOL Stop: 10/19/18 13:39 Nicotine (Nicotine Transdermal System) 7 mg TD DAILY [facility] Stop: 10/21/18 16:59 Last Admin: 08/22/18 17:57 Dose: 7 mg Ondansetron HCl (Zofran) 4 mg IV Q6H PRN PRN Reason: Nausea / Vomiting Stop: 10/18/18 22:57 Risperidone (Risperdal) 0.25 mg PO BID [facility]; Protocol Stop: 10/20/18 08:59 Last Admin: 08/22/18 16:59 Dose: 0.25 mg General: Other (confused) Cardiovascular: Regular rate Lungs: Other (rales) Assessment/Plan - Assessment Assessment: Acute respiratory failure Pneumonia COPD Dysphagia Dementia with behavior disturbance - Plan Plan: Continue antibiotics Continue Bronchodilator ID and Pul psych on board Retrains
--- NOTE | 2018-08-23 03:17 | Progress Notes ---
DATE: 08/22/2018 PROBLEM LIST: 1. Acute exacerbation of chronic obstructive pulmonary disease. 2. Possibly pneumonia, right side. 3. 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 SYMPTOMS: He still is quite agitated, restless, pulling things around though no respiratory distress. He could not ____ from the CAT scan this morning. PHYSICAL EXAMINATION: VITAL SIGNS: T-max 98.0, blood pressure 151/82, saturation is 96 on 4 liters. NECK: Veins not visualized. CHEST: Shows occasional rhonchi with diminished air entry. HEART: Regular. ABDOMEN: Soft, nontender. LABORATORY DATA: White count is ____, hemoglobin 10.4 and electrolytes are okay with BUN 28. ASSESSMENT: The patient is clinically stable, not too much change, improved, psychotic, exact detail not clear, partly may be secondary to tobacco withdrawal. PLANS AND SUGGESTIONS: Discussed with the nursing staff. We will go and continue antibiotic. We will reattempt CT tomorrow. In the meantime, given some nicotinic patch and see how he does with that and go from there. JOB# [id number]
[2018-08-23] MEDS: methylPREDNISolone SS 40 mg Vial IV SCH ×3 (04:21→21:59)
[2018-08-23] MEDS: Sodium Chloride 0.9% 1,000 ML IV SCH ×2 (04:25→22:05)
[2018-08-23 04:58] LABS: ALBUMIN 3.1 gm/dL (4.2-5.5); ANION GAP 13.9 (7.0-16.0); BUN - UREA NITROGEN 28 mg/dL (7-25); CALCIUM SERUM 8.5 mg/dL (8.6-10.3); CARBON DIOXIDE 25.9 mEq/L (21.0-31.0); CHLORIDE 111 mEq/L (98-107); CREATININE - SERUM 1.1 mg/dL (0.7-1.3); GLUCOSE 144 mg/dL (70-105); POTASSIUM SERUM 3.8 mEq/L (3.5-5.1); SODIUM SERUM 147 mEq/L (136-145); TOTAL PROTEIN,SERUM 6.3 gm/dL (6.0-8.3)
[2018-08-23 04:59] LABS: ALKALINE PHOSPHATASE 39 U/L (34-104); BILIRUBIN,TOTAL 0.6 mg/dL (0.3-1.0); SGOT 16 U/L (13-39); SGPT/ALT 10 U/L (7-52)
[2018-08-23 05:41] LABS: HEMATOCRIT 31.2 % (41.0-60); HEMOGLOBIN 10.4 gm/dL (12-16); MEAN CORPUSCULAR HEMOGLOBIN 28.8 pg (27.0-31.0); MEAN CORPUSCULAR HGB CONC 33.5 pg (28.0-36.0); PLATELET COUNT 540 Th/cmm (150-400); RED BLOOD COUNT 3.63 Mil/cmm (3.80-5.80); RED CELL DISTRIBUTION WIDTH 14.3 % (11.5-20.0); WHITE BLOOD COUNT 10.6 Th/cmm (4.8-10.8)
[2018-08-23] MEDS: Albuterol/Ipratropium Neb 3 ML AERS HHN SCH ×4 (06:58→19:28)
[2018-08-23 07:13] LABS: BAND NEUTROPHILE 0 % (0-10); LYMPHOCYTE 4 % (20-50); NEUTROPHILS 94 % (40-80)
[2018-08-23 07:14] LABS: BASOPHIL 0 % (0-3); EOSINOPHIL 0 % (0-5); MONOCYTE 2 % (2-10); PLATELET ESTIMATE INCREASED PLATELETS (NORMAL)
[2018-08-23] MEDS: Budesonide 0.5 Mg/2 mL Ud HHN SCH ×2 (07:15→19:28)
[2018-08-23] MEDS: Nicotine 7 mg/24 hr Tdm TD SCH (09:02)
[2018-08-23] MEDS: Lactobacillus Rhamnosus GG 15 Billion CFU CAP.SPRINK PO SCH (09:03)
[2018-08-23] MEDS: Heparin Sod 5,000Units/ML 5,000 UNITS/ML VIAL SUBQ SCH ×2 (09:04→21:59)
--- NOTE | 2018-08-23 11:37 | Diagnostic Imaging Report ---
CT Chest without IV contrast HISTORY: Pleural effusions, right COMPARISON: Chest x-ray performed on 08/21/2018. Technique: Axial images were obtained from the base of the neck to the upper abdomen without IV contrast. Reconstructions were made. Total DLP to 82, CTD I 5.7 Findings: There is evidence of prior median sternotomy. Evaluation of mediastinum is limited due to lack of IV contrast. Borderline prominent mediastinal lymph nodes are noted. There is ectasia of the proximal descending aorta measuring up to 4 x 4 cm. There is heavy atherosclerotic vascular disease. Heart size is normal. No pericardial effusion is identified. Evaluation of the lung vega demonstrates chronic lung changes. Faint left upper lobe nodular 6 mm infiltrate noted. Biapical scarring is noted. Small bilateral effusions are noted with bibasilar passive atelectatic and consolidative changes. There is a indeterminate partially visualized large right renal mass. Degenerative changes of the spine are noted. IMPRESSION: Bibasal consolidative changes and passive atelectasis and small bilateral effusions. Pneumonia of the lung bases cannot be excluded. There is also focal infiltrate of the left upper lobe with nodularity measuring 6 mm. This may be due to scarring or infectious/pneumonia. A pulmonary nodule, however cannot be excluded and follow-up CT examination of 4 months is recommended for further assessment/monitoring. Additional biapical scarring Chronic lung changes Heavy atherosclerotic vascular disease with ectasia of the proximal descending aorta measuring 4 x 4 centimeters. Partially visualized right renal mass. Neoplastic etiology such as renal cell carcinoma cannot be excluded and clinical correlation short-term follow-up CT with IV contrast is recommended for further assessment. Evidence of prior median sternotomy.
--- NOTE | 2018-08-23 12:16 | Infectious Disease Prog Note ---
Infectious Disease Subjective - Review of Systems Service Date: 08/23/18 Subjective: Doing well. no fever. Infectious Disease Objective - Results Result Diagrams: 08/23/18 04:34 08/23/18 04:34 Recent Labs: Laboratory Last Values WBC 10.6 Th/cmm (4.8-10.8) 08/23/18 04:34 RBC 3.63 Mil/cmm (3.80-5.80) L 08/23/18 04:34 Hgb 10.4 gm/dL (12-16) L 08/23/18 04:34 Hct 31.2 % (41.0-60) L 08/23/18 04:34 MCV 86.0 fl (80-99) 08/23/18 04:34 MCH 28.8 pg (27.0-31.0) 08/23/18 04:34 MCHC Differential 33.5 pg (28.0-36.0) 08/23/18 04:34 RDW 14.3 % (11.5-20.0) 08/23/18 04:34 Plt Count 540 Th/cmm (150-400) H 08/23/18 04:34 MPV 7.8 fl 08/23/18 04:34 Add Manual Diff YES 08/23/18 04:34 Band Neutrophils % 0 % (0-10) 08/23/18 04:34 Neutrophils (Manual) 94 % (40-80) H 08/23/18 04:34 Lymphocytes 4 % (20-50) L 08/23/18 04:34 Monocytes 2 % (2-10) 08/23/18 04:34 Eosinophils 0 % (0-5) 08/23/18 04:34 Basophils 0 % (0-3) 08/23/18 04:34 Platelet Estimate INCREASED PLATELETS (NORMAL) 08/23/18 04:34 Specimen Source Arterial 08/21/18 08:33 Sample Site RB 08/21/18 08:33 pH 7.432 (7.35-7.45) 08/21/18 08:33 pCO2 31.2 mmHg (35.0-45.0) L 08/21/18 08:33 pO2 75.2 mmHg (80.0-100.0) L 08/21/18 08:33 HCO3 20.3 mEq/L (20.0-26.0) 08/21/18 08:33 Base Excess -2.8 mEq/L (-3.0-3.0) 08/21/18 08:33 O2 Saturation 98.0 % (92.0-100.0) 08/21/18 08:33 Sreedhar Test N/A 08/21/18 08:33 Vent Rate N/A 08/21/18 08:33 Inspired O2 40 08/21/18 08:33 Tidal Volume N/A 08/21/18 08:33 PEEP N/A 08/21/18 08:33 Pressure (ins/psv/peep) N/A 08/21/18 08:33 Critical Value DM 08/21/18 08:33 Sodium 147 mEq/L (136-145) H 08/23/18 04:34 Potassium 3.8 mEq/L (3.5-5.1) 08/23/18 04:34 Chloride 111 mEq/L (98-107) H 08/23/18 04:34 Carbon Dioxide 25.9 mEq/L (21.0-31.0) 08/23/18 04:34 Anion Gap 13.9 (7.0-16.0) 08/23/18 04:34 BUN 28 mg/dL (7-25) H 08/23/18 04:34 Creatinine 1.1 mg/dL (0.7-1.3) 08/23/18 04:34 Est GFR ( Amer) TNP 08/23/18 04:34 Est GFR (Non-Af Amer) TNP 08/23/18 04:34 BUN/Creatinine Ratio 25.5 08/23/18 04:34 Glucose 144 mg/dL (70-105) H 08/23/18 04:34 Calcium 8.5 mg/dL (8.6-10.3) L 08/23/18 04:34 Total Bilirubin 0.6 mg/dL (0.3-1.0) 08/23/18 04:34 AST 16 U/L (13-39) 08/23/18 04:34 ALT 10 U/L (7-52) 08/23/18 04:34 Alkaline Phosphatase 39 U/L (34-104) 08/23/18 04:34 Ammonia 42 umol/L (16-53) 08/23/18 04:34 Total Protein 6.3 gm/dL (6.0-8.3) 08/23/18 04:34 Albumin 3.1 gm/dL (4.2-5.5) L 08/23/18 04:34 Globulin 3.2 gm/dL 08/23/18 04:34 Albumin/Globulin Ratio 1.0 (1.0-1.8) 08/23/18 04:34 - Physical Exam Vitals and I&O: Vital Signs Temp 97.6 F 08/23/18 11:36 Pulse 73 08/23/18 11:54 Resp 20 08/23/18 11:54 BP 109/64 08/23/18 11:36 Pulse Ox 95 08/23/18 11:54 Intake & Output 08/22/18 08/23/18 08/23/18 18:59 06:59 18:59 Intake Total 577.595 5823 Balance 967.988 6804 Weight (lbs) 78.018 kg 78.018 kg 78.018 kg Intake: Intake, IV Amount 369.842 3193 Piperacillin Sodium/ 100 100 Tazobact 4.5 gm In Sodium Chloride 0.9% 100 ml @ 100 mls/hr IV Q8HR [facility] Rx #:[id number] Sodium Chloride 0.9% 1, 098.375 6215 000 ml @ 80 mls/hr IV . [id number] [facility] Rx#:[id number] Oral 125 Other: # Voids 3 # Bowel Movements 2 Stool Characteristics Soft Soft Brown Weight Source Bedscale Bedscale Bedscale Active Medications: Current Medications Acetaminophen (Tylenol 650mg Supp) 650 mg RC Q4H PRN PRN Reason: Fever > 101 Stop: 10/18/18 23:14 Albuterol/Ipratropium (Duoneb Neb) 3 ml HHN Q2HRT PRN PRN Reason: Shortness of Breath or Wheeze Stop: 10/18/18 23:13 Albuterol/Ipratropium (Duoneb Neb) 3 ml HHN [id number] [facility] Stop: 10/19/18 14:59 Last Admin: 08/23/18 11:54 Dose: 3 ml Budesonide (Pulmicort) 0.5 mg HHN BIDRT [facility] Stop: 10/19/18 14:59 Last Admin: 08/23/18 07:15 Dose: 0.5 mg Heparin Sodium (Porcine) (Heparin) 5,000 units SUBQ Q12H [facility] Stop: 10/19/18 20:59 Last Admin: 08/23/18 09:04 Dose: 5,000 units Sodium Chloride (Nacl 0.9%) 1,000 mls @ 80 mls/hr IV .[id number] [facility] Stop: 10/18/18 22:59 Last Admin: 08/23/18 04:25 Dose: 80 mls/hr Piperacillin Sod/Tazobactam (Sod 4.5 gm/ Sodium Chloride) 100 mls @ 100 mls/hr IV Q8HR [facility] Stop: 10/18/18 23:29 Last Admin: 08/23/18 04:21 Dose: 100 mls/hr Lactobacillus Rhamnosus (Culturelle 15b) 1 each PO DAILY [facility] Stop: 10/20/18 08:59 Last Admin: 08/23/18 09:03 Dose: 1 each Lorazepam (Ativan) 1 mg IVP Q6H PRN; Protocol PRN Reason: Agitation Stop: 10/18/18 22:36 Methylprednisolone Sodium Succinate (Solu-Medrol) 40 mg IV Q8HR [facility] Stop: 08/24/18 05:01 Last Admin: 08/23/18 04:21 Dose: 40 mg Miscellaneous (Probiotic Screen) 1 ea PRN PRN PRN Reason: PROTOCOL Stop: 10/19/18 12:29 Miscellaneous (Vte Chemical Prophylaxis Screen/ Admission) 1 [facility] PRN PRN PRN Reason: PROTOCOL Stop: 10/19/18 13:39 Nicotine (Nicotine Transdermal System) 7 mg TD DAILY [facility] Stop: 10/21/18 16:59 Last Admin: 08/23/18 09:02 Dose: 7 mg Ondansetron HCl (Zofran) 4 mg IV Q6H PRN PRN Reason: Nausea / Vomiting Stop: 10/18/18 22:57 Risperidone (Risperdal) 0.25 mg PO BID [facility]; Protocol Stop: 10/20/18 08:59 Last Admin: 08/23/18 09:03 Dose: 0.25 mg General: no acute distress, well developed, well nourished HEENT: atraumatic, normocephalic, PERRLA, EOMI Neck: supple, no thyromegaly Cardiovascular: S1S2, regular Lungs: clear to auscultation bilaterally, clear to percussion Abdomen: soft, bowel sounds, no tender, no distended, no rebound, no hepatomegaly Extremities: no cyanosis, no clubbing, no edema Neurological: awake, alert, oriented Skin: intact Infectious Disease Assmt/Plan - Assessment Assessment: 1. Leukocytosis, most likely reactive versus sepsis. improved. 2. Pneumonia, on the right lower lobe. 3. Dehydration. improved 4. Acute renal failure, improved. 5. Seizure disorder. - Plan Plan: Zosyn to continue for few days
--- NOTE | 2018-08-23 23:03 | General Progress Note ---
Subjective - Review of Systems Service Date: 08/23/18 Subjective: Patient seen and examined seems to be doing better Objective - Results Result Diagrams: 08/23/18 04:34 08/23/18 04:34 Recent Labs: Laboratory Last Values WBC 10.6 Th/cmm (4.8-10.8) 08/23/18 04:34 RBC 3.63 Mil/cmm (3.80-5.80) L 08/23/18 04:34 Hgb 10.4 gm/dL (12-16) L 08/23/18 04:34 Hct 31.2 % (41.0-60) L 08/23/18 04:34 MCV 86.0 fl (80-99) 08/23/18 04:34 MCH 28.8 pg (27.0-31.0) 08/23/18 04:34 MCHC Differential 33.5 pg (28.0-36.0) 08/23/18 04:34 RDW 14.3 % (11.5-20.0) 08/23/18 04:34 Plt Count 540 Th/cmm (150-400) H 08/23/18 04:34 MPV 7.8 fl 08/23/18 04:34 Add Manual Diff YES 08/23/18 04:34 Band Neutrophils % 0 % (0-10) 08/23/18 04:34 Neutrophils (Manual) 94 % (40-80) H 08/23/18 04:34 Lymphocytes 4 % (20-50) L 08/23/18 04:34 Monocytes 2 % (2-10) 08/23/18 04:34 Eosinophils 0 % (0-5) 08/23/18 04:34 Basophils 0 % (0-3) 08/23/18 04:34 Platelet Estimate INCREASED PLATELETS (NORMAL) 08/23/18 04:34 Specimen Source Arterial 08/21/18 08:33 Sample Site RB 08/21/18 08:33 pH 7.432 (7.35-7.45) 08/21/18 08:33 pCO2 31.2 mmHg (35.0-45.0) L 08/21/18 08:33 pO2 75.2 mmHg (80.0-100.0) L 08/21/18 08:33 HCO3 20.3 mEq/L (20.0-26.0) 08/21/18 08:33 Base Excess -2.8 mEq/L (-3.0-3.0) 08/21/18 08:33 O2 Saturation 98.0 % (92.0-100.0) 08/21/18 08:33 Sreedhar Test N/A 08/21/18 08:33 Vent Rate N/A 08/21/18 08:33 Inspired O2 40 08/21/18 08:33 Tidal Volume N/A 08/21/18 08:33 PEEP N/A 08/21/18 08:33 Pressure (ins/psv/peep) N/A 08/21/18 08:33 Critical Value DM 08/21/18 08:33 Sodium 147 mEq/L (136-145) H 08/23/18 04:34 Potassium 3.8 mEq/L (3.5-5.1) 08/23/18 04:34 Chloride 111 mEq/L (98-107) H 08/23/18 04:34 Carbon Dioxide 25.9 mEq/L (21.0-31.0) 08/23/18 04:34 Anion Gap 13.9 (7.0-16.0) 08/23/18 04:34 BUN 28 mg/dL (7-25) H 08/23/18 04:34 Creatinine 1.1 mg/dL (0.7-1.3) 08/23/18 04:34 Est GFR ( Amer) TNP 08/23/18 04:34 Est GFR (Non-Af Amer) TNP 08/23/18 04:34 BUN/Creatinine Ratio 25.5 08/23/18 04:34 Glucose 144 mg/dL (70-105) H 08/23/18 04:34 Calcium 8.5 mg/dL (8.6-10.3) L 08/23/18 04:34 Total Bilirubin 0.6 mg/dL (0.3-1.0) 08/23/18 04:34 AST 16 U/L (13-39) 08/23/18 04:34 ALT 10 U/L (7-52) 08/23/18 04:34 Alkaline Phosphatase 39 U/L (34-104) 08/23/18 04:34 Ammonia 42 umol/L (16-53) 08/23/18 04:34 Total Protein 6.3 gm/dL (6.0-8.3) 08/23/18 04:34 Albumin 3.1 gm/dL (4.2-5.5) L 08/23/18 04:34 Globulin 3.2 gm/dL 08/23/18 04:34 Albumin/Globulin Ratio 1.0 (1.0-1.8) 08/23/18 04:34 - Physical Exam Vitals and I&O: Vital Signs Temp 98.3 F 08/23/18 15:00 Pulse 79 08/23/18 19:41 Resp 18 08/23/18 19:41 BP 143/54 08/23/18 15:00 Pulse Ox 99 08/23/18 19:41 Intake & Output 08/23/18 08/23/18 08/24/18 06:59 18:59 06:59 Intake Total 1325 1100 150 Balance 1325 1100 150 Weight (lbs) 78.018 kg 78.018 kg 78.018 kg Intake: Intake, IV Amount 1200 1100 Piperacillin Sodium/ 200 100 Tazobact 4.5 gm In Sodium Chloride 0.9% 100 ml @ 100 mls/hr IV Q8HR [facility] Rx #:[id number] Sodium Chloride 0.9% 1, 1000 1000 000 ml @ 80 mls/hr IV . [id number] [facility] Rx#:[id number] Oral 125 150 Other: # Voids 3 3 # Bowel Movements 2 2 Stool Characteristics Soft Soft Brown Brown Weight Source Bedscale Bedscale Bedscale Active Medications: Current Medications Acetaminophen (Tylenol 650mg Supp) 650 mg RC Q4H PRN PRN Reason: Fever > 101 Stop: 10/18/18 23:14 Albuterol/Ipratropium (Duoneb Neb) 3 ml HHN Q2HRT PRN PRN Reason: Shortness of Breath or Wheeze Stop: 10/18/18 23:13 Albuterol/Ipratropium (Duoneb Neb) 3 ml HHN [id number] [facility] Stop: 10/19/18 14:59 Last Admin: 08/23/18 19:28 Dose: 3 ml Budesonide (Pulmicort) 0.5 mg HHN BIDRT [facility] Stop: 10/19/18 14:59 Last Admin: 08/23/18 19:28 Dose: 0.5 mg Heparin Sodium (Porcine) (Heparin) 5,000 units SUBQ Q12H [facility] Stop: 10/19/18 20:59 Last Admin: 08/23/18 21:59 Dose: 5,000 units Sodium Chloride (Nacl 0.9%) 1,000 mls @ 80 mls/hr IV .[id number] [facility] Stop: 10/18/18 22:59 Last Admin: 08/23/18 22:05 Dose: 80 mls/hr Piperacillin Sod/Tazobactam (Sod 4.5 gm/ Sodium Chloride) 100 mls @ 100 mls/hr IV Q8HR [facility] Stop: 10/18/18 23:29 Last Admin: 08/23/18 21:59 Dose: 100 mls/hr Lactobacillus Rhamnosus (Culturelle 15b) 1 each PO DAILY [facility] Stop: 10/20/18 08:59 Last Admin: 08/23/18 09:03 Dose: 1 each Lorazepam (Ativan) 1 mg IVP Q6H PRN; Protocol PRN Reason: Agitation Stop: 10/18/18 22:36 Methylprednisolone Sodium Succinate (Solu-Medrol) 40 mg IV Q8HR [facility] Stop: 08/24/18 05:01 Last Admin: 08/23/18 21:59 Dose: 40 mg Miscellaneous (Probiotic Screen) 1 ea [facility] PRN PRN PRN Reason: PROTOCOL Stop: 10/19/18 12:29 Miscellaneous (Vte Chemical Prophylaxis Screen/ Admission) 1 ea [facility] PRN PRN PRN Reason: PROTOCOL Stop: 10/19/18 13:39 Nicotine (Nicotine Transdermal System) 7 mg TD DAILY [facility] Stop: 10/21/18 16:59 Last Admin: 08/23/18 09:02 Dose: 7 mg Ondansetron HCl (Zofran) 4 mg IV Q6H PRN PRN Reason: Nausea / Vomiting Stop: 10/18/18 22:57 Risperidone (Risperdal) 0.25 mg PO BID [facility]; Protocol Stop: 10/20/18 08:59 Last Admin: 08/23/18 17:17 Dose: 0.25 mg General: Other (confused) Cardiovascular: Regular rate Lungs: Other (rales) Assessment/Plan - Assessment Assessment: Acute respiratory failure Pneumonia COPD Dysphagia Dementia with behavior disturbance - Plan Plan: Continue antibiotics Continue Bronchodilator ID and Pul psych on board Retrains
--- NOTE | 2018-08-24 03:56 | Progress Notes ---
DATE: 08/23/2018 PULMONARY PROGRESS NOTE PROBLEM LIST: 1. Acute respiratory failure. 2. Chronic obstructive pulmonary disease. 3. Questionable pneumonia. Refusing CT. SYMPTOMS: The patient has still periodic fidgety, awake, though periodically gets restless. Currently is under no respiratory distress, etc. PHYSICAL EXAMINATION: VITAL SIGNS: Temperature is 98.3, blood pressure 143/58, saturation is 98%, and respirations in 20s. NECK: Veins not visualized. CHEST: Shows diminished air entry with occasional rhonchi. HEART: Regular. ABDOMEN: Soft, nontender. LABORATORY DATA: The patient's pertinent laboratory studies, white count is 10,000 and hemoglobin 10.4. ASSESSMENT: The patient clinically appears to be little better, though poor cooperation, etc. PLANS AND SUGGESTIONS: We will repeat chest x-ray and lab test tomorrow, see how it is and go from there. JOB# [id number]
[2018-08-24] MEDS: methylPREDNISolone SS 40 mg Vial IV SCH (04:24)
[2018-08-24 06:06] LABS: BASOPHILE ABSOLUTE 0.1 Th/cumm (0-0.2); EOSINOPHILE ABSOLUTE 0.1 Th/cmm (0.1-0.4); LYMPHOCYTE ABSOLUTE 0.3 Th/cmm (1.5-3.0); MEAN CORPUSCULAR HEMOGLOBIN 28.3 pg (27.0-31.0); MONOCYTE ABSOLUTE 0.2 Th/cmm (0.3-1.0)
[2018-08-24 06:07] LABS: % BASOPHILS 1.1 % (0.0-2.0); % EOSINOPHILS 0.6 % (0.0-5.0); % LYMPHOCYTES 3.9 % (20.0-50.0); % MONOCYTES 2.9 % (2.0-10.0); % NEUTROPHILS 91.5 % (40.0-80.0); HEMATOCRIT 31.3 % (41.0-60); HEMOGLOBIN 10.4 gm/dL (12-16); MEAN CELL VOLUME 85.3 fl (80-99); MEAN CORPUSCULAR HGB CONC 33.1 pg (28.0-36.0); NEUTROPHILE ABSOLUTE 7.7 Th/cmm (1.8-8.0); PLATELET COUNT 424 Th/cmm (150-400); RED BLOOD COUNT 3.67 Mil/cmm (3.80-5.80); RED CELL DISTRIBUTION WIDTH 14.4 % (11.5-20.0); WHITE BLOOD COUNT 8.4 Th/cmm (4.8-10.8)
[2018-08-24 06:15] LABS: ALBUMIN 3.1 gm/dL (4.2-5.5); ALKALINE PHOSPHATASE 36 U/L (34-104); ANION GAP 13.6 (7.0-16.0); BILIRUBIN,TOTAL 0.6 mg/dL (0.3-1.0); BUN - UREA NITROGEN 21 mg/dL (7-25); CALCIUM SERUM 8.2 mg/dL (8.6-10.3); CHLORIDE 106 mEq/L (98-107); GLUCOSE 185 mg/dL (70-105); POTASSIUM SERUM 3.6 mEq/L (3.5-5.1); SGOT 17 U/L (13-39); SGPT/ALT 12 U/L (7-52); SODIUM SERUM 143 mEq/L (136-145); TOTAL PROTEIN,SERUM 6.3 gm/dL (6.0-8.3)
[2018-08-24] MEDS: Budesonide 0.5 Mg/2 mL Ud HHN SCH ×2 (07:38→18:53)
[2018-08-24 07:42] LABS: BAND NEUTROPHILE 0 % (0-10); BASOPHIL 0 % (0-3); EOSINOPHIL 0 % (0-5); LYMPHOCYTE 6 % (20-50); MONOCYTE 4 % (2-10); NEUTROPHILS 90 % (40-80)
[2018-08-24] MEDS: Albuterol/Ipratropium Neb 3 ML AERS HHN SCH ×4 (07:42→18:53)
--- NOTE | 2018-08-24 08:10 | Diagnostic Imaging Report ---
CHEST X-RAY: AP view INDICATION: Pneumonia COMPARISON: 08/21/2018 FINDINGS: Congestive changes are seen with small right effusion and right basal infiltrates. Borderline prominent heart is noted with atherosclerosis.. Degenerative changes of the spine are noted. IMPRESSION: Congestive changes with small right effusion right basal infiltrates.
[2018-08-24] MEDS: Lactobacillus Rhamnosus GG 15 Billion CFU CAP.SPRINK PO SCH ×2 (09:09→09:24)
[2018-08-24] MEDS: Nicotine 7 mg/24 hr Tdm TD SCH (09:11)
[2018-08-24] MEDS: Heparin Sod 5,000Units/ML 5,000 UNITS/ML VIAL SUBQ SCH ×2 (09:17→20:41)
[2018-08-24 09:30] LABS: PaCO2 36.4 mmHg (35.0-45.0); PaO2 67.1 mmHg (80.0-100.0); pH 7.466 (7.35-7.45)
--- NOTE | 2018-08-24 13:24 | Progress Notes ---
DATE: 08/24/2018 PROBLEM LIST: 1. Acute exacerbation of chronic obstructive pulmonary disease. 2. Possibly pneumonia in the right base. The patient is sleeping, arousable, appears to be in no respiratory distress, etc. OBJECTIVE: VITAL SIGNS: On exam, T-max 98.5, blood pressure is 148/57, and the patient's blood pressure 154/70, saturation 99 on 4 liters per nasal cannula. NECK: Veins not visualized. CHEST: Shows markedly diminished air entry. I do not see much of adventitious breath sounds. HEART: Regular. ABDOMEN: Soft and nontender. SKIN: Turgor is slightly poor. The patient's chest x-ray today shows slight improvement in the right base with very minimal borderline cardiomegaly. The patient's other laboratory studies white count is 8.4, hemoglobin 10.4 and pO2 is 67 and this is on 32% oxygen. 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 PLANS AND SUGGESTIONS: We will continue supportive care treatment. Disposition and go from there. JOB# [id number]
[2018-08-24] MEDS: Sodium Chloride 0.9% 1,000 ML IV SCH (17:37)
--- NOTE | 2018-08-24 19:41 | Progress Notes ---
DATE: 08/24/2018 SUBJECTIVE: I got more information from staff who notes that even in [place] he is alert and oriented, basically to name, does not know where he is or what is going on, the year, the month. Son notes a long history of dementia. He is not quite sure what medications have helped in the past. I spoke with the son today over the phone. He was okay with medication adjustments. Risperdal does not seem to be helping. No overt evidence of psychosis. I will stop the Risperdal and attempt to put him on Depakote. JOB# [id number]
--- NOTE | 2018-08-24 21:11 | General Progress Note ---
Subjective - Review of Systems Service Date: 08/24/18 Subjective: Patient seen and examined doing ok no new concern noted Objective - Results Result Diagrams: 08/24/18 05:20 08/24/18 05:20 Recent Labs: Laboratory Last Values WBC 8.4 Th/cmm (4.8-10.8) 08/24/18 05:20 RBC 3.67 Mil/cmm (3.80-5.80) L 08/24/18 05:20 Hgb 10.4 gm/dL (12-16) L 08/24/18 05:20 Hct 31.3 % (41.0-60) L 08/24/18 05:20 MCV 85.3 fl (80-99) 08/24/18 05:20 MCH 28.3 pg (27.0-31.0) 08/24/18 05:20 MCHC Differential 33.1 pg (28.0-36.0) 08/24/18 05:20 RDW 14.4 % (11.5-20.0) 08/24/18 05:20 Plt Count 424 Th/cmm (150-400) H 08/24/18 05:20 MPV 8.1 fl 08/24/18 05:20 Add Manual Diff YES 08/24/18 05:20 Neutrophils % 91.5 % (40.0-80.0) H 08/24/18 05:20 Band Neutrophils % 0 % (0-10) 08/24/18 05:20 Lymphocytes % 3.9 % (20.0-50.0) L 08/24/18 05:20 Monocytes % 2.9 % (2.0-10.0) 08/24/18 05:20 Eosinophils % 0.6 % (0.0-5.0) 08/24/18 05:20 Basophils % 1.1 % (0.0-2.0) 08/24/18 05:20 Neutrophils (Manual) 90 % (40-80) H 08/24/18 05:20 Lymphocytes 6 % (20-50) L 08/24/18 05:20 Monocytes 4 % (2-10) 08/24/18 05:20 Eosinophils 0 % (0-5) 08/24/18 05:20 Basophils 0 % (0-3) 08/24/18 05:20 Platelet Estimate INCREASED PLATELETS (NORMAL) 08/23/18 04:34 Specimen Source Arterial 08/24/18 09:12 Sample Site RB 08/24/18 09:12 pH 7.466 (7.35-7.45) H 08/24/18 09:12 pCO2 36.4 mmHg (35.0-45.0) 08/24/18 09:12 pO2 67.1 mmHg (80.0-100.0) L 08/24/18 09:12 HCO3 25.7 mEq/L (20.0-26.0) 08/24/18 09:12 Base Excess 2.2 mEq/L (-3.0-3.0) 08/24/18 09:12 O2 Saturation 98.0 % (92.0-100.0) 08/21/18 08:33 Sreedhar Test N/A 08/21/18 08:33 Vent Rate N/A 08/21/18 08:33 Inspired O2 32 08/24/18 09:12 Tidal Volume N/A 08/21/18 08:33 PEEP N/A 08/21/18 08:33 Pressure (ins/psv/peep) N/A 08/21/18 08:33 Critical Value RN 08/24/18 09:12 Sodium 143 mEq/L (136-145) 08/24/18 05:20 Potassium 3.6 mEq/L (3.5-5.1) 08/24/18 05:20 Chloride 106 mEq/L (98-107) 08/24/18 05:20 Carbon Dioxide 27.0 mEq/L (21.0-31.0) 08/24/18 05:20 Anion Gap 13.6 (7.0-16.0) 08/24/18 05:20 BUN 21 mg/dL (7-25) 08/24/18 05:20 Creatinine 1.0 mg/dL (0.7-1.3) 08/24/18 05:20 Est GFR ( Amer) TNP 08/24/18 05:20 Est GFR (Non-Af Amer) TNP 08/24/18 05:20 BUN/Creatinine Ratio 21.0 08/24/18 05:20 Glucose 185 mg/dL (70-105) H 08/24/18 05:20 Calcium 8.2 mg/dL (8.6-10.3) L 08/24/18 05:20 Total Bilirubin 0.6 mg/dL (0.3-1.0) 08/24/18 05:20 AST 17 U/L (13-39) 08/24/18 05:20 ALT 12 U/L (7-52) 08/24/18 05:20 Alkaline Phosphatase 36 U/L (34-104) 08/24/18 05:20 Ammonia 48 umol/L (16-53) 08/24/18 05:20 Total Protein 6.3 gm/dL (6.0-8.3) 08/24/18 05:20 Albumin 3.1 gm/dL (4.2-5.5) L 08/24/18 05:20 Globulin 3.2 gm/dL 08/24/18 05:20 Albumin/Globulin Ratio 1.0 (1.0-1.8) 08/24/18 05:20 - Physical Exam Vitals and I&O: Vital Signs Temp 98.6 F 08/24/18 20:00 Pulse 58 08/24/18 20:00 Resp 18 08/24/18 20:00 BP 130/59 08/24/18 20:00 Pulse Ox 92 08/24/18 20:00 Intake & Output 08/24/18 08/24/18 08/25/18 06:59 18:59 06:59 Intake Total 550 1100 50 Balance 550 1100 50 Weight (lbs) 78.018 kg 78.018 kg Intake: Intake, IV Amount 200 1100 Piperacillin Sodium/ 200 100 Tazobact 4.5 gm In Sodium Chloride 0.9% 100 ml @ 100 mls/hr IV Q8HR [facility] Rx #:[id number] Sodium Chloride 0.9% 1, 1000 000 ml @ 80 mls/hr IV . [id number] [facility] Rx#:[id number] Oral 350 50 Other: # Voids 3 3 # Bowel Movements 2 2 Stool Characteristics Soft Soft Brown Brown Weight Source Bedscale Bedscale Active Medications: Current Medications Acetaminophen (Tylenol 650mg Supp) 650 mg RC Q4H PRN PRN Reason: Fever > 101 Stop: 10/18/18 23:14 Albuterol/Ipratropium (Duoneb Neb) 3 ml HHN Q2HRT PRN PRN Reason: Shortness of Breath or Wheeze Stop: 10/18/18 23:13 Albuterol/Ipratropium (Duoneb Neb) 3 ml HHN [id number] [facility] Stop: 10/19/18 14:59 Last Admin: 08/24/18 18:53 Dose: 3 ml Budesonide (Pulmicort) 0.5 mg HHN BIDRT [facility] Stop: 10/19/18 14:59 Last Admin: 08/24/18 18:53 Dose: 0.5 mg Divalproex Sodium (Depakote Dr) 125 mg PO Q12HR [facility]; Protocol Stop: 10/23/18 20:59 Heparin Sodium (Porcine) (Heparin) 5,000 units SUBQ Q12H [facility] Stop: 10/19/18 20:59 Last Admin: 08/24/18 20:41 Dose: 5,000 units Sodium Chloride (Nacl 0.9%) 1,000 mls @ 80 mls/hr IV .[id number] [facility] Stop: 10/18/18 22:59 Last Admin: 08/24/18 17:37 Dose: 80 mls/hr Piperacillin Sod/Tazobactam (Sod 4.5 gm/ Sodium Chloride) 100 mls @ 100 mls/hr IV Q8HR [facility] Stop: 10/18/18 23:29 Last Admin: 08/24/18 20:40 Dose: 100 mls/hr Lactobacillus Rhamnosus (Culturelle 15b) 1 each PO DAILY [facility] Stop: 10/20/18 08:59 Last Admin: 08/24/18 09:24 Dose: Not Given Lorazepam (Ativan) 1 mg IVP Q6H PRN; Protocol PRN Reason: Agitation Stop: 10/18/18 22:36 Miscellaneous (Probiotic Screen) 1 ea PRN PRN PRN Reason: PROTOCOL Stop: 10/19/18 12:29 Miscellaneous (Vte Chemical Prophylaxis Screen/ Admission) 1 ea PRN PRN PRN Reason: PROTOCOL Stop: 10/19/18 13:39 Nicotine (Nicotine Transdermal System) 7 mg TD DAILY [facility] Stop: 10/21/18 16:59 Last Admin: 08/24/18 09:11 Dose: 7 mg Ondansetron HCl (Zofran) 4 mg IV Q6H PRN PRN Reason: Nausea / Vomiting Stop: 10/18/18 22:57 General: Other (confused) Cardiovascular: Regular rate Lungs: Clear to auscultation, Other (rales) Assessment/Plan - Assessment Assessment: Acute respiratory failure Pneumonia COPD Dysphagia Dementia with behavior disturbance - Plan Plan: Improving Continue antibiotics Continue Bronchodilator ID and Pul psych on board Retrains DC plan back to [facility] laz DCP
--- NOTE | 2018-08-25 02:07 | Progress Notes ---
DATE: 08/24/2018 SUBJECTIVE: The patient is currently in the hospital, 88-year-old male, not answering any questions whatsoever, in restraints. Apparently was in the Geropsych Unit, had a sudden drop in O2 saturation, now in the med-surg unit, agitated, irritable, aggressive, episodes of yelling, screaming, poor p.o. intake. Dr. Orozco noting that a few days prior he was paranoid. Currently, on dosing of Risperdal. Still in restraints. Staff is having a hard time controlling his behaviors. The patient is refusing to talk to me whatsoever. PAST PSYCHIATRIC HISTORY: Noted in Geropsych in the past. MENTAL STATUS EXAMINATION: In restraints, awake, alert, not answering any questions, appearing confused, but difficult to fully assess. PROVISIONAL DIAGNOSES: Dementia with behavioral disturbances; psychosis, unspecified. MEDICAL: Please see full H and P. RECOMMENDATIONS AND PLAN: We will continue to monitor, attempt to reach out to family. We will consider dose adjustment of medications. Vitals were noted. [facility]# [id number]
[2018-08-25] MEDS: Sodium Chloride 0.9% 1,000 ML IV SCH (06:10)
[2018-08-25] MEDS: Albuterol/Ipratropium Neb 3 ML AERS HHN SCH ×3 (07:09→14:15)
[2018-08-25] MEDS: Budesonide 0.5 Mg/2 mL Ud HHN SCH (07:09)
[2018-08-25] MEDS: Heparin Sod 5,000Units/ML 5,000 UNITS/ML VIAL SUBQ SCH (10:11)
[2018-08-25] MEDS: Nicotine 7 mg/24 hr Tdm TD SCH (10:12)
[2018-08-25] MEDS: Lactobacillus Rhamnosus GG 15 Billion CFU CAP.SPRINK PO SCH (10:19)
--- NOTE | 2018-08-25 22:48 | Progress Notes ---
DATE: 08/25/2018 SUBJECTIVE: Chart was reviewed and the patient interviewed. Also discussed the patient's condition with the staff and reviewed records and labs. The patient is still confused. The patient also is still unable to carry on coherent conversation, although I am trying to speak with him in his [place] language [place]. He is still disheveled. On the other hand, he is compliant with taking his medications and no aggressive behavior. ASSESSMENT: The patient is still psychotic, but not aggressive or agitated. TREATMENT PLAN: Continue current medications. Also, continue to work on discharge plans and placement issue. JOB# [id number]
--- NOTE | 2018-08-25 23:00 | General Progress Note ---
Subjective - Review of Systems Service Date: 08/25/18 Subjective: Patient seen and examined doing ok confused breathing seems fine Objective - Results Result Diagrams: 08/24/18 05:20 08/24/18 05:20 Recent Labs: Laboratory Last Values WBC 8.4 Th/cmm (4.8-10.8) 08/24/18 05:20 RBC 3.67 Mil/cmm (3.80-5.80) L 08/24/18 05:20 Hgb 10.4 gm/dL (12-16) L 08/24/18 05:20 Hct 31.3 % (41.0-60) L 08/24/18 05:20 MCV 85.3 fl (80-99) 08/24/18 05:20 MCH 28.3 pg (27.0-31.0) 08/24/18 05:20 MCHC Differential 33.1 pg (28.0-36.0) 08/24/18 05:20 RDW 14.4 % (11.5-20.0) 08/24/18 05:20 Plt Count 424 Th/cmm (150-400) H 08/24/18 05:20 MPV 8.1 fl 08/24/18 05:20 Add Manual Diff YES 08/24/18 05:20 Neutrophils % 91.5 % (40.0-80.0) H 08/24/18 05:20 Band Neutrophils % 0 % (0-10) 08/24/18 05:20 Lymphocytes % 3.9 % (20.0-50.0) L 08/24/18 05:20 Monocytes % 2.9 % (2.0-10.0) 08/24/18 05:20 Eosinophils % 0.6 % (0.0-5.0) 08/24/18 05:20 Basophils % 1.1 % (0.0-2.0) 08/24/18 05:20 Neutrophils (Manual) 90 % (40-80) H 08/24/18 05:20 Lymphocytes 6 % (20-50) L 08/24/18 05:20 Monocytes 4 % (2-10) 08/24/18 05:20 Eosinophils 0 % (0-5) 08/24/18 05:20 Basophils 0 % (0-3) 08/24/18 05:20 Platelet Estimate INCREASED PLATELETS (NORMAL) 08/23/18 04:34 Specimen Source Arterial 08/24/18 09:12 Sample Site RB 08/24/18 09:12 pH 7.466 (7.35-7.45) H 08/24/18 09:12 pCO2 36.4 mmHg (35.0-45.0) 08/24/18 09:12 pO2 67.1 mmHg (80.0-100.0) L 08/24/18 09:12 HCO3 25.7 mEq/L (20.0-26.0) 08/24/18 09:12 Base Excess 2.2 mEq/L (-3.0-3.0) 08/24/18 09:12 O2 Saturation 98.0 % (92.0-100.0) 08/21/18 08:33 Sreedhar Test N/A 08/21/18 08:33 Vent Rate N/A 08/21/18 08:33 Inspired O2 32 08/24/18 09:12 Tidal Volume N/A 08/21/18 08:33 PEEP N/A 08/21/18 08:33 Pressure (ins/psv/peep) N/A 08/21/18 08:33 Critical Value RN 08/24/18 09:12 Sodium 143 mEq/L (136-145) 08/24/18 05:20 Potassium 3.6 mEq/L (3.5-5.1) 08/24/18 05:20 Chloride 106 mEq/L (98-107) 08/24/18 05:20 Carbon Dioxide 27.0 mEq/L (21.0-31.0) 08/24/18 05:20 Anion Gap 13.6 (7.0-16.0) 08/24/18 05:20 BUN 21 mg/dL (7-25) 08/24/18 05:20 Creatinine 1.0 mg/dL (0.7-1.3) 08/24/18 05:20 Est GFR ( Amer) TNP 08/24/18 05:20 Est GFR (Non-Af Amer) TNP 08/24/18 05:20 BUN/Creatinine Ratio 21.0 08/24/18 05:20 Glucose 185 mg/dL (70-105) H 08/24/18 05:20 Calcium 8.2 mg/dL (8.6-10.3) L 08/24/18 05:20 Total Bilirubin 0.6 mg/dL (0.3-1.0) 08/24/18 05:20 AST 17 U/L (13-39) 08/24/18 05:20 ALT 12 U/L (7-52) 08/24/18 05:20 Alkaline Phosphatase 36 U/L (34-104) 08/24/18 05:20 Ammonia 48 umol/L (16-53) 08/24/18 05:20 Total Protein 6.3 gm/dL (6.0-8.3) 08/24/18 05:20 Albumin 3.1 gm/dL (4.2-5.5) L 08/24/18 05:20 Globulin 3.2 gm/dL 08/24/18 05:20 Albumin/Globulin Ratio 1.0 (1.0-1.8) 08/24/18 05:20 - Physical Exam Vitals and I&O: Vital Signs Temp 98.1 F 08/25/18 16:00 Pulse 74 08/25/18 16:00 Resp 18 08/25/18 16:24 BP 128/73 08/25/18 16:00 Pulse Ox 98 08/25/18 16:00 Intake & Output 08/25/18 08/25/18 08/26/18 06:59 18:59 06:59 Intake Total 1500 Balance 1500 Weight (lbs) 78.018 kg 78.018 kg Intake: Intake, IV Amount 1200 Piperacillin Sodium/ 200 Tazobact 4.5 gm In Sodium Chloride 0.9% 100 ml @ 100 mls/hr IV Q8HR [facility] Rx #:[id number] Sodium Chloride 0.9% 1, 1000 000 ml @ 80 mls/hr IV . [id number] [facility] Rx#:[id number] Oral 300 Other: # Voids 2 # Bowel Movements 1 Stool Characteristics Soft Soft Brown Brown Weight Source Bedscale Bedscale General: Other (confused) Cardiovascular: Regular rate Lungs: Clear to auscultation, Other (rales) Assessment/Plan - Assessment Assessment: Acute respiratory failure Pneumonia COPD Dysphagia Dementia with behavior disturbance - Plan Plan: Improving Continue antibiotics Continue Bronchodilator ID and Pul psych on board Retrains DC plan back to [facility] dw DCP Nutritional Asmnt/Malnutr-PDOC - Dietary Evaluation Malnutrition Findings (Please click <Entered> for more info): Nutritional Asmnt/Malnutrition Start: 08/24/18 22: 39 Text: Status: Discharge Freq: Protocol: Document 08/24/18 22:42 ALBAN (Rec: 08/24/18 22:51 ALBAN [id number]) Nutritional Asmnt/Malnutrition Patient General Information Nutritional Screening High Risk Diagnosis PNA Pertinent Medical Hx/Surgical Hx RECENT PNEUMONIA, RESPIRATORY FAILURE, DYSPHAGIA, MENTAL HEALTH DISORDER, DEMENTIA Subjective Information NURSING NOTED INTAKE 0-0-25% PT REQUIRES TOTAL ASSIST WITH FEEDS, PT OFTEN SPITS OR WON'T OPEN MOUTH WHEN FED 4L NASAL CANNULA BUE SOFT RESTRAINTS IN PLACE Current Diet Order/ Nutrition Support PUREED, NECTAR THICK LIQUIDS Pertinent Medications ALBUTEROL, DEPAKOTE, CULTURELLE, ZOFRAN Pertinent Labs HGB/HCT 10.9/31.1, GLUC 185, CA 8.2, ALB 3.1 Nutritional Hx/Data Height 1.83 m Height (Calculated Centimeters) 182.9 Current Weight (lbs) 78.018 kg Weight (Calculated Kilograms) 78.0 Weight (Calculated Grams) 48874.9 [place] Body Weight 178 % [place] Body Weight 97 Body Mass Index (BMI) 23.3 Weight Status Approriate GI Symptoms Last BM TODAY X1 Skin Integrity/Comment: VICKY 13 Estimated Nutritional Goals Calories/Kcals/Kg 25-30 Kcals Calculated 6830-9507 Protein: Using Current wt Protein g/k-1.2 Protein Calculated 78-94 Fluid: ml PER MD Nutritional Problem 1. Problem Problem INADEQUATE ENERGY INTAKE R/T Etiology AGITATION/CONFUSION Signs/Symptoms: AEB NURSING NOTED INTAKE 0-0- 25% Intervention/Recommendation Comments CURRENT WEIGHT 172 LBS, ADMIT WT 168 CURRENT INTAKE INADEQUATE, ADDITION OF NUTRITION SUPPLEMENT NOT APPROPRIATE AT THIS TIME RD TO FOLLOW UP ON WEIGHT, INTAKE IN 2-3 DAYS, REASSESS APPROPRIATENESS OF NUTRITION SUPPLEMENTATION PT'S MENTAL STATUS IMPROVED AND HE IS ABLE TO ACCEPT MORE FOODS Expected Outcomes/Goals Expected Outcomes/Goals PT TO CONSUME >75% ESTIMATED ENERGY/PROTEIN NEEDS WITHIN 2- 3 DAYS
== END 2018-08-25 16:56 | DRG 193 ==
LOC: TELE 22:24
PROVIDERS: ADMIT Family Medicine; ATTEND Family Medicine
DX: J18.1 Lobar pneumonia, unspecified organism (principal); J96.21 Acute and chronic respiratory failure with hypoxia; N17.9 Acute kidney failure, unspecified; J44.0 Chronic obstructive pulmonary disease with (acute) lower respiratory infection; F03.91 Unspecified dementia, unspecified severity, with behavioral disturbance; R13.10 Dysphagia, unspecified; G40.909 Epilepsy, unspecified, not intractable, without status epilepticus; E86.0 Dehydration; F29 Unspecified psychosis not due to a substance or known physiological condition
CPT/HCPCS: 36415-UA; 36600-90; 71045-TC; 71250-TC; 80048-TC; 80053-TC; 82140-TC; 82803-TC; 85007-TC; 85025-TC; 94760; J1644; J2543; J2920; J3480; J7030; Z7610